=== PATIENT | male | born 1940 | race Caucasian/White ===

== ENCOUNTER 2016-12-02 12:51 | Day surgery (SDC) | payer MEDICARE, BC ==
[~2016-12-02] VITALS: Ht 177.8 cm; Wt 100.0 kg
[~2016-12-02 12:51] MED LIST: AGGR20025 PO; BACI500O2 TOP; CARV3.125 PO; ESCI10TA PO; GABA100C4 PO; IPRASOL NEB; LEVEMIR SQ; LIPI80TA PO; MAXI5O LEFT EYE; MUCI600T PO; NITR0.4S SL; PANT40TA3 PO; PRED10 PO; SPIRCAP INH; THERTAB15 PO
[2016-12-02 13:05] VITALS: BP 149/75; PULSE 92; RESP 20; TEMP 97.7; O2SAT 90
[2016-12-03] MEDS ORDERED: CALC600T13 PO (16:47)
[2016-12-03] MEDS ORDERED: LANTUS2P SQ (16:47)
[2016-12-03] MEDS ORDERED: HUMALOG SQ ×2 (16:47)
[2016-12-03] MEDS ORDERED: VANC250C2 PO (16:47)
== END 2016-12-02 13:40 | disposition home or self-care (01) ==
LOC: HRIP 12:51 → HROP 12:51
PROVIDERS: ATTEND Internal Medicine Nephrology
DX: N18.6 End stage renal disease (principal); Z53.9 Procedure and treatment not carried out, unspecified reason

== ENCOUNTER 2016-12-03 16:04 | Inpatient (IN) | payer MEDICARE, BC ==
[~2016-12-03] VITALS: Ht 177.8 cm; Wt 98.5 kg
[2016-12-03] VITALS (8 sets, daily range): BP systolic 163–179; BP diastolic 70–76; PULSE 84–93; RESP 18–20; TEMP 97.8; O2SAT 81–95
[~2016-12-03 16:04] MED LIST changes: -BACI500O2 TOP; -ESCI10TA PO; -LEVEMIR SQ; -MAXI5O LEFT EYE; -MUCI600T PO; -NITR0.4S SL; -PRED10 PO
--- NOTE | 2016-12-03 16:39 | PD ---
HPI Chief Complaint: Respiratory Symptoms Time Seen by Provider: 16:19 Travel History International Travel<30 days: No Contact w/Intl Traveler<30days: No Traveled to known affect area: No History of Present Illness HPI Patient is a 76-year-old male with hx of DM, HTN, hyperlipidemia, obesity, cataracts, arthritis, peripheral arterial disease, neurogenic bladder, s/p transurethral prostatectomy, COPD, obstructive sleep apnea, and osteoporosis; who presents to emergency room for evaluation of hypoxia. Patient reports that he was discharged on October 28, 2016 after a prolonged admission to the hospital after he was diagnosed on 07/25/16 with sepsis, perforated duodenal ulcer with percutaneous drain, and cellulitis. Patient reports that he return today to the vascular lab to have a follow-up with Dr. Gardner as he had a aortic bifemoral bypass performed by Dr. Gardner at [facility] in July 2015. Patient reports that when his vital signs were taken, he was 81% on room air. Patient reports that he does not wear oxygen at baseline. Patient reports that he does have a history of COPD and sleep apnea, reports that he does wear a CPAP machine at nighttime, he has not used the CPAP and a week and a half as he needed to order a new facemask as the old one was too big for him. Patient reports that for the past 2 days, his had increased shortness of breath. Patient reports that he is increasingly short of breath at nighttime, reports that he brought pulse oximetry at home and has been averaging 73-83% pulse ox on average. Patient with no chest pain at this time, reports shortness of breath at rest as well as on exertion. Patient with no fevers or chills or any other complaints. Patient with no history of PE or DVT in the past. PFSH Past Medical History Arthritis: No Asthma: No Autoimmune Disease: No Anxiety: Yes Depression: Yes Heart Rhythm Problems: No Cancer: No Cardiovascular Problems: No High Cholesterol: No Chemotherapy: No Chest Pain: No Congestive Heart Failure: No COPD: Yes Cerebrovascular Accident: No Diabetes: Yes Patient Takes Glucophage: No Diminished Hearing: No Endocrine: Yes Gastrointestinal Disorders: Yes (duodenal ulcer) GERD: Yes Glaucoma: No Genitourinary: No Hepatitis: No Hiatal Hernia: No Hypertension: Yes Immune Disorder: No Implanted Vascular Access Dvce: Yes Kidney Stones: No Musculoskeletal: No Neurologic: Yes (numbness in fingers) Psychiatric: No Reproductive: No Respiratory: Yes (COPD) Integumentary: No Migraines: No Radiation Therapy: No Renal Failure: Yes Seizures: No Sickle Cell Disease: No Sleep Apnea: Yes Thyroid Disease: No Ulcer: Yes Influenza Vaccination: Yes Past Surgical History Abdominal Surgery: Yes (appendix) AICD: No Appendectomy: Yes Arteriovenous Shunt: No Cardiac Surgery: No Ear Surgery: No Endocrine Surgery: No Eye Surgery: Yes (bilateral cataract, macular pucker) Genitourinary Surgery: No Gynecologic Surgery: No Insulin Pump: No Joint Replacement: No Oral Surgery: No Pacemaker: No Thoracic Surgery: Yes (chest tubes) Other Surgery: Yes (FEMPOP 01, ENDARTERECTOMY BILATERAL FEMORAL ARTERIES) Social History Alcohol Use: No Tobacco Use: No Substance Use: No Allergies-Medications (Allergen,Severity, Reaction): Coded Allergies: Betadine (Verified Allergy, Severe, Rash, 12/03/16) *MDRO Multi-Drug Resistant Organism (Verified Adverse Reaction, Unknown, ) ESBL+K. pneumoniae (urine-08/06/16) Reported Meds & Prescriptions Reported Meds & Active Scripts Active Gabapentin 100 Mg Cap 100 Mg PO BID Coreg (Carvedilol) 3.125 Mg Tab 3.125 Mg PO Q12HR Pantoprazole (Pantoprazole Sodium) 40 Mg Tab 40 Mg PO DAILY 30 Days Lipitor (Atorvastatin Calcium) 80 Mg Tab 80 Mg PO HS Aggrenox (Dipyridamole/Aspirin) 200-25 Mg Cap 1 Cap PO DAILY Thera/Beta-Carotene (Multiple Vitamin) 1 Tab Tab 1 Tab PO DAILY 30 Days Reported Vancomycin (Vancomycin HCl) 250 Mg Cap 500 Mg PO Q6HR Lantus Inj (Insulin Glargine) 100 Unit/Ml Inj 35 Units SQ HS Humalog Inj (Insulin Human Lispro) 1,000 Unit/10 Ml Vial 20 Units SQ DAILY With dinner Humalog Inj (Insulin Human Lispro) 1,000 Unit/10 Ml Vial 8 Units SQ BID With breakfast and lunch Calcium 600 Mg Tab 600 Mg PO DAILY Review of Systems Except as stated in HPI: all other systems reviewed are Neg Respiratory: Positive: Shortness of Breath Physical Exam Narrative GENERAL: hypoxic but conversive SKIN: Warm and dry. HEAD: Atraumatic. Normocephalic. EYES: Pupils equal and round. No scleral icterus. No injection or drainage. ENT: No nasal bleeding or discharge. Mucous membranes pink and moist. NECK: Trachea midline. No JVD. CARDIOVASCULAR: Regular rate and rhythm. No murmur appreciated. RESPIRATORY: No accessory muscle use. Clear to auscultation. Breath sounds equal bilaterally. GASTROINTESTINAL: Abdomen soft, non-tender, nondistended. Hepatic and splenic margins not palpable. MUSCULOSKELETAL: No obvious deformities. No clubbing. No cyanosis. +2 edema to LE b/l NEUROLOGICAL: Awake and alert. No obvious cranial nerve deficits. Motor grossly within normal limits. Normal speech. PSYCHIATRIC: Appropriate mood and affect; insight and judgment normal. Data Data Last Documented VS Vital Signs Date Time Temp Pulse Resp B/P Pulse Ox O2 Delivery O2 Flow Rate FiO2 12/03/16 16:26 95 Nasal Cannula 4 12/03/16 16:23 85 20 12/03/16 16:08 97.8 166/76 Orders Complete Blood Count With Diff (12/03/16 16:28) Comprehensive Metabolic Panel (12/03/16 16:28) B-Type Natriuretic Peptide (12/03/16 16:28) Act Partial Throm Time (Ptt) (12/03/16 16:28) Prothrombin Time / Inr (Pt) (12/03/16 16:28) Magnesium (Mg) (12/03/16 16:28) Ckmb (Isoenzyme) Profile (12/03/16 16:28) Troponin I (12/03/16 16:28) Arterial Blood Gas (Abg) (12/03/16 16:28) Urinalysis - C+S If Indicated (12/03/16 16:28) Iv Access Insert/Monitor (12/03/16 16:28) Electrocardiogram (12/03/16 16:28) Ecg Monitoring (12/03/16 16:28) Oximetry (12/03/16 16:28) Oxygen Administration (12/03/16 16:28) Chest, Single Ap (12/03/16 16:28) Sodium Chloride 0.9% Flush (Ns Flush) (12/03/16 16:30) Us Leg Venous Doppler Bilat (12/03/16 ) Ventilation & Perfusion Scan (12/03/16 ) MDM Medical Decision Making Medical Screen Exam Complete: Yes Emergency Medical Condition: Yes Interpretation(s) Vital Signs Date Time Temp Pulse Resp B/P Pulse Ox O2 Delivery O2 Flow Rate FiO2 12/03/16 16:26 95 Nasal Cannula 4 12/03/16 16:23 85 20 81 12/03/16 16:08 97.8 88 18 166/76 81 Differential Diagnosis PE, DVT, pneumothorax, COPD exacerbation, pneumonia, ACS Narrative Course Patient is a 76-year-old male who presents to emergency room for evaluation of hypoxia. Patient went to Dr. Waldrop's office today for check up as he performed an aortic bifemoral bypass in July 2015. Patient was noted to have a pulse ox of 81% on room air. Patient is complaining of shortness of breath at this time. Patient was placed on a arch support technician, EKG as well as x-ray chest ordered. ABG, labs ordered. Ultrasound of legs as well as VQ scan ordered for evaluation of possible PE/DVT Mary Ellen Black DO Dec 03, 2016 16:39
[2016-12-03] MEDS ORDERED: CALC600T13 PO (16:47)
[2016-12-03] MEDS ORDERED: HUMALOG SQ ×2 (16:47)
[2016-12-03] MEDS ORDERED: VANC250C2 PO (16:47)
[2016-12-03] MEDS ORDERED: LANTUS2P SQ (16:47)
--- NOTE | 2016-12-03 16:58 | RADRPT ---
EXAM DATE/TIME: 12/03/2016 16:53 [facility] COMPARISON: CHEST SINGLE AP, October 11, 2016, 17:05. INDICATIONS : Shortness of breath starting today MEDICAL HISTORY : None. SURGICAL HISTORY : Central line placement ENCOUNTER: Initial ACUITY: 1 day PAIN SCORE: 0/10 LOCATION: Bilateral chest FINDINGS: A single AP erect portable view of the chest was obtained and demonstrates new patchy infiltrate in t he right lung base with mild blunting of the right costophrenic angle. There is stable mild apparent scarring at the left lung base. Atherosclerotic calcifications are present in the aorta. Heart size a t the upper limits of normal. The right-sided double-lumen central venous line remains in place. CONCLUSION: 1. New right lower lobe infiltrate and blunting of the right costophrenic angle consistent with a sma ll effusion. The findings could indicate pneumonia. 2. Mild scarring at the left lung base. Cristian Farnsworth MD on December 03, 2016 at 16:56 Board Certified Radiologist. This report was verified electronically.
--- NOTE | 2016-12-03 17:39 | PD ---
Physical Exam Date Seen by Provider: Dec 03, 2016 Time Seen by Provider: 17:37 Narrative The patient is a 76-year-old male was initially evaluated by the previous physician, Dr. Black. Please refer to the initial history, physical, diagnostic evaluation, and treatment modality plan. The patient was signed out of 5 PM with VQ scan, ABG, and laboratory evaluation pending. The patient was noted to be hypoxic upon arrival with an O2 sat on room air of 81%, is not on home oxygen. Data Data Last Documented VS Vital Signs Date Time Temp Pulse Resp B/P Pulse Ox O2 Delivery O2 Flow Rate FiO2 12/03/16 19:43 84 20 169/74 95 Nasal Cannula 3 12/03/16 16:08 97.8 Orders Complete Blood Count With Diff (12/03/16 16:28) Comprehensive Metabolic Panel (12/03/16 16:28) B-Type Natriuretic Peptide (12/03/16 16:28) Act Partial Throm Time (Ptt) (12/03/16 16:28) Prothrombin Time / Inr (Pt) (12/03/16 16:28) Magnesium (Mg) (12/03/16 16:28) Ckmb (Isoenzyme) Profile (12/03/16 16:28) Troponin I (12/03/16 16:28) Arterial Blood Gas (Abg) (12/03/16 16:28) Urinalysis - C+S If Indicated (12/03/16 16:28) Iv Access Insert/Monitor (12/03/16 16:28) Electrocardiogram (12/03/16 16:28) Ecg Monitoring (12/03/16 16:28) Oximetry (12/03/16 16:28) Oxygen Administration (12/03/16 16:28) Chest, Single Ap (12/03/16 16:28) Sodium Chloride 0.9% Flush (Ns Flush) (12/03/16 16:30) Us Leg Venous Doppler Bilat (12/03/16 ) Ventilation & Perfusion Scan (12/03/16 ) Lactic Acid (12/03/16 17:40) Blood Culture (12/03/16 17:40) Cefepime Inj (Maxipime Inj) (12/03/16 17:45) Azithromycin Inj (Zithromax Inj) (12/03/16 17:45) Enoxaparin Inj (Lovenox Inj) (12/03/16 18:30) Consult Vascular Access Team (12/03/16 ) Vascular Poc Ultrasound (12/03/16 ) Furosemide Inj (Lasix Inj) (12/03/16 22:00) Aspirin Chew (Aspirin Chew) (12/03/16 22:15) Admit Order (Ed Use Only) (12/03/16 22:17) Labs Laboratory Tests Test 12/03/16 20:20 White Blood Count 11.3 TH/MM3 Red Blood Count 3.16 MIL/MM3 Hemoglobin 9.4 GM/DL Hematocrit 29.8 % Mean Corpuscular Volume 94.2 FL Mean Corpuscular Hemoglobin 29.8 PG Mean Corpuscular Hemoglobin 31.7 % Concent Red Cell Distribution Width 19.0 % Platelet Count 378 TH/MM3 Mean Platelet Volume 8.0 FL Neutrophils (%) (Auto) 72.3 % Lymphocytes (%) (Auto) 13.8 % Monocytes (%) (Auto) 11.1 % Eosinophils (%) (Auto) 1.9 % Basophils (%) (Auto) 0.9 % Neutrophils # (Auto) 8.2 TH/MM3 Lymphocytes # (Auto) 1.6 TH/MM3 Monocytes # (Auto) 1.3 TH/MM3 Eosinophils # (Auto) 0.2 TH/MM3 Basophils # (Auto) 0.1 TH/MM3 CBC Comment DIFF FINAL Differential Comment Prothrombin Time 12.1 SEC Prothromb Time International 1.1 RATIO Ratio Activated Partial 32.9 SEC Thromboplast Time Sodium Level 142 MEQ/L Potassium Level 4.5 MEQ/L Chloride Level 107 MEQ/L Carbon Dioxide Level 27.7 MEQ/L Anion Gap 7 MEQ/L Blood Urea Nitrogen 30 MG/DL Creatinine 2.14 MG/DL Estimat Glomerular Filtration 30 ML/MIN Rate Random Glucose 89 MG/DL Lactic Acid Level 1.2 mmol/L Calcium Level 8.8 MG/DL Magnesium Level 1.8 MG/DL Total Bilirubin 0.5 MG/DL Aspartate Amino Transf 19 U/L (AST/SGOT) Alanine Aminotransferase 12 U/L (ALT/SGPT) Alkaline Phosphatase 100 U/L Total Creatine Kinase 71 U/L Troponin I 0.12 NG/ML B-Type Natriuretic Peptide 1354 PG/ML Total Protein 7.5 GM/DL Albumin 2.7 GM/DL [facility] Medical Record Reviewed: Yes Supervised Visit with MILLA: No Interpretation(s) EKG reveals sinus rhythm with a rate 89. Q waves noted in lead V1 and V2. Inverted T waves noted in V3, V4, V5. Laboratory Tests Test 12/03/16 20:20 Prothrombin Time 12.1 SEC Prothromb Time International 1.1 RATIO Ratio Activated Partial 32.9 SEC Thromboplast Time Sodium Level 142 MEQ/L Potassium Level 4.5 MEQ/L Chloride Level 107 MEQ/L Carbon Dioxide Level 27.7 MEQ/L Anion Gap 7 MEQ/L Blood Urea Nitrogen 30 MG/DL Creatinine 2.14 MG/DL Estimat Glomerular Filtration 30 ML/MIN Rate Random Glucose 89 MG/DL Lactic Acid Level 1.2 mmol/L Calcium Level 8.8 MG/DL Magnesium Level 1.8 MG/DL Total Bilirubin 0.5 MG/DL Aspartate Amino Transf 19 U/L (AST/SGOT) Alanine Aminotransferase 12 U/L (ALT/SGPT) Alkaline Phosphatase 100 U/L Total Creatine Kinase 71 U/L Troponin I 0.12 NG/ML B-Type Natriuretic Peptide 1354 PG/ML Total Protein 7.5 GM/DL Albumin 2.7 GM/DL Last Impressions Chest X-Ray 12/03/16 1628 Signed Impressions: Service Date/Time: Saturday, December 03, 2016 16:53 - CONCLUSION: 1. New right lower lobe infiltrate and blunting of the right costophrenic angle consistent with a small effusion. The findings could indicate pneumonia. 2. Mild scarring at the left lung base. Cristian Farnsworth MD Lower Extremity Ultrasound 12/03/16 0000 Signed Impressions: Service Date/Time: Saturday, December 03, 2016 17:01 - CONCLUSION: No evidence of deep venous thrombosis. Cristian Farnsworth MD Differential Diagnosis Differential diagnoses includes pneumonia, pleural effusion, congestive heart failure, pulmonary embolism, sepsis, lactic acidosis, hypoxia. Narrative Course Patient was initially evaluated by the previous physician, Dr. Black. Please refer to the initial history, physical, diagnostic evaluation, treatment modality plan. The patient was signed out at 5 PM with laboratory evaluation, chest x-ray, and VQ scan pending. Chest x-ray indicates a right lower lobe infiltrate and pleural effusion. The patient was recently hospitalized, therefore, was administered cefepime and Zithromax to cover for hospital- acquired pneumonia. Blood cultures and lactic acid were sent to lab prior to cefepime administration. The patient refused his VQ scan, therefore, was covered with Lovenox 100 mg subcutaneously based on weight for acute 24-hour dosing with his creatinine, until further evaluation can be obtained. Ultrasound lower extremities was negative. The patient's creatinine was elevated 2.14, BNP is greater than 1300, troponin was elevated 0.12. Therefore , patient was administered aspirin. However, Lasix was initially held as patient does have a history of previous dialysis with permacath in place. Patient will be admitted as she will need oxygen therapy and consultation with cardiology and possible pulmonology. The patient is advised he may need a workup for possible pulmonary embolism. The patient is agreeable to staying in the hospital overnight. Physician Communication Physician Communication The patient's primary physician is Dr. Cheng, therefore, [facility] were paged for admission. I discussed the patient Dr. Meneses who agrees with admission to Dr. Wyatt. Diagnosis Primary Impression: Congestive heart failure Qualified Code: I50.9 - Congestive heart failure, unspecified congestive heart failure chronicity, unspecified congestive heart failure type Additional Impressions: Dyspnea Qualified Code: R06.00 - Dyspnea, unspecified type Elevated troponin Pneumonia Qualified Code: J18.1 - Pneumonia of right lower lobe due to infectious organism Admitting Information Admitting Physician Requests: Admit Condition: Stable Todd Sampson MD Dec 03, 2016 17:39
[2016-12-03] MEDS ORDERED: AZITHROMYCIN INJ 500 MG in SODIUM CHLOR 0.9% 250 ML INJ 250 ML IV ONE (17:45)
[2016-12-03] MEDS ORDERED: CEFEPIME INJ 2,000 MG in SODIUM CHLORIDE 0.9% INJ 100 ML IV ONE (17:45)
--- NOTE | 2016-12-03 17:49 | RADRPT ---
EXAM DATE/TIME: 12/03/2016 17:01 [facility] COMPARISON: US LEG BILATERAL VENOUS DOPPLER, July 27, 2016, 9:23. INDICATIONS : Bilateral leg swelling. MEDICAL HISTORY : Chronic obstructive pulmonary disease. Gastroesophageal reflux disease. Hypertension. Sleep apnea. Du odenal ulcer. Renal failure. Diabetes. Depression. Anxiety. Measles. Blood transfusion. C.diff. MDRO. SURGICAL HISTORY : Appendectomy. Bilateral femoral endarterectomy. Femoropopliteal bypass. Bilateral cataract removal. M acular surgery. Chest tube placement. ENCOUNTER: Subsequent ACUITY: 4 - 6 months PAIN SCORE: 0/10 LOCATION: Bilateral legs. TECHNIQUE: Venous ultrasound of the left and right leg was performed from the inguinal ligament to the proximal calf. Real-time, color Doppler and spectral tracing, compression and augmentation techniques were us ed. FINDINGS: RIGHT LEG: There is normal compressibility of the deep venous system from the inguinal region to the proximal ca lf. No echogenic clot is seen in the lumen of the common femoral, femoral, popliteal, and posterior tibial veins. There is a normal response of the venous system to proximal and distal augmentation an d respiration. LEFT LEG: There is normal compressibility of the deep venous system from the inguinal region to the proximal ca lf. No echogenic clot is seen in the lumen of the common femoral, femoral, popliteal, and posterior tibial veins. There is a normal response of the venous system to proximal and distal augmentation an d respiration. CONCLUSION: No evidence of deep venous thrombosis. Cristian Farnsworth MD on December 03, 2016 at 17:47 Board Certified Radiologist. This report was verified electronically.
[2016-12-03] MEDS ORDERED: ENOXAPARIN SODIUM 100 MG/ML SYRINGE SQ ONE (18:30)
[2016-12-03 21:13] LABS: AUTOMATED NEUTROPHIL # 8.2 TH/MM3 (1.8-7.7); BASOPHIL # 0.1 TH/MM3 (0-0.2); BASOPHIL % 0.9 % (0.0-2.0); EOSINOPHIL # 0.2 TH/MM3 (0-0.4); EOSINOPHIL % 1.9 % (0.0-4.0); HEMATOCRIT 29.8 % (39.0-51.0); HEMO FLAGS DIFF FINAL; LYMPH % 13.8 % (9.0-44.0); LYMPHOCYTE # 1.6 TH/MM3 (1.0-4.8); MEAN CELL VOLUME 94.2 FL (80.0-100.0); MEAN CORPUSCULAR HEMOGLOBIN 29.8 PG (27.0-34.0); MEAN CORPUSCULAR HGB CONC 31.7 % (32.0-36.0); MONO % 11.1 % (0.0-8.0); NEUT % 72.3 % (16.0-70.0); PLATELET COUNT 378 TH/MM3 (150-450); RED BLOOD COUNT 3.16 MIL/MM3 (4.50-5.90); WHITE BLOOD COUNT 11.3 TH/MM3 (4.0-11.0)
[2016-12-03 21:16] LABS: APTT (PATIENT) 32.9 SEC (24.3-30.1); INTERNATIONAL NORMALIZED RATIO 1.1 RATIO; PROTHROMBIN TIME - PATIENT 12.1 SEC (9.8-11.6)
[2016-12-03 21:20] LABS: ANION GAP 7 MEQ/L (5-15); AST (GOT) 19 U/L (15-37); BICARBONATE 27.7 MEQ/L (21.0-32.0); BLOOD UREA NITROGEN 30 MG/DL (7-18); CHLORIDE 107 MEQ/L (98-107); GLOMERULAR FILTRATION RATE 30 ML/MIN (>89); MAGNESIUM 1.8 MG/DL (1.5-2.5); POTASSIUM 4.5 MEQ/L (3.5-5.1); SODIUM (NA) 142 MEQ/L (136-145)
[2016-12-03 21:25] LABS: ALKALINE PHOSPHATASE 100 U/L (45-117); ALT (GPT) 12 U/L (12-78); TOTAL BILIRUBIN ADULT 0.5 MG/DL (0.2-1.0)
[2016-12-03 21:27] LABS: CREATINE KINASE 71 U/L (39-308)
[2016-12-03] MEDS ORDERED: FUROSEMIDE 40 MG/4 ML VIAL IV PUSH ONE (22:00)
[2016-12-03] MEDS ORDERED: ASPIRIN 81 MG CHEW TAB CHEW ONE (22:15)
[2016-12-03 23:02] LABS: BLOOD, URINE NEG (NEG); COMMENT (UR) CULT NOT INDICATED; CULTURE IF INDICATED CULT NOT INDICATED; GLUCOSE,URINE NEG (NEG); HYALINE CAST, URINE 2 /lpf (RARE); KETONE, URINE NEG (NEG); MUCUS URINE FEW /lpf (OCC); NITRITE,URINE NEG (NEG); SQUAMOUS EPITHELIAL CELL URINE 1 /hpf (0-5); URIC ACID CRYSTALS, URINE RARE /hpf; URINE COLOR YELLOW (YELLW/STRAW)
[2016-12-03] MEDS ORDERED: GLUCAGON 1 MG/ML VIAL OTHER PRN (23:30)
[2016-12-03] MEDS ORDERED: DOXYCYCLINE INJ 100 MG in SODIUM CHLORIDE 0.9% INJ 100 ML IV SCH (23:30)
[2016-12-03] MEDS ORDERED: DEXTROSE 50% IN WATER 50 ML VIAL(D50) IV PUSH PRN (23:30)
[2016-12-04] VITALS (9 sets, daily range): BP systolic 111–151; BP diastolic 54–77; PULSE 74–84; RESP 16–27; TEMP 97.8–98.8; O2SAT 97–100
[2016-12-04] MEDS: PIPERACIL-TAZO 2.25 GM PREMIX 50 ML IV SCH ×3 (02:58→16:40)
[2016-12-04 06:38] LABS: BICARBONATE 22.9 MEQ/L (21.0-32.0)
[2016-12-04] MEDS: INSULIN ASPART SUPPLEMENTAL SCALE SQ SCH ×4 (07:00→21:00)
--- NOTE | 2016-12-04 07:43 | HHI.HP ---
HPI Service [facility] Primary Care Physician Reinier Cheng MD Admission Diagnosis congestive heart failure, hypoxia, dyspnea, elevated troponin Diagnoses: Chief Complaint: Shortness of breath (Stephy Barajas) Travel History International Travel<30 Days: No Contact w/Intl Traveler <30 Da: No Traveled to Known Affected Are: No (Stephy Barajas) History of Present Illness This is a is a 76 year old male, PMH of DM, HTN, hyperlipidemia, obesity, cataracts, arthritis, peripheral arterial disease, neurogenic bladder, s/p transurethral prostatectomy, COPD, obstructive sleep apnea, and osteoporosis. Patient with recent extensive hospitalization on 07/25/16 for management of sepsis, perforated duodenal ulcer with percutaneous drain, and cellulitis. Was diagnosed with an intra-abdominal abscess formation which was drained in radiology. The patient subsequently had a G-tube inserted and a J-tube inserted. He also had a tracheostomy done. He was eventually decannulated and extubated and started eating. Developed ESRD was on hemodialysis. Went to [facility]. Patient readmitted to the hospital on 09/24 from [facility] with clonus, brain MRI showed left-sided 1 cm acute thalamic stroke. Also during this admission, he had upper endoscopy with findings of gastritis and distal esophagus dilatation was performed. He had some hypoxia and required evaluation by pulmonology who recommended to continue oxygen to keep sats greater than 92% and continue CPAP nightly. He went back to [facility] then develop respiratory failure And was transferred back to acute care on 10/10 for acute respiratory failure due to aspiration and mucous plug. He has had G tube and J tube removed. He did return back to [facility] for continue rehabilitation. Patient was discharge from [facility] on 10/28/2016. He is no longer having dialysis, he's not sure when his last treatment was. According to the patient, he was doing fairly well. At this time he is having some difficulty relating information, he is on 100% nonrebreather. Information is obtained from the emergency room record. Patient had been in to see Dr. Waldrop for a vascular follow-up appointment. Patient had history of aortic bifemoral bypass performed at [facility] July 2015. Patient was noted with sats of 81% on room air. Patient was not wearing any oxygen at home. He uses CPAP at night, however he had not used it for almost a week as the face mask did not fit him very well and he had order a new one. Patient endorses that he's noted increased shortness of breath for the last 2 days, denies any cough, no sputum. No fever no chills. He reported to emergency room physician that pulse ox at home have been averaging 73-83%. In the emergency room, patient was evaluated and was noted with sats of 81%. Chest x-ray was completed showing new right lower lobe infiltrate and blunting of the right costophrenic angle consistent with small effusion, findings could indicate pneumonia. Also mild scarring at the left lung base. Lower extremity ultrasound was negative for DVT. Because of concern with possible PE he was given Lovenox 100 mg subcutaneous. Empiric antibiotics were given and cultures were obtained. Troponin was elevated, 0.12. Creatinine was 2.14. Lasix 40 mg IV 1 was given. Patient was fluid in the observation unit while waiting for eye inpatient bed. I was called to the bedside by the nurse caring for the patient. ABGs were completed and patient was noted with respiratory acidosis. PH 7.19, PCO2 67.6, PO2 42.1, bicarbonate 25.1. Respiratory therapist has been call in a BiPAP is being set up in the ICU. I have called the nursing hotel or motel cleaning supervisor stat and requested that the patient be moved immediately to an ICU bed. Patient is admitted for further evaluation and treatment. (Stephy Barajas) Review of Systems ROS Limitations: Clinical Condition Respiratory: COMPLAINS OF: Shortness of breath (Stephy Barajas) Past Family Social History Past Medical History Recent protracted admission for perforated peptic ulcer Recent septic shock Recent abdominal abscess status post catheter drainage Diabetes Cataract COPD Sleep apnea Renal failure recently stopped having dialysis Anxiety Depression Past Surgical History Tracheostomy, later closed Catheter drainage of abdominal abscess, catheter removed Gastrostomy Jejunostomy Cataract surgery Appendectomy Circumcision TURP Reported Medications Reported Meds & Active Scripts Active Gabapentin 100 Mg Cap 100 Mg PO BID Coreg (Carvedilol) 3.125 Mg Tab 3.125 Mg PO Q12HR Pantoprazole (Pantoprazole Sodium) 40 Mg Tab 40 Mg PO DAILY 30 Days Lipitor (Atorvastatin Calcium) 80 Mg Tab 80 Mg PO HS Aggrenox (Dipyridamole/Aspirin) 200-25 Mg Cap 1 Cap PO DAILY Thera/Beta-Carotene (Multiple Vitamin) 1 Tab Tab 1 Tab PO DAILY 30 Days Reported Vancomycin (Vancomycin HCl) 250 Mg Cap 500 Mg PO Q6HR Lantus Inj (Insulin Glargine) 100 Unit/Ml Inj 35 Units SQ HS Humalog Inj (Insulin Human Lispro) 1,000 Unit/10 Ml Vial 20 Units SQ DAILY With dinner Humalog Inj (Insulin Human Lispro) 1,000 Unit/10 Ml Vial 8 Units SQ BID With breakfast and lunch Calcium 600 Mg Tab 600 Mg PO DAILY (Stephy Barajas) Allergies: Coded Allergies: Betadine (Verified Allergy, Severe, Rash, 12/03/16) *MDRO Multi-Drug Resistant Organism (Verified Adverse Reaction, Unknown, ) ESBL+K. pneumoniae (urine-08/06/16) Active Ordered Medications Inpatient Medications Aspirin (Aspirin Chew) 162 mg ONCE ONCE CHEW Last administered on 12/03/16 22 :45; Start 12/03/16 at 22:15; Stop 12/03/16 at 22:16; Status DC Atorvastatin Calcium (Lipitor) 80 mg HS PO ; Start 12/04/16 at 21:00 Azithromycin/ Sodium Chloride (Zithromax Inj/ NS 250 ml Inj) 250 ml @ 250 mls/ hr ONCE ONCE IV Last administered on 12/03/16 21:03; Start 12/03/16 at 17:45 ; Stop 12/03/16 at 18:44; Status DC Carvedilol (Coreg) 3.125 mg Q12HR PO ; Start 12/04/16 at 09:00 Cefepime HCl 2000 mg/Sodium Chloride 100 ml @ 200 mls/hr ONCE ONCE IV Last administered on 12/03/16 22:12; Start 12/03/16 at 17:45; Stop 12/03/16 at 18:14 ; Status DC Dextrose (D50w (Vial) Inj) 25 ml UNSCH PRN IV PUSH HYPOGLYCEMIA-SEE COMMENTS; Start 12/03/16 at 23:30 Dipyridamole/ Aspirin (Aggrenox 200-25 Mg) 1 cap DAILY PO ; Start 12/04/16 at 09 :00 Doxycycline Hyclate/Sodium Chloride (Vibramycin Inj/ NS Inj) 100 ml @ 100 mls/ hr Q12H IV Last administered on 12/04/16 01:56; Start 12/03/16 at 23:30 Enoxaparin Sodium (Lovenox Inj) 100 mg ONCE ONCE SQ Last administered on 21:02; Start 12/03/16 at 18:30; Stop 12/03/16 at 18:31; Status DC Furosemide (Lasix Inj) 40 mg ONCE ONCE IV PUSH Last administered on 12/03/16 22:45; Start 12/03/16 at 22:00; Stop 12/03/16 at 22:01; Status DC Furosemide 40 mg 40 mg BID@09,18 IV PUSH ; Start 12/04/16 at 09:00 Gabapentin (Neurontin) 100 mg BID PO ; Start 12/04/16 at 09:00 Glucagon (Glucagon Inj) 1 mg UNSCH PRN OTHER HYPOGLYCEMIA-SEE COMMENTS; Start 12/03/16 at 23:30 Insulin Aspart (NovoLOG SUPPLEMENTAL SCALE) 1 ACHS SLIDING SCALE SQ ; Start at 07:00 Insulin Detemir (Levemir Inj) 35 units HS SQ ; Start 12/04/16 at 21:00 IV Flush 2 ml 2 ml UNSCH PRN IVF FLUSH AFTER USING IV ACCESS; Start 12/03/16 at 16:30 Pantoprazole Sodium (Protonix) 40 mg DAILY PO ; Start 12/04/16 at 09:00 Piperacillin Sod/ Tazobactam Sod 50 ml @ 100 mls/hr Q8H IV Last administered on 12/04/16 02:58; Start 12/04/16 at 01:00 Family History Reviewed noncontributory Social History Patient is , lives at home with . (Stephy Barajas) Physical Exam Vital Signs Vital Signs Date Time Temp Pulse Resp B/P Pulse Ox O2 Delivery O2 Flow Rate FiO2 12/04/16 05:17 98.0 78 18 151/77 98 12/03/16 22:22 93 20 163/70 94 Nasal Cannula 3 12/03/16 21:15 92 20 168/73 92 Nasal Cannula 3 12/03/16 20:30 92 20 179/73 91 Nasal Cannula 3 12/03/16 19:43 84 20 169/74 95 Nasal Cannula 3 12/03/16 18:43 87 20 164/75 90 Nasal Cannula 3 12/03/16 18:43 90 Nasal Cannula 3 12/03/16 16:26 95 Nasal Cannula 4 12/03/16 16:23 85 20 81 12/03/16 16:08 97.8 88 18 166/76 81 Physical Exam GENERAL: This is a well-nourished, well-developed patient, tachypneic, on 100% nonrebreather sitting upright. SKIN: No rashes, ecchymoses or lesions. Cool and dry. HEAD: Atraumatic. Normocephalic. No temporal or scalp tenderness. EYES: Pupils equal round and reactive. Extraocular motions intact. No scleral icterus. No injection or drainage. ENT: Nose without bleeding, purulent drainage or septal hematoma. Throat without erythema, tonsillar hypertrophy or exudate. Uvula midline. Airway patent. NECK: Trachea midline. No JVD or lymphadenopathy. Supple, nontender, no meningeal signs. CARDIOVASCULAR: S1-S2, unable to detect any murmurs rubs or gallops. Right chest wall is noted with permacath. RESPIRATORY: Diminished, bibasilar Rales GASTROINTESTINAL: Abdomen soft, non-tender, nondistended. No hepato-splenomegaly , or palpable masses. No guarding. MUSCULOSKELETAL: Extremities without clubbing, cyanosis. No joint tenderness, effusion, or edema noted. No calf tenderness. Negative Homans sign bilaterally. Bilateral lower extremities noted with +1 edema, pedal pulses 1+ bilaterally. Patient is noted with a right heel ulcerated area that is dry, no exudate, appears to be healing well. There is a small scabbed area to the right lateral aspect of the right foot. NEUROLOGICAL: Awake, alert oriented 3. No focal deficits. Following simple commands Laboratory Laboratory Tests Test 12/03/16 12/03/16 12/04/16 20:20 22:00 05:27 White Blood Count 11.3 Red Blood Count 3.16 Hemoglobin 9.4 Hematocrit 29.8 Mean Corpuscular Volume 94.2 Mean Corpuscular Hemoglobin 29.8 Mean Corpuscular Hemoglobin 31.7 Concent Red Cell Distribution Width 19.0 Platelet Count 378 Mean Platelet Volume 8.0 Neutrophils (%) (Auto) 72.3 Lymphocytes (%) (Auto) 13.8 Monocytes (%) (Auto) 11.1 Eosinophils (%) (Auto) 1.9 Basophils (%) (Auto) 0.9 Neutrophils # (Auto) 8.2 Lymphocytes # (Auto) 1.6 Monocytes # (Auto) 1.3 Eosinophils # (Auto) 0.2 Basophils # (Auto) 0.1 CBC Comment DIFF FINAL Differential Comment Prothrombin Time 12.1 Prothromb Time International 1.1 Ratio Activated Partial 32.9 Thromboplast Time Sodium Level 142 140 Potassium Level 4.5 6.0 Chloride Level 107 107 Carbon Dioxide Level 27.7 22.9 Anion Gap 7 10 Blood Urea Nitrogen 30 35 Creatinine 2.14 2.15 Estimat Glomerular Filtration 30 30 Rate Random Glucose 89 90 Lactic Acid Level 1.2 Calcium Level 8.8 8.4 Magnesium Level 1.8 Total Bilirubin 0.5 Aspartate Amino Transf 19 (AST/SGOT) Alanine Aminotransferase 12 (ALT/SGPT) Alkaline Phosphatase 100 Total Creatine Kinase 71 Troponin I 0.12 B-Type Natriuretic Peptide 1354 Total Protein 7.5 Albumin 2.7 Urine Color YELLOW Urine Turbidity HAZY Urine pH 5.0 Urine Specific [place] 1.019 Urine Protein 30 Urine Glucose (UA) NEG Urine Ketones NEG Urine Occult Blood NEG Urine Nitrite NEG Urine Bilirubin NEG Urine Urobilinogen LESS THAN 2.0 Urine Leukocyte Esterase TRACE Urine RBC 2 Urine WBC 2 Urine Squamous Epithelial 1 Cells Urine Uric Acid Crystals RARE Urine Hyaline Casts 2 Urine Mucus FEW Microscopic Urinalysis Comment CULT NOT INDICATED Date/Time Procedure Status Source Growth 12/03/16 20:25 Aerobic Blood Culture Received Blood Peripheral Pending 12/03/16 20:25 Anaerobic Blood Culture Received Blood Peripheral Pending (Stephy Barajas) Result Diagram: 12/03/16201912/04/16 0527 Imaging Last Impressions Chest X-Ray 12/03/16 1628 Signed Impressions: Service Date/Time: Saturday, December 03, 2016 16:53 - CONCLUSION: 1. New right lower lobe infiltrate and blunting of the right costophrenic angle consistent with a small effusion. The findings could indicate pneumonia. 2. Mild scarring at the left lung base. Cristian Farnsworth MD Lower Extremity Ultrasound 12/03/16 0000 Signed Impressions: Service Date/Time: Saturday, December 03, 2016 17:01 - CONCLUSION: No evidence of deep venous thrombosis. Cristian Farnsworth MD (Stephy Barajas) Assessment and Plan Problem List: (1) Respiratory failure (2) Congestive heart failure (3) Pneumonia (4) Chronic kidney disease (CKD) (5) Hypertension (6) Elevated troponin (7) COPD (chronic obstructive pulmonary disease) (8) History of CVA (cerebrovascular accident) (9) PVD (peripheral vascular disease) (10) Hyperlipidemia (11) Hyperkalemia (12) Diabetes 1.5, managed as type 2 Assessment and Plan Admit to Dr. Wyatt 76-year-old female with recent extensive hospitalizations for perforated duodenal ulcer, sepsis, respiratory failure with tracheostomy, CVA, acute renal injury that led to CK D requiring hemodialysis. Patient presented to the emergency room with hypoxia and shortness of breath, chest x-ray completed with findings of possible congestive heart failure and pneumonia. Acute respiratory failure -Patient to be placed on BiPAP Consult pulmonology for evaluation We will give Solu-Medrol 1251 now, continue with 40 mg IV every 8 -Continue with DuoNeb's -If patient does not improve, he may require intubation Pneumonia, right lower lobe infiltrate Continue with empiric antibiotics Follow cultures Chronic kidney disease, was on hemodialysis until approximately 2 weeks ago. Still has permacath in place. Patient now and renal recovery, making urine. Renal function has markedly improved. Noted with hyperkalemia Monitor urine output strictly, we will have nursing insert Abdalla catheter Consult nephrology for evaluation -Repeat BMP, we will treat hyperkalemia Acute CHF Continue Lasix 40 mg IV twice a day Monitor intake and output -Abdalla catheter to be inserted -Patient had a recent echocardiogram in September, EF 55-60%.. Repeat 2-D echo Elevated troponin, likely secondary to CHF, chronic kidney disease -Continue to monitor Repeat troponin -Continue with statins, Coreg Diabetes type 2 Accu-Cheks before meals and at bedtime with insulin therapy as needed History of recent CVA Continue with Aggrenox PVD Continue home medications Hypertension Continue home medications Hyperlipidemia Continue with statins Home medications reviewed, initiated as indicated Heparin 5000 units subcutaneous twice a day for DVT prophylaxis Plan of care has been discussed with the patient, attending and registered nurse. Further management of the patient will be dependent on the hospital course Patient's condition is guarded. This patient was seen by myself and Dr. Wyatt, this H&P is written on his behalf (Stephy Barajas) Assessment and Plan Pt aeen and examined in detail as above chart was reviewed dw pt's at bedside richard rn richard beal about plan of care (Julius Wyatt MD) Physician Certification 2 Midnight Certification Type: Admission for Inpatient Services Order for Inpatient Services The services are ordered in accordance with Medicare regulations or non- Medicare payer requirements, as applicable. In the case of services not specified as inpatient-only, they are appropriately provided as inpatient services in accordance with the 2-midnight benchmark. Estimated LOS (days): 2 2 days is the estimated time the patient will need to remain in the hospital, assuming treatment plan goals are met and no additional complications. Post-Hospital Plan: Not yet determined (Stephy Barajas) Problem Qualifiers (1) Respiratory failure: Qualified Code: J96.22 - Acute on chronic respiratory failure with hypercapnia (2) Congestive heart failure: Qualified Code: I50.9 - Congestive heart failure, unspecified congestive heart failure chronicity, unspecified congestive heart failure type (3) Pneumonia: Qualified Code: J18.1 - Pneumonia of right lower lobe due to infectious organism (4) Chronic kidney disease (CKD): Qualified Code: N18.3 - Chronic kidney disease (CKD), stage 3 (moderate) (5) Hypertension: Qualified Code: I10 - Essential hypertension (6) COPD (chronic obstructive pulmonary disease): Qualified Code: J44.9 - Chronic obstructive pulmonary disease, unspecified COPD type (7) Hyperlipidemia: Qualified Code: E78.5 - Hyperlipidemia, unspecified hyperlipidemia type Stephy Barajas Dec 04, 2016 07:43 Julius Wyatt MD Dec 04, 2016 21:40
[2016-12-04] MEDS ORDERED: methylPREDNISolone SOD SUCC 125 MG/2 ML VIAL IV PUSH ONE (07:45)
[2016-12-04] MEDS: RESP: ALBUTEROL 2.5 MG/IPRATROPIUM 0.5 MG NEB (SCH) NEB ×4 (08:00→20:39)
[2016-12-04] MEDS: DIPYRIDAMOLE/ASPIRIN 200 MG/25 MG CAP PO SCH (09:00)
[2016-12-04] MEDS ORDERED: FUROSEMIDE 40 MG/4 ML VIAL IV PUSH SCH (09:00)
[2016-12-04] MEDS: CARVEDILOL 3.125 MG TAB PO SCH ×2 (09:26→23:06)
[2016-12-04] MEDS: PANTOPRAZOLE SOD 40 MG DELAYED RELEASE TAB PO SCH (09:27)
[2016-12-04] MEDS: GABAPENTIN 100 MG CAP PO SCH ×2 (09:27→21:00)
[2016-12-04] MEDS: RESP: ALBUTEROL 2.5 MG/IPRATROPIUM 0.5 MG NEB (PRN) NEB (10:34)
[2016-12-04] MEDS ORDERED: SODIUM POLYSTYRENE SULFONATE SUSP 15 GM/60 ML CUP PO ONE (11:45)
[2016-12-04] MEDS ORDERED: SODIUM BICARBONATE 8.4% INJ 50 MEQ/50 ML SYR IV ONE (11:45)
[2016-12-04] MEDS ORDERED: CALCIUM GLUCONATE INJ 1 GM in SODIUM CHLORIDE 0.9% INJ 100 ML IV ONE (12:00)
[2016-12-04 12:19] LABS: BLOOD GAS HCO3 25 mmol/L (22-26); BLOOD GAS METHEMOGLOBIN 1.9 % (0-2); BLOOD GAS O2 HGB SATURATION 65 % (90-100); BLOOD GAS PCO2 68 mmHg (38-42); BLOOD GAS PO2 42 mmHG (61-120); BLOOD GAS TOTAL HGB 9.9 G/DL (12.0-16.0); TEMP CORR TO 98.6
[2016-12-04 12:20] LABS: CRITICAL VALUE YES
[2016-12-04 12:21] LABS: DRAW SITE RT RADIAL; FIO2 21 %; NUMBER OF ARTERIAL PUNCTURES 1; STAT NO; ULNAR PULSE PRESENT
[2016-12-04 13:13] LABS: BICARBONATE 26.6 MEQ/L (21.0-32.0); POTASSIUM 5.5 MEQ/L (3.5-5.1)
--- NOTE | 2016-12-04 13:21 | PD.CONS ---
HPI Service Nephrology Consult Requested By Dr. Wyatt Reason for Consult Chronic kidney disease Primary Care Physician Reinier Cheng MD History of Present Illness Patient is a 76-year-old male with history of hypertension, diabetes, chronic kidney disease, acute renal failure he recovered his kidney functions and was off dialysis for the past 10 days, he developed C. difficile colitis was placed on vancomycin and now he is admitted to the with increasing shortness of breath COPD Hx of preservation he is passing urine his creatinine has been stable with potassium went up to 6 this was treated medically received Kayexalate and sodium bicarbonate, I been consulted to assist in his renal function, Dr. Antoine saw him recently and he was supposed to get his PermCath taken out on Tuesday. Review of Systems Constitutional: COMPLAINS OF: Fatigue Respiratory: COMPLAINS OF: Shortness of breath Gastrointestinal: COMPLAINS OF: Diarrhea Psychiatric: COMPLAINS OF: Anxiety Past Family Social History Allergies: Coded Allergies: Betadine (Verified Allergy, Severe, Rash, 12/03/16) *MDRO Multi-Drug Resistant Organism (Verified Adverse Reaction, Unknown, ) ESBL+K. pneumoniae (urine-08/06/16) Past Medical History Diabetes Hypertension Chronic kidney disease C. difficile colitis Anemia History of recurrent hemodialysis PermCath insertion GI bleed Peptic ulcer disease Peripheral vascular Past Surgical History Bilateral vascular bypass Appendectomy Reported Medications Reported Meds & Active Scripts Active Gabapentin 100 Mg Cap 100 Mg PO BID Coreg (Carvedilol) 3.125 Mg Tab 3.125 Mg PO Q12HR Pantoprazole (Pantoprazole Sodium) 40 Mg Tab 40 Mg PO DAILY 30 Days Lipitor (Atorvastatin Calcium) 80 Mg Tab 80 Mg PO HS Aggrenox (Dipyridamole/Aspirin) 200-25 Mg Cap 1 Cap PO DAILY Thera/Beta-Carotene (Multiple Vitamin) 1 Tab Tab 1 Tab PO DAILY 30 Days Reported Vancomycin (Vancomycin HCl) 250 Mg Cap 500 Mg PO Q6HR Lantus Inj (Insulin Glargine) 100 Unit/Ml Inj 35 Units SQ HS Humalog Inj (Insulin Human Lispro) 1,000 Unit/10 Ml Vial 20 Units SQ DAILY With dinner Humalog Inj (Insulin Human Lispro) 1,000 Unit/10 Ml Vial 8 Units SQ BID With breakfast and lunch Calcium 600 Mg Tab 600 Mg PO DAILY Active Ordered Medications Current Medications Medications (Trade) Dose Ordered Sig/Hilaria Route Start Time Stop Time Status Last Admin (NS Flush) 2 ml UNSCH PRN IVF 12/03/16 16:30 (Lipitor) 80 mg HS PO 12/04/16 21:00 (Coreg) 3.125 mg Q12HR PO 12/04/16 09:00 12/04/16 09:26 (Aggrenox 200-25 Mg) 1 cap DAILY PO 12/04/16 09:00 (Neurontin) 100 mg BID PO 12/04/16 09:00 12/04/16 09:27 (Levemir Inj) 35 units HS SQ 12/04/16 21:00 (Protonix) 40 mg DAILY PO 12/04/16 09:00 12/04/16 09:27 (D50w (Vial) Inj) 25 ml UNSCH PRN IV PUSH 12/03/16 23:30 (Glucagon Inj) 1 mg UNSCH PRN OTHER 12/03/16 23:30 Furosemide 40 mg 40 mg BID@09,18 IV PUSH 12/04/16 09:00 12/04/16 09:26 (Zosyn 2.25 Gm Premix) 50 ml @ 100 mls/hr Q8H IV 12/04/16 01:00 12/04/16 09:26 Heparin Sodium (Porcine) 5000 units 5,000 units Q12HR SQ 12/04/16 21:00 (Vibramycin Inj/ NS Inj) 100 ml @ 100 mls/hr Q12H IV 12/04/16 14:00 Family History Noncontributory Social History He used to smoke in the past denies alcohol Physical Exam Vital Signs Vital Signs Date Time Temp Pulse Resp B/P Pulse Ox O2 Delivery O2 Flow Rate FiO2 12/04/16 12:00 98.6 78 16 136/62 97 12/04/16 11:32 98 40 12/04/16 08:25 100 BiPAP 50 12/04/16 08:25 100 50 12/04/16 08:15 98.8 84 27 150/70 100 12/04/16 05:17 98.0 78 18 151/77 98 12/03/16 22:22 93 20 163/70 94 Nasal Cannula 3 12/03/16 21:15 92 20 168/73 92 Nasal Cannula 3 12/03/16 20:30 92 20 179/73 91 Nasal Cannula 3 12/03/16 19:43 84 20 169/74 95 Nasal Cannula 3 12/03/16 18:43 87 20 164/75 90 Nasal Cannula 3 12/03/16 18:43 90 Nasal Cannula 3 12/03/16 16:26 95 Nasal Cannula 4 12/03/16 16:23 85 20 81 12/03/16 16:08 97.8 88 18 166/76 81 Physical Exam GENERAL: Well-nourished, well-developed patient. SKIN: Warm and dry. HEAD: Normocephalic. EYES: No scleral icterus. No injection or drainage. NECK: Supple, trachea midline. No JVD or lymphadenopathy. CARDIOVASCULAR: S1 and S2 irregularly irregular RESPIRATORY: Breath sounds diminished at bases GASTROINTESTINAL: Abdomen soft, non-tender, nondistended. EXTREMITIES: No cyanosis, or edema. NEUROLOGICAL: Awake, alert, and oriented x 3. Non-focal. Laboratory Laboratory Tests Test 12/03/16 12/03/16 12/04/16 12/04/16 20:20 22:00 05:27 06:45 White Blood Count 11.3 Red Blood Count 3.16 Hemoglobin 9.4 Hematocrit 29.8 Mean Corpuscular Volume 94.2 Mean Corpuscular Hemoglobin 29.8 Mean Corpuscular Hemoglobin 31.7 Concent Red Cell Distribution Width 19.0 Platelet Count 378 Mean Platelet Volume 8.0 Neutrophils (%) (Auto) 72.3 Lymphocytes (%) (Auto) 13.8 Monocytes (%) (Auto) 11.1 Eosinophils (%) (Auto) 1.9 Basophils (%) (Auto) 0.9 Neutrophils # (Auto) 8.2 Lymphocytes # (Auto) 1.6 Monocytes # (Auto) 1.3 Eosinophils # (Auto) 0.2 Basophils # (Auto) 0.1 CBC Comment DIFF FINAL Differential Comment Prothrombin Time 12.1 Prothromb Time International 1.1 Ratio Activated Partial 32.9 Thromboplast Time Sodium Level 142 140 Potassium Level 4.5 6.0 Chloride Level 107 107 Carbon Dioxide Level 27.7 22.9 Anion Gap 7 10 Blood Urea Nitrogen 30 35 Creatinine 2.14 2.15 Estimat Glomerular Filtration 30 30 Rate Random Glucose 89 90 Lactic Acid Level 1.2 Calcium Level 8.8 8.4 Magnesium Level 1.8 Total Bilirubin 0.5 Aspartate Amino Transf 19 (AST/SGOT) Alanine Aminotransferase 12 (ALT/SGPT) Alkaline Phosphatase 100 Total Creatine Kinase 71 Troponin I 0.12 B-Type Natriuretic Peptide 1354 Total Protein 7.5 Albumin 2.7 Urine Color YELLOW Urine Turbidity HAZY Urine pH 5.0 Urine Specific [place] 1.019 Urine Protein 30 Urine Glucose (UA) NEG Urine Ketones NEG Urine Occult Blood NEG Urine Nitrite NEG Urine Bilirubin NEG Urine Urobilinogen LESS THAN 2.0 Urine Leukocyte Esterase TRACE Urine RBC 2 Urine WBC 2 Urine Squamous Epithelial 1 Cells Urine Uric Acid Crystals RARE Urine Hyaline Casts 2 Urine Mucus FEW Microscopic Urinalysis Comment CULT NOT INDICATED Blood Gas Puncture Site RT RADIAL Blood Gas Patient Temperature 98.6 Blood Gas HCO3 25 Blood Gas Base Excess -2.0 Blood Gas Oxygen Saturation 65 Arterial Blood pH 7.20 Arterial Blood Partial 68 Pressure CO2 Arterial Blood Partial 42 Pressure O2 Arterial Blood Oxygen Content 9.0 Arterial Blood 3.0 Carboxyhemoglobin Arterial Blood Methemoglobin 1.9 Blood Gas Hemoglobin 9.9 Blood Gas Inspired Oxygen 21 Date/Time Procedure Status Source Growth 12/03/16 20:25 Aerobic Blood Culture - Preliminary Resulted Blood Peripheral NO GROWTH IN 1 DAY 12/03/16 20:25 Anaerobic Blood Culture - Preliminary Resulted Blood Peripheral NO GROWTH IN 1 DAY Result Diagram: 12/03/16201912/04/16 0527 Imaging Last Impressions Chest X-Ray 12/03/16 1628 Signed Impressions: Service Date/Time: Saturday, December 03, 2016 16:53 - CONCLUSION: 1. New right lower lobe infiltrate and blunting of the right costophrenic angle consistent with a small effusion. The findings could indicate pneumonia. 2. Mild scarring at the left lung base. Cristian Farnsworth MD Lower Extremity Ultrasound 12/03/16 0000 Signed Impressions: Service Date/Time: Saturday, December 03, 2016 17:01 - CONCLUSION: No evidence of deep venous thrombosis. Cristian Farnsworth MD Assessment and Plan Problem List: (1) Chronic kidney disease (CKD) Plan: Patient GFR is at 30, his potassium was high and this was treated, I will continue with Lasix 40 mg IV twice a day Monitor BMP (2) Congestive heart failure Plan: Continue with diuretics (3) Pneumonia Plan: Plan on antibiotics he has recent history of C. difficile continue with vancomycin orally (4) COPD (chronic obstructive pulmonary disease) Plan: Continue to monitor (5) Metabolic encephalopathy Plan: Monitor Problem Qualifiers (1) Chronic kidney disease (CKD): Qualified Code: N18.3 - Chronic kidney disease (CKD), stage 3 (moderate) (2) Congestive heart failure: Qualified Code: I50.9 - Congestive heart failure, unspecified congestive heart failure chronicity, unspecified congestive heart failure type (3) Pneumonia: Qualified Code: J18.1 - Pneumonia of right lower lobe due to infectious organism Jax Mcginnis MD Dec 04, 2016 13:21
[2016-12-04] MEDS: DOXYCYCLINE INJ 100 MG in SODIUM CHLORIDE 0.9% INJ 100 ML IV SCH (13:37)
--- NOTE | 2016-12-04 13:57 | MB ---
cc: SALVADOR FRANCO M.D. DATE OF CONSULTATION: 12/04/2016. REASON FOR CONSULTATION: Respiratory failure, pneumonia. HISTORY OF PRESENT ILLNESS: Mr. Payan is a 76-year-old male who is known to me in the past. He has a history of COPD as well as obstructive sleep apnea. He uses BiPAP therapy while sleeping. He has not been able to use it for a few weeks because of lack of supplies. The patient is admitted with increasing shortness of breath. No cough. No expectoration. No hemoptysis. He has no previous history of TB or industrial exposure. The patient is now on BiPAP therapy to maintain oxygen saturation over 90%. PAST MEDICAL HISTORY: His past medical history is that of: 1. Diabetes mellitus. 2. Hypertension. 3. Hyperlipidemia. 4. Degenerative disc disease. 5. Peripheral vascular disease. 6. Degenerative joint disease. 7. Had a TURP in the past. 8. Aortic bifemoral bypass surgery in the past. MEDICATIONS: His medications at home include: 1. Gabapentin. 2. Coreg. 3. Pantoprazole. 4. Lipitor. 5. Aggrenox. 6. Vitamin tablet. 7. Insulin. ALLERGIES: 1. BETADINE. FAMILY HISTORY: Noncontributory. SOCIAL HISTORY: Remote smoking history, does not smoke at present. Does not drink any alcohol. No history of drug use. REVIEW OF SYSTEMS: A twelve-point review of systems is as per the history of present illness and past history, otherwise negative. PHYSICAL EXAMINATION: VITAL SIGNS: On exam, temperature 98.6, pulse 80, respirations 18, blood pressure 130/60, oxygen saturation 97% on BiPAP therapy. HEAD, EYES, EARS, NOSE, THROAT: Unremarkable. Eyes without icterus. NECK: Without adenopathy, thyroid enlargement. CHEST: A few scattered rhonchi at bases. CARDIAC: PMI distant. S1 and S2 audible. 1/6 systolic ejection murmur at the left sternal border. ABDOMEN: Lax. Bowel sounds audible. EXTREMITIES: No cyanosis, clubbing or edema. LABORATORY STUDIES: White count 11,000, hemoglobin 9, hematocrit 29, platelets 378,00. Sodium 140, potassium is 6.0, BUN 35, creatinine 2.1. Arterial blood gas upon presentation: pH 7.20, pCO2 68, pO2 42. White count 11,000, hemoglobin 9.4, hematocrit 29. IMAGING STUDIES: Chest x-ray with a right lower lung infiltrate and small effusion. Ultrasound of the lower extremities shows no DVT. IMPRESSION: 1. Acute hypoxic and hypercarbic respiratory failure. 2. Right lower lobe pneumonia. 3. COPD. 4. Congestive heart failure. 5. Peripheral vascular disease. 6. Diabetes mellitus. PLAN: 1. The patient will require BiPAP therapy at present to maintain his oxygenation and improve his ventilation. 2. Antibiotic therapy for underlying pneumonia would be appropriate as well, which has been initiated. 3. He has been admitted to the intensive care unit and close observation will be undertaken. 4. Intubation and mechanical ventilation will be given if needed. 5. Bronchodilator therapy for underlying COPD will be given as well. I do thank you for asking me to partake in Mr. Payan' care. Salvador Franco MD [facility] /1:08 PM /1:36 PM
[2016-12-04] MEDS: ALPRAZolam 0.25 MG TAB PO PRN (14:28)
--- NOTE | 2016-12-04 16:23 | EKG ---
Date Performed: 12/03/2016 Time Performed: 18:36:24 PTAGE: 76 years EKG: Sinus rhythm POSSIBLE LEFT ATRIAL ENLARGEMENT POSSIBLE ANTEROSEPTAL MYOCARDIAL INFARCTION, AGE UNDETERMINED NONSP ECIFIC ST-T CHANGE Compared to PREVIOUS TRACING , the ST-T changes anteriorly are new ABNORMAL ECG INTERPRETATION BASED ON A DEFAULT AGE OF 40 YEARS PREVIOUS TRACIN09/30/2016 13.19 DOCTOR: Dominick Wilson Interpretating Date/Time 12/04/2016 16:21:48
[2016-12-04] MEDS: FUROSEMIDE 40 MG/4 ML VIAL IV PUSH SCH (18:22)
[2016-12-04] MEDS: VANCOMYCIN 500 MG VIAL (FOR ORAL USE ONLY) PO SCH ×2 (18:22→23:07)
[2016-12-04] MEDS: ATORVASTATIN 80 MG TAB PO SCH (23:06)
[2016-12-04] MEDS: HEPARIN SODIUM - SQ 10,000 UNITS/ML VIAL SQ SCH (23:07)
[2016-12-04] MEDS: INSULIN DETEMIR 100 UNITS/ML VIAL SQ SCH (23:08)
[2016-12-04] MEDS: methylPREDNISolone SOD SUCC 40 MG/1 ML VIAL IV PUSH SCH (23:08)
[2016-12-05] VITALS (12 sets, daily range): BP systolic 114–160; BP diastolic 59–75; PULSE 81–97; RESP 18–32; TEMP 97.4–98.3; O2SAT 91–98
[2016-12-05] MEDS: PIPERACIL-TAZO 2.25 GM PREMIX 50 ML IV SCH ×3 (02:42→18:34)
[2016-12-05] MEDS: DOXYCYCLINE INJ 100 MG in SODIUM CHLORIDE 0.9% INJ 100 ML IV SCH ×2 (02:43→15:56)
[2016-12-05 05:32] LABS: BICARBONATE 25.2 MEQ/L (21.0-32.0)
[2016-12-05 05:33] LABS: POTASSIUM 5.8 MEQ/L (3.5-5.1)
[2016-12-05] MEDS: methylPREDNISolone SOD SUCC 40 MG/1 ML VIAL IV PUSH SCH ×3 (05:49→22:23)
[2016-12-05] MEDS: INSULIN ASPART SUPPLEMENTAL SCALE SQ SCH ×4 (05:50→22:01)
[2016-12-05] MEDS: RESP: ALBUTEROL 2.5 MG/IPRATROPIUM 0.5 MG NEB (SCH) NEB ×4 (08:47→19:27)
[2016-12-05] MEDS: CARVEDILOL 3.125 MG TAB PO SCH ×2 (08:55→20:23)
[2016-12-05] MEDS: DIPYRIDAMOLE/ASPIRIN 200 MG/25 MG CAP PO SCH (08:55)
[2016-12-05] MEDS: PANTOPRAZOLE SOD 40 MG DELAYED RELEASE TAB PO SCH (08:55)
[2016-12-05] MEDS: HEPARIN SODIUM - SQ 10,000 UNITS/ML VIAL SQ SCH ×2 (08:55→20:23)
[2016-12-05] MEDS: GABAPENTIN 100 MG CAP PO SCH ×2 (08:55→20:23)
[2016-12-05] MEDS: VANCOMYCIN 500 MG VIAL (FOR ORAL USE ONLY) PO SCH ×4 (08:55→20:23)
[2016-12-05] MEDS: FUROSEMIDE 40 MG/4 ML VIAL IV PUSH SCH ×2 (08:56→18:35)
--- NOTE | 2016-12-05 12:57 | HHI.PR ---
Subjective Remarks Alert, talkative No shortness of breath at rest Cough occasional No chest pain Appetite good (Vanessa Donato) Objective Objective Results - Vital Signs Date Time Temp Pulse Resp B/P Pulse Ox O2 Delivery O2 Flow Rate FiO2 12/05/16 08:47 97 Nasal Cannula 2.00 12/05/16 08:00 97.6 96 28 151/71 91 12/05/16 07:00 Nasal Cannula 4.00 12/05/16 04:00 97.4 83 20 133/63 97 12/05/16 00:15 95 12/05/16 00:15 95 Nasal Cannula 3.00 12/05/16 00:00 97.6 81 32 114/59 98 12/04/16 20:39 100 40 12/04/16 20:00 97.8 82 18 131/60 99 12/04/16 19:00 95 Bi-Pap 50 12/04/16 16:00 98.4 74 21 111/54 98 12/04/16 15:57 99 40 I/O 12/04/16 12/04/16 12/04/16 12/05/16 12/05/16 12/05/16 07:00 15:00 23:00 07:00 15:00 23:00 Intake Total 327 ml 440 ml 430 ml Output Total 350 ml 352 ml 352 ml Balance -23 ml 88 ml 78 ml Intake Oral 120 ml 240 ml 240 ml IV Total 207 ml 200 ml 190 ml Output Urine Total 350 ml 350 ml 350 ml Stool Total 2 ml 2 ml # Bowel Movements 1 (Vanessa Donato) Result Diagram: 12/03/16201912/05/16 0410 Other Results Last Impressions Chest X-Ray 12/03/16 1628 Signed Impressions: Service Date/Time: Saturday, December 03, 2016 16:53 - CONCLUSION: 1. New right lower lobe infiltrate and blunting of the right costophrenic angle consistent with a small effusion. The findings could indicate pneumonia. 2. Mild scarring at the left lung base. Cristian Farnsworth MD Lower Extremity Ultrasound 12/03/16 0000 Signed Impressions: Service Date/Time: Saturday, December 03, 2016 17:01 - CONCLUSION: No evidence of deep venous thrombosis. Cristian Farnsworth MD Medications and IVs Active Medications Alprazolam (Xanax) 0.25 mg Q6H PRN PO Last administered on 12/04/16 14:28; Admin Dose 0.25 MG; Start 12/04/16 at 14:30 Atorvastatin Calcium (Lipitor) 80 mg HS PO Last administered on 12/04/16 23:06 ; Admin Dose 80 MG; Start 12/04/16 at 21:00 Doxycycline Hyclate/Sodium Chloride (Vibramycin Inj/ NS Inj) 100 ml @ 100 mls/ hr Q12H IV Last administered on 12/05/16 02:43; Admin Dose 100 MLS/HR; Start at 14:00 Furosemide (Lasix Inj) 40 mg BID@09,18 IV PUSH Last administered on 12/05/16 08 :56; Admin Dose 40 MG; Start 12/04/16 at 18:00 Heparin Sodium (Porcine) 5000 units 5,000 units Q12HR SQ Last administered on 08:55; Admin Dose 5,000 UNITS; Start 12/04/16 at 21:00 Insulin Detemir (Levemir Inj) 35 units HS SQ Last administered on 12/04/16 23: 08; Admin Dose 35 UNITS; Start 12/04/16 at 21:00 Methylprednisolone Sodium Succinate (SoluMEDROL INJ) 40 mg Q8HR IV PUSH Last administered on 12/05/16 05:49; Admin Dose 40 MG; Start 12/04/16 at 22:00 Vancomycin HCl (VANCOMYCIN for oral use only) 125 mg QID PO Last administered on 12/05/16 12:23; Admin Dose 125 MG; Start 12/04/16 at 18:00 (Vanessa Donato) Physical Exam Physical Exam PHYSICAL EXAMINATION GENERAL: This is a obese ,well-developed, well-nourished male who appears to be in no acute distress. He is alert and awake, responds to verbal stimuli. HEAD: Normocephalic without any lesion or mass noted. Facial features appear symmetric. OROPHARYNGEAL: Oropharynx without erythema or edema. NECK: Supple. No nuchal rigidity or lymphadenopathy. Trachea midline without deviation. CARDIAC: Regular rhythm, regular rate, S1 and S2 are heard. Sounds distant Murmur none ; no gallops or rubs. LUNGS: Positive for rhonchi anteriorly. Decreased breath sounds bilateral, more increased on the right lower lobe. Low volumes ABDOMEN: Soft, round, nontender, no organomegaly or masses. Bowel sounds are heard in all four quadrants. EXTREMITIES: Bilateral pedal edema. Right ankle 1+, left ankle trace Pulses intact and 1+4+ no cyanosis. NEUROLOGICAL: Patient mood and affect appropriate. No focal deficit SKIN:Warm and moist, dry Objective Remarks I feel like him breathing better today (Vanessa Donato) A/P Assessment and Plan (1) Respiratory failure (2) Congestive heart failure (3) Pneumonia (4) Chronic kidney disease (CKD) (5) Hypertension (6) Elevated troponin (7) COPD (chronic obstructive pulmonary disease) (8) History of CVA (cerebrovascular accident) (9) PVD (peripheral vascular disease) (10) Hyperlipidemia (11) Hyperkalemia (12) Diabetes 1.5, managed as type 2 Assessment and Plan Admit to Dr. Wyatt 76-year-old female with recent extensive hospitalizations for perforated duodenal ulcer, sepsis, respiratory failure with tracheostomy, CVA, acute renal injury that led to CK D requiring hemodialysis. Patient presented to the emergency room with hypoxia and shortness of breath, chest x-ray completed with findings of possible congestive heart failure and pneumonia. Acute respiratory failure, resolving, patient is now on O2 at 2 L. No dyspnea at rest. Alert, conversational No BiPAP for now Consult pulmonology for evaluation. Appreciate following IV steroids -Continue with DuoNeb's PFTs to be checked Pneumonia, right lower lobe infiltrate Continue with empiric antibiotics, vancomycin, Doxycycline Blood cultures negative so far Chronic kidney disease, was on hemodialysis until approximately 2 weeks ago. Still has permacath in place. Patient now and renal recovery, making urine. Renal function is trending back up again with increased B UN and creatinine. Monitor urine output strictly, we will have nursing insert Abdalla catheter nephrology following trends, in case patient needs dialysis again monitor labs in the a.m. Acute CHF Continue Lasix 40 mg IV twice a day Monitor intake and output -Abdalla catheter to be inserted -Patient had a recent echocardiogram in September, EF 55-60%.. Repeat 2-D echo today, pulse pending Elevated troponin 0.08, likely secondary to CHF, chronic kidney disease, 3 -Continue to monitor, Continue with statins, Coreg Diabetes type 2 Accu-Cheks before meals and at bedtime with insulin therapy as needed History of recent CVA Continue with Aggrenox PVD Continue home medications Hypertension Continue home medications Hyperlipidemia Continue with statins Discharge Planning Initiated, hopefully home with when patient is stable Discussed With: Nurse, Family (patient and his at length and answered questions concerning congestive heart failure, renal failure, medical management ), Other (Dr. Wyatt, a shunt seen on his behalf) (Vanessa Donato) Assessment and Plan Patient seen and examined as above [id number] time spent with patient and at bedside Labs reviewed Appreciate consultants help Medications reviewed Plan of care discussed with [facility] Labs for tomorrow (Julius Wyatt MD) Vanessa Donato Dec 05, 2016 12:57 Julius Wyatt MD Dec 05, 2016 15:50
--- NOTE | 2016-12-05 12:59 | HHI.PR ---
Subjective Remarks Alert no sob at rest O2 SAT 95% ON O2 VIA NC Objective Vital Signs Date Time Temp Pulse Resp B/P Pulse Ox O2 Delivery O2 Flow Rate FiO2 12/05/16 08:47 97 Nasal Cannula 2.00 12/05/16 08:00 97.6 96 28 151/71 91 12/05/16 07:00 Nasal Cannula 4.00 12/05/16 04:00 97.4 83 20 133/63 97 12/05/16 00:15 95 12/05/16 00:15 95 Nasal Cannula 3.00 12/05/16 00:00 97.6 81 32 114/59 98 12/04/16 20:39 100 40 12/04/16 20:00 97.8 82 18 131/60 99 12/04/16 19:00 95 Bi-Pap 50 12/04/16 16:00 98.4 74 21 111/54 98 12/04/16 15:57 99 40 I/O 12/04/16 12/04/16 12/04/16 12/05/16 12/05/16 12/05/16 07:00 15:00 23:00 07:00 15:00 23:00 Intake Total 327 ml 440 ml 430 ml Output Total 350 ml 352 ml 352 ml Balance -23 ml 88 ml 78 ml Intake Oral 120 ml 240 ml 240 ml IV Total 207 ml 200 ml 190 ml Output Urine Total 350 ml 350 ml 350 ml Stool Total 2 ml 2 ml # Bowel Movements 1 Result Diagram: 12/03/16201912/05/16 0410 Objective Remarks GENERAL: SKIN: Warm and dry. HEAD: Atraumatic. Normocephalic. EYES: Pupils equal and round. No scleral icterus. No injection or drainage. ENT: No nasal bleeding or discharge. Mucous membranes pink and moist. NECK: Trachea midline. No JVD. CARDIOVASCULAR: Regular rate and rhythm. RESPIRATORY: No accessory muscle use. Clear to auscultation. Breath sounds equal bilaterally. GASTROINTESTINAL: Abdomen soft, non-tender, nondistended. Hepatic and splenic margins not palpable. MUSCULOSKELETAL: Extremities without clubbing, cyanosis, or edema. No obvious deformities. NEUROLOGICAL: Awake and alert. No obvious cranial nerve deficits. Motor grossly within normal limits. Five out of 5 muscle strength in the arms and legs. Normal speech. PSYCHIATRIC: Appropriate mood and affect; insight and judgment normal. Assessment and Plan Assessment and Plan Respiratory failure , improved chronic renal failure chf copd PNA PLAN O2 Antibiotics BIPAP as needed bronchodilator therapy check PFT , ABG Salvador Franco MD Dec 05, 2016 12:59
--- NOTE | 2016-12-05 13:04 | EC ---
Study Study Date:12/05/2016 STUDY CONCLUSIONS SUMMARY - Left ventricle: The cavity size was normal. Wall thickness was normal. Systolic function was moderately reduced. The estimated ejection fraction was in the range of 35% to 40%. Wall motion was normal; there were no regional wall motion abnormalities. The study is not technically sufficient to allow evaluation of LV diastolic function. - Aortic valve: Trace regurgitation. Valve area: 1.62cm^2(VTI). Valve area: 1.64cm^2 (Vmax). - Mitral valve: Mild to moderate regurgitation. Valve area by continuity equation (using LVOT flow): 1.75cm^2. If LV function is below 40, please consider prescribing an ACEI or ARB or document rationale for non-use. PROCEDURE DATA STUDY STATUS: Elective. Procedure: Transthoracic echocardiography. Image quality was good. Scanning was performed from the parasternal, apical, and subcostal acoustic windows. Study completion: The patient tolerated the procedure well. Transthoracic echocardiography. M-mode, complete 2D, complete spectral Doppler, and color Doppler. Patient status: Inpatient. CARDIAC ANATOMY LEFT VENTRICLE: The cavity size was normal. Wall thickness was normal. Systolic function was moderately reduced. The estimated ejection fraction was in the range of 35% to 40%. Wall motion was normal; there were no regional wall motion abnormalities. The study is not technically sufficient to allow evaluation of LV diastolic function. AORTIC VALVE: Trileaflet; moderately thickened, moderately calcified leaflets. Doppler: Transvalvular velocity was minimally increased. There was no stenosis. Trace regurgitation. Valve area: 1.62cm^2(VTI). Valve area: 1.64cm^2 (Vmax). Mean gradient: 7mm Hg (S). Peak gradient: 14mm Hg (S). AORTA: Aortic root: The aortic root was normal in size. MITRAL VALVE: Structurally normal valve. Doppler: Transvalvular velocity was within the normal range. There was no evidence for stenosis. Mild to moderate regurgitation. Valve area by continuity equation (using LVOT flow): 1.75cm^2. Mean gradient: 4mm Hg (D). Peak gradient: 9mm Hg (D). LEFT ATRIUM: The atrium was at the upper limits of normal in size. RIGHT VENTRICLE: The cavity size was normal. Wall thickness was normal. PULMONIC VALVE: Doppler: Transvalvular velocity was within the normal range. There was no evidence for stenosis. No regurgitation. TRICUSPID VALVE: Structurally normal valve. Doppler: Transvalvular velocity was within the normal range. Trace to mild regurgitation. PULMONARY ARTERY: The main pulmonary artery was normal-sized. Systolic pressure was within the normal range. RIGHT ATRIUM: The atrium was normal in size. PERICARDIUM: There was no pericardial effusion. SYSTEMIC VEINS: Inferior vena cava: The vessel was normal in size. BASIC MEASUREMENTS ADULT Normal Left ventricle LV internal dimension, ED, chordal level, 49 mm 43-52 PLAX LV internal dimension, ES, chordal level, *40 mm 23-38 PLAX Fractional shortening, chordal level, PLAX *18 % >29 LV posterior wall thickness, ED 7.34 mm IVS/LVPW ratio, ED *1.57 <1.3 Ventricular septum Septal thickness, ED 11.5 mm Left atrium Anterior-posterior dimension 41 mm Right ventricle RV internal dimension, ED, PLAX 24.1 mm 19-38 DOPPLER MEASUREMENTS ADULT Normal Aortic valve Peak velocity, S 190 cm/s Mean velocity, S 118 cm/s VTI, S 38.7 cm Mean gradient, S 7 mm Hg Peak gradient, S 14 mm Hg Valve area, VTI 1.62 cm^2 Valve area, Vmax 1.64 cm^2 Mitral valve Peak E-wave velocity 147 cm/s Peak A-wave velocity 74.7 cm/s Mean velocity, D 91.1 cm/s Mean gradient, D 4 mm Hg Peak gradient, D 9 mm Hg Peak E/A ratio 2 Valve area, LVOT continuity 1.75 cm^2 Maximal regurgitant velocity 506 cm/s Tricuspid valve Regurgitant peak velocity 253 cm/s Peak RV-RA gradient, S 26 mm Hg Maximal regurgitant velocity 253 cm/s LEGEND: Mean values are shown as u=mean value. Asterisk (*) spann values outside specified normal range. Prepared and signed by Alfredito Calderón [id number]
--- NOTE | 2016-12-05 15:23 | HHI.NPPN ---
Subjective History of Present Illness 76 year old with CHF/COPD EF 35% Review of Systems General Constitutional: Fatigue Objective Data Data 12/04/16 12/05/16 19:00 07:00 Intake Total 327 ml 870 ml Output Total 350 ml 704 ml Balance -23 ml 166 ml Intake Oral 120 ml 480 ml IV Total 207 ml 390 ml Output Urine Total 350 ml 700 ml Stool Total 4 ml # Bowel Movements 1 Vital Signs Date Time Temp Pulse Resp B/P Pulse Ox O2 Delivery O2 Flow Rate FiO2 12/05/16 08:47 97 Nasal Cannula 2.00 12/05/16 08:00 97.6 96 28 151/71 91 12/05/16 07:00 Nasal Cannula 4.00 12/05/16 04:00 97.4 83 20 133/63 97 12/05/16 00:15 95 12/05/16 00:15 95 Nasal Cannula 3.00 12/05/16 00:00 97.6 81 32 114/59 98 12/04/16 20:39 100 40 12/04/16 20:00 97.8 82 18 131/60 99 12/04/16 19:00 95 Bi-Pap 50 12/04/16 16:00 98.4 74 21 111/54 98 12/04/16 15:57 99 40 -: 12/03/16 2020 12/05/16 0410 Physical Exam General Appearance: Well Developed Neck Neck Exam: Neck Supple Pulmonary Resp Exam: Decreased Bases Cardiology CV Exam: Regular Gastrointestinal/Abdomen GI Exam: Soft, Non-Tender, Bowel Sounds Present Extremeties Extremities Exam: Trace Edema Assessment/Plan Problem List: (1) Chronic kidney disease (CKD) Plan: Patient GFR is at 26, his potassium was high and will treat again with Kayexalate , I will continue with Lasix 40 mg IV twice a day Monitor LAINA Antoine to follow (2) Congestive heart failure Plan: Continue with diuretics (3) Pneumonia Plan: Plan on antibiotics he has recent history of C. difficile continue with vancomycin orally (4) COPD (chronic obstructive pulmonary disease) Plan: Continue to monitor (5) Metabolic encephalopathy Plan: Monitor Problem Qualifiers (1) Chronic kidney disease (CKD): Qualified Code: N18.3 - Chronic kidney disease (CKD), stage 3 (moderate) (2) Congestive heart failure: Qualified Code: I50.9 - Congestive heart failure, unspecified congestive heart failure chronicity, unspecified congestive heart failure type (3) Pneumonia: Qualified Code: J18.1 - Pneumonia of right lower lobe due to infectious organism (4) COPD (chronic obstructive pulmonary disease): Qualified Code: J44.9 - Chronic obstructive pulmonary disease, unspecified COPD type Jax Mcginnis MD Dec 05, 2016 15:22
[2016-12-05 15:47] LABS: BLOOD GAS BASE EXCESS -1.8 mmol/L (-2-2); BLOOD GAS CARBOXYHEMOGLOBIN 1.6 % (0-4); BLOOD GAS HCO3 24 mmol/L (22-26); BLOOD GAS METHEMOGLOBIN 0.9 % (0-2); BLOOD GAS O2 HGB SATURATION 90 % (90-100); BLOOD GAS OXYGEN CONTENT 10.8 Vol % (12.0-20.0); BLOOD GAS PCO2 54 mmHg (38-42); BLOOD GAS PO2 73 mmHg (61-120); BLOOD GAS TOTAL HGB 8.5 G/DL (12.0-16.0); TEMP CORR TO 98.6
[2016-12-05 15:48] LABS: CRITICAL VALUE YES; DRAW SITE RT BRACHIAL; LITER FLOW 2 L/M; NUMBER OF ARTERIAL PUNCTURES 1; OXYGEN DEVICE NASAL CANNULA; STAT NO
[2016-12-05] MEDS ORDERED: SODIUM POLYSTYRENE SULFONATE SUSP 15 GM/60 ML CUP PO ONE (16:00)
[2016-12-05] MEDS: ATORVASTATIN 80 MG TAB PO SCH (20:23)
[2016-12-05] MEDS: INSULIN DETEMIR 100 UNITS/ML VIAL SQ SCH (20:24)
[2016-12-06] VITALS (9 sets, daily range): BP systolic 135–166; BP diastolic 60–73; PULSE 82–97; RESP 18–20; TEMP 95.4–97.3; O2SAT 94–98
[2016-12-06] MEDS: PIPERACIL-TAZO 2.25 GM PREMIX 50 ML IV SCH ×3 (01:07→18:06)
[2016-12-06] MEDS ORDERED: INSULIN HUMAN REGULAR 1,000 UNITS/10 ML VIAL SQ SCH (01:15)
[2016-12-06] MEDS: DOXYCYCLINE INJ 100 MG in SODIUM CHLORIDE 0.9% INJ 100 ML IV SCH ×2 (01:34→12:44)
[2016-12-06] MEDS: methylPREDNISolone SOD SUCC 40 MG/1 ML VIAL IV PUSH SCH ×3 (05:47→20:28)
[2016-12-06] MEDS: INSULIN ASPART SUPPLEMENTAL SCALE SQ SCH ×4 (06:00→20:29)
[2016-12-06] MEDS: RESP: ALBUTEROL 2.5 MG/IPRATROPIUM 0.5 MG NEB (SCH) NEB ×4 (08:00→20:48)
[2016-12-06] MEDS: DIPYRIDAMOLE/ASPIRIN 200 MG/25 MG CAP PO SCH (09:47)
[2016-12-06] MEDS: GABAPENTIN 100 MG CAP PO SCH ×2 (09:47→20:28)
[2016-12-06] MEDS: FUROSEMIDE 40 MG/4 ML VIAL IV PUSH SCH ×2 (09:47→18:06)
[2016-12-06] MEDS: VANCOMYCIN 500 MG VIAL (FOR ORAL USE ONLY) PO SCH ×4 (09:47→20:29)
[2016-12-06] MEDS: CARVEDILOL 3.125 MG TAB PO SCH ×2 (09:48→20:28)
[2016-12-06] MEDS: HEPARIN SODIUM - SQ 10,000 UNITS/ML VIAL SQ SCH ×2 (09:48→20:27)
[2016-12-06] MEDS: PANTOPRAZOLE SOD 40 MG DELAYED RELEASE TAB PO SCH (09:48)
[2016-12-06 11:20] LABS: HEMATOCRIT 27.1 % (39.0-51.0); MEAN CELL VOLUME 94.4 FL (80.0-100.0); MEAN CORPUSCULAR HEMOGLOBIN 30.9 PG (27.0-34.0); MEAN CORPUSCULAR HGB CONC 32.8 % (32.0-36.0); PLATELET COUNT 339 TH/MM3 (150-450); RED BLOOD COUNT 2.87 MIL/MM3 (4.50-5.90); RED CELL DISTRIBUTION WIDTH 18.9 % (11.6-17.2); REVIEW FLAG FINAL; WHITE BLOOD COUNT 10.8 TH/MM3 (4.0-11.0)
[2016-12-06 11:52] LABS: BICARBONATE 27.3 MEQ/L (21.0-32.0); POTASSIUM 4.4 MEQ/L (3.5-5.1)
--- NOTE | 2016-12-06 12:06 | HHI.PR ---
Subjective Remarks Alert, talkative No shortness of breath at rest Cough occasional No chest pain Appetite good Up in chair present (Vanessa Donato) Objective Objective Results - Vital Signs Date Time Temp Pulse Resp B/P Pulse Ox O2 Delivery O2 Flow Rate FiO2 12/06/16 08:40 94 Nasal Cannula 12/06/16 08:00 97.2 97 20 148/65 96 12/06/16 04:00 97.2 95 20 166/73 97 12/05/16 23:01 93 12/05/16 22:50 97.4 97 18 160/75 93 12/05/16 20:00 97.7 93 21 143/65 93 12/05/16 19:29 97 Nasal Cannula 2.00 12/05/16 19:00 92 Nasal Cannula 4.00 12/05/16 16:00 98.0 88 25 136/63 95 12/05/16 15:57 98 Nasal Cannula 3.00 12/05/16 12:00 98.3 88 30 141/64 96 I/O 12/05/16 12/05/16 12/05/16 12/06/16 12/06/16 12/06/16 07:00 15:00 23:00 07:00 15:00 23:00 Intake Total 559 ml 760 ml 680 ml 216 ml Output Total 352 ml 252 ml 201 ml 275 ml Balance 207 ml 508 ml 479 ml -59 ml Intake Oral 240 ml 650 ml 480 ml 120 ml IV Total 319 ml 110 ml 200 ml 96 ml Output Urine Total 350 ml 250 ml 200 ml 275 ml Stool Total 2 ml 2 ml 1 ml # Voids 1 # Bowel Movements 0 1 (Vanessa Donato) Result Diagram: 12/06/16 1105 12/06/16 1105 ROS General: Fatigue, Weakness (generalized), Other (10 point ROS done. Carlton's include generalized weakness, cough,) Pulmonary: Cough GI: BM (large formed today) /CIRCUS PERFORMER: Other (Abdalla catheter, to be DC'd today) (Vanessa Donato) Physical Exam Physical Exam PHYSICAL EXAMINATION GENERAL: This is an obese well-developed, well-nourished male who appears to be in no acute distress up in chair. Tires easily He is alert and awake, responds to verbal stimuli HEAD: Normocephalic without any lesion or mass noted. Facial features appear symmetric. OROPHARYNGEAL: Oropharynx without erythema or edema. NECK: Supple. No nuchal rigidity or lymphadenopathy. Trachea midline without deviation. CARDIAC: Regular rhythm, regular rate, S1 and S2 are heard. Murmur []; no gallops or rubs. LUNGS: Decreased breath sounds with low air volumes. Both bases are decreased but improved from yesterday. Mild expiratory wheeze, no rhonchi or rale. ABDOMEN: Soft, obese ,nontender, no organomegaly or masses. Bowel sounds are heard in all four quadrants. No rebound. No guarding. EXTREMITIES: 2+ pitting edema lower extremities Pulses equal bilateral. no cyanosis. NEUROLOGICAL: Patient mood and affect appropriate. No focal deficit SKIN:Warm and moist Objective Remarks I'm doing okay I guess. Shortness of breath is a little better. (Vanessa Donato) A/P Assessment and Plan (1) Respiratory failure (2) Congestive heart failure (3) Pneumonia (4) Chronic kidney disease (CKD) (5) Hypertension (6) Elevated troponin (7) COPD (chronic obstructive pulmonary disease) (8) History of CVA (cerebrovascular accident) (9) PVD (peripheral vascular disease) (10) Hyperlipidemia (11) Hyperkalemia (12) Diabetes 1.5, managed as type 2 Assessment and Plan Admit to Dr. Wyatt 76-year-old female with recent extensive hospitalizations for perforated duodenal ulcer, sepsis, respiratory failure with tracheostomy, CVA, acute renal injury that led to CK D requiring hemodialysis. Patient presented to the emergency room with hypoxia and shortness of breath, chest x-ray completed with findings of possible congestive heart failure and pneumonia. Acute respiratory failure, resolving, patient is now on O2 at 2 L. No dyspnea at rest, the tires easily Alert, conversational No BiPAP for now Consult pulmonology for evaluation. Appreciate following IV steroids -Continue with DuoNeb's PFTs to be checked Monitor vital signs, currently afebrile. BP staying within fairly normal trends. Monitor labs, nutrition, Pneumonia, right lower lobe infiltrate Continue with empiric antibiotics, vancomycin, Doxycycline Blood cultures negative so far Chronic kidney disease, was on hemodialysis until approximately 2 weeks ago. Still has permacath in place. Due to be changed as OP tomorrow. Will consult invasive radiology to remove in ma. Patient now making urine. Renal function is trending being monitored per nephrology. Trends up today. Monitor urine I/O. Abdalla d/cd today. nephrology following trends Acute CHF Continue Lasix 40 mg IV twice a day Monitor intake and output -Patient had a recent echocardiogram in September, EF 55-60%.. Repeat 2-D echo today, pulse pending Elevated troponin 0.08, likely secondary to CHF, chronic kidney disease, 3 -Continue to monitor, Continue with statins, Coreg Diabetes type 2 Accu-Cheks before meals and at bedtime with insulin therapy as needed History of recent CVA Continue with Aggrenox PVD Continue home medications Hypertension Continue home medications Hyperlipidemia Continue with statins Discharge Planning Initiated, hopefully home with when patient is stable Discussed With: Nurse, Family (patient and his at length and answered questions concerning congestive heart failure, renal failure, medical management ), Other (Dr. Wyatt, seen on his behalf) (Vanessa Donato) Assessment and Plan Patient seen and examined as above with at bedside Labs reviewed Plan of care discussed with OUTSIDE SALESMAN Discussed with patient and at bedside Discussed with RN Medications reviewed (Julius Wyatt MD) Vanessa Donato Dec 06, 2016 12:06 Julius Wyatt MD Dec 06, 2016 15:38
[2016-12-06 12:17] LABS: CALCIUM-PROTEIN CORRECTED 7.4 MG/DL (8.5-10.1)
--- NOTE | 2016-12-06 17:25 | HHI.PR ---
Subjective Remarks Alert no sob at rest O2 SAT 95% ON O2 VIA NC Objective Vital Signs Date Time Temp Pulse Resp B/P Pulse Ox O2 Delivery O2 Flow Rate FiO2 12/06/16 15:55 96.0 89 20 139/60 95 12/06/16 12:00 95.4 91 20 135/62 94 12/06/16 08:40 94 Nasal Cannula 12/06/16 08:00 97.2 97 20 148/65 96 12/06/16 04:00 97.2 95 20 166/73 97 12/05/16 23:01 93 12/05/16 22:50 97.4 97 18 160/75 93 12/05/16 20:00 97.7 93 21 143/65 93 12/05/16 19:29 97 Nasal Cannula 2.00 12/05/16 19:00 92 Nasal Cannula 4.00 I/O 12/05/16 12/05/16 12/05/16 12/06/16 12/06/16 12/06/16 06:59 14:59 22:59 06:59 14:59 22:59 Intake Total 559 ml 760 ml 680 ml 216 ml 480 ml Output Total 352 ml 252 ml 201 ml 275 ml 200 ml Balance 207 ml 508 ml 479 ml -59 ml 280 ml Intake Oral 240 ml 650 ml 480 ml 120 ml 480 ml IV Total 319 ml 110 ml 200 ml 96 ml Output Urine Total 350 ml 250 ml 200 ml 275 ml 200 ml Stool Total 2 ml 2 ml 1 ml # Voids 1 # Bowel Movements 0 1 Result Diagram: 12/06/16 1105 12/06/16 1105 Objective Remarks GENERAL: SKIN: Warm and dry. HEAD: Atraumatic. Normocephalic. EYES: Pupils equal and round. No scleral icterus. No injection or drainage. ENT: No nasal bleeding or discharge. Mucous membranes pink and moist. NECK: Trachea midline. No JVD. CARDIOVASCULAR: Regular rate and rhythm. RESPIRATORY: No accessory muscle use. Clear to auscultation. Breath sounds equal bilaterally. GASTROINTESTINAL: Abdomen soft, non-tender, nondistended. Hepatic and splenic margins not palpable. MUSCULOSKELETAL: Extremities without clubbing, cyanosis, or edema. No obvious deformities. NEUROLOGICAL: Awake and alert. No obvious cranial nerve deficits. Motor grossly within normal limits. Five out of 5 muscle strength in the arms and legs. Normal speech. PSYCHIATRIC: Appropriate mood and affect; insight and judgment normal. Assessment and Plan Assessment and Plan Respiratory failure , improved chronic renal failure chf copd PNA PLAN O2 Antibiotics BIPAP as needed bronchodilator therapy check PFT , ABG Salvador Franco MD Dec 06, 2016 17:25
--- NOTE | 2016-12-06 19:11 | HHI.NPPN ---
Subjective History of Present Illness 76-year-old male with history of hypertension, diabetes, chronic kidney disease , acute renal failure he recovered his kidney functions and was off dialysis for the past 10 days, he developed C. difficile colitis was placed on vancomycin and now he is admitted to the with increasing shortness of breath COPD Hx of preservation he is passing urine his creatinine has been stable with potassium went up to 6 this was treated medically received Kayexalate and sodium bicarbonate, I been consulted to assist in his renal function and chronic kidney disease. Additional Remarks Patient is alert, sitting on chair, not in distress, with nasal cannula. Review of Systems General Constitutional: Fatigue Objective Data Data 12/05/16 12/06/16 19:00 07:00 Intake Total 760 ml 896 ml Output Total 252 ml 476 ml Balance 508 ml 420 ml Intake Oral 650 ml 600 ml IV Total 110 ml 296 ml Output Urine Total 250 ml 475 ml Stool Total 2 ml 1 ml # Bowel Movements 0 Vital Signs Date Time Temp Pulse Resp B/P Pulse Ox O2 Delivery O2 Flow Rate FiO2 12/06/16 15:55 96.0 89 20 139/60 95 12/06/16 12:00 95.4 91 20 135/62 94 12/06/16 08:40 94 Nasal Cannula 12/06/16 08:00 97.2 97 20 148/65 96 12/06/16 04:00 97.2 95 20 166/73 97 12/05/16 23:01 93 12/05/16 22:50 97.4 97 18 160/75 93 12/05/16 20:00 97.7 93 21 143/65 93 12/05/16 19:29 97 Nasal Cannula 2.00 -: 12/06/16 1105 12/06/16 1105 Physical Exam General Appearance: No Acute Distress, Comfortable, Anxious Neck Neck Exam: Neck Supple Pulmonary Resp Exam: Breath Sounds Equal, No Distress, Rhonchi, Decreased Bases, Diminished Breath Sounds Cardiology CV Exam: Regular, Normal Sinus Rhythm Gastrointestinal/Abdomen GI Exam: Soft, Non-Tender, Bowel Sounds Present Extremeties Extremities Exam: Moderate Edema, Pitting Edema, Dependent Edema Neurologic Neuro Exam: Alert, Awake, Oriented Psychiatric Psych Exam: Appropriate Responses Assessment/Plan Problem List: (1) Chronic kidney disease (CKD) Plan: Patient GFR was 26, his potassium is now better. Creatinine increased slightly. Continue Lasix and follow urine out put and BMP. (2) Congestive heart failure Plan: Continue with diuretics (3) Pneumonia Plan: Plan on antibiotics he has recent history of C. difficile continue with vancomycin orally (4) COPD (chronic obstructive pulmonary disease) Plan: Continue to monitor (5) Metabolic encephalopathy Plan: Monitor Problem Qualifiers (1) Chronic kidney disease (CKD): Qualified Code: N18.3 - Chronic kidney disease (CKD), stage 3 (moderate) (2) Congestive heart failure: Qualified Code: I50.9 - Congestive heart failure, unspecified congestive heart failure chronicity, unspecified congestive heart failure type (3) Pneumonia: Qualified Code: J18.1 - Pneumonia of right lower lobe due to infectious organism (4) COPD (chronic obstructive pulmonary disease): Qualified Code: J44.9 - Chronic obstructive pulmonary disease, unspecified COPD type Willi Antoine MD Dec 06, 2016 19:11
[2016-12-06] MEDS: INSULIN DETEMIR 100 UNITS/ML VIAL SQ SCH (20:28)
[2016-12-06] MEDS: ATORVASTATIN 80 MG TAB PO SCH (20:28)
[2016-12-07] VITALS (10 sets, daily range): BP systolic 140–152; BP diastolic 63–72; PULSE 79–84; RESP 16–20; TEMP 97.2–97.5; O2SAT 91–97
[2016-12-07] MEDS: PIPERACIL-TAZO 2.25 GM PREMIX 50 ML IV SCH ×3 (02:13→16:42)
[2016-12-07] MEDS: DOXYCYCLINE INJ 100 MG in SODIUM CHLORIDE 0.9% INJ 100 ML IV SCH ×2 (04:19→15:16)
[2016-12-07] MEDS: methylPREDNISolone SOD SUCC 40 MG/1 ML VIAL IV PUSH SCH ×2 (05:42→16:42)
[2016-12-07] MEDS: INSULIN ASPART SUPPLEMENTAL SCALE SQ SCH ×4 (05:43→20:28)
[2016-12-07] MEDS: RESP: ALBUTEROL 2.5 MG/IPRATROPIUM 0.5 MG NEB (SCH) NEB ×4 (08:30→19:57)
[2016-12-07] MEDS: SODIUM CHLORIDE 0.9% FLUSH 5 ML FLUSH IVF PRN (08:56)
[2016-12-07] MEDS: VANCOMYCIN 500 MG VIAL (FOR ORAL USE ONLY) PO SCH ×4 (08:56→20:29)
[2016-12-07] MEDS: GABAPENTIN 100 MG CAP PO SCH ×2 (08:57→20:29)
[2016-12-07] MEDS: FUROSEMIDE 40 MG/4 ML VIAL IV PUSH SCH ×2 (08:57→16:42)
[2016-12-07] MEDS: CARVEDILOL 3.125 MG TAB PO SCH ×2 (08:57→20:29)
[2016-12-07] MEDS: PANTOPRAZOLE SOD 40 MG DELAYED RELEASE TAB PO SCH (08:57)
--- NOTE | 2016-12-07 09:50 | HHI.NPPN ---
Subjective History of Present Illness 76-year-old male with history of hypertension, diabetes, chronic kidney disease , acute renal failure he recovered his kidney functions and was off dialysis for the past 10 days, he developed C. difficile colitis was placed on vancomycin and now he is admitted to the with increasing shortness of breath COPD Hx of preservation he is passing urine his creatinine has been stable with potassium went up to 6 this was treated medically received Kayexalate and sodium bicarbonate, I been consulted to assist in his renal function and chronic kidney disease. Additional Remarks Patient is alert, clinically same, not in distress. Review of Systems General Constitutional: Fatigue Objective Data Data 12/06/16 12/07/16 19:00 07:00 Intake Total 480 ml 1180 ml Output Total 200 ml 725 ml Balance 280 ml 455 ml Intake Oral 480 ml 1180 ml Output Urine Total 200 ml 725 ml # Voids 1 # Bowel Movements 1 1 Vital Signs Date Time Temp Pulse Resp B/P Pulse Ox O2 Delivery O2 Flow Rate FiO2 12/07/16 08:32 92 Nasal Cannula 3.00 12/07/16 04:00 97.2 84 18 152/72 92 12/07/16 00:00 Nasal Cannula 3.00 Humidified 12/07/16 00:00 97.4 81 18 140/63 91 12/06/16 20:49 97 Nasal Cannula 4.00 12/06/16 20:39 82 12/06/16 20:27 Nasal Cannula 4.00 Humidified 12/06/16 20:00 97.3 88 18 140/65 98 12/06/16 15:55 96.0 89 20 139/60 95 12/06/16 12:00 95.4 91 20 135/62 94 12/06/16 10:15 Nasal Cannula 4.00 -: 12/06/16 1105 12/06/16 1105 Physical Exam General Appearance: No Acute Distress, Comfortable, Anxious Neck Neck Exam: Neck Supple Pulmonary Resp Exam: Breath Sounds Equal, No Distress, Rhonchi, Decreased Bases, Diminished Breath Sounds Cardiology CV Exam: Regular, Normal Sinus Rhythm Gastrointestinal/Abdomen GI Exam: Soft, Non-Tender, Bowel Sounds Present Extremeties Extremities Exam: Moderate Edema, Pitting Edema, Dependent Edema Neurologic Neuro Exam: Alert, Awake, Oriented Psychiatric Psych Exam: Appropriate Responses Assessment/Plan Problem List: (1) Chronic kidney disease (CKD) Plan: BUN and Creatinine continue to increase. Non oliguric. Continue Lasix for now. Hold removal of PermaCath for now. If Creatinine continue to increase will decrease Lasix. (2) Congestive heart failure Plan: Continue with diuretics (3) Pneumonia Plan: Plan on antibiotics he has recent history of C. difficile continue with vancomycin orally (4) COPD (chronic obstructive pulmonary disease) Plan: Continue to monitor (5) Metabolic encephalopathy Plan: Better. Problem Qualifiers (1) Chronic kidney disease (CKD): Qualified Code: N18.3 - Chronic kidney disease (CKD), stage 3 (moderate) (2) Congestive heart failure: Qualified Code: I50.9 - Congestive heart failure, unspecified congestive heart failure chronicity, unspecified congestive heart failure type (3) Pneumonia: Qualified Code: J18.1 - Pneumonia of right lower lobe due to infectious organism (4) COPD (chronic obstructive pulmonary disease): Qualified Code: J44.9 - Chronic obstructive pulmonary disease, unspecified COPD type Willi Antoine MD Dec 07, 2016 09:50
--- NOTE | 2016-12-07 11:01 | HHI.PR ---
Subjective Interval History awake alert and oriented sitting in chair breathing improved on 2 L NC at bed side no fever concerned patient not making enough urine no fever Vitals/Results Intake & Output 12/06/16 12/06/16 12/07/16 14:59 22:59 06:59 Intake Total 1420 ml 240 ml Output Total 400 ml 525 ml Balance 1020 ml -285 ml Intake Oral 1420 ml 240 ml Output Urine Total 400 ml 525 ml # Voids 1 # Bowel Movements 1 1 0 Vital Signs Vital Signs Date Time Temp Pulse Resp B/P Pulse Ox O2 Delivery O2 Flow Rate FiO2 12/07/16 08:32 92 Nasal Cannula 3.00 12/07/16 08:00 97.2 84 16 141/65 97 12/07/16 04:00 97.2 84 18 152/72 92 12/07/16 00:00 Nasal Cannula 3.00 Humidified 12/07/16 00:00 97.4 81 18 140/63 91 12/06/16 20:49 97 Nasal Cannula 4.00 12/06/16 20:39 82 12/06/16 20:27 Nasal Cannula 4.00 Humidified 12/06/16 20:00 97.3 88 18 140/65 98 12/06/16 15:55 96.0 89 20 139/60 95 12/06/16 12:00 95.4 91 20 135/62 94 CBC/BMP: 12/06/16 1105 12/06/16 1105 Lab Results Laboratory Tests Test 12/06/16 11:05 White Blood Count 10.8 TH/MM3 Red Blood Count 2.87 MIL/MM3 Hemoglobin 8.9 GM/DL Hematocrit 27.1 % Mean Corpuscular Volume 94.4 FL Mean Corpuscular Hemoglobin 30.9 PG Mean Corpuscular Hemoglobin 32.8 % Concent Red Cell Distribution Width 18.9 % Platelet Count 339 TH/MM3 Mean Platelet Volume 7.9 FL Sodium Level 141 MEQ/L Potassium Level 4.4 MEQ/L Chloride Level 103 MEQ/L Carbon Dioxide Level 27.3 MEQ/L Anion Gap 11 MEQ/L Blood Urea Nitrogen 80 MG/DL Creatinine 3.35 MG/DL Estimat Glomerular Filtration 18 ML/MIN Rate Random Glucose 307 MG/DL Calcium Level 7.3 MG/DL Protein Corrected Calcium 7.4 MG/DL Total Protein 7.0 GM/DL Physical Exam General General Appearance: No Acute Distress, Comfortable Neck Neck Exam: Neck Supple Pulmonary Resp Exam: Breath Sounds Equal, No Distress, Decreased Bases, Diminished Breath Sounds Cardiology CV Exam: Regular, Normal Sinus Rhythm Gastrointestinal/Abdomen GI Exam: Soft, Non-Tender, Bowel Sounds Present Extremeties Extremities Exam: Moderate Edema, Pitting Edema, Dependent Edema Neurologic Neuro Exam: Alert, Awake, Oriented Psychiatric Psych Exam: Appropriate Responses Assessment/Plan Assessment/Plan Plan A/P Assessment and Plan (1) Respiratory failure (2) Congestive heart failure (3) Pneumonia (4) Chronic kidney disease (CKD) (5) Hypertension (6) Elevated troponin (7) COPD (chronic obstructive pulmonary disease) (8) History of CVA (cerebrovascular accident) (9) PVD (peripheral vascular disease) (10) Hyperlipidemia (11) Hyperkalemia (12) Diabetes 1.5, managed as type 2 Assessment and Plan 76-year-old female with recent extensive hospitalizations for perforated duodenal ulcer, sepsis, respiratory failure with tracheostomy, CVA, acute renal injury that led to CK D requiring hemodialysis. Patient presented to the emergency room with hypoxia and shortness of breath, chest x-ray completed with findings of possible congestive heart failure and pneumonia. Acute respiratory failure, resolving, patient is now on O2 at 2 L. No dyspnea at rest, the tires easily Alert, conversational No BiPAP for now pulm following IV steroids, wean methylprednisolone to q12h -Continue with Joshua's PFTs to be checked Pneumonia, right lower lobe infiltrate Continue with empiric antibiotics,Zosyn, Doxycycline Blood cultures negative so far on [facility] for recent C diff Chronic kidney disease, was on hemodialysis until approximately 2 weeks ago. Still has permacath in place. will leave it in for now. Monitor urine output and renal function. Appreciate DR Antoine's input nephrology following trends Acute CHF Continue Lasix 40 mg IV twice a day Monitor intake and output - 2-D echo with EF 35-40% Elevated troponin 0.08, likely secondary to CHF, chronic kidney disease, 3 -Continue to monitor, Continue with statins, Coreg Diabetes type 2 Accu-Cheks before meals and at bedtime with insulin therapy as needed Blood glucose elevated, hopefully will improve with steroid weaning History of recent CVA Continue with Aggrenox PVD Continue home medications Hypertension Continue home medications Hyperlipidemia Continue with statins PT eval and treat. Discharge Planning Initiated, hopefully home with when patient is stable Terri Rebolledo MD Dec 07, 2016 11:01
--- NOTE | 2016-12-07 16:05 | HHI.PR ---
Subjective Remarks Alert no sob at rest O2 SAT 95% ON O2 VIA NC Objective Vital Signs Date Time Temp Pulse Resp B/P Pulse Ox O2 Delivery O2 Flow Rate FiO2 12/07/16 12:00 97.3 80 16 146/66 95 12/07/16 08:50 Nasal Cannula 3.00 Humidified 12/07/16 08:32 92 Nasal Cannula 3.00 12/07/16 08:00 97.2 84 16 141/65 97 12/07/16 04:00 97.2 84 18 152/72 92 12/07/16 00:00 Nasal Cannula 3.00 Humidified 12/07/16 00:00 97.4 81 18 140/63 91 12/06/16 20:49 97 Nasal Cannula 4.00 12/06/16 20:39 82 12/06/16 20:27 Nasal Cannula 4.00 Humidified 12/06/16 20:00 97.3 88 18 140/65 98 I/O 12/06/16 12/06/16 12/06/16 12/07/16 12/07/16 12/07/16 07:00 15:00 23:00 07:00 15:00 23:00 Intake Total 216 ml 1420 ml 240 ml 102 ml Output Total 275 ml 400 ml 525 ml Balance -59 ml 1020 ml -285 ml 102 ml Intake Oral 120 ml 1420 ml 240 ml IV Total 96 ml 102 ml Output Urine Total 275 ml 400 ml 525 ml # Voids 1 # Bowel Movements 0 1 1 0 Result Diagram: 12/06/16 1105 12/06/16 1105 Objective Remarks GENERAL: SKIN: Warm and dry. HEAD: Atraumatic. Normocephalic. EYES: Pupils equal and round. No scleral icterus. No injection or drainage. ENT: No nasal bleeding or discharge. Mucous membranes pink and moist. NECK: Trachea midline. No JVD. CARDIOVASCULAR: Regular rate and rhythm. RESPIRATORY: No accessory muscle use. Clear to auscultation. Breath sounds equal bilaterally. GASTROINTESTINAL: Abdomen soft, non-tender, nondistended. Hepatic and splenic margins not palpable. MUSCULOSKELETAL: Extremities without clubbing, cyanosis, or edema. No obvious deformities. NEUROLOGICAL: Awake and alert. No obvious cranial nerve deficits. Motor grossly within normal limits. Five out of 5 muscle strength in the arms and legs. Normal speech. PSYCHIATRIC: Appropriate mood and affect; insight and judgment normal. Assessment and Plan Assessment and Plan Respiratory failure , improved chronic renal failure chf copd PNA PLAN O2 Antibiotics BIPAP as needed bronchodilator therapy check PFT , ABG Salvador Franco MD Dec 07, 2016 16:05
[2016-12-07] MEDS: INSULIN DETEMIR 100 UNITS/ML VIAL SQ SCH (20:28)
[2016-12-07] MEDS: ATORVASTATIN 80 MG TAB PO SCH (20:29)
[2016-12-08] VITALS (9 sets, daily range): BP systolic 139–162; BP diastolic 58–84; PULSE 81–87; RESP 18–22; TEMP 97.1–98; O2SAT 92–96
[2016-12-08] MEDS: PIPERACIL-TAZO 2.25 GM PREMIX 50 ML IV SCH ×3 (01:29→17:21)
[2016-12-08] MEDS: DOXYCYCLINE INJ 100 MG in SODIUM CHLORIDE 0.9% INJ 100 ML IV SCH ×2 (01:55→13:10)
[2016-12-08] MEDS: methylPREDNISolone SOD SUCC 40 MG/1 ML VIAL IV PUSH SCH (05:47)
[2016-12-08] MEDS: INSULIN ASPART SUPPLEMENTAL SCALE SQ SCH ×4 (06:09→21:34)
[2016-12-08] MEDS: SODIUM CHLORIDE 0.9% FLUSH 5 ML FLUSH IVF PRN ×3 (07:48→21:37)
[2016-12-08] MEDS: PANTOPRAZOLE SOD 40 MG DELAYED RELEASE TAB PO SCH (07:49)
[2016-12-08] MEDS: VANCOMYCIN 500 MG VIAL (FOR ORAL USE ONLY) PO SCH ×4 (07:49→21:35)
[2016-12-08] MEDS: FUROSEMIDE 40 MG/4 ML VIAL IV PUSH SCH ×2 (07:49→17:20)
[2016-12-08] MEDS: CARVEDILOL 3.125 MG TAB PO SCH ×2 (07:49→21:33)
[2016-12-08] MEDS: GABAPENTIN 100 MG CAP PO SCH ×2 (07:49→21:33)
[2016-12-08] MEDS: RESP: ALBUTEROL 2.5 MG/IPRATROPIUM 0.5 MG NEB (SCH) NEB (07:56)
[2016-12-08 08:10] LABS: AUTOMATED NEUTROPHIL # 9.8 TH/MM3 (1.8-7.7); BASOPHIL % 0.2 % (0.0-2.0); EOSINOPHIL % 0.2 % (0.0-4.0); HEMATOCRIT 27.5 % (39.0-51.0); LYMPH % 3.4 % (9.0-44.0); LYMPHOCYTE # 0.4 TH/MM3 (1.0-4.8); MEAN CELL VOLUME 94.4 FL (80.0-100.0); MEAN CORPUSCULAR HGB CONC 32.9 % (32.0-36.0); MONO % 4.6 % (0.0-8.0); NEUT % 91.6 % (16.0-70.0); PLATELET COUNT 308 TH/MM3 (150-450); RED BLOOD COUNT 2.91 MIL/MM3 (4.50-5.90); RED CELL DISTRIBUTION WIDTH 18.7 % (11.6-17.2); WHITE BLOOD COUNT 10.7 TH/MM3 (4.0-11.0)
[2016-12-08 08:13] LABS: HEMO FLAGS AUTO DIFF
[2016-12-08 08:51] LABS: BICARBONATE 25.1 MEQ/L (21.0-32.0); POTASSIUM 4.6 MEQ/L (3.5-5.1)
[2016-12-08 09:12] LABS: METAMYELOCYTES 1 % (0-1); MYELOCYTES 1 % (0-0); NEUTROPHIL # MANUAL DIFF 9.6 TH/MM3 (1.8-7.7); POLYS (SEG NEUTROPHILS) 88 % (16-70); WBC DIFF SAMPLE 100
[2016-12-08 09:13] LABS: PLATELET ESTIMATE SMEAR NORMAL (NORMAL); PLATELET MORPHOLOGY NORMAL (NORMAL); TOXIC VACUOLATION PRESENT (NONE SEEN)
[2016-12-08 09:15] LABS: SCAN/DIFF FINAL DIFF MANUAL
[2016-12-08 09:50] LABS: CALCIUM-PROTEIN CORRECTED 7.1 MG/DL (8.5-10.1)
--- NOTE | 2016-12-08 09:58 | HHI.PR ---
Subjective Remarks tired today has been walking in room voiding okay no cp no sob stools more formed eating okay no fever at bsd doesn't want SNF, prefers home with HHC/PT Objective Objective Results - Vital Signs Date Time Temp Pulse Resp B/P Pulse Ox O2 Delivery O2 Flow Rate FiO2 12/08/16 08:00 Nasal Cannula 3.00 Humidified 12/08/16 08:00 97.2 87 20 154/68 96 12/08/16 07:58 95 Nasal Cannula 3.00 12/08/16 04:00 97.3 86 20 139/65 93 12/08/16 00:22 97.1 84 20 140/58 96 12/07/16 20:00 Nasal Cannula 3.00 Humidified 12/07/16 20:00 82 12/07/16 19:58 96 Nasal Cannula 3.00 12/07/16 19:48 97.3 80 20 148/64 95 12/07/16 16:20 97.5 79 17 140/65 92 12/07/16 12:00 97.3 80 16 146/66 95 I/O 12/07/16 12/07/16 12/07/16 12/08/16 12/08/16 12/08/16 07:00 15:00 23:00 07:00 15:00 23:00 Intake Total 240 ml 102 ml 360 ml 360 ml Output Total 525 ml 200 ml Balance -285 ml 102 ml 360 ml 160 ml Intake Oral 240 ml 360 ml 360 ml IV Total 102 ml Output Urine Total 525 ml 200 ml # Voids 2 1 # Bowel Movements 0 1 1 Result Diagram: 12/08/16 0730 12/08/16 0730 Imaging Last Impressions Chest X-Ray 12/03/16 1628 Signed Impressions: Service Date/Time: Saturday, December 03, 2016 16:53 - CONCLUSION: 1. New right lower lobe infiltrate and blunting of the right costophrenic angle consistent with a small effusion. The findings could indicate pneumonia. 2. Mild scarring at the left lung base. Cristian Farnsworth MD Lower Extremity Ultrasound 12/03/16 0000 Signed Impressions: Service Date/Time: Saturday, December 03, 2016 17:01 - CONCLUSION: No evidence of deep venous thrombosis. Cristian Farnsworth MD Other Results Laboratory Tests Test 12/07/16 12/08/16 20:48 07:30 Random Glucose 406 298 White Blood Count 10.7 Red Blood Count 2.91 Hemoglobin 9.0 Hematocrit 27.5 Mean Corpuscular Volume 94.4 Mean Corpuscular Hemoglobin 31.0 Mean Corpuscular Hemoglobin 32.9 Concent Red Cell Distribution Width 18.7 Platelet Count 308 Mean Platelet Volume 7.9 Neutrophils (%) (Auto) 91.6 Lymphocytes (%) (Auto) 3.4 Monocytes (%) (Auto) 4.6 Eosinophils (%) (Auto) 0.2 Basophils (%) (Auto) 0.2 Neutrophils # (Auto) 9.8 Lymphocytes # (Auto) 0.4 Monocytes # (Auto) 0.5 Eosinophils # (Auto) 0.0 Basophils # (Auto) 0.0 CBC Comment AUTO DIFF Differential Total Cells 100 Counted Neutrophils % (Manual) 88 Lymphocytes % 6 Monocytes % 4 Neutrophils # (Manual) 9.6 Metamyelocytes 1 Myelocytes 1 Differential Comment FINAL DIFF MANUAL Toxic Vacuolation PRESENT Platelet Estimate NORMAL Platelet Morphology Comment NORMAL Red Cell Morphology Comment NORMAL Sodium Level 137 Potassium Level 4.6 Chloride Level 101 Carbon Dioxide Level 25.1 Anion Gap 11 Blood Urea Nitrogen 106 Creatinine 4.22 Estimat Glomerular Filtration 14 Rate Calcium Level 7.0 Protein Corrected Calcium 7.1 Total Protein 7.0 Date/Time Procedure Status Source Growth 12/03/16 20:25 Aerobic Blood Culture - Preliminary Resulted Blood Peripheral NO GROWTH IN 4 DAYS 12/03/16 20:25 Anaerobic Blood Culture - Preliminary Resulted Blood Peripheral NO GROWTH IN 4 DAYS ROS General: Other (POOR HISTORIAN, FATIGUE) GI: Diarrhea Physical Exam Physical Exam PHYSICAL EXAMINATION GENERAL: This is a well-developed, well-nourished male who appears to be in no acute distress. He is alert and awake, []. HEAD: Normocephalic without any lesion or mass noted. Facial features appear symmetric. EYES: Perrla, Normal eye movement, [] Icterus. [] Conj congestion. OROPHARYNGEAL: Oropharynx without erythema or edema. MOUTH/THROAT: Tongue midline []. Buccal mucosa is moist []. NECK: Supple. No nuchal rigidity or lymphadenopathy. Trachea midline without deviation. Thyroid not palpable, no bruits appreciated. CARDIAC: Regular rhythm, regular rate, S1 and S2 are heard. Murmur []; no gallops or rubs. LUNGS: Clear to auscultation bilaterally. [] wheeze, [] rhonchi or [] rale. No use of accessory muscles on inspiration or expiration. ABDOMEN: Soft, nontender, no organomegaly or masses. Bowel sounds are heard in all four quadrants. No rebound. No guarding. EXTREMITIES: [] edema. Pulses equal bilateral. [] cyanosis. NEUROLOGICAL: Patient mood and affect appropriate. Cranial nerves II through XII grossly intact. Muscle strength 5/5 in the upper and lower extremities bilaterally. Deep tendon reflexes are 2+ in the upper and lower extremities bilaterally. SKIN:Warm and moist PSYCH: Mood and affect appropriate Urinary Catheter: No Vascular Central Line Catheter: No A/P Diagnosis: (1) Respiratory failure (2) Congestive heart failure (3) Pneumonia (4) Chronic kidney disease (CKD) (5) Hypertension (6) Elevated troponin (7) COPD (chronic obstructive pulmonary disease) (8) History of CVA (cerebrovascular accident) (9) PVD (peripheral vascular disease) (10) Hyperlipidemia (11) Hyperkalemia (12) Diabetes 1.5, managed as type 2 Assessment and Plan 76-year-old female with recent extensive hospitalizations for perforated duodenal ulcer, sepsis, respiratory failure with tracheostomy, CVA, acute renal injury that led to CK D requiring hemodialysis. Patient presented to the emergency room with hypoxia and shortness of breath, chest x-ray completed with findings of possible congestive heart failure and pneumonia. Acute respiratory failure, resolving, patient is now on O2 at 2 L. Improved -No BiPAP for now -pulm following -DC IV steroids -DuoNeb's -PFTs to be checked Pneumonia, right lower lobe infiltrate Continue with empiric antibiotics,Zosyn, Doxycycline -Blood cultures negative so far -on [place] for recent C diff, diarrhea improving Chronic kidney disease, was on hemodialysis until approximately 2 weeks ago. Still has permacath in place, will leave it in for now. Monitor urine output and renal function. -Appreciate DR Antoine's input -Creat elevated, continues to make urine. Hypocalcemia -resume Calcium PO -Calcium gluconate IV 1 GM today Acute CHF-resolving Continue Lasix 40 mg IV twice a day Monitor intake and output - 2-D echo with EF 35-40% Elevated troponin 0.08, likely secondary to CHF, chronic kidney disease, 3 -Continue to monitor, -Continue with statins, Coreg Diabetes type 2 Accu-Cheks before meals and at bedtime with insulin therapy as needed -Blood glucose elevated, hopefully will improve with steroid weaning History of recent CVA Continue with Aggrenox PVD Continue home medications Hypertension Continue home medications Hyperlipidemia Continue with statins PT eval and treat. CM for dc planning, HHC, PT Discharge planning 2 - 3 days, depending on renal function Labs in am D/W RN D/W pt, D/W Dr. Rebolledo This patient was seen by myself and Dr. Rebolledo, this note is written on his behalf Discussed With: Nurse, Family (patient and his at length and answered questions concerning congestive heart failure, renal failure, medical management ), Other (Dr. Wyatt, seen on his behalf) Problem Qualifiers (1) Respiratory failure: Qualified Code: J96.22 - Acute on chronic respiratory failure with hypercapnia (2) Congestive heart failure: Qualified Code: I50.9 - Congestive heart failure, unspecified congestive heart failure chronicity, unspecified congestive heart failure type (3) Pneumonia: Qualified Code: J18.1 - Pneumonia of right lower lobe due to infectious organism (4) Chronic kidney disease (CKD): Qualified Code: N18.3 - Chronic kidney disease (CKD), stage 3 (moderate) (5) Hypertension: Qualified Code: I10 - Essential hypertension (6) COPD (chronic obstructive pulmonary disease): Qualified Code: J44.9 - Chronic obstructive pulmonary disease, unspecified COPD type (7) Hyperlipidemia: Qualified Code: E78.5 - Hyperlipidemia, unspecified hyperlipidemia type Stephy Barajas Dec 08, 2016 09:58
--- NOTE | 2016-12-08 11:06 | HHI.FF ---
Face to Face Verification Diagnosis: (1) Chronic kidney disease (CKD) (2) Respiratory failure Physical Therapy Order: Evaluate and Treat Home Health Nursing Order: Medical education Signs/symptoms of disease process Oxygen administration education Nursing assessment with vital signs Bioinformatics Computer Scientist Order: To Evaluate: Support services Order: To Provide: Community services I have seen patient Radhames Glass on 12/08/16. My clinical findings support the need for the requested home health care services because: Patient has SOB Deconditioned w/ increased weakness I certify that my clinical findings support that this patient is homebound because: Impaired cognitive ability/safety Hx COPD- exertion dyspnea/weakness Unsteady gait/balance Unsafe to leave home unassisted Need for psychosocial assistance Stephy Barajas Dec 08, 2016 11:06
[2016-12-08] MEDS ORDERED: CALCIUM GLUCONATE INJ 1 GM in SODIUM CHLORIDE 0.9% INJ 100 ML IV ONE (11:15)
[2016-12-08] MEDS ORDERED: CALCIUM CARBONATE 1.25 GM (CA 500 MG) TAB PO SCH (11:15)
[2016-12-08] MEDS: HEPARIN SODIUM - SQ 10,000 UNITS/ML VIAL SQ SCH ×2 (11:51→21:36)
[2016-12-08] MEDS: DIPYRIDAMOLE/ASPIRIN 200 MG/25 MG CAP PO SCH (11:51)
--- NOTE | 2016-12-08 16:46 | HHI.PR ---
Subjective Remarks Alert no sob at rest O2 SAT 95% ON O2 VIA NC Objective Vital Signs Date Time Temp Pulse Resp B/P Pulse Ox O2 Delivery O2 Flow Rate FiO2 12/08/16 16:10 97.5 81 20 151/66 94 12/08/16 12:00 98.0 85 22 162/73 95 12/08/16 08:00 Nasal Cannula 3.00 Humidified 12/08/16 08:00 82 12/08/16 08:00 97.2 87 20 154/68 96 12/08/16 07:58 95 Nasal Cannula 3.00 12/08/16 04:00 97.3 86 20 139/65 93 12/08/16 00:22 97.1 84 20 140/58 96 12/07/16 20:00 Nasal Cannula 3.00 Humidified 12/07/16 20:00 82 12/07/16 19:58 96 Nasal Cannula 3.00 12/07/16 19:48 97.3 80 20 148/64 95 I/O 12/07/16 12/07/16 12/07/16 12/08/16 12/08/16 12/08/16 07:00 15:00 23:00 07:00 15:00 23:00 Intake Total 240 ml 102 ml 360 ml 360 ml 152 ml Output Total 525 ml 200 ml Balance -285 ml 102 ml 360 ml 160 ml 152 ml Intake Oral 240 ml 360 ml 360 ml IV Total 102 ml 152 ml Output Urine Total 525 ml 200 ml # Voids 2 1 # Bowel Movements 0 1 1 Result Diagram: 12/08/1630 12/08/1630 Objective Remarks GENERAL: SKIN: Warm and dry. HEAD: Atraumatic. Normocephalic. EYES: Pupils equal and round. No scleral icterus. No injection or drainage. ENT: No nasal bleeding or discharge. Mucous membranes pink and moist. NECK: Trachea midline. No JVD. CARDIOVASCULAR: Regular rate and rhythm. RESPIRATORY: No accessory muscle use. Clear to auscultation. Breath sounds equal bilaterally. GASTROINTESTINAL: Abdomen soft, non-tender, nondistended. Hepatic and splenic margins not palpable. MUSCULOSKELETAL: Extremities without clubbing, cyanosis, or edema. No obvious deformities. NEUROLOGICAL: Awake and alert. No obvious cranial nerve deficits. Motor grossly within normal limits. Five out of 5 muscle strength in the arms and legs. Normal speech. PSYCHIATRIC: Appropriate mood and affect; insight and judgment normal. Assessment and Plan Assessment and Plan Respiratory failure , improved chronic renal failure chf copd PNA PLAN O2 Antibiotics BIPAP as needed bronchodilator therapy Salvador Franco MD Dec 08, 2016 16:46
--- NOTE | 2016-12-08 18:31 | HHI.NPPN ---
Subjective History of Present Illness 76-year-old male with history of hypertension, diabetes, chronic kidney disease , acute renal failure he recovered his kidney functions and was off dialysis for the past 10 days, he developed C. difficile colitis was placed on vancomycin and now he is admitted to the with increasing shortness of breath COPD Hx of preservation he is passing urine his creatinine has been stable with potassium went up to 6 this was treated medically received Kayexalate and sodium bicarbonate, I been consulted to assist in his renal function and chronic kidney disease. Additional Remarks Patient is alert, sitting on chair, not in distress, eating better, with nasal cannula. Review of Systems General Constitutional: Fatigue Objective Data Data 12/07/16 12/08/16 19:00 07:00 Intake Total 102 ml 720 ml Output Total 200 ml Balance 102 ml 520 ml Intake Oral 720 ml IV Total 102 ml Output Urine Total 200 ml # Voids 3 # Bowel Movements 2 Vital Signs Date Time Temp Pulse Resp B/P Pulse Ox O2 Delivery O2 Flow Rate FiO2 12/08/16 16:10 97.5 81 20 151/66 94 12/08/16 16:00 97.4 81 18 140/84 93 12/08/16 12:00 98.0 85 22 162/73 95 12/08/16 08:00 Nasal Cannula 3.00 Humidified 12/08/16 08:00 82 12/08/16 08:00 97.2 87 20 154/68 96 12/08/16 07:58 95 Nasal Cannula 3.00 12/08/16 04:00 97.3 86 20 139/65 93 12/08/16 00:22 97.1 84 20 140/58 96 12/07/16 20:00 Nasal Cannula 3.00 Humidified 12/07/16 20:00 82 12/07/16 19:58 96 Nasal Cannula 3.00 12/07/16 19:48 97.3 80 20 148/64 95 -: 12/08/16 0730 12/08/16 0730 Physical Exam General Appearance: No Acute Distress, Comfortable Neck Neck Exam: Neck Supple Pulmonary Resp Exam: Breath Sounds Equal, No Distress, Decreased Bases, Diminished Breath Sounds Cardiology CV Exam: Regular, Normal Sinus Rhythm Gastrointestinal/Abdomen GI Exam: Soft, Non-Tender, Bowel Sounds Present Extremeties Extremities Exam: Moderate Edema, Pitting Edema, Dependent Edema Neurologic Neuro Exam: Alert, Awake, Oriented Psychiatric Psych Exam: Appropriate Responses Assessment/Plan Problem List: (1) Chronic kidney disease (CKD) Plan: BUN and Creatinine continue to increase. Non oliguric. Continue Lasix for now. Calcium is low, received IV. Increase oral calcium. Decrease Lasix and follow urine out put and BMP. (2) Congestive heart failure Plan: Continue with diuretics (3) Pneumonia Plan: Plan on antibiotics he has recent history of C. difficile continue with vancomycin orally (4) COPD (chronic obstructive pulmonary disease) Plan: Continue to monitor (5) Metabolic encephalopathy Plan: Better. Problem Qualifiers (1) Chronic kidney disease (CKD): Qualified Code: N18.3 - Chronic kidney disease (CKD), stage 3 (moderate) (2) Congestive heart failure: Qualified Code: I50.9 - Congestive heart failure, unspecified congestive heart failure chronicity, unspecified congestive heart failure type (3) Pneumonia: Qualified Code: J18.1 - Pneumonia of right lower lobe due to infectious organism (4) COPD (chronic obstructive pulmonary disease): Qualified Code: J44.9 - Chronic obstructive pulmonary disease, unspecified COPD type Willi Antoine MD Dec 08, 2016 18:31
[2016-12-08] MEDS: ATORVASTATIN 80 MG TAB PO SCH (21:33)
[2016-12-08] MEDS: ALPRAZolam 0.25 MG TAB PO PRN (21:33)
[2016-12-08] MEDS: INSULIN DETEMIR 100 UNITS/ML VIAL SQ SCH (21:36)
[2016-12-09] VITALS (15 sets, daily range): BP systolic 93–145; BP diastolic 53–65; PULSE 69–78; RESP 16–22; TEMP 93.7–99.4; O2SAT 92–100
[2016-12-09] MEDS: SODIUM CHLORIDE 0.9% FLUSH 5 ML FLUSH IVF PRN (01:21)
[2016-12-09] MEDS: PIPERACIL-TAZO 2.25 GM PREMIX 50 ML IV SCH ×3 (01:21→17:36)
[2016-12-09] MEDS: DOXYCYCLINE INJ 100 MG in SODIUM CHLORIDE 0.9% INJ 100 ML IV SCH ×2 (01:21→14:00)
[2016-12-09] MEDS: INSULIN ASPART SUPPLEMENTAL SCALE SQ SCH (05:37)
--- NOTE | 2016-12-09 06:54 | HHI.PR ---
Subjective Remarks Alert no sob at rest O2 SAT 95% ON O2 VIA NC Objective Vital Signs Date Time Temp Pulse Resp B/P Pulse Ox O2 Delivery O2 Flow Rate FiO2 12/09/16 00:00 78 20 132/63 93 12/09/16 00:00 Nasal Cannula 3.00 Humidified 12/08/16 20:27 84 18 145/63 92 12/08/16 20:00 Nasal Cannula 3.00 Humidified 12/08/16 20:00 83 12/08/16 20:00 97.5 84 18 145/63 92 12/08/16 16:10 97.5 81 20 151/66 94 12/08/16 16:00 97.4 81 18 140/84 93 12/08/16 12:00 98.0 85 22 162/73 95 12/08/16 08:00 Nasal Cannula 3.00 Humidified 12/08/16 08:00 82 12/08/16 08:00 97.2 87 20 154/68 96 12/08/16 07:58 95 Nasal Cannula 3.00 I/O 12/08/16 12/08/16 12/08/16 12/09/16 12/09/16 12/09/16 07:00 15:00 23:00 07:00 15:00 23:00 Intake Total 360 ml 872 ml Output Total 200 ml Balance 160 ml 872 ml Intake Oral 360 ml 720 ml IV Total 152 ml Output Urine Total 200 ml # Voids 1 3 1 # Bowel Movements 1 1 0 Result Diagram: 12/08/1630 12/08/16 0730 Objective Remarks GENERAL: SKIN: Warm and dry. HEAD: Atraumatic. Normocephalic. EYES: Pupils equal and round. No scleral icterus. No injection or drainage. ENT: No nasal bleeding or discharge. Mucous membranes pink and moist. NECK: Trachea midline. No JVD. CARDIOVASCULAR: Regular rate and rhythm. RESPIRATORY: No accessory muscle use. Clear to auscultation. Breath sounds equal bilaterally. GASTROINTESTINAL: Abdomen soft, non-tender, nondistended. Hepatic and splenic margins not palpable. MUSCULOSKELETAL: Extremities without clubbing, cyanosis, or edema. No obvious deformities. NEUROLOGICAL: Awake and alert. No obvious cranial nerve deficits. Motor grossly within normal limits. Five out of 5 muscle strength in the arms and legs. Normal speech. PSYCHIATRIC: Appropriate mood and affect; insight and judgment normal. Assessment and Plan Assessment and Plan Respiratory failure , improved chronic renal failure chf copd PNA PLAN O2 Antibiotics BIPAP as needed bronchodilator therapy F/U CXRAY Discharge Planning GENERAL: SKIN: Warm and dry. HEAD: Atraumatic. Normocephalic. EYES: Pupils equal and round. No scleral icterus. No injection or drainage. ENT: No nasal bleeding or discharge. Mucous membranes pink and moist. NECK: Trachea midline. No JVD. CARDIOVASCULAR: Regular rate and rhythm. RESPIRATORY: No accessory muscle use. Clear to auscultation. Breath sounds equal bilaterally. GASTROINTESTINAL: Abdomen soft, non-tender, nondistended. Hepatic and splenic margins not palpable. MUSCULOSKELETAL: Extremities without clubbing, cyanosis, or edema. No obvious deformities. NEUROLOGICAL: Awake and alert. No obvious cranial nerve deficits. Motor grossly within normal limits. Five out of 5 muscle strength in the arms and legs. Normal speech. PSYCHIATRIC: Appropriate mood and affect; insight and judgment normal. Salvador Franco MD Dec 09, 2016 06:54
[2016-12-09 07:41] LABS: BLOOD GAS CARBOXYHEMOGLOBIN 1.3 % (0-4); BLOOD GAS HCO3 25 mmol/L (22-26); BLOOD GAS METHEMOGLOBIN 0.8 % (0-2); BLOOD GAS O2 HGB SATURATION 92 % (90-100); BLOOD GAS OXYGEN CONTENT 12.5 Vol % (12.0-20.0); BLOOD GAS PCO2 108 mmHg (38-42); BLOOD GAS PO2 102 mmHg (61-120); BLOOD GAS TOTAL HGB 9.5 G/DL (12.0-16.0); TEMP CORR TO 98.6
[2016-12-09 07:42] LABS: CRITICAL VALUE YES; FIO2 28 %; LITER FLOW 2 L/M; OXYGEN DEVICE NASAL CANNULA
[2016-12-09 07:43] LABS: DRAW SITE LT RADIAL; NUMBER OF ARTERIAL PUNCTURES 1; STAT YES; ULNAR PULSE PRESENT
[2016-12-09] MEDS: INSULIN NovoLIN REGULAR SUPPLEMENTAL SCALE SQ SCH ×4 (08:00→20:00)
[2016-12-09] MEDS ORDERED: BUMETANIDE INJ 1 MG/4 ML VIAL IV PUSH ONE (08:00)
[2016-12-09 08:08] LABS: HEMATOCRIT 30.7 % (39.0-51.0); MEAN CELL VOLUME 95.3 FL (80.0-100.0); MEAN CORPUSCULAR HEMOGLOBIN 29.6 PG (27.0-34.0); PLATELET COUNT 388 TH/MM3 (150-450); RED BLOOD COUNT 3.22 MIL/MM3 (4.50-5.90); RED CELL DISTRIBUTION WIDTH 18.7 % (11.6-17.2); REVIEW FLAG FINAL; WHITE BLOOD COUNT 18.9 TH/MM3 (4.0-11.0)
--- NOTE | 2016-12-09 08:10 | RADRPT ---
EXAM DATE/TIME: 12/09/2016 07:48 [facility] COMPARISON: CHEST SINGLE AP, December 03, 2016, 16:53. INDICATIONS : Short of breath. MEDICAL HISTORY : Dyspnea SURGICAL HISTORY : None. ENCOUNTER: Initial ACUITY: 1 day PAIN SCORE: Non-responsive. LOCATION: Bilateral chest FINDINGS: 2 portable frontal views of the chest show a large left and moderate right pleural effusion with biba silar intra-alveolar opacities. This is new from the prior study. Heart is mildly enlarged. Pulmonary vessels are engorged. Dialysis catheter overlies the right chest. CONCLUSION: Radiographic appearance consistent with fluid overload as detailed above. Carlos Marmolejo Jr., MD on December 09, 2016 at 8:07 Board Certified Radiologist. This report was verified electronically.
[2016-12-09] MEDS: HEPARIN SODIUM - SQ 10,000 UNITS/ML VIAL SQ SCH ×2 (08:29→20:41)
[2016-12-09 08:45] LABS: CALCIUM-PROTEIN CORRECTED 7.2 MG/DL (8.5-10.1)
[2016-12-09] MEDS: PANTOPRAZOLE SOD 40 MG DELAYED RELEASE TAB PO SCH (09:00)
[2016-12-09] MEDS ORDERED: FUROSEMIDE 40 MG/4 ML VIAL IV PUSH SCH (09:00)
[2016-12-09] MEDS: DIPYRIDAMOLE/ASPIRIN 200 MG/25 MG CAP PO SCH (09:00)
[2016-12-09] MEDS: VANCOMYCIN 500 MG VIAL (FOR ORAL USE ONLY) PO SCH ×4 (09:00→20:42)
[2016-12-09] MEDS: CARVEDILOL 3.125 MG TAB PO SCH ×2 (09:00→20:42)
[2016-12-09] MEDS: CALCIUM CARBONATE 1.25 GM (CA 500 MG) TAB PO SCH ×3 (09:00→17:37)
[2016-12-09 09:09] LABS: BLOOD GAS BASE EXCESS -5.5 mmol/L (-2-2); BLOOD GAS CARBOXYHEMOGLOBIN 1.4 % (0-4); BLOOD GAS HCO3 24 mmol/L (22-26); BLOOD GAS METHEMOGLOBIN 1.1 % (0-2); BLOOD GAS O2 HGB SATURATION 91 % (90-100); BLOOD GAS OXYGEN CONTENT 11.6 Vol % (12.0-20.0); BLOOD GAS PCO2 90 mmHg (38-42); BLOOD GAS PO2 90 mmHg (61-120); CRITICAL VALUE YES; DRAW SITE LT RADIAL; FIO2 40 %; NUMBER OF ARTERIAL PUNCTURES 1; OXYGEN DEVICE BiPAP; STAT NO; TEMP CORR TO 98.6; ULNAR PULSE PRESENT; VENT SETTINGS IPAP 18 EPAP 5 PS13
[2016-12-09 09:17] LABS: MAGNESIUM 2.1 MG/DL (1.5-2.5); POTASSIUM 4.5 MEQ/L (3.5-5.1)
[2016-12-09 09:39] LABS: CALCIUM-PROTEIN CORRECTED 7.2 MG/DL (8.5-10.1)
[2016-12-09] MEDS ORDERED: SODIUM CHLOR 0.9% 1000 ML INJ 1,000 ML IV PRN ×2 (09:44)
[2016-12-09] MEDS ORDERED: diphenhydrAMINE HCL 25 MG CAP PO PRN (09:45)
[2016-12-09] MEDS ORDERED: ACETAMINOPHEN 325 MG TAB PO PRN (09:45)
[2016-12-09] MEDS ORDERED: SODIUM CHLORIDE 0.9% FLUSH 5 ML FLUSH IVF PRN (09:45)
[2016-12-09] MEDS ORDERED: ONDANSETRON HCL 4 MG/2 ML VIAL IV PRN (09:45)
[2016-12-09] MEDS ORDERED: HEPARIN SODIUM - IV 10,000 UNITS/10 ML VIAL IVF PRN (09:45)
[2016-12-09] MEDS ORDERED: MANNITOL 12.5 GM/50 ML VIAL IV PRN (09:45)
[2016-12-09] MEDS ORDERED: cloNIDine HCL 0.1 MG TAB PO PRN (09:45)
[2016-12-09] MEDS ORDERED: GELATIN 12 MM/7 MM FOAM TOP PRN (09:45)
[2016-12-09] MEDS ORDERED: NITROGLYCERIN 0.4 MG SL 25 TABS/BTL SL PRN (09:45)
--- NOTE | 2016-12-09 10:51 | HHI.PR ---
Subjective Remarks Denvert called, patient went into respiratory distress Patient now on BiPAP Patient evaluated in ISC Difficult to arouse Unable to obtain ROS Patient will be receiving hemodialysis at bedside Objective Objective Results - Vital Signs Date Time Temp Pulse Resp B/P Pulse Ox O2 Delivery O2 Flow Rate FiO2 12/09/16 08:06 97 50 12/09/16 07:30 69 22 145/65 92 12/09/16 07:30 Nasal Cannula 4.00 Humidified 12/09/16 07:15 70 12/09/16 00:00 78 20 132/63 93 12/09/16 00:00 Nasal Cannula 3.00 Humidified 12/08/16 20:27 84 18 145/63 92 12/08/16 20:00 Nasal Cannula 3.00 Humidified 12/08/16 20:00 83 12/08/16 20:00 97.5 84 18 145/63 92 12/08/16 16:10 97.5 81 20 151/66 94 12/08/16 16:00 97.4 81 18 140/84 93 12/08/16 12:00 98.0 85 22 162/73 95 I/O 12/08/16 12/08/16 12/08/16 12/09/16 12/09/16 12/09/16 07:00 15:00 23:00 07:00 15:00 23:00 Intake Total 360 ml 872 ml Output Total 200 ml Balance 160 ml 872 ml Intake Oral 360 ml 720 ml IV Total 152 ml Output Urine Total 200 ml # Voids 1 3 1 # Bowel Movements 1 1 0 Result Diagram: 12/09/16 0715 12/09/16 0715 Imaging Last Impressions Chest X-Ray 12/03/16 1628 Signed Impressions: Service Date/Time: Saturday, December 03, 2016 16:53 - CONCLUSION: 1. New right lower lobe infiltrate and blunting of the right costophrenic angle consistent with a small effusion. The findings could indicate pneumonia. 2. Mild scarring at the left lung base. Cristian Farnsworth MD Lower Extremity Ultrasound 12/03/16 0000 Signed Impressions: Service Date/Time: Saturday, December 03, 2016 17:01 - CONCLUSION: No evidence of deep venous thrombosis. Cristian Farnsworth MD Other Results Laboratory Tests Test 12/09/16 12/09/16 12/09/16 12/09/16 07:15 07:30 08:16 09:05 White Blood Count 18.9 Red Blood Count 3.22 Hemoglobin 9.5 Hematocrit 30.7 Mean Corpuscular Volume 95.3 Mean Corpuscular Hemoglobin 29.6 Mean Corpuscular Hemoglobin 31.0 Concent Red Cell Distribution Width 18.7 Platelet Count 388 Mean Platelet Volume 8.0 Sodium Level 139 Potassium Level 4.5 Chloride Level 102 Carbon Dioxide Level 26.0 Anion Gap 11 Blood Urea Nitrogen 123 Creatinine 5.15 Estimat Glomerular Filtration 11 Rate Random Glucose 156 Calcium Level 7.3 Protein Corrected Calcium 7.2 Phosphorus Level 8.7 Magnesium Level 2.1 Troponin I 0.21 Total Protein 7.4 Blood Gas Puncture Site LT RADIAL LT RADIAL Blood Gas Patient Temperature 98.6 98.6 Blood Gas HCO3 25 24 Blood Gas Base Excess -6.0 -5.5 Blood Gas Oxygen Saturation 92 91 Arterial Blood pH 6.99 7.05 Arterial Blood Partial 108 90 Pressure CO2 Arterial Blood Partial 102 90 Pressure O2 Arterial Blood Oxygen Content 12.5 11.6 Arterial Blood 1.3 1.4 Carboxyhemoglobin Arterial Blood Methemoglobin 0.8 1.1 Blood Gas Hemoglobin 9.5 9.0 Oxygen Delivery Device NASAL CANNULA BiPAP Blood Gas Liter Flow 2 Blood Gas Inspired Oxygen 28 40 Lactic Acid Level 1.0 B-Type Natriuretic Peptide 1823 Blood Gas Ventilator Setting IPAP 18 EPAP 5 PS13 ROS General: Other (12 point ROS unable to obtain) Physical Exam Physical Exam GENERAL: This is a well-nourished, elderly male, on BIPAP SKIN: No rashes, ecchymoses or lesions. Cool and dry. HEAD: Atraumatic. Normocephalic. No temporal or scalp tenderness. EYES: Pupils equal round and reactive. Extraocular motions intact. No scleral icterus. No injection or drainage. ENT: Nose without bleeding, purulent drainage or septal hematoma. Throat without erythema, tonsillar hypertrophy or exudate. Uvula midline. Airway patent. NECK: Trachea midline. No JVD or lymphadenopathy. Supple, nontender, no meningeal signs. CARDIOVASCULAR: S1-S2, unable to detect any murmurs rubs or gallops. Right chest wall is noted with permacath. RESPIRATORY: Bibasilar rales. On BIPAP GASTROINTESTINAL: Abdomen soft, non-tender, nondistended. No hepato-splenomegaly , or palpable masses. No guarding. MUSCULOSKELETAL: Extremities without clubbing, cyanosis. No joint tenderness, effusion, or edema noted. No calf tenderness. Negative Homans sign bilaterally. Bilateral lower extremities noted with +1 edema, pedal pulses 1+ bilaterally. Patient is noted with a right heel ulcerated area that is dry, no exudate, appears to be healing well. There is a small scabbed area to the right lateral aspect of the right foot. NEUROLOGICAL: Lethargic, attempts to open eyes. Unable to assess Urinary Catheter: No Vascular Central Line Catheter: No A/P Diagnosis: (1) Respiratory failure (2) Congestive heart failure (3) Pneumonia (4) Chronic kidney disease (CKD) (5) Hypertension (6) Elevated troponin (7) COPD (chronic obstructive pulmonary disease) (8) History of CVA (cerebrovascular accident) (9) PVD (peripheral vascular disease) (10) Hyperlipidemia (11) Hyperkalemia (12) Diabetes 1.5, managed as type 2 Assessment and Plan 76-year-old female with recent extensive hospitalizations for perforated duodenal ulcer, sepsis, respiratory failure with tracheostomy, CVA, acute renal injury that led to CK D requiring hemodialysis. Patient presented to the emergency room with hypoxia and shortness of breath, chest x-ray completed with findings of possible congestive heart failure and pneumonia. Acute respiratory failure, resolving, patient is now on O2 at 2 L. 12/08 went into resp. distress, hypercarbia, hypoxia. Put on BIPAP, tx to ICU, [facility] called -Cardiology Technologist now following -CXR reviewed, pulm edema. -pulm following -DuoNeb's -continue with supportive care, may need intubation Pneumonia, right lower lobe infiltrate Continue with empiric antibiotics,Zosyn, Doxycycline -Blood cultures negative so far -on Po Vanco for recent C diff, diarrhea improving Chronic kidney disease, was on hemodialysis until approximately 2 weeks ago. Still has permacath in place, will leave it in for now. Monitor urine output and renal function. -Appreciate DR Antoine's input -Creat elevated,making urine. -Pulm edema today, needs emergent HD. Hypocalcemia -continue Calcium replacement Acute CHF-worsening, needs HD off diuretics now, for HD today - 2-D echo with EF 35-40% Elevated troponin 0.08, likely secondary to CHF, chronic kidney disease, 3 -Continue to monitor, -Continue with statins, Coreg Diabetes type 2 Accu-Cheks before meals and at bedtime with insulin therapy as needed -Blood glucose elevated, hopefully will improve with steroid weaning History of recent CVA Continue with Aggrenox PVD Continue home medications Hypertension Continue home medications Hyperlipidemia Continue with statins Labs in am appreciate CCM input for HD today condition guarded monitor closely D/W RN D/W pt's at length, updated. Questions answered in detail D/W Dr. Rebolledo This patient was seen by myself and Dr. Rebolledo, this note is written on his behalf Discussed With: Nurse, Family (patient and his at length and answered questions concerning congestive heart failure, renal failure, medical management ), Other (Dr. Wyatt, seen on his behalf) Problem Qualifiers (1) Respiratory failure: Qualified Code: J96.22 - Acute on chronic respiratory failure with hypercapnia (2) Congestive heart failure: Qualified Code: I50.9 - Congestive heart failure, unspecified congestive heart failure chronicity, unspecified congestive heart failure type (3) Pneumonia: Qualified Code: J18.1 - Pneumonia of right lower lobe due to infectious organism (4) Chronic kidney disease (CKD): Qualified Code: N18.3 - Chronic kidney disease (CKD), stage 3 (moderate) (5) Hypertension: Qualified Code: I10 - Essential hypertension (6) COPD (chronic obstructive pulmonary disease): Qualified Code: J44.9 - Chronic obstructive pulmonary disease, unspecified COPD type (7) Hyperlipidemia: Qualified Code: E78.5 - Hyperlipidemia, unspecified hyperlipidemia type Stephy Barajas Dec 09, 2016 10:51
[2016-12-09] MEDS: ALBUMIN HUMAN 25% 25 GM/100 ML BAGP IV PRN ×2 (11:22→13:01)
[2016-12-09] MEDS: SODIUM CHLOR 0.9% 1000 ML INJ 1,000 ML IV PRN (11:23)
[2016-12-09] MEDS: EPOETIN ALFA 10,000 UNITS/ML VIAL IV PRN (11:23)
[2016-12-09] MEDS: GENTAMICIN SULFATE (DIALYSIS USE ONLY) 20 MG/2 ML VIAL IV PRN (11:23)
[2016-12-09] MEDS ORDERED: MIDAZOLAM HCL 5 MG/ML VIAL (1 ML) ONE (11:52)
--- NOTE | 2016-12-09 11:52 | HHI.NPPN ---
Subjective History of Present Illness 76-year-old male with history of hypertension, diabetes, chronic kidney disease , acute renal failure he recovered his kidney functions and was off dialysis for the past 10 days, he developed C. difficile colitis was placed on vancomycin and now he is admitted to the with increasing shortness of breath COPD Hx of preservation he is passing urine his creatinine has been stable with potassium went up to 6 this was treated medically received Kayexalate and sodium bicarbonate, I been consulted to assist in his renal function and chronic kidney disease. Additional Remarks Patient is on BIPAP and lethargic, now started on HD. Review of Systems General Constitutional: Fatigue Objective Data Data 12/08/16 12/09/16 19:00 07:00 Intake Total 872 ml Balance 872 ml Intake Oral 720 ml IV Total 152 ml # Voids 3 1 # Bowel Movements 1 0 Vital Signs Date Time Temp Pulse Resp B/P Pulse Ox O2 Delivery O2 Flow Rate FiO2 12/09/16 11:42 94 50 12/09/16 08:06 97 50 12/09/16 07:30 69 22 145/65 92 12/09/16 07:30 Nasal Cannula 4.00 Humidified 12/09/16 07:15 70 12/09/16 00:00 78 20 132/63 93 12/09/16 00:00 Nasal Cannula 3.00 Humidified 12/08/16 20:27 84 18 145/63 92 12/08/16 20:00 Nasal Cannula 3.00 Humidified 12/08/16 20:00 83 12/08/16 20:00 97.5 84 18 145/63 92 12/08/16 16:10 97.5 81 20 151/66 94 12/08/16 16:00 97.4 81 18 140/84 93 12/08/16 12:00 98.0 85 22 162/73 95 -: 12/09/16 0715 12/09/16 0715 Physical Exam General Appearance: Obese Appearance Remarks On BIPAP and in moderate resp. distress. Neck Neck Exam: Neck Supple Pulmonary Resp Exam: Breath Sounds Equal, No Distress, Decreased Bases, Diminished Breath Sounds Cardiology CV Exam: Regular, Normal Sinus Rhythm Gastrointestinal/Abdomen GI Exam: Soft, Non-Tender, Bowel Sounds Present Extremeties Extremities Exam: Moderate Edema, Pitting Edema, Dependent Edema Neurologic Neuro Exam: Obtunded Assessment/Plan Problem List: (1) Chronic kidney disease (CKD) Plan: Patient develop Resp. failure. PCO2 is very high and low PH. Creatinine also continue to increase. Started on HD, and now removing 4 liters. 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 Calcium was low,and also now Po4 high, will give Fosrenol. HD possibly again tomorrow. Seen by CCM, for possible intubation. (2) Congestive heart failure Plan: Continue with diuretics (3) Pneumonia Plan: Plan on antibiotics he has recent history of C. difficile continue with vancomycin orally (4) COPD (chronic obstructive pulmonary disease) Plan: Continue to monitor (5) Metabolic encephalopathy Plan: Better. Problem Qualifiers (1) Chronic kidney disease (CKD): Qualified Code: N18.3 - Chronic kidney disease (CKD), stage 3 (moderate) (2) Congestive heart failure: Qualified Code: I50.9 - Congestive heart failure, unspecified congestive heart failure chronicity, unspecified congestive heart failure type (3) Pneumonia: Qualified Code: J18.1 - Pneumonia of right lower lobe due to infectious organism (4) COPD (chronic obstructive pulmonary disease): Qualified Code: J44.9 - Chronic obstructive pulmonary disease, unspecified COPD type Willi Antoine MD Dec 09, 2016 11:52
[2016-12-09] MEDS ORDERED: CISATRACURIUM BESYLATE 20 MG/10 ML VIAL IV ONE (12:00)
--- NOTE | 2016-12-09 12:39 | PD.PROCEDR ---
Procedure Note Procedure DX: Hypercapneic Respiratory Failure J96.02) OP: Orotracheal Intubation (19463) Procedure: Bag mask ventilation. Versed 5 mg and cis-atricurium 20 mg iv. Intubated orally with 8.5 tube. Position confirmed with CO2 detection, breath sounds, sats 100%. CXR ordered, will review. Gage Dumont MD Dec 09, 2016 12:39
[2016-12-09] MEDS: LANTHANUM CARBONATE 500 MG CHEWABLE TABLET CHEW SCH ×2 (13:00→17:36)
--- NOTE | 2016-12-09 13:43 | RADRPT ---
EXAM DATE/TIME: 12/09/2016 12:51 [facility] COMPARISON: CHEST SINGLE AP, December 09, 2016, 7:48. INDICATIONS : Evaluate orotracheal tube position. MEDICAL HISTORY : Dyspnea. SURGICAL HISTORY : None. ENCOUNTER: Initial ACUITY: 1 day PAIN SCORE: Non-responsive. LOCATION: Bilateral chest FINDINGS: Interval placement of endotracheal tube with tip 2 cm above the geraldo. Interval placement of gastri c tube which traverses the [id number]. Dialysis catheter tip projects in the right atrium, unchan ged. There has been a decrease in the amount of hazy opacity diffuse about the right chest and lower left chest with residual meniscal interface in the lower left chest characteristic of decreasing siz e bilateral pleural effusions. Ill-defined area of consolidation in the medial lower lungs is simila r to prior examination. CONCLUSION: ET tube in good position. NG tube traverses the [id number]. Persistent bilateral pleural effusio ns and lower lung consolidative infiltrates. Carlos Hooks MD on December 09, 2016 at 13:40 Board Certified Radiologist. This report was verified electronically.
[2016-12-09] MEDS ORDERED: fentaNYL 2,500 MCG/NS 250 ML IV SCH (14:15)
[2016-12-09 15:43] LABS: BLOOD GAS BASE EXCESS 2.3 mmol/L (-2-2); BLOOD GAS CARBOXYHEMOGLOBIN 1.9 % (0-4); BLOOD GAS HCO3 27 mmol/L (22-26); BLOOD GAS METHEMOGLOBIN 0.9 % (0-2); BLOOD GAS O2 HGB SATURATION 96 % (90-100); BLOOD GAS OXYGEN CONTENT 10.1 Vol % (12.0-20.0); BLOOD GAS PCO2 51 mmHg (38-42); BLOOD GAS PO2 110 mmHg (61-120); BLOOD GAS TOTAL HGB 7.4 G/DL (12.0-16.0); CRITICAL VALUE YES; DRAW SITE LT RADIAL; FIO2 40 %; NUMBER OF ARTERIAL PUNCTURES 1; OXYGEN DEVICE VENTILATOR; STAT NO; TEMP CORR TO 98.6; ULNAR PULSE PRESENT; VENT SETTINGS PRVC/AC
--- NOTE | 2016-12-09 20:10 | PD.CONS ---
[facility] Service Critical Care Medicine Consult Requested By rapid response team Reason for Consult altered mental status and hypoxia Primary Care Physician Reinier Cheng MD History of Present Illness This is a 76-year-old male with a long acute and chronic past medical history and long recent hospitalization, including chronic respiratory failure requiring tracheostomy in the decannulation, acute on chronic renal failure requiring IHD, who most recently was on the floor. He had trouble sleeping last night and was apparently given 1 mg of Xanax, reported to me by his bedside nurse, after which he became somnolent and then unarousable this morning. A rapid response was called. ABG at that time demonstrated a pH 6.8, PCO2 of 109. The patient had agonal respirations and was being bag valve mask assisted ventilation when I arrived to evaluate the patient. The patient was minimally responsive, but protecting his airway. I initially placed the patient on BiPAP while I obtain more information. The patient has had minimal urine output over the last few days with a rising creatinine. His chest x-ray to mistreats bilateral infiltrates and a bat wing hilar distribution suggestive of severe pulmonary edema. His BNP has elevated up to 1800 at this point. It appears reviewing the data, that the patient is in florid acute volume overload and congestive heart failure secondary to acute on chronic renal failure. At this point, the patient remained somnolent, his blood gas improved to pH of 7.0 and a PCO2 of 90. Despite this, the patient did not wake up and alert to inappropriate point. At this point we proceeded with urgent intubation for his persistent type II respiratory failure, please see separate procedure note for details. 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 Patient artery has edema dialysis catheter in place. Patient was transferred to the surgical ICU and emergent dialysis was proceeded with 3 L taken off. Critical care medicine is consulted to evaluate and manage his acute hypoxic hypercarbic respiratory failure, his acute intravascular volume overload, congestive heart failure, acute on chronic renal failure. Due to the emergent nature of the situation, and the patient altered mental status, additional information was unavailable to me at the time of my consultation. Review of Systems ROS Limitations: Clinical Condition, Altered Mental Status, Unresponsive Past Family Social History Allergies: Coded Allergies: Betadine (Verified Allergy, Severe, Rash, 12/03/16) *MDRO Multi-Drug Resistant Organism (Verified Adverse Reaction, Unknown, ) Carlson resistant K. pneumoniae (urine-08/06/16) Past Medical History At the time my evaluation, a complete past medical history was unobtainable to me. Per nursing report, he did have a history of acute on chronic renal failure , congestive heart failure, COPD, and anxiety for which he takes Xanax. Past Surgical History Unknown to me at the time of my evaluation Reported Medications Unknown to me at the time my evaluation. Patient did apparently takes Xanax at home. Active Ordered Medications See MAR Family History Unknown to me the time my evaluation due to the patient's clinical condition. Unlikely to be contributory to his acute illness Social History Unknown to me at the time of my evaluation of this critically ill patient. Physical Exam Vital Signs Vital Signs Date Time Temp Pulse Resp B/P Pulse Ox O2 Delivery O2 Flow Rate FiO2 12/09/16 18:00 74 12/09/16 16:59 100 40 12/09/16 16:00 100 Mechanical Ventilator 40 12/09/16 16:00 77 12/09/16 16:00 98.8 77 16 121/58 100 12/09/16 12:21 97 40 12/09/16 12:00 76 16 93/53 99 12/09/16 11:42 94 50 12/09/16 08:06 97 50 12/09/16 08:00 74 22 121/59 96 12/09/16 07:30 69 22 145/65 92 12/09/16 07:30 Nasal Cannula 4.00 Humidified 12/09/16 07:15 70 12/09/16 00:00 78 20 132/63 93 12/09/16 00:00 Nasal Cannula 3.00 Humidified 12/08/16 20:27 84 18 145/63 92 12/08/16 20:00 Nasal Cannula 3.00 Humidified 12/08/16 20:00 83 12/08/16 20:00 97.5 84 18 145/63 92 Physical Exam On exam, this is a elderly male, in obvious severe respiratory distress, being assisted in his ventilation with a [id number] by nursing and respiratory therapy. He is SPO2 was 95%. His blood pressure was in the 140 systolic. His heart rate was in the 80s. His lungs are very coarse bilaterally. Very poor air entry. He had visible 2+ peripheral edema. Laboratory Laboratory Tests Test 2/23/17 2/23/17 2/23/17 2/23/17 07:15 07:30 08:16 08:30 White Blood Count 18.9 Red Blood Count 3.22 Hemoglobin 9.5 Hematocrit 30.7 Mean Corpuscular Volume 95.3 Mean Corpuscular Hemoglobin 29.6 Mean Corpuscular Hemoglobin 31.0 Concent Red Cell Distribution Width 18.7 Platelet Count 388 Mean Platelet Volume 8.0 Sodium Level 139 Potassium Level 4.5 Chloride Level 102 Carbon Dioxide Level 26.0 Anion Gap 11 Blood Urea Nitrogen 123 Creatinine 5.15 Estimat Glomerular Filtration 11 Rate Random Glucose 156 Calcium Level 7.3 Protein Corrected Calcium 7.2 Phosphorus Level 8.7 Magnesium Level 2.1 Troponin I 0.21 Total Protein 7.4 Blood Gas Puncture Site LT RADIAL Blood Gas Patient Temperature 98.6 Blood Gas HCO3 25 Blood Gas Base Excess -6.0 Blood Gas Oxygen Saturation 92 Arterial Blood pH 6.99 Arterial Blood Partial 108 Pressure CO2 Arterial Blood Partial 102 Pressure O2 Arterial Blood Oxygen Content 12.5 Arterial Blood 1.3 Carboxyhemoglobin Arterial Blood Methemoglobin 0.8 Blood Gas Hemoglobin 9.5 Oxygen Delivery Device NASAL CANNULA Blood Gas Liter Flow 2 Blood Gas Inspired Oxygen 28 Lactic Acid Level 1.0 B-Type Natriuretic Peptide 1823 Nasal Screen MRSA (PCR) NEGATIVE Test 12/09/16 12/09/16 09:05 15:33 Blood Gas Puncture Site LT RADIAL LT RADIAL Blood Gas Patient Temperature 98.6 98.6 Blood Gas HCO3 24 27 Blood Gas Base Excess -5.5 2.3 Blood Gas Oxygen Saturation 91 96 Arterial Blood pH 7.05 7.35 Arterial Blood Partial 90 51 Pressure CO2 Arterial Blood Partial 90 110 Pressure O2 Arterial Blood Oxygen Content 11.6 10.1 Arterial Blood 1.4 1.9 Carboxyhemoglobin Arterial Blood Methemoglobin 1.1 0.9 Blood Gas Hemoglobin 9.0 7.4 Oxygen Delivery Device BiPAP VENTILATOR Blood Gas Ventilator Setting IPAP 18 EPAP 5 PRVC/AC PS13 Blood Gas Inspired Oxygen 40 40 Result Diagram: 12/09/16 0715 12/09/16 0715 Imaging Last 24 hours Impressions Chest X-Ray 12/09/16 0000 Signed Impressions: Service Date/Time: November 12:51 - CONCLUSION: ET tube in good position. NG tube traverses the [id number]. Persistent bilateral pleural effusions and lower lung consolidative infiltrates. Carlos Hooks MD Chest X-Ray 12/09/16 0000 Signed Impressions: Service Date/Time: November 07:48 - CONCLUSION: Radiographic appearance consistent with fluid overload as detailed above. Carlos Marmolejo Jr., MD Assessment and Plan Assessment and Plan Assessment: This is a 76-year-old male with history of congestive heart failure , COPD, acute on chronic kidney injury who presents with severe acute type II respiratory failure with altered mental status requiring urgent intubation, mechanical ventilation, urgent hemodialysis. Patient remains critically ill this time with multiorgan system failure. Active problems: Metabolic encephalopathy CO2 narcosis Acute hypercarbic and hypoxic respiratory failure Acute intravascular volume overloaded Acute severe congestive heart failure exacerbation, unknown type Acute on chronic renal failure requiring renal replacement therapy Plan: Proceed with intubation, see procedure note for supper details. Fentanyl as needed for sedation Goal RASS -2 Vent bundle, nebs Wean FiO2 for goal as future greater than 90% Hold long-acting sedating meds Discuss with nephrology, plan for urgent dialysis We'll likely need a few days of daily IHD Every hour neuro checks Stat CBC, BMP, magnesium, phosphorus, lactate, BNP, troponin Daily CBC, daily BMP Admit to the ICU This patient remains critically ill with one or more organ systems which are or may become a threat to life. I have spent in excess of 63 minutes discontinuously in the care and management of this patient. This time is exclusive of procedures, and includes, but is not limited to, evaluation of the patient, review of the medical record, discussions with family, consultants, nursing staff, or respiratory therapy, and documentation in the medical record. Code Status Full code Discussed Condition With Nephrology, bedside floor RN, bedside VP ORGANIZATIONAL DEVELOPMENT, . Juancarlos Driscoll MD Dec 09, 2016 20:10
[2016-12-09] MEDS: CHLORHEXIDINE 0.12% (ORAL KIT) 15 ML CUP MT SCH (20:22)
[2016-12-09] MEDS: DEXTROSE 50% IN WATER 50 ML VIAL(D50) IV PUSH PRN ×2 (20:33→20:45)
[2016-12-09] MEDS: ATORVASTATIN 80 MG TAB PO SCH (20:41)
[2016-12-09] MEDS: INSULIN DETEMIR 100 UNITS/ML VIAL SQ SCH (20:42)
--- NOTE | 2016-12-09 22:22 | RADRPT ---
EXAM DATE/TIME: 12/09/2016 22:04 [facility] COMPARISON: CHEST SINGLE AP, December 09, 2016, 12:51. INDICATIONS : ET tube placement. MEDICAL HISTORY : None. SURGICAL HISTORY : None. ENCOUNTER: Subsequent ACUITY: 1 week PAIN SCORE: Non-responsive. LOCATION: chest FINDINGS: ET tube remains in place terminating just above the geraldo with nasogastric tube through the midline into the stomach multilevel and right venous catheter in place with stable pulmonary findings bilater al effusions and lower lobe infiltrates. CONCLUSION: Stable chest. ET tube terminates just above the geraldo. Mathieu Dawn MD on December 09, 2016 at 22:19 Board Certified Radiologist. This report was verified electronically.
[2016-12-10] VITALS (18 sets, daily range): BP systolic 98–149; BP diastolic 52–66; PULSE 68–89; RESP 10–16; TEMP 98–99.3; O2SAT 94–100
[2016-12-10] MEDS: DEXTROSE 50% IN WATER 50 ML VIAL(D50) IV PUSH PRN ×4 (00:17→05:45)
[2016-12-10] MEDS: PIPERACIL-TAZO 2.25 GM PREMIX 50 ML IV SCH ×3 (00:17→17:00)
[2016-12-10] MEDS: DOXYCYCLINE INJ 100 MG in SODIUM CHLORIDE 0.9% INJ 100 ML IV SCH ×2 (00:37→14:00)
[2016-12-10] MEDS: INSULIN NovoLIN REGULAR SUPPLEMENTAL SCALE SQ SCH ×4 (04:00→20:00)
[2016-12-10 04:29] LABS: HEMATOCRIT 22.8 % (39.0-51.0); MEAN CELL VOLUME 92.9 FL (80.0-100.0); MEAN CORPUSCULAR HEMOGLOBIN 30.6 PG (27.0-34.0); PLATELET COUNT 182 TH/MM3 (150-450); RED BLOOD COUNT 2.45 MIL/MM3 (4.50-5.90); RED CELL DISTRIBUTION WIDTH 18.8 % (11.6-17.2); REVIEW FLAG FINAL; WHITE BLOOD COUNT 9.3 TH/MM3 (4.0-11.0)
[2016-12-10 04:58] LABS: BICARBONATE 28.3 MEQ/L (21.0-32.0); POTASSIUM 3.7 MEQ/L (3.5-5.1)
[2016-12-10 05:45] LABS: CALCIUM-PROTEIN CORRECTED 7.8 MG/DL (8.5-10.1)
[2016-12-10] MEDS: CHLORHEXIDINE 0.12% (ORAL KIT) 15 ML CUP MT SCH ×2 (08:00→20:00)
[2016-12-10] MEDS: CARVEDILOL 3.125 MG TAB PO SCH ×2 (08:07→20:47)
[2016-12-10] MEDS: DIPYRIDAMOLE/ASPIRIN 200 MG/25 MG CAP PO SCH (08:07)
[2016-12-10] MEDS: PANTOPRAZOLE SOD 40 MG DELAYED RELEASE TAB PO SCH (08:08)
[2016-12-10] MEDS: HEPARIN SODIUM - SQ 10,000 UNITS/ML VIAL SQ SCH ×2 (08:13→20:46)
[2016-12-10] MEDS: VANCOMYCIN 500 MG VIAL (FOR ORAL USE ONLY) PO SCH ×4 (08:14→20:47)
[2016-12-10] MEDS: LANTHANUM CARBONATE 500 MG CHEWABLE TABLET CHEW SCH ×3 (08:14→18:00)
[2016-12-10] MEDS: CALCIUM CARBONATE 1.25 GM (CA 500 MG) TAB PO SCH ×3 (08:14→18:00)
[2016-12-10 09:07] LABS: C. DIFF EPI 027 PRESUMPTIVE POSITIVE (NEGATIVE); C. DIFF TOXIN PCR POSITIVE (NEGATIVE)
[2016-12-10] MEDS: GENTAMICIN SULFATE (DIALYSIS USE ONLY) 20 MG/2 ML VIAL IV PRN (09:44)
[2016-12-10] MEDS: SODIUM CHLOR 0.9% 1000 ML INJ 1,000 ML IV PRN (09:44)
[2016-12-10] MEDS: HEPARIN SODIUM - IV 10,000 UNITS/10 ML VIAL PRN (09:44)
[2016-12-10] MEDS: ALBUMIN HUMAN 25% 25 GM/100 ML BAGP IV PRN (09:45)
--- NOTE | 2016-12-10 10:09 | HHI.PR ---
Subjective Remarks Hallnavit called 12/09, patient went into respiratory distress Initially put on BiPAP then intubated currently receiving second HD tx tolerating well hemodynamically stable on Fentanyl eyes open, following simple commands on CPAP no fever unable to do ROS at bsd Objective Objective Results - Vital Signs Date Time Temp Pulse Resp B/P Pulse Ox O2 Delivery O2 Flow Rate FiO2 12/10/16 09:19 97 40 12/10/16 06:00 70 12/10/16 04:19 97 40 12/10/16 04:00 78 12/10/16 04:00 99.3 78 16 104/55 96 12/10/16 04:00 40 12/10/16 02:00 68 12/10/16 00:10 94 40 12/10/16 00:00 40 12/10/16 00:00 98.3 70 16 100/52 96 12/10/16 00:00 70 12/09/16 22:00 71 12/09/16 21:08 97 40 12/09/16 20:00 71 12/09/16 20:00 99.4 71 16 107/54 96 12/09/16 20:00 40 12/09/16 18:00 74 12/09/16 16:59 100 40 12/09/16 16:00 100 Mechanical Ventilator 40 12/09/16 16:00 77 12/09/16 16:00 98.8 77 16 121/58 100 12/09/16 12:21 97 40 12/09/16 12:00 76 16 93/53 99 12/09/16 11:42 94 50 I/O 12/09/16 12/09/16 12/09/16 12/10/16 12/10/16 12/10/16 07:00 15:00 23:00 07:00 15:00 23:00 Intake Total 50 ml 745 ml 511 ml Output Total 3000 ml 95 ml 30 ml 3000 ml Balance -2950 ml 650 ml 481 ml -3000 ml IV Total 535 ml 511 ml Tube Irrigant 90 ml Other 50 ml 120 ml Output Urine Total 95 ml 30 ml Hemodialysis 3000 ml 3000 ml # Bowel Movements 0 2 Result Diagram: 12/10/16 0355 12/10/16 0355 Imaging Last Impressions Chest X-Ray 12/03/16 1628 Signed Impressions: Service Date/Time: Saturday, December 03, 2016 16:53 - CONCLUSION: 1. New right lower lobe infiltrate and blunting of the right costophrenic angle consistent with a small effusion. The findings could indicate pneumonia. 2. Mild scarring at the left lung base. Cristian Farnsworth MD Lower Extremity Ultrasound 12/03/16 0000 Signed Impressions: Service Date/Time: Saturday, December 03, 2016 17:01 - CONCLUSION: No evidence of deep venous thrombosis. Cristian Farnsworth MD Other Results Laboratory Tests Test 12/09/16 12/10/16 12/10/16 15:33 03:55 06:00 Blood Gas Puncture Site LT RADIAL Blood Gas Patient Temperature 98.6 Blood Gas HCO3 27 Blood Gas Base Excess 2.3 Blood Gas Oxygen Saturation 96 Arterial Blood pH 7.35 Arterial Blood Partial 51 Pressure CO2 Arterial Blood Partial 110 Pressure O2 Arterial Blood Oxygen Content 10.1 Arterial Blood 1.9 Carboxyhemoglobin Arterial Blood Methemoglobin 0.9 Blood Gas Hemoglobin 7.4 Oxygen Delivery Device VENTILATOR Blood Gas Ventilator Setting PRVC/AC Blood Gas Inspired Oxygen 40 White Blood Count 9.3 Red Blood Count 2.45 Hemoglobin 7.5 Hematocrit 22.8 Mean Corpuscular Volume 92.9 Mean Corpuscular Hemoglobin 30.6 Mean Corpuscular Hemoglobin 33.0 Concent Red Cell Distribution Width 18.8 Platelet Count 182 Mean Platelet Volume 8.1 Sodium Level 143 Potassium Level 3.7 Chloride Level 103 Carbon Dioxide Level 28.3 Anion Gap 12 Blood Urea Nitrogen 85 Creatinine 4.09 Estimat Glomerular Filtration 14 Rate Random Glucose 65 Calcium Level 7.3 Protein Corrected Calcium 7.8 Total Protein 6.2 Stool C. difficile Toxin (PCR) POSITIVE Stl C. difficile Toxin PRESUMPTIVE Epiderm 027 POSITIVE ROS General: Other (unable to do ROS) Physical Exam Physical Exam GENERAL: This is a well-nourished, elderly male, on mechanical ventilation SKIN: No rashes, ecchymoses or lesions. Cool and dry. HEAD: Atraumatic. Normocephalic. No temporal or scalp tenderness. EYES: Pupils equal round and reactive. No scleral icterus. No injection or drainage. ENT: Nose without bleeding, purulent drainage or septal hematoma. Throat without erythema, tonsillar hypertrophy or exudate. Uvula midline. Airway patent. NECK: Trachea midline. No JVD or lymphadenopathy. Supple, nontender, no meningeal signs. CARDIOVASCULAR: S1-S2, unable to detect any murmurs rubs or gallops. Right chest wall is noted with permacath. RESPIRATORY: Faint Bibasilar rales. On ventilator, CPAP GASTROINTESTINAL: Abdomen soft, non-tender, nondistended. No hepato-splenomegaly , or palpable masses. No guarding. MUSCULOSKELETAL: Extremities without clubbing, cyanosis. No joint tenderness, effusion, or edema noted. No calf tenderness. Negative Homans sign bilaterally. Bilateral lower extremities noted with +1 edema, pedal pulses 1+ bilaterally. Patient is noted with a right heel ulcerated area that is dry, no exudate, appears to be healing well. There is a small scabbed area to the right lateral aspect of the right foot. NEUROLOGICAL: Eyes open, following simple commands, difficult to assess A/P Diagnosis: (1) Respiratory failure (2) Congestive heart failure (3) Pneumonia (4) Chronic kidney disease (CKD) (5) Hypertension (6) Elevated troponin (7) COPD (chronic obstructive pulmonary disease) (8) History of CVA (cerebrovascular accident) (9) PVD (peripheral vascular disease) (10) Hyperlipidemia (11) Hyperkalemia (12) Diabetes 1.5, managed as type 2 (13) C. difficile diarrhea Assessment and Plan 76-year-old female with recent extensive hospitalizations for perforated duodenal ulcer, sepsis, respiratory failure with tracheostomy, CVA, acute renal injury that led to CK D requiring hemodialysis. Patient presented to the emergency room with hypoxia and shortness of breath, chest x-ray completed with findings of possible congestive heart failure and pneumonia. Acute respiratory failure, resolving, patient is now on O2 at 2 L. 12/08 went into resp. distress, hypercarbia, hypoxia. Put on BIPAP, tx to ICU, Madiha called pt. intubated, CPAP trial today -Stave Log Ripsaw Operator now following, input appreciated -pulm following -DuoNeb's Pneumonia, right lower lobe infiltrate Continue with empiric antibiotics,Zosyn, Doxycycline -Blood cultures negative so far Chronic kidney disease, was on hemodialysis until approximately 2 weeks ago. Still has permacath in place, will leave it in for now. Now acute on CKD with pulm edema -appreciate renal input -pt. back on HD, second tx today, tolerating well -monitor renal function, creat with slight improvement -monitor urine output -making urine -per nephrology, will need continued HD as OP. Hypocalcemia -continue Calcium replacement Acute CHF-worsening, needs HD off diuretics now, on HD - 2-D echo with EF 35-40% Elevated troponin 0.08, likely secondary to CHF, chronic kidney disease, 3 -Continue to monitor, -Continue with statins, Coreg Diarrhea, + cdiff Epid 027 -continue Vanco PO Diabetes type 2 Accu-Cheks before meals and at bedtime with insulin therapy as needed -Blood glucose elevated, hopefully will improve with steroid weaning History of recent CVA Continue with Aggrenox PVD Continue home medications Hypertension Continue home medications Hyperlipidemia Continue with statins Condition guarded, although improved from yesterday continue with supportive care Labs reviewed, slight improvement in renal function D/W RN D/W pt's at length, updated. Questions answered in detail D/W Dr. Rebolledo This patient was seen by myself and Dr. Rebolledo, this note is written on his behalf Discussed With: Nurse, Family (patient and his at length and answered questions concerning congestive heart failure, renal failure, medical management ), Other (Dr. Wyatt, seen on his behalf) Problem Qualifiers (1) Respiratory failure: Qualified Code: J96.22 - Acute on chronic respiratory failure with hypercapnia (2) Congestive heart failure: Qualified Code: I50.9 - Congestive heart failure, unspecified congestive heart failure chronicity, unspecified congestive heart failure type (3) Pneumonia: Qualified Code: J18.1 - Pneumonia of right lower lobe due to infectious organism (4) Chronic kidney disease (CKD): Qualified Code: N18.3 - Chronic kidney disease (CKD), stage 3 (moderate) (5) Hypertension: Qualified Code: I10 - Essential hypertension (6) COPD (chronic obstructive pulmonary disease): Qualified Code: J44.9 - Chronic obstructive pulmonary disease, unspecified COPD type (7) Hyperlipidemia: Qualified Code: E78.5 - Hyperlipidemia, unspecified hyperlipidemia type Stephy Barajas Dec 10, 2016 10:09
--- NOTE | 2016-12-10 11:12 | HHI.CCPN ---
Subjective Remarks/Hospital Course Hospital Course: This is a 76-year-old male with a long acute and chronic past medical history and long recent hospitalization, including chronic respiratory failure requiring tracheostomy in the decannulation, acute on chronic renal failure requiring IHD, who most recently was on the floor. He had trouble sleeping last night and was apparently given 1 mg of Xanax, reported to me by his bedside nurse, after which he became somnolent and then unarousable this morning. A rapid response was called. ABG at that time demonstrated a pH 6.8, PCO2 of 109. The patient had agonal respirations and was being bag valve mask assisted ventilation when I arrived to evaluate the patient. The patient was minimally responsive, but protecting his airway. I initially placed the patient on BiPAP while I obtain more information. The patient has had minimal urine output over the last few days with a rising creatinine. His chest x-ray to mistreats bilateral infiltrates and a bat wing hilar distribution suggestive of severe pulmonary edema. His BNP has elevated up to 1800 at this point. It appears reviewing the data, that the patient is in florid acute volume overload and congestive heart failure secondary to acute on chronic renal failure. At this point, the patient remained somnolent, his blood gas improved to pH of 7.0 and a PCO2 of 90. Despite this, the patient did not wake up and alert to inappropriate point. At this point we proceeded with urgent intubation for his persistent type II respiratory failure, please see separate procedure note for details. I had a discussion at this point with his sales engagement manager, and the decision was made to pursue urgent dialysis. Patient artery has edema dialysis catheter in place. Patient was transferred to the surgical ICU and emergent dialysis was proceeded with 3 L taken off. Critical care medicine is consulted to evaluate and manage his acute hypoxic hypercarbic respiratory failure, his acute intravascular volume overload, congestive heart failure, acute on chronic renal failure. Due to the emergent nature of the situation, and the patient altered mental status, additional information was unavailable to me at the time of my consultation. Subjective: 12/10: doing much better this morning. getting second round of IHD. awake, alert. no complaints. Objective Vital Signs Date Time Temp Pulse Resp B/P Pulse Ox O2 Delivery O2 Flow Rate FiO2 12/10/16 09:19 97 40 12/10/16 06:00 70 12/10/16 04:00 99.3 16 104/55 12/09/16 16:00 Mechanical Ventilator 12/09/16 07:30 4.00 Intake and Output 12/09/16 12/09/16 12/10/16 08:00 16:00 00:00 Intake Total 282 ml 513 ml Output Total 3050 ml 45 ml Balance -2768 ml 468 ml Result Diagram: 12/10/16 0355 12/10/16 0355 Other Results Laboratory Tests Test 12/09/16 15:33 Blood Gas Puncture Site LT RADIAL Blood Gas Patient Temperature 98.6 Blood Gas HCO3 27 mmol/L (22-26) Blood Gas Base Excess 2.3 mmol/L (-2-2) Blood Gas Oxygen Saturation 96 % (90-100) Arterial Blood pH 7.35 (7.380-7.420) Arterial Blood Partial 51 mmHg (38-42) Pressure CO2 Arterial Blood Partial 110 mmHg Pressure O2 (61-120) Arterial Blood Oxygen Content 10.1 Vol % (12.0-20.0) Arterial Blood 1.9 % (0-4) Carboxyhemoglobin Arterial Blood Methemoglobin 0.9 % (0-2) Blood Gas Hemoglobin 7.4 G/DL (12.0-16.0) Oxygen Delivery Device VENTILATOR Blood Gas Ventilator Setting PRVC/AC Blood Gas Inspired Oxygen 40 % Imaging Last 24 hours Impressions Chest X-Ray 12/09/16 0000 Signed Impressions: Service Date/Time: November 12:51 - CONCLUSION: ET tube in good position. NG tube traverses the [id number]. Persistent bilateral pleural effusions and lower lung consolidative infiltrates. Carlos Hooks MD Chest X-Ray 12/09/16 0000 Signed Impressions: Service Date/Time: November 07:48 - CONCLUSION: Radiographic appearance consistent with fluid overload as detailed above. Carlos Marmolejo Jr., MD Objective Remarks gen: elderly male, lying in bed, intubated, sedated on fentanyl heent: pupils equal, round, reactive. mucous membranes moist neck: obese, difficult to assess jvd. trachea midline. orotracheally intubated chest: equal chest rise. bilateral coarse rales persist, but improved from yesterday. cv: normal rate, regular rhythm, sinus by tele. abd: obese, soft, nontender, nondistended. no guarding. extr: 2+ pitting edema. warm extremities. good distal perfusion neuro: RASS -1. follows commands. A/P Assessment and Plan Assessment: This is a 76-year-old male with history of congestive heart failure , COPD, acute on chronic kidney injury who presents with severe acute type II respiratory failure with altered mental status requiring urgent intubation, mechanical ventilation, urgent hemodialysis. He is clinically improving. will attempt SBT and may trial separation from mechanical ventilation today. will need ongoing renal replacement therapy. Active problems: Metabolic encephalopathy CO2 narcosis Acute hypercarbic and hypoxic respiratory failure Acute intravascular volume overloaded Acute severe congestive heart failure exacerbation, unknown type Acute on chronic renal failure requiring renal replacement therapy Healthcare associated pneumonia recent history of C.Diff colitis Plan: SBT today --goal RASS 0. --will proceed with extubation if passes SBT -- if he extubates, we will attempt to advance his diet, if he does not wean to extubate today, will place gastric access and start tube feeds. --continue renal replacement therapy. --continue antibiotics for pneumonia --continue PO vanc for c.diff. Juancarlos Driscoll MD Dec 10, 2016 11:12
[2016-12-10 13:38] LABS: BLOOD GAS BASE EXCESS 1.7 mmol/L (-2-2); BLOOD GAS CARBOXYHEMOGLOBIN 1.5 % (0-4); BLOOD GAS HCO3 28 mmol/L (22-26); BLOOD GAS METHEMOGLOBIN 0.9 % (0-2); BLOOD GAS O2 HGB SATURATION 94 % (90-100); BLOOD GAS OXYGEN CONTENT 11.1 Vol % (12.0-20.0); BLOOD GAS PCO2 68 mmHg (38-42); BLOOD GAS PO2 95 mmHg (61-120); BLOOD GAS TOTAL HGB 8.3 G/DL (12.0-16.0); TEMP CORR TO 98.6
[2016-12-10 13:39] LABS: CRITICAL VALUE YES; DRAW SITE RT RADIAL; FIO2 40 %; NUMBER OF ARTERIAL PUNCTURES 1; OXYGEN DEVICE VENTILATOR; STAT NO; ULNAR PULSE PRESENT; VENT SETTINGS CPAP 5/5
[2016-12-10 16:55] LABS: BLOOD GAS BASE EXCESS 1.8 mmol/L (-2-2); BLOOD GAS CARBOXYHEMOGLOBIN 1.6 % (0-4); BLOOD GAS HCO3 28 mmol/L (22-26); BLOOD GAS METHEMOGLOBIN 0.8 % (0-2); BLOOD GAS O2 HGB SATURATION 95 % (90-100); BLOOD GAS OXYGEN CONTENT 11.4 Vol % (12.0-20.0); BLOOD GAS PCO2 64 mmHg (38-42); BLOOD GAS PO2 106 mmHg (61-120); BLOOD GAS TOTAL HGB 8.4 G/DL (12.0-16.0); TEMP CORR TO 98.6
[2016-12-10 16:56] LABS: CRITICAL VALUE YES; DRAW SITE RT RADIAL; FIO2 40 %; NUMBER OF ARTERIAL PUNCTURES 2; OXYGEN DEVICE VENTILATOR; STAT NO; ULNAR PULSE PRESENT; VENT SETTINGS CPAP5/PS 5
--- NOTE | 2016-12-10 17:19 | HHI.NPPN ---
Subjective History of Present Illness 76-year-old male with history of hypertension, diabetes, chronic kidney disease , acute renal failure he recovered his kidney functions and was off dialysis for the past 10 days, he developed C. difficile colitis was placed on vancomycin and now he is admitted to the with increasing shortness of breath COPD Hx of preservation he is passing urine his creatinine has been stable with potassium went up to 6 this was treated medically received Kayexalate and sodium bicarbonate, I been consulted to assist in his renal function and chronic kidney disease. Additional Remarks Patient remain intubated and awake. Review of Systems General Constitutional: Fatigue Objective Data Data 12/09/16 12/10/16 19:00 07:00 Intake Total 282 ml 1024 ml Output Total 3050 ml 75 ml Balance -2768 ml 949 ml IV Total 112 ml 934 ml Tube Irrigant 90 ml Other 170 ml Output Urine Total 50 ml 75 ml Hemodialysis 3000 ml # Bowel Movements 0 2 Vital Signs Date Time Temp Pulse Resp B/P Pulse Ox O2 Delivery O2 Flow Rate FiO2 12/10/16 16:07 100 40 12/10/16 14:32 40 12/10/16 14:13 99 40 12/10/16 14:00 80 12/10/16 12:00 98.0 83 10 124/58 99 12/10/16 12:00 40 12/10/16 12:00 82 12/10/16 11:35 40 12/10/16 10:00 71 12/10/16 09:46 40 12/10/16 09:19 97 40 12/10/16 08:00 99.3 78 16 98/53 96 12/10/16 08:00 40 12/10/16 08:00 78 12/10/16 06:00 70 12/10/16 04:19 97 40 12/10/16 04:00 78 12/10/16 04:00 99.3 78 16 104/55 96 12/10/16 04:00 40 12/10/16 02:00 68 12/10/16 00:10 94 40 12/10/16 00:00 40 12/10/16 00:00 98.3 70 16 100/52 96 12/10/16 00:00 70 12/09/16 22:00 71 12/09/16 21:08 97 40 12/09/16 20:00 71 12/09/16 20:00 99.4 71 16 107/54 96 12/09/16 20:00 40 12/09/16 18:00 74 -: 12/10/16 0355 12/10/16 0355 Physical Exam General Appearance: Obese Appearance Remarks On BIPAP and in moderate resp. distress. Neck Neck Exam: Neck Supple Pulmonary Resp Exam: Breath Sounds Equal, No Distress, Decreased Bases, Diminished Breath Sounds Cardiology CV Exam: Regular, Normal Sinus Rhythm Gastrointestinal/Abdomen GI Exam: Soft, Non-Tender, Bowel Sounds Present Extremeties Extremities Exam: Moderate Edema, Pitting Edema, Dependent Edema Neurologic Neuro Exam: Obtunded Assessment/Plan Problem List: (1) Chronic kidney disease (CKD) Plan: Patient develop Resp. failure. PCO2 is very high and low PH. Creatinine also continue to increase.. Given his COPD, and CHF, possibly will need to continue [facility] HD. Calcium was low,and also now Po4 high, started on Fosrenol. HD again today, mainly for fluid removal. Intubated and weaning as per CCM. Possible HD again in AM. (2) Congestive heart failure Plan: Continue with diuretics (3) Pneumonia Plan: Plan on antibiotics he has recent history of C. difficile continue with vancomycin orally (4) COPD (chronic obstructive pulmonary disease) Plan: Continue to monitor (5) Metabolic encephalopathy Plan: Better. Problem Qualifiers (1) Chronic kidney disease (CKD): Qualified Code: N18.3 - Chronic kidney disease (CKD), stage 3 (moderate) (2) Congestive heart failure: Qualified Code: I50.9 - Congestive heart failure, unspecified congestive heart failure chronicity, unspecified congestive heart failure type (3) Pneumonia: Qualified Code: J18.1 - Pneumonia of right lower lobe due to infectious organism (4) COPD (chronic obstructive pulmonary disease): Qualified Code: J44.9 - Chronic obstructive pulmonary disease, unspecified COPD type Willi Antoine MD Dec 10, 2016 17:19
[2016-12-10] MEDS: ATORVASTATIN 80 MG TAB PO SCH (20:47)
[2016-12-10] MEDS: INSULIN DETEMIR 100 UNITS/ML VIAL SQ SCH (21:00)
[2016-12-11] VITALS (19 sets, daily range): BP systolic 125–157; BP diastolic 58–68; PULSE 71–82; RESP 15–26; TEMP 97.9–99; O2SAT 96–100
[2016-12-11] MEDS: DOXYCYCLINE INJ 100 MG in SODIUM CHLORIDE 0.9% INJ 100 ML IV SCH ×2 (01:02→14:00)
[2016-12-11] MEDS: PIPERACIL-TAZO 2.25 GM PREMIX 50 ML IV SCH ×3 (01:02→16:51)
[2016-12-11] MEDS: INSULIN NovoLIN REGULAR SUPPLEMENTAL SCALE SQ SCH ×4 (04:00→20:00)
[2016-12-11] MEDS: CALCIUM CARBONATE 1.25 GM (CA 500 MG) TAB PO SCH ×3 (08:06→16:51)
[2016-12-11] MEDS: CARVEDILOL 3.125 MG TAB PO SCH ×2 (08:06→20:24)
[2016-12-11] MEDS: LANTHANUM CARBONATE 500 MG CHEWABLE TABLET CHEW SCH ×3 (08:06→16:51)
[2016-12-11] MEDS: CHLORHEXIDINE 0.12% (ORAL KIT) 15 ML CUP MT SCH ×2 (08:06→20:00)
[2016-12-11] MEDS: VANCOMYCIN 500 MG VIAL (FOR ORAL USE ONLY) PO SCH ×5 (08:07→20:24)
[2016-12-11] MEDS: HEPARIN SODIUM - SQ 10,000 UNITS/ML VIAL SQ SCH ×2 (08:07→20:24)
[2016-12-11] MEDS: DIPYRIDAMOLE/ASPIRIN 200 MG/25 MG CAP PO SCH (08:41)
[2016-12-11] MEDS: PANTOPRAZOLE SOD 40 MG DELAYED RELEASE TAB PO SCH (08:41)
[2016-12-11 09:28] LABS: BLOOD GAS BASE EXCESS 1.1 mmol/L (-2-2); BLOOD GAS CARBOXYHEMOGLOBIN 1.5 % (0-4); BLOOD GAS HCO3 27 mmol/L (22-26); BLOOD GAS METHEMOGLOBIN 0.8 % (0-2); BLOOD GAS O2 HGB SATURATION 96 % (90-100); BLOOD GAS PCO2 60 mmHg (38-42); BLOOD GAS PO2 113 mmHg (61-120); BLOOD GAS TOTAL HGB 9.6 G/DL (12.0-16.0); CRITICAL VALUE YES; TEMP CORR TO 98.6
[2016-12-11 09:29] LABS: DRAW SITE LT RADIAL; FIO2 35 %; NUMBER OF ARTERIAL PUNCTURES 1; OXYGEN DEVICE VENTILATOR; STAT NO; VENT SETTINGS CPAPPEEP5/PS10
--- NOTE | 2016-12-11 09:49 | HHI.PR ---
Subjective Remarks Alert, Ventilator support Responds to verbal stimuli present Resting in bed no acute complaints (Vanessa Donato) Objective Objective Results - Vital Signs Date Time Temp Pulse Resp B/P Pulse Ox O2 Delivery O2 Flow Rate FiO2 12/11/16 08:45 100 35 12/11/16 06:00 80 12/11/16 04:00 78 15 125/58 100 12/11/16 04:00 78 12/11/16 04:00 40 12/11/16 03:29 100 40 12/11/16 02:00 79 12/11/16 00:05 97 40 12/11/16 00:00 40 12/11/16 00:00 79 12/11/16 00:00 99.0 79 17 149/66 100 12/10/16 22:00 72 12/10/16 20:37 100 40 12/10/16 20:00 98.1 85 16 126/60 100 12/10/16 20:00 40 12/10/16 20:00 80 12/10/16 18:00 88 12/10/16 16:07 100 40 12/10/16 16:00 98.0 89 15 149/66 96 12/10/16 16:00 89 12/10/16 16:00 40 12/10/16 14:32 40 12/10/16 14:13 99 40 12/10/16 14:00 80 12/10/16 12:00 98.0 83 10 124/58 99 12/10/16 12:00 40 12/10/16 12:00 82 12/10/16 11:35 40 12/10/16 10:00 71 12/10/16 09:46 40 I/O 12/10/16 12/10/16 12/10/16 12/11/16 12/11/16 12/11/16 07:00 15:00 23:00 07:00 15:00 23:00 Intake Total 511 ml 480 ml 479 ml 528 ml Output Total 30 ml 3050 ml 80 ml 150 ml Balance 481 ml -2570 ml 399 ml 378 ml IV Total 511 ml 480 ml 479 ml 196 ml Tube Feeding 302 ml Tube Irrigant 30 ml Output Urine Total 30 ml 50 ml 80 ml 150 ml Hemodialysis 3000 ml # Bowel Movements 2 2 1 2 (Vanessa Donato) Result Diagram: 12/10/1635412/10/16 0355 ROS General: Weakness (generalized), Other (10 point ROS done. Mild anxiety over current condition, occasional cough, ventilator management and weaning in process. Currently patient on CPAP. Continuing to evaluate renal status as well as pulmonary status other systems negative) Pulmonary: Cough, Other (ventilator support) GI: Other (abdomen round active bowel sounds) /CHANGE OF ADDRESS CLERK: Other (dialysis) Neuro/MS: Other (anxiety mild) (Vanessa Donato) Physical Exam Physical Exam PHYSICAL EXAMINATION GENERAL: This is a well-developed, well-nourished male who appears to be in no acute distress. He is alert and awake, intubated. HEAD: Normocephalic without any lesion or mass noted. Facial features appear symmetric. OROPHARYNGEAL: Oropharynx without erythema or edema., [place] moist NECK: Supple. No nuchal rigidity or lymphadenopathy. Trachea midline without deviation. CARDIAC: Regular rhythm, regular rate, S1 and S2 distant Murmur possible; possible soft gallop LUNGS: Decreased in bases to auscultation bilaterally. No wheeze, mild upper davis rhonchi, mild rale. No use of accessory muscles on inspiration or expiration. Ventilator management, CPAP ABDOMEN: Soft, nontender, no organomegaly or masses. Bowel sounds are heard in all four quadrants. No rebound. No guarding. EXTREMITIES: Trace generalized edema upper and lower extremities. Pulses equal bilateral. No cyanosis. NEUROLOGICAL: Patient mood and affect appropriate. No focal deficit SKIN:Warm and moist (Vanessa Donato) A/P Assessment and Plan (1) Respiratory failure (2) Congestive heart failure (3) Pneumonia (4) Chronic kidney disease (CKD) (5) Hypertension (6) Elevated troponin (7) COPD (chronic obstructive pulmonary disease) (8) History of CVA (cerebrovascular accident) (9) PVD (peripheral vascular disease) (10) Hyperlipidemia (11) Hyperkalemia (12) Diabetes 1.5, managed as type 2 Assessment and Plan Admit to Dr. Wyatt 76-year-old female with recent extensive hospitalizations for perforated duodenal ulcer, sepsis, respiratory failure with tracheostomy, CVA, acute renal injury that led to CK D requiring hemodialysis. Patient presented to the emergency room with hypoxia and shortness of breath, chest x-ray completed with findings of possible congestive heart failure and pneumonia. Acute respiratory failure, 12/08 went into resp. distress, hypercarbia, hypoxia. Put on BIPAP, tx to ICU, Denvert called pt. intubated, CPAP trials, weaning in process -Communication Consultant now following, input appreciated -pulm following -DuoNeb's Pneumonia, right lower lobe infiltrate Continue with empiric antibiotics,Zosyn, Doxycycline -Blood cultures negative so far Chronic kidney disease, was on hemodialysis until approximately 2 weeks ago. Still has permacath in place, will leave it in for now. Now acute on CKD with pulm edema -appreciate renal input -pt. back on HD, treatment scheduled for today -monitor renal function, creat with slight improvement -monitor urine output -making urine -per nephrology, will need continued HD as OP. Continues with generalized edema in his extremities Hypocalcemia -continue Calcium replacement Acute CHF-worsening, receiving HD now off diuretics now, on HD - 2-D echo with EF 35-40% Elevated troponin 0.08, likely secondary to CHF, chronic kidney disease, 3 -Continue to monitor, -Continue with statins, Coreg Diarrhea, + cdiff Epid 027 -continue Vanco PO Diabetes type 2 Accu-Cheks before meals and at bedtime with insulin therapy as needed -Blood glucose elevated, hopefully will improve with steroid weaning History of recent CVA Continue with Aggrenox PVD Continue home medications Hypertension Continue home medications Hyperlipidemia Continue with statins Condition guarded, although improved from yesterday continue with supportive care Labs reviewed, slight improvement in renal function Monitor vital signs labs Abdalla catheter for I&O Hopeful ventilator weaning today if stable, probably after dialysis. Discharge Planning Initiated, hopefully home with when patient is stable Discussed With: Nurse, Family (patient and ), Other (Dr. Rebolledo, seen on her behalf) (Vanessa Donato) Assessment and Plan Patient seen and examined off sedation on vent HD in progress, plan to remove 3L today hopefully extubate soon continue current care repeat C diff + PO VAnco increased discussed with patient and wif eat bed side discussed with nursing staff discussed with Vanessa CHENEY (Terri Rebolledo MD) Vanessa Donato Dec 11, 2016 09:49 Terri Rebolledo MD Dec 11, 2016 14:21
[2016-12-11] MEDS: HEPARIN SODIUM - IV 10,000 UNITS/10 ML VIAL PRN (12:08)
[2016-12-11] MEDS: EPOETIN ALFA 10,000 UNITS/ML VIAL IV PRN (12:08)
[2016-12-11] MEDS: SODIUM CHLOR 0.9% 1000 ML INJ 1,000 ML IV PRN (12:09)
[2016-12-11] MEDS: GENTAMICIN SULFATE (DIALYSIS USE ONLY) 20 MG/2 ML VIAL IV PRN (12:09)
--- NOTE | 2016-12-11 12:53 | HHI.NPPN ---
Subjective History of Present Illness 76-year-old male with history of hypertension, diabetes, chronic kidney disease , acute renal failure he recovered his kidney functions and was off dialysis for the past 10 days, he developed C. difficile colitis was placed on vancomycin and now he is admitted to the with increasing shortness of breath COPD Hx of preservation he is passing urine his creatinine has been stable with potassium went up to 6 this was treated medically received Kayexalate and sodium bicarbonate, I been consulted to assist in his renal function and chronic kidney disease. Additional Remarks Patient remain intubated and awake, now on HD. Review of Systems General Constitutional: Fatigue Objective Data Data 12/10/16 12/11/16 19:00 07:00 Intake Total 480 ml 1007 ml Output Total 3050 ml 230 ml Balance -2570 ml 777 ml IV Total 480 ml 675 ml Tube Feeding 302 ml Tube Irrigant 30 ml Output Urine Total 50 ml 230 ml Hemodialysis 3000 ml # Bowel Movements 2 3 Vital Signs Date Time Temp Pulse Resp B/P Pulse Ox O2 Delivery O2 Flow Rate FiO2 12/11/16 12:00 99.0 72 22 145/68 100 12/11/16 12:00 35 12/11/16 12:00 71 12/11/16 11:47 100 35 12/11/16 10:00 71 12/11/16 08:45 100 35 12/11/16 08:00 40 12/11/16 08:00 98.8 78 22 142/64 100 12/11/16 08:00 78 12/11/16 06:00 80 12/11/16 04:00 78 15 125/58 100 12/11/16 04:00 78 12/11/16 04:00 40 12/11/16 03:29 100 40 12/11/16 02:00 79 12/11/16 00:05 97 40 12/11/16 00:00 40 12/11/16 00:00 79 12/11/16 00:00 99.0 79 17 149/66 100 12/10/16 22:00 72 12/10/16 20:37 100 40 12/10/16 20:00 98.1 85 16 126/60 100 12/10/16 20:00 40 12/10/16 20:00 80 12/10/16 18:00 88 12/10/16 16:07 100 40 12/10/16 16:00 98.0 89 15 149/66 96 12/10/16 16:00 89 12/10/16 16:00 40 12/10/16 14:32 40 12/10/16 14:13 99 40 12/10/16 14:00 80 -: 12/10/16 0355 12/10/16 0355 Physical Exam General Appearance: Obese Appearance Remarks On BIPAP and in moderate resp. distress. Neck Neck Exam: Neck Supple Pulmonary Resp Exam: Breath Sounds Equal, No Distress, Decreased Bases, Diminished Breath Sounds Cardiology CV Exam: Regular, Normal Sinus Rhythm Gastrointestinal/Abdomen GI Exam: Soft, Non-Tender, Bowel Sounds Present Extremeties Extremities Exam: Moderate Edema, Pitting Edema, Dependent Edema Neurologic Neuro Exam: Obtunded Assessment/Plan Problem List: (1) Chronic kidney disease (CKD) Plan: Patient develop Resp. failure. Creatinine also continue to increase.. Given his COPD, and CHF, possibly will need to continue senior living HD. Calcium was low,and also now Po4 high, started on Fosrenol. HD again today, mainly for fluid removal. Removing 3 liters. D/W the , HD as needed. Still PCO2 is elevated, has an element of COPD. (2) Congestive heart failure Plan: Continue with diuretics (3) Pneumonia Plan: Plan on antibiotics he has recent history of C. difficile continue with vancomycin orally (4) COPD (chronic obstructive pulmonary disease) Plan: Continue to monitor (5) Metabolic encephalopathy Plan: Better. Problem Qualifiers (1) Chronic kidney disease (CKD): Qualified Code: N18.3 - Chronic kidney disease (CKD), stage 3 (moderate) (2) Congestive heart failure: Qualified Code: I50.9 - Congestive heart failure, unspecified congestive heart failure chronicity, unspecified congestive heart failure type (3) Pneumonia: Qualified Code: J18.1 - Pneumonia of right lower lobe due to infectious organism (4) COPD (chronic obstructive pulmonary disease): Qualified Code: J44.9 - Chronic obstructive pulmonary disease, unspecified COPD type Willi Antoine MD Dec 11, 2016 12:53
--- NOTE | 2016-12-11 15:41 | HHI.CCPN ---
Subjective Remarks/Hospital Course Hospital Course: This is a 76-year-old male with a long acute and chronic past medical history and long recent hospitalization, including chronic respiratory failure requiring tracheostomy in the decannulation, acute on chronic renal failure requiring IHD, who most recently was on the floor. He had trouble sleeping last night and was apparently given 1 mg of Xanax, reported to me by his bedside nurse, after which he became somnolent and then unarousable this morning. A rapid response was called. ABG at that time demonstrated a pH 6.8, PCO2 of 109. The patient had agonal respirations and was being bag valve mask assisted ventilation when I arrived to evaluate the patient. The patient was minimally responsive, but protecting his airway. I initially placed the patient on BiPAP while I obtain more information. The patient has had minimal urine output over the last few days with a rising creatinine. His chest x-ray to mistreats bilateral infiltrates and a bat wing hilar distribution suggestive of severe pulmonary edema. His BNP has elevated up to 1800 at this point. It appears reviewing the data, that the patient is in florid acute volume overload and congestive heart failure secondary to acute on chronic renal failure. At this point, the patient remained somnolent, his blood gas improved to pH of 7.0 and a PCO2 of 90. Despite this, the patient did not wake up and alert to inappropriate point. At this point we proceeded with urgent intubation for his persistent type II respiratory failure, please see separate procedure note for details. I had a discussion at this point with his manager order, and the decision was made to pursue urgent dialysis. Patient artery has edema dialysis catheter in place. Patient was transferred to the surgical ICU and emergent dialysis was proceeded with 3 L taken off. Critical care medicine is consulted to evaluate and manage his acute hypoxic hypercarbic respiratory failure, his acute intravascular volume overload, congestive heart failure, acute on chronic renal failure. Due to the emergent nature of the situation, and the patient altered mental status, additional information was unavailable to me at the time of my consultation. Subjective: 12/10: doing much better this morning. getting second round of IHD. awake, alert. no complaints. 12/11: awake, alert. no complaints. asked for breathing tube to be removed. getting IHD again today. blood gas with persistent respiratory acidosis. Objective Vital Signs Date Time Temp Pulse Resp B/P Pulse Ox O2 Delivery O2 Flow Rate FiO2 2/25/17 14:00 72 12/11/16 13:57 100 40 12/11/16 12:00 99.0 22 145/68 12/09/16 16:00 Mechanical Ventilator 12/09/16 07:30 4.00 Intake and Output 12/10/16 12/10/16 12/11/16 08:00 16:00 00:00 Intake Total 511 ml 480 ml 479 ml Output Total 30 ml 3050 ml 80 ml Balance 481 ml -2570 ml 399 ml Result Diagram: 12/10/16 0355 12/10/16 0355 Other Results Laboratory Tests Test 12/10/16 12/11/16 16:40 09:18 Blood Gas Puncture Site RT RADIAL LT RADIAL Blood Gas Patient Temperature 98.6 98.6 Blood Gas HCO3 28 mmol/L 27 mmol/L (22-26) (22-26) Blood Gas Base Excess 1.8 mmol/L 1.1 mmol/L (-2-2) (-2-2) Blood Gas Oxygen Saturation 95 % (90-100) 96 % (90-100) Arterial Blood pH 7.27 7.28 (7.380-7.420) (7.380-7.420) Arterial Blood Partial 64 mmHg (38-42) 60 mmHg (38-42) Pressure CO2 Arterial Blood Partial 106 mmHg 113 mmHg Pressure O2 (61-120) (61-120) Arterial Blood Oxygen Content 11.4 Vol % 13.0 Vol % (12.0-20.0) (12.0-20.0) Arterial Blood 1.6 % (0-4) 1.5 % (0-4) Carboxyhemoglobin Arterial Blood Methemoglobin 0.8 % (0-2) 0.8 % (0-2) Blood Gas Hemoglobin 8.4 G/DL 9.6 G/DL (12.0-16.0) (12.0-16.0) Oxygen Delivery Device VENTILATOR VENTILATOR Blood Gas Ventilator Setting CPAP5/PS 5 CPAPPEEP5/PS10 Blood Gas Inspired Oxygen 40 % 35 % Imaging Last 24 hours Impressions Chest X-Ray 12/09/16 0000 Signed Impressions: Service Date/Time: November 12:51 - CONCLUSION: ET tube in good position. NG tube traverses the [id number]. Persistent bilateral pleural effusions and lower lung consolidative infiltrates. Carlos Hooks MD Chest X-Ray 12/09/16 0000 Signed Impressions: Service Date/Time: November 07:48 - CONCLUSION: Radiographic appearance consistent with fluid overload as detailed above. Carlos Marmolejo Jr., MD Objective Remarks gen: elderly male, lying in bed, intubated heent: pupils equal, round, reactive. mucous membranes moist neck: obese, difficult to assess jvd. trachea midline. orotracheally intubated chest: equal chest rise. clear to auscultation today. cv: normal rate, regular rhythm, sinus by tele. abd: obese, soft, nontender, nondistended. no guarding. extr: 1+ pitting edema. warm extremities. good distal perfusion neuro: RASS 0. follows commands. A/P Assessment and Plan Assessment: This is a 76-year-old male with history of congestive heart failure , COPD, acute on chronic kidney injury who presents with severe acute type II respiratory failure with altered mental status requiring urgent intubation, mechanical ventilation, urgent hemodialysis. He is clinically improving. He has passed his SBT. I think his respiratory acidosis is likely due to the fact that he has underlying chronic lung disease and is a chronic co2 retainer. Likely was previously metabolically compensated, but with acute hemodialysis, his bicarb is acutely reset to normal, resulting in iatrogenic acute respiratory acidosis. given that he is awake and alert, we will pursue trial of extubation. if he fails, will require re-intubation and will discuss with nephrology about possibly assisting in compensating. will need ongoing renal replacement therapy. Active problems: Metabolic encephalopathy- improving. CO2 narcosis- improving. Acute hypercarbic and hypoxic respiratory failure- improving. Acute intravascular volume overloaded- improving. Acute severe congestive heart failure exacerbation, unknown type- improving. Acute on chronic renal failure requiring renal replacement therapy Healthcare associated pneumonia recent history of C.Diff colitis Plan: proceed with extubation -- I.S. to bedside with aggressive pulm toilet. -- avoid long-acting sedating meds -- wean o2 by NC for goal spo2 > 90% -- BiPAP at night (patient wears home CPAP) --nursing bedside swallow evaluation, if he passes, will advance to clear liquid diet. if he fails, will make npo and order formal swallow eval. -- IHD today per nephrology. --continue antibiotics for pneumonia --continue PO vanc for c.diff. Remain in the ICU, as he is still requiring high level of nursing care. Juancarlos Driscoll MD Dec 11, 2016 15:40
[2016-12-11] MEDS: RESP: ALBUTEROL 2.5 MG/IPRATROPIUM 0.5 MG NEB (PRN) NEB (18:45)
--- NOTE | 2016-12-11 19:21 | HHI.PR ---
Subjective Remarks Alert no sob at rest O2 SAT 95% ON O2 VIA NC Objective Vital Signs Date Time Temp Pulse Resp B/P Pulse Ox O2 Delivery O2 Flow Rate FiO2 12/11/16 16:00 98.0 73 21 146/67 100 12/11/16 16:00 75 12/11/16 14:43 96 Nasal Cannula 4 12/11/16 14:00 72 12/11/16 13:57 100 40 12/11/16 12:00 99.0 72 22 145/68 100 12/11/16 12:00 35 12/11/16 12:00 71 12/11/16 11:47 100 35 12/11/16 10:00 71 12/11/16 08:45 100 35 12/11/16 08:00 40 12/11/16 08:00 98.8 78 22 142/64 100 12/11/16 08:00 78 12/11/16 06:00 80 12/11/16 04:00 78 15 125/58 100 12/11/16 04:00 78 12/11/16 04:00 40 12/11/16 03:29 100 40 12/11/16 02:00 79 12/11/16 00:05 97 40 12/11/16 00:00 40 12/11/16 00:00 79 12/11/16 00:00 99.0 79 17 149/66 100 12/10/16 22:00 72 12/10/16 20:37 100 40 12/10/16 20:00 98.1 85 16 126/60 100 12/10/16 20:00 40 12/10/16 20:00 80 I/O 12/10/16 12/10/16 12/10/16 12/11/16 12/11/16 12/11/16 07:00 15:00 23:00 07:00 15:00 23:00 Intake Total 511 ml 480 ml 479 ml 528 ml Output Total 30 ml 3050 ml 80 ml 150 ml 3000 ml Balance 481 ml -2570 ml 399 ml 378 ml -3000 ml IV Total 511 ml 480 ml 479 ml 196 ml Tube Feeding 302 ml Tube Irrigant 30 ml Output Urine Total 30 ml 50 ml 80 ml 150 ml Hemodialysis 3000 ml 3000 ml # Bowel Movements 2 2 1 2 Result Diagram: 12/10/16 0355 12/10/16 0355 Objective Remarks GENERAL: SKIN: Warm and dry. HEAD: Atraumatic. Normocephalic. EYES: Pupils equal and round. No scleral icterus. No injection or drainage. ENT: No nasal bleeding or discharge. Mucous membranes pink and moist. NECK: Trachea midline. No JVD. CARDIOVASCULAR: Regular rate and rhythm. RESPIRATORY: No accessory muscle use. Clear to auscultation. Breath sounds equal bilaterally. GASTROINTESTINAL: Abdomen soft, non-tender, nondistended. Hepatic and splenic margins not palpable. MUSCULOSKELETAL: Extremities without clubbing, cyanosis, or edema. No obvious deformities. NEUROLOGICAL: Awake and alert. No obvious cranial nerve deficits. Motor grossly within normal limits. Five out of 5 muscle strength in the arms and legs. Normal speech. PSYCHIATRIC: Appropriate mood and affect; insight and judgment normal. Assessment and Plan Assessment and Plan Respiratory failure , improved chronic renal failure chf copd PNA PLAN O2 Antibiotics BIPAP as needed bronchodilator therapy F/U CXRAY Salvador Franco MD Dec 11, 2016 19:20
[2016-12-11] MEDS: ATORVASTATIN 80 MG TAB PO SCH (20:24)
[2016-12-11] MEDS: INSULIN DETEMIR 100 UNITS/ML VIAL SQ SCH (20:24)
[2016-12-12] VITALS (14 sets, daily range): BP systolic 149–186; BP diastolic 66–81; PULSE 70–92; RESP 19–26; TEMP 88.1–98.8; O2SAT 94–99
[2016-12-12] MEDS: PIPERACIL-TAZO 2.25 GM PREMIX 50 ML IV SCH (00:27)
[2016-12-12] MEDS: DOXYCYCLINE INJ 100 MG in SODIUM CHLORIDE 0.9% INJ 100 ML IV SCH (02:55)
[2016-12-12] MEDS: INSULIN NovoLIN REGULAR SUPPLEMENTAL SCALE SQ SCH ×6 (04:00→21:50)
[2016-12-12] MEDS: CHLORHEXIDINE 0.12% (ORAL KIT) 15 ML CUP MT SCH ×2 (08:00→20:00)
--- NOTE | 2016-12-12 08:40 | HHI.CCPN ---
Subjective Remarks/Hospital Course Hospital Course: This is a 76-year-old male with a long acute and chronic past medical history and long recent hospitalization, including chronic respiratory failure requiring tracheostomy in the decannulation, acute on chronic renal failure requiring IHD, who most recently was on the floor. He had trouble sleeping last night and was apparently given 1 mg of Xanax, reported to me by his bedside nurse, after which he became somnolent and then unarousable this morning. A rapid response was called. ABG at that time demonstrated a pH 6.8, PCO2 of 109. The patient had agonal respirations and was being bag valve mask assisted ventilation when I arrived to evaluate the patient. The patient was minimally responsive, but protecting his airway. I initially placed the patient on BiPAP while I obtain more information. The patient has had minimal urine output over the last few days with a rising creatinine. His chest x-ray to mistreats bilateral infiltrates and a bat wing hilar distribution suggestive of severe pulmonary edema. His BNP has elevated up to 1800 at this point. It appears reviewing the data, that the patient is in florid acute volume overload and congestive heart failure secondary to acute on chronic renal failure. At this point, the patient remained somnolent, his blood gas improved to pH of 7.0 and a PCO2 of 90. Despite this, the patient did not wake up and alert to inappropriate point. At this point we proceeded with urgent intubation for his persistent type II respiratory failure, please see separate procedure note for details. 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 Patient artery has edema dialysis catheter in place. Patient was transferred to the surgical ICU and emergent dialysis was proceeded with 3 L taken off. Critical care medicine is consulted to evaluate and manage his acute hypoxic hypercarbic respiratory failure, his acute intravascular volume overload, congestive heart failure, acute on chronic renal failure. Due to the emergent nature of the situation, and the patient altered mental status, additional information was unavailable to me at the time of my consultation. Subjective: 12/10: doing much better this morning. getting second round of IHD. awake, alert. no complaints. 12/11: awake, alert. no complaints. asked for breathing tube to be removed. getting IHD again today. blood gas with persistent respiratory acidosis. 12/12: extubated yesterday. doing well. no acute events overnight. asking for breakfast. Objective Vital Signs Date Time Temp Pulse Resp B/P Pulse Ox O2 Delivery O2 Flow Rate FiO2 12/12/16 06:00 74 12/12/16 04:00 97.9 24 149/66 96 12/11/16 20:15 Nasal Cannula 2.00 12/11/16 13:57 40 Intake and Output 12/11/16 12/11/16 12/12/16 08:00 16:00 00:00 Intake Total 528 ml 331 ml Output Total 150 ml 3000 ml 450 ml Balance 378 ml -3000 ml -119 ml Result Diagram: 12/10/16 0355 12/10/16 0355 Other Results Laboratory Tests Test 12/11/16 09:18 Blood Gas Puncture Site LT RADIAL Blood Gas Patient Temperature 98.6 Blood Gas HCO3 27 mmol/L (22-26) Blood Gas Base Excess 1.1 mmol/L (-2-2) Blood Gas Oxygen Saturation 96 % (90-100) Arterial Blood pH 7.28 (7.380-7.420) Arterial Blood Partial 60 mmHg (38-42) Pressure CO2 Arterial Blood Partial 113 mmHg Pressure O2 (61-120) Arterial Blood Oxygen Content 13.0 Vol % (12.0-20.0) Arterial Blood 1.5 % (0-4) Carboxyhemoglobin Arterial Blood Methemoglobin 0.8 % (0-2) Blood Gas Hemoglobin 9.6 G/DL (12.0-16.0) Oxygen Delivery Device VENTILATOR Blood Gas Ventilator Setting CPAPPEEP5/PS10 Blood Gas Inspired Oxygen 35 % Imaging Last 24 hours Impressions Chest X-Ray 12/09/16 0000 Signed Impressions: Service Date/Time: November 12:51 - CONCLUSION: ET tube in good position. NG tube traverses the [id number]. Persistent bilateral pleural effusions and lower lung consolidative infiltrates. Carlos Hooks MD Chest X-Ray 12/09/16 0000 Signed Impressions: Service Date/Time: November 07:48 - CONCLUSION: Radiographic appearance consistent with fluid overload as detailed above. Carlos Marmolejo Jr., MD Objective Remarks gen: elderly male, sitting in bed. heent: pupils equal, round, reactive. mucous membranes moist neck: obese, difficult to assess jvd. trachea midline. chest: equal chest rise. clear to auscultation today. using I.S. during my exam. cv: normal rate, regular rhythm, sinus by tele. abd: obese, soft, nontender, nondistended. no guarding. extr: 1+ pitting edema. warm extremities. good distal perfusion neuro: RASS 0. follows commands. A/P Assessment and Plan Assessment: This is a 76-year-old male with history of congestive heart failure , COPD, acute on chronic kidney injury who presents with severe acute type II respiratory failure with altered mental status requiring urgent intubation, mechanical ventilation, urgent hemodialysis. Now extubated and clinically improving. Active problems: Metabolic encephalopathy- improving. CO2 narcosis- improving. Acute hypercarbic and hypoxic respiratory failure- improving. Acute intravascular volume overloaded- improving. Acute severe congestive heart failure exacerbation, unknown type- improving. Acute on chronic renal failure requiring renal replacement therapy Healthcare associated pneumonia recent history of C.Diff colitis Delirium Plan: -- I.S. to bedside with aggressive pulm toilet. -- avoid long-acting sedating meds -- wean o2 by NC for goal spo2 > 90% -- BiPAP at night (patient wears home CPAP) --advance diet to heart healthy with nutrition shakes -- mild delirium: will start zyprexa 2.5mg po q8h. would avoid benzodiazepines as he has not done well with these in the past. -- IHD per nephrology. --has had > 7 day course of abx. afebrile with normal wbc. will d/c antibiotics as he has had a full course for pneumonia --continue PO vanc for c.diff., likely for 2 weeks post last dose of abx. -- OOB to chair with PT daily. stable for transfer to floor with hospitalist following. Juancarlos Driscoll MD Dec 12, 2016 08:40
[2016-12-12] MEDS: CARVEDILOL 3.125 MG TAB PO SCH ×2 (09:49→21:52)
[2016-12-12] MEDS: CALCIUM CARBONATE 1.25 GM (CA 500 MG) TAB PO SCH ×3 (09:49→17:43)
[2016-12-12] MEDS: PANTOPRAZOLE SOD 40 MG DELAYED RELEASE TAB PO SCH (09:49)
[2016-12-12] MEDS: DIPYRIDAMOLE/ASPIRIN 200 MG/25 MG CAP PO SCH (09:49)
[2016-12-12] MEDS: VANCOMYCIN 500 MG VIAL (FOR ORAL USE ONLY) PO SCH ×4 (09:50→22:00)
[2016-12-12] MEDS: HEPARIN SODIUM - SQ 10,000 UNITS/ML VIAL SQ SCH ×2 (09:50→22:06)
[2016-12-12] MEDS: LANTHANUM CARBONATE 500 MG CHEWABLE TABLET CHEW SCH ×3 (10:53→17:43)
[2016-12-12] MEDS: OLANZapine ODT 5 MG TAB PO SCH ×2 (10:53→17:43)
[2016-12-12] MEDS: PILL SPLITTER OTHER PRN ×2 (10:54→17:43)
--- NOTE | 2016-12-12 12:13 | HHI.NPPN ---
Subjective History of Present Illness 76-year-old male with history of hypertension, diabetes, chronic kidney disease , acute renal failure he recovered his kidney functions and was off dialysis for the past 10 days, he developed C. difficile colitis was placed on vancomycin and now he is admitted to the with increasing shortness of breath COPD Hx of preservation he is passing urine his creatinine has been stable with potassium went up to 6 this was treated medically received Kayexalate and sodium bicarbonate, I been consulted to assist in his renal function and chronic kidney disease. Additional Remarks Patient is alert, sitting on chair, with nasal cannula. Review of Systems General Constitutional: Fatigue Objective Data Data 12/11/16 12/12/16 19:00 07:00 Intake Total 681 ml Output Total 3000 ml 900 ml Balance -3000 ml -219 ml Intake Oral 400 ml IV Total 281 ml Output Urine Total 900 ml Hemodialysis 3000 ml # Bowel Movements 4 Vital Signs Date Time Temp Pulse Resp B/P Pulse Ox O2 Delivery O2 Flow Rate FiO2 12/12/16 08:22 95 Nasal Cannula 2.00 12/12/16 06:00 74 12/12/16 04:00 97.9 70 24 149/66 96 12/12/16 04:00 72 12/12/16 02:00 70 12/12/16 00:00 88.1 72 22 153/67 99 12/12/16 00:00 73 12/11/16 22:00 72 12/11/16 20:15 97 Nasal Cannula 2.00 12/11/16 20:00 97.9 82 26 157/68 99 12/11/16 20:00 74 12/11/16 18:00 81 12/11/16 16:00 98.0 73 21 146/67 100 12/11/16 16:00 75 12/11/16 14:43 96 Nasal Cannula 4 12/11/16 14:00 72 12/11/16 13:57 100 40 -: 12/10/16 0355 12/10/16 0355 Physical Exam General Appearance: No Acute Distress, Comfortable, Anxious, Obese Neck Neck Exam: Neck Supple Pulmonary Resp Exam: Breath Sounds Equal, No Distress, Decreased Bases, Diminished Breath Sounds Cardiology CV Exam: Regular, Normal Sinus Rhythm Gastrointestinal/Abdomen GI Exam: Soft, Non-Tender, Bowel Sounds Present Extremeties Extremities Exam: Moderate Edema, Pitting Edema, Dependent Edema Neurologic Neuro Exam: Alert, Awake, Oriented Psychiatric Psych Exam: Appropriate Responses Assessment/Plan Problem List: (1) Chronic kidney disease (CKD) Plan: Patient develop Resp. failure. Creatinine also continue to increase.. 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 Calcium was low,and also now Po4 high, started on Fosrenol. HD done 3 days continues and almost 8 liters removed. Possibly will need prison HD. Follow BMP in AM. (2) Congestive heart failure Plan: Continue with diuretics (3) Pneumonia Plan: Plan on antibiotics he has recent history of C. difficile continue with vancomycin orally (4) COPD (chronic obstructive pulmonary disease) Plan: Continue to monitor (5) Metabolic encephalopathy Plan: Better. Problem Qualifiers (1) Chronic kidney disease (CKD): Qualified Code: N18.3 - Chronic kidney disease (CKD), stage 3 (moderate) (2) Congestive heart failure: Qualified Code: I50.9 - Congestive heart failure, unspecified congestive heart failure chronicity, unspecified congestive heart failure type (3) Pneumonia: Qualified Code: J18.1 - Pneumonia of right lower lobe due to infectious organism (4) COPD (chronic obstructive pulmonary disease): Qualified Code: J44.9 - Chronic obstructive pulmonary disease, unspecified COPD type Willi Antoine MD Dec 12, 2016 12:13
--- NOTE | 2016-12-12 12:34 | HHI.PR ---
Subjective Remarks [facility] called 12/09, patient went into respiratory distress Initially put on BiPAP then intubated extubated currently receiving second HD tx/ tolerating well doing well on NC sitting up, smiling, awake, oriented x 3 starting to eat better making urine no cp no sob no fever family at bsd Objective Objective Results - Vital Signs Date Time Temp Pulse Resp B/P Pulse Ox O2 Delivery O2 Flow Rate FiO2 12/12/16 08:22 95 Nasal Cannula 2.00 12/12/16 06:00 74 12/12/16 04:00 97.9 70 24 149/66 96 12/12/16 04:00 72 12/12/16 02:00 70 12/12/16 00:00 88.1 72 22 153/67 99 12/12/16 00:00 73 12/11/16 22:00 72 12/11/16 20:15 97 Nasal Cannula 2.00 12/11/16 20:00 97.9 82 26 157/68 99 12/11/16 20:00 74 12/11/16 18:00 81 12/11/16 16:00 98.0 73 21 146/67 100 12/11/16 16:00 75 12/11/16 14:43 96 Nasal Cannula 4 12/11/16 14:00 72 12/11/16 13:57 100 40 I/O 12/11/16 12/11/16 12/11/16 12/12/16 12/12/16 12/12/16 07:00 15:00 23:00 07:00 15:00 23:00 Intake Total 528 ml 331 ml 350 ml Output Total 150 ml 3000 ml 450 ml 450 ml Balance 378 ml -3000 ml -119 ml -100 ml Intake Oral 200 ml 200 ml IV Total 196 ml 131 ml 150 ml Tube Feeding 302 ml Tube Irrigant 30 ml Output Urine Total 150 ml 450 ml 450 ml Hemodialysis 3000 ml # Bowel Movements 2 2 2 Result Diagram: 12/10/16 0355 12/10/16 0355 Imaging Last Impressions Chest X-Ray 12/03/16 1628 Signed Impressions: Service Date/Time: Saturday, December 03, 2016 16:53 - CONCLUSION: 1. New right lower lobe infiltrate and blunting of the right costophrenic angle consistent with a small effusion. The findings could indicate pneumonia. 2. Mild scarring at the left lung base. Cristian Farnsworth MD Lower Extremity Ultrasound 12/03/16 0000 Signed Impressions: Service Date/Time: Saturday, December 03, 2016 17:01 - CONCLUSION: No evidence of deep venous thrombosis. Cristian Farnsworth MD ROS General: Other (12 point ROS completed, negative except as note above ) Physical Exam Physical Exam GENERAL: This is a well-nourished, elderly male, no distress noted. SKIN: No rashes, ecchymoses or lesions. Cool and dry. HEAD: Atraumatic. Normocephalic. No temporal or scalp tenderness. EYES: Pupils equal round and reactive. No scleral icterus. No injection or drainage. ENT: Nose without bleeding, purulent drainage or septal hematoma. Throat without erythema, tonsillar hypertrophy or exudate. Uvula midline. Airway patent. NECK: Trachea midline. No JVD or lymphadenopathy. Supple, nontender, no meningeal signs. CARDIOVASCULAR: S1-S2, unable to detect any murmurs rubs or gallops. Right chest wall is noted with permacath. RESPIRATORY: Faint Bibasilar rales. GASTROINTESTINAL: Abdomen soft, non-tender, nondistended. No hepato-splenomegaly , or palpable masses. No guarding. MUSCULOSKELETAL: Extremities without clubbing, cyanosis. No joint tenderness, effusion, or edema noted. No calf tenderness. Negative Homans sign bilaterally. Bilateral lower extremities noted with +1 edema, pedal pulses 1+ bilaterally. Patient is noted with a right heel ulcerated area that is dry, no exudate, appears to be healing well. There is a small scabbed area to the right lateral aspect of the right foot. NEUROLOGICAL: awake, oriented x 3. No focal deficits, speech clear. Urinary Catheter: Yes Assessment to: Continue Abdalla insert reason: ICU Pt Getting Diuretics Vascular Central Line Catheter: No A/P Diagnosis: (1) Respiratory failure (2) Congestive heart failure (3) Pneumonia (4) Chronic kidney disease (CKD) (5) Hypertension (6) Elevated troponin (7) COPD (chronic obstructive pulmonary disease) (8) History of CVA (cerebrovascular accident) (9) PVD (peripheral vascular disease) (10) Hyperlipidemia (11) Hyperkalemia (12) Diabetes 1.5, managed as type 2 (13) C. difficile diarrhea Assessment and Plan 76-year-old female with recent extensive hospitalizations for perforated duodenal ulcer, sepsis, respiratory failure with tracheostomy, CVA, acute renal injury that led to CK D requiring hemodialysis. Patient presented to the emergency room with hypoxia and shortness of breath, chest x-ray completed with findings of possible congestive heart failure and pneumonia. Acute respiratory failure, resolving, patient is now on O2 at 2 L. 12/08 went into resp. distress, hypercarbia, hypoxia. Put on BIPAP, tx to ICU, Hallicat called extubated -Sports Umpire signed off -pulm following -DuoNeb's -monitor CO2 improving Pneumonia, right lower lobe infiltrate completed abx, monitor. -Blood cultures negative so far Chronic kidney disease, was on hemodialysis until approximately 2 weeks ago. Still has permacath in place, will leave it in for now. Now acute on CKD with pulm edema -appreciate renal input -pt. back on HD, had 3 treatments. Will likely need nursing home per renal. -monitor urine output, making urine Hypocalcemia -continue Calcium replacement Acute CHF-worsening, needs HD off diuretics now, on HD - 2-D echo with EF 35-40% -improving Elevated troponin 0.08, likely secondary to CHF, chronic kidney disease, 3 -Continue to monitor, -Continue with statins, Coreg Diarrhea, + cdiff Epid 027 -continue Vanco PO, x 14 days Diabetes type 2 Accu-Cheks before meals and at bedtime with insulin therapy as needed -Blood glucose elevated, hopefully will improve with steroid weaning History of recent CVA Continue with Aggrenox PVD Continue home medications Hypertension Continue home medications Hyperlipidemia Continue with statins will check labs in am Heparin for DVT prophylaxis continue with PT overall improving hopefully home in 2-3 days D/W RN D/W pt's/ D/W Dr. Rebolledo This patient was seen by myself and Dr. Rebolledo, this note is written on his behalf Discussed With: Nurse, Family (patient and ), Other (Dr. Rebolledo, seen on her behalf) Problem Qualifiers (1) Respiratory failure: Qualified Code: J96.22 - Acute on chronic respiratory failure with hypercapnia (2) Congestive heart failure: Qualified Code: I50.9 - Congestive heart failure, unspecified congestive heart failure chronicity, unspecified congestive heart failure type (3) Pneumonia: Qualified Code: J18.1 - Pneumonia of right lower lobe due to infectious organism (4) Chronic kidney disease (CKD): Qualified Code: N18.3 - Chronic kidney disease (CKD), stage 3 (moderate) (5) Hypertension: Qualified Code: I10 - Essential hypertension (6) COPD (chronic obstructive pulmonary disease): Qualified Code: J44.9 - Chronic obstructive pulmonary disease, unspecified COPD type (7) Hyperlipidemia: Qualified Code: E78.5 - Hyperlipidemia, unspecified hyperlipidemia type Stephy Barajas Dec 12, 2016 12:34
--- NOTE | 2016-12-12 17:39 | HHI.PR ---
Subjective Remarks Alert , extubated on O2 NC no sob at rest O2 SAT 95% ON O2 VIA NC Objective Vital Signs Date Time Temp Pulse Resp B/P Pulse Ox O2 Delivery O2 Flow Rate FiO2 12/12/16 16:00 98.8 78 24 162/71 98 12/12/16 16:00 78 12/12/16 14:00 80 12/12/16 12:00 78 12/12/16 12:00 97.6 78 24 171/73 94 12/12/16 10:00 80 12/12/16 08:22 95 Nasal Cannula 2.00 12/12/16 08:00 72 12/12/16 08:00 98.5 72 25 150/67 96 12/12/16 06:00 74 12/12/16 04:00 97.9 70 24 149/66 96 12/12/16 04:00 72 12/12/16 02:00 70 12/12/16 00:00 88.1 72 22 153/67 99 12/12/16 00:00 73 12/11/16 22:00 72 12/11/16 20:15 97 Nasal Cannula 2.00 12/11/16 20:00 97.9 82 26 157/68 99 12/11/16 20:00 74 12/11/16 18:00 81 I/O 12/11/16 12/11/16 12/11/16 12/12/16 12/12/16 12/12/16 07:00 15:00 23:00 07:00 15:00 23:00 Intake Total 528 ml 331 ml 350 ml 815 ml Output Total 150 ml 3000 ml 450 ml 450 ml 375 ml Balance 378 ml -3000 ml -119 ml -100 ml 440 ml Intake Oral 200 ml 200 ml 815 ml IV Total 196 ml 131 ml 150 ml Tube Feeding 302 ml Tube Irrigant 30 ml Output Urine Total 150 ml 450 ml 450 ml 375 ml Hemodialysis 3000 ml # Bowel Movements 2 2 2 Result Diagram: 12/10/16 0355 12/10/16 0355 Objective Remarks GENERAL: SKIN: Warm and dry. HEAD: Atraumatic. Normocephalic. EYES: Pupils equal and round. No scleral icterus. No injection or drainage. ENT: No nasal bleeding or discharge. Mucous membranes pink and moist. NECK: Trachea midline. No JVD. CARDIOVASCULAR: Regular rate and rhythm. RESPIRATORY: No accessory muscle use. Clear to auscultation. Breath sounds equal bilaterally. GASTROINTESTINAL: Abdomen soft, non-tender, nondistended. Hepatic and splenic margins not palpable. MUSCULOSKELETAL: Extremities without clubbing, cyanosis, or edema. No obvious deformities. NEUROLOGICAL: Awake and alert. No obvious cranial nerve deficits. Motor grossly within normal limits. Five out of 5 muscle strength in the arms and legs. Normal speech. PSYCHIATRIC: Appropriate mood and affect; insight and judgment normal. Assessment and Plan Assessment and Plan Respiratory failure , improved chronic renal failure chf copd PNA PLAN O2 Antibiotics BIPAP as needed bronchodilator therapy F/U CXRAY Salvador Franco MD Dec 12, 2016 17:39
[2016-12-12] MEDS: RESP: ALBUTEROL 2.5 MG/IPRATROPIUM 0.5 MG NEB (PRN) NEB (19:23)
[2016-12-12] MEDS: INSULIN DETEMIR 100 UNITS/ML VIAL SQ SCH (21:00)
[2016-12-12] MEDS: ATORVASTATIN 80 MG TAB PO SCH (21:52)
[2016-12-13] VITALS (9 sets, daily range): BP systolic 154–172; BP diastolic 67–74; PULSE 70–79; RESP 18–20; TEMP 97.4–98.8; O2SAT 92–99
[2016-12-13] MEDS: OLANZapine ODT 5 MG TAB PO SCH ×2 (00:29→09:30)
[2016-12-13] MEDS: INSULIN NovoLIN REGULAR SUPPLEMENTAL SCALE SQ SCH ×3 (06:00→18:49)
[2016-12-13] MEDS: CHLORHEXIDINE 0.12% (ORAL KIT) 15 ML CUP MT SCH ×2 (08:00→20:00)
[2016-12-13 09:04] LABS: HEMATOCRIT 27.9 % (39.0-51.0); MEAN CORPUSCULAR HEMOGLOBIN 30.1 PG (27.0-34.0); MEAN CORPUSCULAR HGB CONC 32.8 % (32.0-36.0); PLATELET COUNT 251 TH/MM3 (150-450); RED BLOOD COUNT 3.03 MIL/MM3 (4.50-5.90); RED CELL DISTRIBUTION WIDTH 18.9 % (11.6-17.2); REVIEW FLAG FINAL
[2016-12-13] MEDS: DIPYRIDAMOLE/ASPIRIN 200 MG/25 MG CAP PO SCH (09:29)
[2016-12-13] MEDS: LANTHANUM CARBONATE 500 MG CHEWABLE TABLET CHEW SCH ×3 (09:30→17:33)
[2016-12-13] MEDS: PANTOPRAZOLE SOD 40 MG DELAYED RELEASE TAB PO SCH (09:30)
[2016-12-13] MEDS: CARVEDILOL 3.125 MG TAB PO SCH ×2 (09:30→21:51)
[2016-12-13] MEDS: CALCIUM CARBONATE 1.25 GM (CA 500 MG) TAB PO SCH ×3 (09:30→17:33)
[2016-12-13 09:31] LABS: BICARBONATE 29.4 MEQ/L (21.0-32.0); POTASSIUM 3.4 MEQ/L (3.5-5.1)
[2016-12-13] MEDS: VANCOMYCIN 500 MG VIAL (FOR ORAL USE ONLY) PO SCH ×4 (09:31→21:51)
[2016-12-13] MEDS: HEPARIN SODIUM - SQ 10,000 UNITS/ML VIAL SQ SCH ×2 (09:31→21:52)
--- NOTE | 2016-12-13 10:09 | HHI.PR ---
Subjective Remarks Madiha called 12/09, patient went into respiratory distress Initially put on BiPAP then intubated confused overnight seeing flashing lights, ambulance reorients, knows he's in hospital, recognizes ambulated to bathroom, did well no cp no sob only used BIPAP 4 hours slept okay eating very good diuresing okay at bsd stools more formed Objective Objective Results - Vital Signs Date Time Temp Pulse Resp B/P Pulse Ox O2 Delivery O2 Flow Rate FiO2 12/13/16 08:15 95 Nasal Cannula 2.00 12/13/16 08:00 97.4 75 20 169/74 92 12/13/16 04:00 98.3 77 19 172/74 94 12/13/16 00:00 98.8 73 19 168/67 99 12/12/16 22:30 99 50 12/12/16 20:00 92 12/12/16 20:00 97.2 81 19 181/78 95 12/12/16 19:28 96 Nasal Cannula 2.00 12/12/16 17:00 97.9 84 26 186/81 96 12/12/16 16:00 98.8 78 24 162/71 98 12/12/16 16:00 78 12/12/16 14:00 80 12/12/16 12:00 78 12/12/16 12:00 97.6 78 24 171/73 94 I/O 12/12/16 12/12/16 12/12/16 12/13/16 12/13/16 12/13/16 07:00 15:00 23:00 07:00 15:00 23:00 Intake Total 350 ml 815 ml 320 ml 180 ml Output Total 450 ml 375 ml 200 ml 350 ml Balance -100 ml 440 ml 120 ml -170 ml Intake Oral 200 ml 815 ml 320 ml 180 ml IV Total 150 ml Output Urine Total 450 ml 375 ml 200 ml 350 ml # Bowel Movements 2 1 2 Result Diagram: 12/13/1671912/13/16719 Imaging Last Impressions Chest X-Ray 12/03/161627 Signed Impressions: Service Date/Time: Saturday, December 03, 2016 16:53 - CONCLUSION: 1. New right lower lobe infiltrate and blunting of the right costophrenic angle consistent with a small effusion. The findings could indicate pneumonia. 2. Mild scarring at the left lung base. Cristian Farnsworth MD Lower Extremity Ultrasound 12/03/16 0000 Signed Impressions: Service Date/Time: Saturday, December 03, 2016 17:01 - CONCLUSION: No evidence of deep venous thrombosis. Cristian Farnsworth MD Other Results Laboratory Tests Test 12/13/16 07:20 White Blood Count 12.0 Red Blood Count 3.03 Hemoglobin 9.1 Hematocrit 27.9 Mean Corpuscular Volume 92.0 Mean Corpuscular Hemoglobin 30.1 Mean Corpuscular Hemoglobin 32.8 Concent Red Cell Distribution Width 18.9 Platelet Count 251 Mean Platelet Volume 8.8 Sodium Level 141 Potassium Level 3.4 Chloride Level 101 Carbon Dioxide Level 29.4 Anion Gap 11 Blood Urea Nitrogen 60 Creatinine 4.34 Estimat Glomerular Filtration 13 Rate Random Glucose 80 Calcium Level 8.7 ROS General: Other (12 point ROS unreliable ) Physical Exam Physical Exam GENERAL: This is a well-nourished, elderly male, no distress noted. SKIN: No rashes, ecchymoses or lesions. Cool and dry. HEAD: Atraumatic. Normocephalic. No temporal or scalp tenderness. EYES: Pupils equal round and reactive. No scleral icterus. No injection or drainage. ENT: Nose without bleeding, purulent drainage or septal hematoma. Throat without erythema, tonsillar hypertrophy or exudate. Uvula midline. Airway patent. NECK: Trachea midline. No JVD or lymphadenopathy. Supple, nontender, no meningeal signs. CARDIOVASCULAR: S1-S2, unable to detect any murmurs rubs or gallops. Right chest wall is noted with permacath. RESPIRATORY: Faint Bibasilar rales. GASTROINTESTINAL: Abdomen soft, non-tender, nondistended. No hepato-splenomegaly , or palpable masses. No guarding. MUSCULOSKELETAL: Extremities without clubbing, cyanosis. No joint tenderness, effusion, or edema noted. No calf tenderness. Negative Homans sign bilaterally. Bilateral lower extremities noted with +1 edema, pedal pulses 1+ bilaterally. Patient is noted with a right heel ulcerated area that is dry, no exudate, appears to be healing well. There is a small scabbed area to the right lateral aspect of the right foot. NEUROLOGICAL: awake, oriented x 3. No focal deficits, speech clear. Urinary Catheter: Yes Assessment to: Continue Abdalla insert reason: Measure Accurate Output Vascular Central Line Catheter: No A/P Diagnosis: (1) Respiratory failure (2) Congestive heart failure (3) Pneumonia (4) Chronic kidney disease (CKD) (5) Hypertension (6) Elevated troponin (7) COPD (chronic obstructive pulmonary disease) (8) History of CVA (cerebrovascular accident) (9) PVD (peripheral vascular disease) (10) Hyperlipidemia (11) Hyperkalemia (12) Diabetes 1.5, managed as type 2 (13) C. difficile diarrhea Assessment and Plan 76-year-old female with recent extensive hospitalizations for perforated duodenal ulcer, sepsis, respiratory failure with tracheostomy, CVA, acute renal injury that led to CK D requiring hemodialysis. Patient presented to the emergency room with hypoxia and shortness of breath, chest x-ray completed with findings of possible congestive heart failure and pneumonia. Acute respiratory failure, resolving, patient is now on O2 at 2 L. 12/08 went into resp. distress, hypercarbia, hypoxia. Put on BIPAP, tx to ICU, Hallicat called extubated -Kiln Charger signed off -pulm following -DuoNeb's -confused today, will check ABGs, stat CXR. Only used BIPAP x 4 hours. - to bring CPAP from home -will f/u ABG results Pneumonia, right lower lobe infiltrate completed abx, monitor. -Blood cultures negative so far Chronic kidney disease, was on hemodialysis until approximately 2 weeks ago. Still has permacath in place, will leave it in for now. Now acute on CKD with pulm edema -appreciate renal input -pt. back on HD, had 3 treatments. Will likely need senior care per renal. -monitor urine output, making urine -will need AVF, defer to nephro -for HD tomorrow Hypocalcemia -continue Calcium replacement Acute CHF-worsening, needs HD off diuretics now, on HD - 2-D echo with EF 35-40% -improving Elevated troponin 0.08, likely secondary to CHF, chronic kidney disease, 3 -Continue to monitor, -Continue with statins, Coreg Diarrhea, + cdiff Epid 027 -continue Vanco PO, x 14 days Diabetes type 2 Accu-Cheks before meals and at bedtime with insulin therapy as needed -Blood glucose elevated, hopefully will improve with steroid weaning History of recent CVA Continue with Aggrenox PVD Continue home medications Hypertension Continue home medications Hyperlipidemia Continue with statins Delirium, confusion -started on Zyprexa -check ABGs -reorient -avoid benzo, narc -monitor CO2 Heparin for DVT prophylaxis continue with PT overall improving wants home with C, no rehab. Hopefully dc 2-3 days when ok per nephrology and pulm D/W RN D/W pt's/ D/W Dr. Rebolledo This patient was seen by myself and Dr. Rebolledo, this note is written on his behalf Discussed With: Nurse, Family (patient and ), Other (Dr. Rebolledo, seen on her behalf) Problem Qualifiers (1) Respiratory failure: Qualified Code: J96.22 - Acute on chronic respiratory failure with hypercapnia (2) Congestive heart failure: Qualified Code: I50.9 - Congestive heart failure, unspecified congestive heart failure chronicity, unspecified congestive heart failure type (3) Pneumonia: Qualified Code: J18.1 - Pneumonia of right lower lobe due to infectious organism (4) Chronic kidney disease (CKD): Qualified Code: N18.3 - Chronic kidney disease (CKD), stage 3 (moderate) (5) Hypertension: Qualified Code: I10 - Essential hypertension (6) COPD (chronic obstructive pulmonary disease): Qualified Code: J44.9 - Chronic obstructive pulmonary disease, unspecified COPD type (7) Hyperlipidemia: Qualified Code: E78.5 - Hyperlipidemia, unspecified hyperlipidemia type Stephy Barajas Dec 13, 2016 10:09
[2016-12-13] MEDS ORDERED: POTASSIUM CL 40 MEQ/30 ML LIQ UDC PO ONE (10:15)
--- NOTE | 2016-12-13 10:44 | HHI.NPPN ---
Subjective History of Present Illness 76-year-old male with history of hypertension, diabetes, chronic kidney disease , acute renal failure he recovered his kidney functions and was off dialysis for the past 10 days, he developed C. difficile colitis was placed on vancomycin and now he is admitted to the with increasing shortness of breath COPD Hx of preservation he is passing urine his creatinine has been stable with potassium went up to 6 this was treated medically received Kayexalate and sodium bicarbonate, I been consulted to assist in his renal function and chronic kidney disease. Additional Remarks Patient is alert, sitting on chair, occ. has hallucinations as per , alert and oriented now. Review of Systems General Constitutional: Fatigue Objective Data Data 12/12/16 12/13/16 19:00 07:00 Intake Total 815 ml 500 ml Output Total 375 ml 550 ml Balance 440 ml -50 ml Intake Oral 815 ml 500 ml Output Urine Total 375 ml 550 ml # Bowel Movements 3 Vital Signs Date Time Temp Pulse Resp B/P Pulse Ox O2 Delivery O2 Flow Rate FiO2 12/13/16 08:15 95 Nasal Cannula 2.00 12/13/16 08:00 97.4 75 20 169/74 92 12/13/16 04:00 98.3 77 19 172/74 94 12/13/16 00:00 98.8 73 19 168/67 99 12/12/16 22:30 99 50 12/12/16 20:00 92 12/12/16 20:00 97.2 81 19 181/78 95 12/12/16 19:28 96 Nasal Cannula 2.00 12/12/16 17:00 97.9 84 26 186/81 96 12/12/16 16:00 98.8 78 24 162/71 98 12/12/16 16:00 78 12/12/16 14:00 80 12/12/16 12:00 78 12/12/16 12:00 97.6 78 24 171/73 94 -: 12/13/16 0720 12/13/16 0720 Physical Exam General Appearance: No Acute Distress, Comfortable, Anxious, Obese Neck Neck Exam: Neck Supple Pulmonary Resp Exam: Breath Sounds Equal, No Distress, Decreased Bases, Diminished Breath Sounds Cardiology CV Exam: Regular, Normal Sinus Rhythm Gastrointestinal/Abdomen GI Exam: Soft, Non-Tender, Bowel Sounds Present Extremeties Extremities Exam: Moderate Edema, Pitting Edema, Dependent Edema Neurologic Neuro Exam: Alert, Awake, Oriented Psychiatric Psych Exam: Appropriate Responses Assessment/Plan Problem List: (1) Chronic kidney disease (CKD) Plan: Patient develop Resp. failure. Creatinine also continue to increase.. 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 Calcium was low,and also now Po4 high, started on Fosrenol. HD done 3 days continues and almost 8 liters removed. Possibly will need fdc HD. HD again in AM. Getting ABG. Hgb. is better after transfusion, on Epogen. (2) Congestive heart failure Plan: Continue with diuretics (3) Pneumonia Plan: Plan on antibiotics he has recent history of C. difficile continue with vancomycin orally (4) COPD (chronic obstructive pulmonary disease) Plan: Continue to monitor (5) Metabolic encephalopathy Plan: Better. Problem Qualifiers (1) Chronic kidney disease (CKD): Qualified Code: N18.3 - Chronic kidney disease (CKD), stage 3 (moderate) (2) Congestive heart failure: Qualified Code: I50.9 - Congestive heart failure, unspecified congestive heart failure chronicity, unspecified congestive heart failure type (3) Pneumonia: Qualified Code: J18.1 - Pneumonia of right lower lobe due to infectious organism (4) COPD (chronic obstructive pulmonary disease): Qualified Code: J44.9 - Chronic obstructive pulmonary disease, unspecified COPD type Willi Antoine MD Dec 13, 2016 10:44
[2016-12-13 10:55] LABS: BLOOD GAS BASE EXCESS 3.6 mmol/L (-2-2); BLOOD GAS CARBOXYHEMOGLOBIN 1.9 % (0-4); BLOOD GAS HCO3 29 mmol/L (22-26); BLOOD GAS METHEMOGLOBIN 0.9 % (0-2); BLOOD GAS O2 HGB SATURATION 91 % (90-100); BLOOD GAS OXYGEN CONTENT 11.4 Vol % (12.0-20.0); BLOOD GAS PCO2 61 mmHg (38-42); BLOOD GAS PO2 74 mmHg (61-120); BLOOD GAS TOTAL HGB 8.9 G/DL (12.0-16.0); CRITICAL VALUE YES; LITER FLOW 2 L/M; OXYGEN DEVICE NASAL CANNULA; TEMP CORR TO 98.6
[2016-12-13 10:56] LABS: DRAW SITE RT RADIAL; NUMBER OF ARTERIAL PUNCTURES 1; STAT NO
--- NOTE | 2016-12-13 10:58 | RADRPT ---
EXAM DATE/TIME: 12/13/2016 10:33 [facility] COMPARISON: CHEST SINGLE AP, December 09, 2016, 22:04. INDICATIONS : Short of breath, evaluate congestive heart failure, no chest pain MEDICAL HISTORY : Congestive heart failure. SURGICAL HISTORY : Vas-cath, feeding tube ENCOUNTER: Subsequent ACUITY: 1 week PAIN SCORE: 0/10 LOCATION: Bilateral chest FINDINGS: A single view of the chest demonstrates cardiomegaly with small bilateral pleural effusions, greater on the left. Right-sided vascular catheter unchanged. Endotracheal tube and nasogastric tube removed. The cardiomediastinal contours are unremarkable. Osseous structures are intact. CONCLUSION: Cardiomegaly with small bilateral pleural effusions and bibasilar densities. Richie Ackerman MD on December 13, 2016 at 10:56 Board Certified Radiologist. This report was verified electronically.
--- NOTE | 2016-12-13 13:05 | HHI.FF ---
Face to Face Verification Diagnosis: (1) COPD (chronic obstructive pulmonary disease) (2) Congestive heart failure (3) Pneumonia (4) Metabolic encephalopathy (5) Chronic kidney disease (CKD) Physical Therapy Order: Evaluate and Treat Home Health Nursing Order: Medical education Signs/symptoms of disease process Nursing assessment with vital signs Meter Technician Order: To Evaluate: Support services Order: To Provide: Community services I have seen patient Radhames Glass on 12/13/16. My clinical findings support the need for the requested home health care services because: Deconditioned w/ increased weakness Impaired cognition/judgement I certify that my clinical findings support that this patient is homebound because: Hx COPD- exertion dyspnea/weakness Unsafe to leave home unassisted Poor cardiac reserve Stephy Barajas Dec 13, 2016 13:05
--- NOTE | 2016-12-13 15:13 | HHI.PR ---
Subjective Remarks Alert , on O2 NC no sob at rest O2 SAT 96% ON O2 VIA NC Objective Last 48 hours Impressions Chest X-Ray 12/13/16 0000 Signed Impressions: Service Date/Time: Tuesday, December 13, 2016 10:33 - CONCLUSION: Cardiomegaly with small bilateral pleural effusions and bibasilar densities. Richie Ackerman MD Vital Signs Date Time Temp Pulse Resp B/P Pulse Ox O2 Delivery O2 Flow Rate FiO2 12/13/16 12:00 97.5 75 18 157/70 97 12/13/16 08:15 95 Nasal Cannula 2.00 12/13/16 08:00 97.4 75 20 169/74 92 12/13/16 04:00 98.3 77 19 172/74 94 12/13/16 00:00 98.8 73 19 168/67 99 12/12/16 22:30 99 50 12/12/16 20:00 92 12/12/16 20:00 97.2 81 19 181/78 95 12/12/16 19:28 96 Nasal Cannula 2.00 12/12/16 17:00 97.9 84 26 186/81 96 12/12/16 16:00 98.8 78 24 162/71 98 12/12/16 16:00 78 I/O 12/12/16 12/12/16 12/12/16 12/13/16 12/13/16 12/13/16 07:00 15:00 23:00 07:00 15:00 23:00 Intake Total 350 ml 815 ml 320 ml 180 ml Output Total 450 ml 375 ml 200 ml 350 ml Balance -100 ml 440 ml 120 ml -170 ml Intake Oral 200 ml 815 ml 320 ml 180 ml IV Total 150 ml Output Urine Total 450 ml 375 ml 200 ml 350 ml # Bowel Movements 2 1 2 Result Diagram: 12/13/16 0720 12/13/16 0720 Other Results GENERAL: SKIN: Warm and dry. HEAD: Atraumatic. Normocephalic. EYES: Pupils equal and round. No scleral icterus. No injection or drainage. ENT: No nasal bleeding or discharge. Mucous membranes pink and moist. NECK: Trachea midline. No JVD. CARDIOVASCULAR: Regular rate and rhythm. RESPIRATORY: No accessory muscle use. Clear to auscultation. Breath sounds equal bilaterally. GASTROINTESTINAL: Abdomen soft, non-tender, nondistended. Hepatic and splenic margins not palpable. MUSCULOSKELETAL: Extremities without clubbing, cyanosis, or edema. No obvious deformities. NEUROLOGICAL: Awake and alert. No obvious cranial nerve deficits. Motor grossly within normal limits. Five out of 5 muscle strength in the arms and legs. Normal speech. PSYCHIATRIC: Appropriate mood and affect; insight and judgment normal. Objective Remarks GENERAL: SKIN: Warm and dry. HEAD: Atraumatic. Normocephalic. EYES: Pupils equal and round. No scleral icterus. No injection or drainage. ENT: No nasal bleeding or discharge. Mucous membranes pink and moist. NECK: Trachea midline. No JVD. CARDIOVASCULAR: Regular rate and rhythm. RESPIRATORY: No accessory muscle use. Clear to auscultation. Breath sounds equal bilaterally. GASTROINTESTINAL: Abdomen soft, non-tender, nondistended. Hepatic and splenic margins not palpable. MUSCULOSKELETAL: Extremities without clubbing, cyanosis, or edema. No obvious deformities. NEUROLOGICAL: Awake and alert. No obvious cranial nerve deficits. Motor grossly within normal limits. Five out of 5 muscle strength in the arms and legs. Normal speech. PSYCHIATRIC: Appropriate mood and affect; insight and judgment normal. Assessment and Plan Assessment and Plan Respiratory failure , improved chronic renal failure chf copd PNA PLAN O2 Antibiotics BIPAP as needed bronchodilator therapy F/U CXRAY Salvador Franco MD Dec 13, 2016 15:13
[2016-12-13] MEDS: RESP: ALBUTEROL 2.5 MG/IPRATROPIUM 0.5 MG NEB (PRN) NEB (18:28)
[2016-12-13] MEDS: SODIUM CHLORIDE 0.9% FLUSH 5 ML FLUSH IVF PRN (21:50)
[2016-12-13] MEDS: INSULIN DETEMIR 100 UNITS/ML VIAL SQ SCH (21:51)
[2016-12-13] MEDS: ATORVASTATIN 80 MG TAB PO SCH (21:52)
[2016-12-14] VITALS (18 sets, daily range): BP systolic 74–157; BP diastolic 41–73; PULSE 56–69; RESP 20–22; TEMP 97.6–98.9; O2SAT 94–100
[2016-12-14] MEDS: INSULIN NovoLIN REGULAR SUPPLEMENTAL SCALE SQ SCH ×5 (00:42→23:13)
--- NOTE | 2016-12-14 03:38 | HHI.FPPN ---
Addendum to progress note ADDENDUM Reason for addendum: Additonal documentation Additional information Hilario Note Subjective: Hilario called at 3am and team notified via call center. When team of Dr. Dueñas and Dr Colby reported to bedside, floor nurse and Edwint nurse working to stabilize pt. 76-year-old male with acute on chronic CKD, on dialysis, CHF, COPD, DM, and C. difficile colitis presenting with O2 desaturation of 64% on routine vital check. Unsure how long patient was hypoxic, as last O2 saturation 94% at midnight, three hours prior. O2 has responded appropriately to interventions, with increase from 64% to 97% after removal of dentures obstructing airway, repositioning, and transfer of pt from CPAP to BIPAP. Also presenting with lethargy/decreased alertness. Baseline mental status confused, but alert and responds to questions. At present, minimally withdraw to sternal rub and supraorbital pressure, no response to verbal stimuli or nailbed pressure. Objective: VITALS: Pulse 120. Pulse Ox 97% on BIPAP. B/P 110/70. GEN: Obese male on BIPAP. HEENT: No spontaneous eye opening. Pt grimaced to attempts at eye opening. Pupils equal, round, 1-2mm- do not track. NECK: No LAD CV: Regular rate. No murmurs. Radial pulse present bilaterally but faint. RESP: On BIPAP. Lung sounds equal bilaterally. No wheezing. No rales appreciated. Not good air movement. GI: Soft, mildly distended. No masses : Abdalla in place, draining clear yellow urine. MSK: Peripheral edema 1+ in bilateral extremities. SCDs in place. NEURO: Grimaces to sternal rub and supraorbital pressure. No response to verbal stimuli or nailbed pressure. Line: PIV in R upper extremity. Assessment 76y male, full code, with acute on chronic CKD, on dialysis, CHF, COPD, DM, and C. difficile colitis presenting with hypoxia and altered mental status. Reassuring that saturation improved from 64 -> 97% after interventions. However , requiring increased O2 support from 2L NC earlier today. Of note, recently intubated 12/09/16 for CO2 narcosis with pH of 6.9. Also appears lethargic compared to baseline. Differential: Hypoxia, secondary to obstruction by dentures vs non-compliance with CPAP vs fluid overload/worsening CHF vs pneumonia vs sepsis. Suspect AMS secondary to hypoxia vs ACS vs uremia vs polypharmacy. Plan -Stat CXR -Stat ABG -Contact primary team Addendum -Stat CXR report pending. By my interpretation, comparable to previous CXR 12/13- bibasilar fluffy infiltrates suggestive of decompensated CHF and fluid overload. -Stat ABG with severe hypercarbia- pH 7.0, pCO2 108, pO2 122. -CO2 narcosis likely the reason for his altered mental status and decreased alertness. -Critical care urgently consulted- Dr. Morton responded to bedside for emergency intubation. -Transfer to [facility] -Primary care team and critical care will follow up outstanding labs and assume patient care at this time SDW: Dr. Colby, Narcisa Powers MD R1 Dec 14, 2016 03:38 Narcisa Dueñas MD R1 Dec 14, 2016 03:38 Narcisa Dueñas MD R1 Dec 14, 2016 03:38
[2016-12-14] MEDS ORDERED: MIDAZOLAM HCL 5 MG/ML VIAL (1 ML) ONE (03:48)
--- NOTE | 2016-12-14 04:06 | PD.PROCEDR ---
Procedure Note Procedure Date: 12/14/16 Time: 399 Indication: Respiratory Distress Resident: Maryann Colby Attending: Dr. Morton (Critical Care) The patient was placed in a flat position. No sedation was required. The patient was easily ventilated using an glidescope which was inserted into the oropharynx at which time there was a Grade 1 view of the vocal cords. A 7.5- stateless endotracheal tube was inserted and visualized going through the vocal cords. The stylette was removed. Breath sounds were heard in both lung davis equally. The endotracheal tube was placed at around 22 cm, measured at the teeth. Dr. Morton was present for the entire procedure. A chest x-ray was ordered to assess for pneumothorax and verify endotrachealtube placement. Estimated Blood Loss: 0 The patient tolerated the procedure well and there were no complications. Maryann Colby MD R2 Dec 14, 2016 04:06 Maryann Colby MD R2 Dec 14, 2016 04:06
--- NOTE | 2016-12-14 04:11 | RADRPT ---
EXAM DATE/TIME: 12/14/2016 03:29 [facility] COMPARISON: CHEST SINGLE AP, December 13, 2016, 10:33. INDICATIONS : Shortness of breath, Halicat. MEDICAL HISTORY : Hypertension. Chronic obstructive pulmonary disease. SURGICAL HISTORY : None. ENCOUNTER: Subsequent ACUITY: 1 week PAIN SCORE: Non-responsive. LOCATION: Bilateral chest FINDINGS: Dual-lumen right central line in superior vena cava. There is basilar airspace disease and moderate b ilateral pleural effusions. No pneumothorax. Findings similar to December 13. CONCLUSION: 1. Small to moderate pleural effusions with basilar airspace disease. Dual-lumen right central line i n superior vena cava. No pneumothorax. Alfredo Worrell MD on December 14, 2016 at 4:07 Board Certified Radiologist. This report was verified electronically.
[2016-12-14 04:19] LABS: BLOOD GAS BASE EXCESS -0.4 mmol/L (-2-2); BLOOD GAS CARBOXYHEMOGLOBIN 1.8 % (0-4); BLOOD GAS HCO3 29 mmol/L (22-26); BLOOD GAS METHEMOGLOBIN 0.7 % (0-2); BLOOD GAS O2 HGB SATURATION 95 % (90-100); BLOOD GAS PCO2 108 mmHg (38-42); BLOOD GAS PO2 122 mmHg (61-120); BLOOD GAS TOTAL HGB 8.8 G/DL (12.0-16.0); CRITICAL VALUE YES; TEMP CORR TO 98.6
[2016-12-14 04:20] LABS: DRAW SITE RT BRACHIAL; FIO2 50 %; NUMBER OF ARTERIAL PUNCTURES 1; OXYGEN DEVICE BIPAP; STAT YES; ULNAR PULSE PRESENT; VENT SETTINGS IPAP18/EPAP5
[2016-12-14] MEDS ORDERED: PROPOFOL 1000 MG/100 ML INJ 100 ML IV SCH (04:30)
--- NOTE | 2016-12-14 05:07 | RADRPT ---
EXAM DATE/TIME: 12/14/2016 04:22 [facility] COMPARISON: CHEST SINGLE AP, December 14, 2016, 3:29. INDICATIONS : Post intubation. MEDICAL HISTORY : Hypertension. Chronic obstructive pulmonary disease. SURGICAL HISTORY : None. ENCOUNTER: Subsequent ACUITY: 1 week PAIN SCORE: Non-responsive. LOCATION: Bilateral chest FINDINGS: A single view of the chest demonstrates endotracheal tube in satisfactory position. Dual-lumen right central line in right atrium. Basilar airspace disease and effusions similar to earlier exam. CONCLUSION: 1. Placement of endotracheal tube in satisfactory position. Stable basilar airspace disease and pleur al effusions. Alfredo Worrell MD on December 14, 2016 at 5:04 Board Certified Radiologist. This report was verified electronically.
--- NOTE | 2016-12-14 05:30 | HHI.CCPN ---
Subjective Remarks/Hospital Course Hospital Course: This is a 76-year-old male with a long acute and chronic past medical history and long recent hospitalization, including chronic respiratory failure requiring tracheostomy in the decannulation, acute on chronic renal failure requiring IHD, who most recently was on the floor. He had trouble sleeping last night and was apparently given 1 mg of Xanax, reported to me by his bedside nurse, after which he became somnolent and then unarousable this morning. A rapid response was called. ABG at that time demonstrated a pH 6.8, PCO2 of 109. The patient had agonal respirations and was being bag valve mask assisted ventilation when I arrived to evaluate the patient. The patient was minimally responsive, but protecting his airway. I initially placed the patient on BiPAP while I obtain more information. The patient has had minimal urine output over the last few days with a rising creatinine. His chest x-ray to mistreats bilateral infiltrates and a bat wing hilar distribution suggestive of severe pulmonary edema. His BNP has elevated up to 1800 at this point. It appears reviewing the data, that the patient is in florid acute volume overload and congestive heart failure secondary to acute on chronic renal failure. At this point, the patient remained somnolent, his blood gas improved to pH of 7.0 and a PCO2 of 90. Despite this, the patient did not wake up and alert to inappropriate point. At this point we proceeded with urgent intubation for his persistent type II respiratory failure, please see separate procedure note for details. I had a discussion at this point with his acquisition analyst, and the decision was made to pursue urgent dialysis. Patient artery has edema dialysis catheter in place. Patient was transferred to the surgical ICU and emergent dialysis was proceeded with 3 L taken off. Critical care medicine is consulted to evaluate and manage his acute hypoxic hypercarbic respiratory failure, his acute intravascular volume overload, congestive heart failure, acute on chronic renal failure. Due to the emergent nature of the situation, and the patient altered mental status, additional information was unavailable to me at the time of my consultation. Subjective: 12/10: doing much better this morning. getting second round of IHD. awake, alert. no complaints. 12/11: awake, alert. no complaints. asked for breathing tube to be removed. getting IHD again today. blood gas with persistent respiratory acidosis. 12/12: extubated yesterday. doing well. no acute events overnight. asking for breakfast. 12/14 early in the morning patient removed accidentally BiPAP mask and probably aspirated on his dentures, Guillermo hypercarbic respiratory failure with pH of 7.0 CO2 at 109, patient was emergently intubated and transferred to ICU Objective Vital Signs Date Time Temp Pulse Resp B/P Pulse Ox O2 Delivery O2 Flow Rate FiO2 12/14/16 04:20 100 60 12/14/16 03:50 Oxyhood 12/14/16 00:00 97.9 65 22 138/56 12/13/16 21:15 2.00 Intake and Output 12/13/16 12/13/16 12/14/16 08:00 16:00 00:00 Intake Total 180 ml 480 ml 240 ml Output Total 350 ml 480 ml 150 ml Balance -170 ml 0 ml 90 ml Result Diagram: 12/13/16 0720 12/13/16 1807 Other Results Laboratory Tests Test 12/13/16 12/14/16 10:42 03:15 Blood Gas Puncture Site RT RADIAL RT BRACHIAL Blood Gas Patient Temperature 98.6 98.6 Blood Gas HCO3 29 mmol/L 29 mmol/L (22-26) (22-26) Blood Gas Base Excess 3.6 mmol/L -0.4 mmol/L (-2-2) (-2-2) Blood Gas Oxygen Saturation 91 % (90-100) 95 % (90-100) Arterial Blood pH 7.31 7.06 (7.380-7.420) (7.380-7.420) Arterial Blood Partial 61 mmHg (38-42) 108 mmHg Pressure CO2 (38-42) Arterial Blood Partial 74 mmHg 122 mmHg Pressure O2 (61-120) (61-120) Arterial Blood Oxygen Content 11.4 Vol % 12.0 Vol % (12.0-20.0) (12.0-20.0) Arterial Blood 1.9 % (0-4) 1.8 % (0-4) Carboxyhemoglobin Arterial Blood Methemoglobin 0.9 % (0-2) 0.7 % (0-2) Blood Gas Hemoglobin 8.9 G/DL 8.8 G/DL (12.0-16.0) (12.0-16.0) Oxygen Delivery Device NASAL CANNULA BIPAP Blood Gas Liter Flow 2 L/M Blood Gas Ventilator Setting [id number] Blood Gas Inspired Oxygen 50 % Imaging Last 24 hours Impressions Chest X-Ray 12/09/16 0000 Signed Impressions: Service Date/Time: November 12:51 - CONCLUSION: ET tube in good position. NG tube traverses the [id number]. Persistent bilateral pleural effusions and lower lung consolidative infiltrates. Carlos Hooks MD Chest X-Ray 12/09/16 0000 Signed Impressions: Service Date/Time: November 07:48 - CONCLUSION: Radiographic appearance consistent with fluid overload as detailed above. Carlos Marmolejo Jr., MD Objective Remarks gen: elderly male, sitting in bed. heent: pupils equal, round, reactive. mucous membranes moist neck: obese, difficult to assess jvd. trachea midline. chest: equal chest rise. clear to auscultation today. using I.S. during my exam. cv: normal rate, regular rhythm, sinus by tele. abd: obese, soft, nontender, nondistended. no guarding. extr: 1+ pitting edema. warm extremities. good distal perfusion neuro: RASS 0. follows commands. A/P Assessment and Plan Assessment: This is a 76-year-old male with history of congestive heart failure , COPD, acute on chronic kidney injury who presents with severe acute type II respiratory failure with altered mental status requiring urgent intubation, mechanical ventilation, urgent hemodialysis. Now reintubated due to hypercarbic respiratory failure. Active problems: Metabolic encephalopathy-hypercarbia CO2 narcosis Acute hypercarbic and hypoxic respiratory failure Respiratory acidosis Acute intravascular volume overloaded- improving. Acute severe congestive heart failure exacerbation, unknown type- improving. Acute on chronic renal failure requiring renal replacement therapy Healthcare associated pneumonia Recent history of C.Diff colitis Delirium Plan: --Mechanical ventilation - Start weaning when acidosis and hypercarbia improves -- avoid long-acting sedating meds -- mild delirium: Continue zyprexa 2.5mg po q8h. when extubated - would avoid benzodiazepines as he has not done well with these in the past. -- IHD per nephrology. --has had > 7 day course of abx. afebrile with normal wbc. will d/c antibiotics as he has had a full course for pneumonia - Antibiotic management per infectious disease --continue PO vanc for c.diff., likely for 2 weeks post last dose of abx. Critical Care: The total critical care time was 35 minutes. Time to perform other separately billable procedures was not included in the critical care time. Satish Morton MD Dec 14, 2016 05:30
[2016-12-14 05:40] LABS: BLOOD GAS BASE EXCESS 1.6 mmol/L (-2-2); BLOOD GAS HCO3 27 mmol/L (22-26); BLOOD GAS METHEMOGLOBIN 0.8 % (0-2); BLOOD GAS O2 HGB SATURATION 96 % (90-100); BLOOD GAS OXYGEN CONTENT 10.7 Vol % (12.0-20.0); BLOOD GAS PCO2 48 mmHg (38-42); BLOOD GAS PO2 129 mmHg (61-120); BLOOD GAS TOTAL HGB 7.7 G/DL (12.0-16.0); CRITICAL VALUE NO; OXYGEN DEVICE VENTILATOR; TEMP CORR TO 98.6; VENT SETTINGS PRVC/AC
[2016-12-14 05:41] LABS: DRAW SITE RT BRACHIAL; FIO2 60 %; NUMBER OF ARTERIAL PUNCTURES 1; STAT NO; ULNAR PULSE PRESENT
[2016-12-14] MEDS ORDERED: HYDROmorphone HCL PF 1 MG/ML VIAL IV PRN (05:45)
[2016-12-14 07:10] LABS: POTASSIUM 4.9 MEQ/L (3.5-5.1)
[2016-12-14] MEDS: CHLORHEXIDINE 0.12% (ORAL KIT) 15 ML CUP MT SCH ×2 (08:00→20:00)
[2016-12-14] MEDS: DIPYRIDAMOLE/ASPIRIN 200 MG/25 MG CAP PO SCH (08:38)
[2016-12-14] MEDS: PANTOPRAZOLE SOD 40 MG DELAYED RELEASE TAB PO SCH (08:38)
[2016-12-14] MEDS: CARVEDILOL 3.125 MG TAB PO SCH ×2 (08:38→20:45)
[2016-12-14] MEDS: LANTHANUM CARBONATE 500 MG CHEWABLE TABLET CHEW SCH ×3 (08:42→18:00)
[2016-12-14] MEDS: CALCIUM CARBONATE 1.25 GM (CA 500 MG) TAB PO SCH ×3 (08:42→18:49)
[2016-12-14] MEDS: VANCOMYCIN 500 MG VIAL (FOR ORAL USE ONLY) PO SCH ×4 (08:42→20:45)
[2016-12-14] MEDS: HEPARIN SODIUM - SQ 10,000 UNITS/ML VIAL SQ SCH ×2 (08:42→20:45)
--- NOTE | 2016-12-14 09:03 | HHI.PR ---
Subjective Remarks hypercarbia , obtundation early AM now on vent support Objective Vital Signs Date Time Temp Pulse Resp B/P Pulse Ox O2 Delivery O2 Flow Rate FiO2 12/14/16 08:19 40 12/14/16 08:08 100 Ventilator 40 12/14/16 08:08 100 40 12/14/16 08:00 60 12/14/16 08:00 98.4 60 20 119/54 100 12/14/16 06:00 58 12/14/16 04:20 100 60 12/14/16 04:00 97.6 62 20 74/41 100 12/14/16 04:00 62 12/14/16 03:50 Oxyhood 12/14/16 03:15 97 50 12/14/16 03:10 95 100 12/14/16 00:00 97.9 65 22 138/56 94 12/13/16 21:15 92 2.00 12/13/16 20:33 70 12/13/16 20:00 97.5 79 20 154/70 92 12/13/16 16:00 97.6 75 20 159/71 93 12/13/16 12:00 97.5 75 18 157/70 97 I/O 12/13/16 12/13/16 12/13/16 12/14/16 12/14/16 12/14/16 07:00 15:00 23:00 07:00 15:00 23:00 Intake Total 180 ml 480 ml 240 ml 1100 ml Output Total 350 ml 480 ml 150 ml 275 ml Balance -170 ml 0 ml 90 ml 825 ml Intake Oral 180 ml 480 ml 240 ml IV Total 1100 ml Output Urine Total 350 ml 480 ml 150 ml 275 ml # Bowel Movements 2 3 0 1 Result Diagram: 12/13/16 0720 12/14/16 0555 Objective Remarks GENERAL: SKIN: Warm and dry. HEAD: Atraumatic. Normocephalic. EYES: Pupils equal and round. No scleral icterus. No injection or drainage. ENT: No nasal bleeding or discharge. Mucous membranes pink and moist. NECK: Trachea midline. No JVD. CARDIOVASCULAR: Regular rate and rhythm. RESPIRATORY: No accessory muscle use. Clear to auscultation. Breath sounds equal bilaterally. GASTROINTESTINAL: Abdomen soft, non-tender, nondistended. Hepatic and splenic margins not palpable. MUSCULOSKELETAL: Extremities without clubbing, cyanosis, or edema. No obvious deformities. NEUROLOGICAL: Awake and alert. No obvious cranial nerve deficits. Motor grossly within normal limits. Five out of 5 muscle strength in the arms and legs. Normal speech. PSYCHIATRIC: Appropriate mood and affect; insight and judgment normal. Medications and IVs Last Impressions Chest X-Ray 12/14/16 0000 Signed Impressions: Service Date/Time: Wednesday, December 14, 2016 04:22 - CONCLUSION: 1. Placement of endotracheal tube in satisfactory position. Stable basilar airspace disease and pleural effusions. Alfredo Worrell MD Lower Extremity Ultrasound 12/03/16 0000 Signed Impressions: Service Date/Time: Saturday, December 03, 2016 17:01 - CONCLUSION: No evidence of deep venous thrombosis. Cristian Farnsworth MD Assessment and Plan Assessment and Plan Respiratory failure ,on the vent chronic renal failure chf copd PNA PLAN wean as tolerated Antibiotics BIPAP as needed bronchodilator therapy F/U CXRAY Salvador Franco MD Dec 14, 2016 09:02
--- NOTE | 2016-12-14 10:58 | HHI.NPPN ---
Subjective History of Present Illness 76-year-old male with history of hypertension, diabetes, chronic kidney disease , acute renal failure he recovered his kidney functions and was off dialysis for the past 10 days, he developed C. difficile colitis was placed on vancomycin and now he is admitted to the with increasing shortness of breath COPD Hx of preservation he is passing urine his creatinine has been stable with potassium went up to 6 this was treated medically received Kayexalate and sodium bicarbonate, I been consulted to assist in his renal function and chronic kidney disease. Additional Remarks Patient is alert, clinically same , not in distress. Review of Systems General Constitutional: Fatigue Objective Data Data 12/13/16 12/14/16 19:00 07:00 Intake Total 480 ml 1340 ml Output Total 480 ml 425 ml Balance 0 ml 915 ml Intake Oral 480 ml 240 ml IV Total 1100 ml Output Urine Total 480 ml 425 ml # Bowel Movements 3 1 Vital Signs Date Time Temp Pulse Resp B/P Pulse Ox O2 Delivery O2 Flow Rate FiO2 12/14/16 10:00 63 12/14/16 08:19 40 12/14/16 08:08 100 Ventilator 40 12/14/16 08:08 100 40 12/14/16 08:00 60 12/14/16 08:00 98.4 60 20 119/54 100 12/14/16 06:00 58 12/14/16 04:20 100 60 12/14/16 04:00 97.6 62 20 74/41 100 12/14/16 04:00 62 12/14/16 03:50 Oxyhood 12/14/16 03:15 97 50 12/14/16 03:10 95 100 12/14/16 00:00 97.9 65 22 138/56 94 12/13/16 21:15 92 2.00 12/13/16 20:33 70 12/13/16 20:00 97.5 79 20 154/70 92 12/13/16 16:00 97.6 75 20 159/71 93 12/13/16 12:00 97.5 75 18 157/70 97 -: 12/13/16 0720 12/14/16 0555 Physical Exam General Appearance: No Acute Distress, Comfortable, Anxious, Obese Neck Neck Exam: Neck Supple Pulmonary Resp Exam: Breath Sounds Equal, No Distress, Decreased Bases, Diminished Breath Sounds Cardiology CV Exam: Regular, Normal Sinus Rhythm Gastrointestinal/Abdomen GI Exam: Soft, Non-Tender, Bowel Sounds Present Extremeties Extremities Exam: Moderate Edema, Pitting Edema, Dependent Edema Neurologic Neuro Exam: Alert, Awake, Oriented Psychiatric Psych Exam: Appropriate Responses Assessment/Plan Problem List: (1) Chronic kidney disease (CKD) Plan: Patient develop Resp. failure. Creatinine also continue to increase.. Given his COPD, and CHF, possibly will need to continue detention HD. Calcium was low,and also now Po4 high, started on Fosrenol. HD done 3 days continues and almost 8 liters removed. Possibly will need detention HD. Hgb. is better after transfusion, on Epogen. Follow Hgb. and continue HD. (2) Congestive heart failure Plan: Continue with diuretics (3) Pneumonia Plan: Plan on antibiotics he has recent history of C. difficile continue with vancomycin orally (4) COPD (chronic obstructive pulmonary disease) Plan: Continue to monitor (5) Metabolic encephalopathy Plan: Better. Problem Qualifiers (1) Chronic kidney disease (CKD): Qualified Code: N18.3 - Chronic kidney disease (CKD), stage 3 (moderate) (2) Congestive heart failure: Qualified Code: I50.9 - Congestive heart failure, unspecified congestive heart failure chronicity, unspecified congestive heart failure type (3) Pneumonia: Qualified Code: J18.1 - Pneumonia of right lower lobe due to infectious organism (4) COPD (chronic obstructive pulmonary disease): Qualified Code: J44.9 - Chronic obstructive pulmonary disease, unspecified COPD type Willi Antoine MD Dec 14, 2016 10:58 Willi Antoine MD Dec 14, 2016 10:58
[2016-12-14] MEDS ORDERED: DEXTROSE 50% IN WATER 50 ML SYRINGE ONE (11:59)
[2016-12-14 12:04] LABS: AUTOMATED NEUTROPHIL # 6.5 TH/MM3 (1.8-7.7); BASOPHIL # 0.1 TH/MM3 (0-0.2); BASOPHIL % 0.7 % (0.0-2.0); EOSINOPHIL # 0.5 TH/MM3 (0-0.4); EOSINOPHIL % 4.3 % (0.0-4.0); HEMATOCRIT 21.7 % (39.0-51.0); HEMO FLAGS DIFF FINAL; LYMPH % 14.6 % (9.0-44.0); LYMPHOCYTE # 1.5 TH/MM3 (1.0-4.8); MEAN CELL VOLUME 91.7 FL (80.0-100.0); MEAN CORPUSCULAR HEMOGLOBIN 31.1 PG (27.0-34.0); MONO % 17.7 % (0.0-8.0); NEUT % 62.7 % (16.0-70.0); PLATELET COUNT 208 TH/MM3 (150-450); RED BLOOD COUNT 2.36 MIL/MM3 (4.50-5.90); RED CELL DISTRIBUTION WIDTH 18.6 % (11.6-17.2); WHITE BLOOD COUNT 10.4 TH/MM3 (4.0-11.0)
[2016-12-14] MEDS: DEXTROSE 50% IN WATER 50 ML VIAL(D50) IV PUSH PRN ×2 (13:04→13:30)
--- NOTE | 2016-12-14 14:42 | HHI.PR ---
Subjective Remarks drowsy, responds to verbal stimuli. Ventilator support continues, color pale visiting now. Resting in bed no acute complaints dialysis current (Vanessa Donato) Objective Objective Results - Vital Signs Date Time Temp Pulse Resp B/P Pulse Ox O2 Delivery O2 Flow Rate FiO2 12/14/16 14:00 56 12/14/16 13:01 100 40 12/14/16 12:50 40 12/14/16 12:00 98.6 61 20 157/69 100 12/14/16 12:00 61 12/14/16 12:00 40 12/14/16 10:00 63 12/14/16 08:19 40 12/14/16 08:08 100 Ventilator 40 12/14/16 08:08 100 40 12/14/16 08:00 60 12/14/16 08:00 98.4 60 20 119/54 100 12/14/16 06:00 58 12/14/16 04:20 100 60 12/14/16 04:00 97.6 62 20 74/41 100 12/14/16 04:00 62 12/14/16 03:50 Oxyhood 12/14/16 03:15 97 50 12/14/16 03:10 95 100 12/14/16 00:00 97.9 65 22 138/56 94 12/13/16 21:15 92 2.00 12/13/16 20:33 70 12/13/16 20:00 97.5 79 20 154/70 92 12/13/16 16:00 97.6 75 20 159/71 93 I/O 12/13/16 12/13/16 12/13/16 12/14/16 12/14/16 12/14/16 07:00 15:00 23:00 07:00 15:00 23:00 Intake Total 180 ml 480 ml 240 ml 1100 ml 441 ml Output Total 350 ml 480 ml 150 ml 275 ml 125 ml Balance -170 ml 0 ml 90 ml 825 ml 316 ml Intake Oral 180 ml 480 ml 240 ml IV Total 1100 ml 341 ml Tube Irrigant 100 ml Output Urine Total 350 ml 480 ml 150 ml 275 ml 125 ml # Bowel Movements 2 3 0 1 0 (Vanessa Donato) Result Diagram: 12/14/16 1115 12/14/16 0555 ROS General: Fatigue, Weakness, Other (10 point ROS done. Currently on dialysis 3 + times a week. Generalized weakness and fatigue, positive C. difficile, diarrhea otherwise systems are negative) Pulmonary: Cough (occasional), SOB (none at rest), Other (ventilator management ) GI: Diarrhea (Vanessa Donato) Physical Exam Physical Exam PHYSICAL EXAMINATION GENERAL: This is a well-developed,obese male who appears to be in no acute distress at rest. He is drowsy but will respond to verbal stimuli HEAD: Normocephalic without any lesion or mass noted. Facial features appear symmetric. OROPHARYNGEAL: Oropharynx without erythema or edema. ET tube in NECK: Supple. No nuchal rigidity or lymphadenopathy. Trachea midline without deviation. CARDIAC: Regular rhythm, regular rate, S1 and S2 distant Murmur LUNGS: Decreased breath sounds to auscultation bilaterally. No wheeze, positive for rhonchi No use of accessory muscles on inspiration or expiration with CPAP/ventilator support ABDOMEN: Soft, obese, round, taut, nontender,Bowel sounds hypoactive No rebound. EXTREMITIES: Improving ,Trace edema lower extremities. Pulses equal bilateral. No cyanosis. NEUROLOGICAL: Patient mood and affect restful for now. No focal deficit SKIN:Warm and moist, pale margaret turgor Objective Remarks non verbal, (Vanessa Donato) A/P Assessment and Plan (1) Respiratory failure (2) Congestive heart failure (3) Pneumonia (4) Chronic kidney disease (CKD) (5) Hypertension (6) Elevated troponin (7) COPD (chronic obstructive pulmonary disease) (8) History of CVA (cerebrovascular accident) (9) PVD (peripheral vascular disease) (10) Hyperlipidemia (11) Hyperkalemia (12) Diabetes 1.5, managed as type 2 (13) C. difficile diarrhea Assessment and Plan 76-year-old female with recent extensive hospitalizations for perforated duodenal ulcer, sepsis, respiratory failure with tracheostomy, CVA, acute renal injury that led to CK D requiring hemodialysis. Patient presented to the emergency room with hypoxia and shortness of breath, chest x-ray completed with findings of possible congestive heart failure and pneumonia. Acute respiratory failure, resolving, patient is now on O2 at 2 L. 12/08 went into resp. distress, hypercarbia, hypoxia. Put on BIPAP, tx to ICU, Madiha called extubated -Carcass Trimmer signed off -pulm following -DuoNeb's -no acute confusion today, drowsy, - to bring CPAP from home -will f/u ABG results Pneumonia, right lower lobe infiltrate completed abx, monitor. -Blood cultures negative so far Eupneic respirations Chronic kidney disease, was on hemodialysis until approximately 2 weeks ago. Still has permacath in place, Now acute on CKD with pulm edema Extra dialysis treatment today. Plan per dialysis nurse is to pull off approximately 3 L. Still scheduled for regular dialysis treatment tomorrow. -appreciate renal input Will likely need care home per renal. -monitor urine output, making urine -will need AVF, defer to nephro Hypocalcemia -continue Calcium replacement Acute CHF-worsening, needs HD off diuretics now, on HD - 2-D echo with EF 35-40% -improving Elevated troponin 0.08, likely secondary to CHF, chronic kidney disease, 3 -Continue to monitor, -Continue with statins, Coreg Diarrhea, + cdiff Epid 027 -continue Vanco PO, x 14 days Still positive for C. difficile on 224. Diarrhea stools 2 today. Monitor Diabetes type 2 Accu-Cheks before meals and at bedtime with insulin therapy as needed -Blood glucose elevated, hopefully will improve with steroid weaning History of recent CVA Continue with Aggrenox PVD Continue home medications Hypertension Continue home medications Hyperlipidemia Continue with statins Delirium, confusion -started on Zyprexa -check ABGs -reorient -avoid benzo, narc -monitor CO2 Heparin for DVT prophylaxis continue with PT overall improving, slow wants home with [facility], no rehab. Will work with case management on discharge planning. Currently not ready for discharge D/W RN, dialysis D/W pt's/ D/W Dr. Rebolledo This patient was seen by myself and Dr. Rebolledo, this note is written on his behalf Discharge Planning Initiated, hopefully home with when patient is stable Discussed With: Nurse, Family (patient and ), Other (Dr. Rebolledo, seen on her behalf) (Vanessa Donato) Assessment and Plan patient seen and examined cannot get MRI done sec to no i/v access , after multiple attempts d/w DR Kidd MRI can be done outpatient, if ok with neurology will d/w Xu Moreno possible discharge soon, pending neuro clearance Please disregard above comments, entered in ERROR overnight events noted patient in ICU, intubated Carcass Trimmer following continue current care discussed with Vanessa CHENEY (Terri Rebolledo MD) Vanessa Donato Dec 14, 2016 14:42 Terri Rebolledo MD Dec 14, 2016 15:52
[2016-12-14] MEDS: INSULIN DETEMIR 100 UNITS/ML VIAL SQ SCH (20:12)
[2016-12-14] MEDS: ATORVASTATIN 80 MG TAB PO SCH (20:45)
[2016-12-15] VITALS (14 sets, daily range): BP systolic 108–176; BP diastolic 53–79; PULSE 51–81; RESP 20–22; TEMP 98.3–99.2; O2SAT 94–100
[2016-12-15] MEDS: PROPOFOL 1000 MG/100 ML IV SCH ×2 (01:00→08:02)
[2016-12-15] MEDS: INSULIN NovoLIN REGULAR SUPPLEMENTAL SCALE SQ SCH ×2 (05:08→12:00)
[2016-12-15] MEDS: HEPARIN SODIUM - SQ 10,000 UNITS/ML VIAL SQ SCH (08:02)
[2016-12-15] MEDS: DIPYRIDAMOLE/ASPIRIN 200 MG/25 MG CAP PO SCH (08:03)
[2016-12-15] MEDS: PANTOPRAZOLE SOD 40 MG DELAYED RELEASE TAB PO SCH (08:03)
[2016-12-15] MEDS: VANCOMYCIN 500 MG VIAL (FOR ORAL USE ONLY) PO SCH ×2 (08:03→13:05)
[2016-12-15] MEDS: CARVEDILOL 3.125 MG TAB PO SCH (08:03)
[2016-12-15] MEDS: LANTHANUM CARBONATE 500 MG CHEWABLE TABLET CHEW SCH ×2 (08:03→13:05)
[2016-12-15] MEDS: CALCIUM CARBONATE 1.25 GM (CA 500 MG) TAB PO SCH ×2 (08:03→13:05)
[2016-12-15] MEDS: CHLORHEXIDINE 0.12% (ORAL KIT) 15 ML CUP MT SCH (08:20)
[2016-12-15 08:43] LABS: HEMATOCRIT 21.1 % (39.0-51.0); MEAN CELL VOLUME 92.4 FL (80.0-100.0); MEAN CORPUSCULAR HEMOGLOBIN 31.4 PG (27.0-34.0); PLATELET COUNT 166 TH/MM3 (150-450); RED BLOOD COUNT 2.29 MIL/MM3 (4.50-5.90); RED CELL DISTRIBUTION WIDTH 19.3 % (11.6-17.2); REVIEW FLAG FINAL; WHITE BLOOD COUNT 7.6 TH/MM3 (4.0-11.0)
[2016-12-15 09:09] LABS: BICARBONATE 26.4 MEQ/L (21.0-32.0); POTASSIUM 3.2 MEQ/L (3.5-5.1)
--- NOTE | 2016-12-15 09:44 | RSPPFT ---
DATE OF PROCEDURE: 12/07/16 COMMENTS: Spirometry with FVC of 0.7, FEV1 of 0.5, FEV1/FVC ratio 65%. A positive and significant response to acutely inhaled bronchodilator. IMPRESSION: 1. Very severe airways obstruction. 2. Positive and significant response to acutely inhaled bronchodilator.
--- NOTE | 2016-12-15 10:31 | HHI.PR ---
Subjective Remarks eyes closed responds to verbal stimuli and squeezes hand. Ventilator support continues, dialysis today. color pale visiting now. Resting in bed no acute complaints (Vanessa Donato) Objective Objective Results - Vital Signs Date Time Temp Pulse Resp B/P Pulse Ox O2 Delivery O2 Flow Rate FiO2 12/15/16 07:51 100 40 12/15/16 06:00 51 12/15/16 04:02 98 40 12/15/16 04:00 98.4 57 20 108/53 97 12/15/16 04:00 57 12/15/16 04:00 40 12/15/16 02:00 53 12/15/16 01:02 99 40 12/15/16 00:00 99.2 64 20 115/54 98 12/15/16 00:00 64 12/15/16 00:00 40 12/14/16 22:00 59 12/14/16 21:05 98 40 12/14/16 20:00 40 12/14/16 20:00 63 12/14/16 20:00 98.9 57 20 138/63 100 12/14/16 18:00 63 12/14/16 16:42 98 40 12/14/16 16:42 40 12/14/16 16:00 98.7 69 20 140/73 100 12/14/16 16:00 40 12/14/16 16:00 69 12/14/16 14:00 56 12/14/16 13:01 100 40 12/14/16 12:50 40 12/14/16 12:00 98.6 61 20 157/69 100 12/14/16 12:00 61 12/14/16 12:00 40 I/O 12/14/16 12/14/16 12/14/16 12/15/16 12/15/16 12/15/16 07:00 15:00 23:00 07:00 15:00 23:00 Intake Total 1100 ml 441 ml 513 ml 560 ml Output Total 275 ml 125 ml 3125 ml 200 ml Balance 825 ml 316 ml -2612 ml 360 ml IV Total 1100 ml 341 ml 113 ml 180 ml Tube Feeding 280 ml 380 ml Tube Irrigant 100 ml 120 ml 0 ml Output Urine Total 275 ml 125 ml 125 ml 200 ml Hemodialysis 3000 ml # Bowel Movements 1 0 0 1 (Vanessa Donato) Result Diagram: 12/15/16 0820 12/15/16 0820 ROS General: Fatigue, Weakness, Other (10 point ROS done. No few wheezes and ventilator management generalized fatigue, other systems unremarkable or negative) Pulmonary: Wheezing (few), Other (ventilator management) (Vanessa Donato ) Physical Exam Physical Exam PHYSICAL EXAMINATION GENERAL: This is a well-developed, well-nourished male ventilator management He is awake, eyes closed, responding to verbal stimuli HEAD: Normocephalic without any lesion or mass noted. Facial features appear symmetric. OROPHARYNGEAL: Oropharynx without erythema or edema. ET tube in, oral NECK: Supple. No nuchal rigidity or lymphadenopathy. Trachea midline without deviation. CARDIAC: Regular rhythm, regular rate, S1 and S2 are heard. distant hs LUNGS: Few expiratory wheeze left base, mild and anterior feels , few rhonchi No use of accessory muscles on inspiration or expiration while on rest mode of vent. ABDOMEN: Soft, nontender, no organomegaly or masses. Bowel sounds are heard in all four quadrants. No rebound. No guarding. Oral NG tube, feedings EXTREMITIES: No edema. Pulses equal bilateral. cyanosis. dry skin, feet NEUROLOGICAL: Patient mood and affect appropriate. No focal deficit SKIN:Warm and moist, dry Objective Remarks ETT, (Vanessa Donato) A/P Assessment and Plan (1) Respiratory failure (2) Congestive heart failure (3) Pneumonia (4) Chronic kidney disease (CKD) (5) Hypertension (6) Elevated troponin (7) COPD (chronic obstructive pulmonary disease) (8) History of CVA (cerebrovascular accident) (9) PVD (peripheral vascular disease) (10) Hyperlipidemia (11) Hyperkalemia (12) Diabetes 1.5, managed as type 2 (13) C. difficile diarrhea 14. Anemia, severe Acute respiratory failure, resolving, patient is now on O2 at 2 L, initially, but 12/08 went into resp. distress, hypercarbia, hypoxia. Put on BIPAP, tx to ICU, Hallicat called extubated -Needle Loom Setter signed off -pulm following -DuJeffersonb's -confused today, will check ABGs, stat CXR. Only used BIPAP x 4 hours. - to bring CPAP from home -will f/u ABG results Patient became fluid overloaded, now back on ventilator management. Currently receiving dialysis, diuresing Some expiratory wheezes noted patient needs DuoNeb treatments today. Discussed with nurse Pneumonia, right lower lobe infiltrate completed abx, monitor. -Blood cultures negative so far Chronic kidney disease, was on hemodialysis until approximately 2 weeks ago. Still has permacath in place, will leave it in for now. Now acute on CKD with pulm edema -appreciate renal input -pt. back on HD, had 3 treatments. Will likely need terminal computer operator per renal. -monitor urine output, making urine -will need AVF, defer to nephro -for HD today. And to get back on a Tuesday schedule Hypocalcemia -continue Calcium replacement Acute CHF-worsening, off diuretics now, on HD - 2-D echo with EF 35-40% -improving Elevated troponin 0.08, likely secondary to CHF, chronic kidney disease, 3 -Continue to monitor, -Continue with statins, Coreg Diarrhea, + cdiff Epid 027 Hypokalemia potassium 3.2 today, to be adjusted per nephro during dialysis Anemia probable secondary to chronic disease but patient does look pale. Early on ventilator management. 7.2. Ordered 1 unit PRBC with dialysis. If not dialysis today, will still infuse. Vital signs stable. Patient has no acute extremity or cor edema noted. Has been weaning ventilator during the daytime, rest at night. Working towards extubation very soon. Discussed plan and options with and patient. He keeps his eyes closed that he does understand and squeeze his hand for communication. Case discussed with Dr. rebolledo, care depends on hospital course, Labs reviewed, patient seen on her behalf Discharge Planning Initiated, hopefully home with when patient is stable Discussed With: Nurse, Family (patient and ), Other (Dr. Rebolledo, seen on her behalf) (Vanessa Donato) Assessment and Plan Patient seen and examined remains intubated at bedside patient fragile, agree with transfer to [facility] discussed with patient's in detail discussed with Vanessa CHENEY discussed with Dr Driscoll (Terri Rebolledo MD) Vanessa Donato Dec 15, 2016 10:31 Terri Rebolledo MD Dec 15, 2016 14:41
[2016-12-15] MEDS ORDERED: SODIUM CHLOR 0.9% 250 ML INJ 250 ML IV ONE (11:00)
[2016-12-15] MEDS: RESP: ALBUTEROL 2.5 MG/IPRATROPIUM 0.5 MG NEB (PRN) NEB (11:03)
--- NOTE | 2016-12-15 11:07 | HHI.CCPN ---
Subjective Remarks/Hospital Course Hospital Course: This is a 76-year-old male with a long acute and chronic past medical history and long recent hospitalization, including chronic respiratory failure requiring tracheostomy in the decannulation, acute on chronic renal failure requiring IHD, who most recently was on the floor. He had trouble sleeping last night and was apparently given 1 mg of Xanax, reported to me by his bedside nurse, after which he became somnolent and then unarousable this morning. A rapid response was called. ABG at that time demonstrated a pH 6.8, PCO2 of 109. The patient had agonal respirations and was being bag valve mask assisted ventilation when I arrived to evaluate the patient. The patient was minimally responsive, but protecting his airway. I initially placed the patient on BiPAP while I obtain more information. The patient has had minimal urine output over the last few days with a rising creatinine. His chest x-ray to mistreats bilateral infiltrates and a bat wing hilar distribution suggestive of severe pulmonary edema. His BNP has elevated up to 1800 at this point. It appears reviewing the data, that the patient is in florid acute volume overload and congestive heart failure secondary to acute on chronic renal failure. At this point, the patient remained somnolent, his blood gas improved to pH of 7.0 and a PCO2 of 90. Despite this, the patient did not wake up and alert to inappropriate point. At this point we proceeded with urgent intubation for his persistent type II respiratory failure, please see separate procedure note for details. I had a discussion at this point with his power generation engineer, and the decision was made to pursue urgent dialysis. Patient artery has edema dialysis catheter in place. Patient was transferred to the surgical ICU and emergent dialysis was proceeded with 3 L taken off. Critical care medicine is consulted to evaluate and manage his acute hypoxic hypercarbic respiratory failure, his acute intravascular volume overload, congestive heart failure, acute on chronic renal failure. Due to the emergent nature of the situation, and the patient altered mental status, additional information was unavailable to me at the time of my consultation. Subjective: 12/10: doing much better this morning. getting second round of IHD. awake, alert. no complaints. 12/11: awake, alert. no complaints. asked for breathing tube to be removed. getting IHD again today. blood gas with persistent respiratory acidosis. 12/12: extubated yesterday. doing well. no acute events overnight. asking for breakfast. 12/14 early in the morning patient removed accidentally BiPAP mask and probably aspirated on his dentures, Guillermo hypercarbic respiratory failure with pH of 7.0 CO2 at 109, patient was emergently intubated and transferred to ICU 12/15: failed SBT after 1 hour yesterday for somnolence and tachypnea. IHD yesterday. more awake today. also talked to [facility] yesterday: if we are unable to wean him today, his only active medical problem is his hypoxic respiratory failure, and they would be an excellent avenue for pulmonary rehab and a bridge to improve respiratory function. Objective Vital Signs Date Time Temp Pulse Resp B/P Pulse Ox O2 Delivery O2 Flow Rate FiO2 12/15/16 07:51 100 40 12/15/16 06:00 51 12/15/16 04:00 98.4 20 108/53 12/14/16 08:08 Ventilator 12/13/16 21:15 2.00 Intake and Output 12/14/16 12/14/16 12/15/16 08:00 16:00 00:00 Intake Total 1100 ml 441 ml 513 ml Output Total 275 ml 125 ml 3125 ml Balance 825 ml 316 ml -2612 ml Result Diagram: 12/15/16 0820 12/15/16 0820 Imaging Last 24 hours Impressions Chest X-Ray 12/09/16 0000 Signed Impressions: Service Date/Time: November 12:51 - CONCLUSION: ET tube in good position. NG tube traverses the [id number]. Persistent bilateral pleural effusions and lower lung consolidative infiltrates. Carlos Hooks MD Chest X-Ray 12/09/16 0000 Signed Impressions: Service Date/Time: November 07:48 - CONCLUSION: Radiographic appearance consistent with fluid overload as detailed above. Carlos Marmolejo Jr., MD Objective Remarks gen: elderly male, lying in bed. heent: pupils equal, round, reactive. mucous membranes moist neck: obese, difficult to assess jvd. trachea midline. orotracheally intubated chest: equal chest rise. clear to auscultation today. intubated. on PSV 40%/5/15 cv: normal rate, regular rhythm, sinus by tele. abd: obese, soft, nontender, nondistended. no guarding. extr: 1+ pitting edema. warm extremities. good distal perfusion neuro: RASS -1. follows commands. A/P Assessment and Plan Assessment: This is a 76-year-old male with history of congestive heart failure , COPD, acute on chronic kidney injury who presents with recurrent severe acute type II respiratory failure with altered mental status requiring urgent intubation, mechanical ventilation. This may be an ongoing chronic problem now that he is deconditioned, on top of his chronic COPD and chronic lung disease. We will work towards separation from mechanical ventilation, but I do think that if we are unable, he would be most appropriate for an LTAC where they could work on pulmonary rehab and getting and keeping him off of mechanical ventilation. He remains critically ill at this time, with ongoing and recurrent type II resp failure, and if we discontinue mechanical ventilation at this point, he would . Active problems: Metabolic encephalopathy-hypercarbia, resolving. CO2 narcosis- resolving. Acute hypercarbic and hypoxic respiratory failure Respiratory acidosis Acute intravascular volume overloaded- improving. Acute severe congestive heart failure exacerbation, unknown type- improving. Acute on chronic renal failure requiring renal replacement therapy Healthcare associated pneumonia Recent history of C.Diff colitis Delirium Plan: --Mechanical ventilation- will perform SBT today. -- avoid long-acting sedating meds -- would avoid benzodiazepines as he has not done well with these in the past. -- IHD per nephrology. --has had > 7 day course of abx. afebrile with normal wbc. re-culture for fever. --continue PO vanc for c.diff., likely for 2 weeks post last dose of abx. Critical Care: The total critical care time was 31 minutes. Time to perform other separately billable procedures was not included in the critical care time. Juancarlos Driscoll MD Dec 15, 2016 11:07
[2016-12-15] MEDS ORDERED: HYDROmorphone HCL PF 1 MG/ML VIAL IV PRN (12:00)
--- NOTE | 2016-12-15 17:30 | HHI.DS ---
Discharge Summary Admission Date Dec 03, 2016 at 22:17 Admitting Diagnosis congestive heart failure, hypoxia, dyspnea, elevated troponin (1) Respiratory failure Diagnosis: Principal (2) Congestive heart failure Diagnosis: Principal (3) Pneumonia Diagnosis: Principal (4) Chronic kidney disease (CKD) Diagnosis: Secondary (5) Hypertension Diagnosis: Secondary (6) Elevated troponin Diagnosis: Principal (7) COPD (chronic obstructive pulmonary disease) Diagnosis: Principal (8) History of CVA (cerebrovascular accident) Diagnosis: Secondary (9) PVD (peripheral vascular disease) Diagnosis: Secondary (10) Hyperlipidemia Diagnosis: Secondary (11) Hyperkalemia Diagnosis: Secondary (12) Diabetes 1.5, managed as type 2 Diagnosis: Secondary (13) C. difficile diarrhea Diagnosis: Principal Brief History This was a is a 76 year old male, PMH of DM, HTN, hyperlipidemia, obesity, cataracts, arthritis, peripheral arterial disease, neurogenic bladder, s/p transurethral prostatectomy, COPD, obstructive sleep apnea, and osteoporosis. Patient with recent extensive hospitalization on 07/25/16 for management of sepsis, perforated duodenal ulcer with percutaneous drain, and cellulitis. Was diagnosed with an intra-abdominal abscess formation which was drained in radiology. The patient subsequently had a G-tube inserted and a J-tube inserted. He also had a tracheostomy done. He was eventually decannulated and extubated and started eating. Developed ESRD was on hemodialysis. Went to [facility]. Patient readmitted to the hospital on 09/24 from [facility] with clonus, brain MRI showed left-sided 1 cm acute thalamic stroke. Also during this admission, he had upper endoscopy with findings of gastritis and distal esophagus dilatation was performed. He had some hypoxia and required evaluation by pulmonology who recommended to continue oxygen to keep sats greater than 92% and continue CPAP nightly. He went back to [facility] then develop respiratory failure And was transferred back to acute care on 10/10 for acute respiratory failure due to aspiration and mucous plug. He had G tube and J tube removed. He did return back to [facility] for continue rehabilitation. Patient was discharge from [facility] on 10/28/2016. He was no longer having dialysis, he's not sure when his last treatment was. According to the patient, he was doing fairly well. At this time he is having some difficulty relating information, he is on 100% nonrebreather. Information is obtained from the emergency room record. Patient had been in to see Dr. Waldrop for a vascular follow-up appointment. Patient had history of aortic bifemoral bypass performed at [facility] July 2015. Patient was noted with sats of 81% on room air. Patient was not wearing any oxygen at home. He used CPAP at night, however he had not used it for almost a week as the face mask did not fit him very well and he had order a new one. Patient endorsed that he's noted increased shortness of breath for the last 2 days before admission , denied any cough, no sputum. No fever no chills. CBC/BMP: 12/15/16 0820 12/15/16 0820 Significant Findings Laboratory Tests Test 12/13/16 12/13/16 12/13/16 12/14/16 07:20 10:42 18:07 03:15 White Blood Count 12.0 TH/MM3 (4.0-11.0) Red Blood Count 3.03 MIL/MM3 (4.50-5.90) Hemoglobin 9.1 GM/DL (13.0-17.0) Hematocrit 27.9 % (39.0-51.0) Red Cell Distribution Width 18.9 % (11.6-17.2) Potassium Level 3.4 MEQ/L (3.5-5.1) Blood Urea Nitrogen 60 MG/DL (7-18) Creatinine 4.34 MG/DL (0.60-1.30) Estimat Glomerular Filtration 13 ML/MIN (>89) Rate Blood Gas HCO3 29 mmol/L 29 mmol/L (22-26) (22-26) Blood Gas Base Excess 3.6 mmol/L (-2-2) Arterial Blood pH 7.31 7.06 (7.380-7.420) (7.380-7.420) Arterial Blood Partial 61 mmHg (38-42) 108 mmHg Pressure CO2 (38-42) Arterial Blood Oxygen Content 11.4 Vol % (12.0-20.0) Blood Gas Hemoglobin 8.9 G/DL 8.8 G/DL (12.0-16.0) (12.0-16.0) Random Glucose 355 MG/DL (74-106) Arterial Blood Partial 122 mmHg Pressure O2 (61-120) Test 12/14/16 12/14/16 12/14/16 12/15/16 05:26 05:55 11:15 08:20 Blood Gas HCO3 27 mmol/L (22-26) Arterial Blood pH 7.36 (7.380-7.420) Arterial Blood Partial 48 mmHg (38-42) Pressure CO2 Arterial Blood Partial 129 mmHg Pressure O2 (61-120) Arterial Blood Oxygen Content 10.7 Vol % (12.0-20.0) Blood Gas Hemoglobin 7.7 G/DL (12.0-16.0) Chloride Level 108 MEQ/L (98-107) Blood Urea Nitrogen 68 MG/DL (7-18) 44 MG/DL (7-18) Creatinine 4.74 MG/DL 3.79 MG/DL (0.60-1.30) (0.60-1.30) Estimat Glomerular Filtration 12 ML/MIN (>89) 16 ML/MIN (>89) Rate Calcium Level 8.4 MG/DL 7.6 MG/DL (8.5-10.1) (8.5-10.1) Red Blood Count 2.36 MIL/MM3 2.29 MIL/MM3 (4.50-5.90) (4.50-5.90) Hemoglobin 7.4 GM/DL 7.2 GM/DL (13.0-17.0) (13.0-17.0) Hematocrit 21.7 % 21.1 % (39.0-51.0) (39.0-51.0) Red Cell Distribution Width 18.6 % 19.3 % (11.6-17.2) (11.6-17.2) Monocytes (%) (Auto) 17.7 % (0.0-8.0) Eosinophils (%) (Auto) 4.3 % (0.0-4.0) Monocytes # (Auto) 1.8 TH/MM3 (0-0.9) Eosinophils # (Auto) 0.5 TH/MM3 (0-0.4) Potassium Level 3.2 MEQ/L (3.5-5.1) Random Glucose 125 MG/DL (74-106) Imaging Last Impressions Chest X-Ray 12/14/16 0000 Signed Impressions: Service Date/Time: Wednesday, December 14, 2016 04:22 - CONCLUSION: 1. Placement of endotracheal tube in satisfactory position. Stable basilar airspace disease and pleural effusions. Alfredo Worrell MD Lower Extremity Ultrasound 12/03/16 0000 Signed Impressions: Service Date/Time: Saturday, December 03, 2016 17:01 - CONCLUSION: No evidence of deep venous thrombosis. Cristian Farnsworth MD PE at Discharge GENERAL: This was a well-developed, well-nourished male ventilator management He was awake, eyes closed, responding to verbal stimuli HEAD: Normocephalic without any lesion or mass noted. Facial features appear symmetric. OROPHARYNGEAL: Oropharynx without erythema or edema. ET tube in, oral NECK: Supple. No nuchal rigidity or lymphadenopathy. Trachea midline without deviation. CARDIAC: Regular rhythm, regular rate, S1 and S2 are heard. distant hs LUNGS: Few expiratory wheeze left base, mild and anterior feels , few rhonchi No use of accessory muscles on inspiration or expiration while on rest mode of vent. ABDOMEN: Soft, nontender, no organomegaly or masses. Bowel sounds awere heard in all four quadrants. No rebound. No guarding. Oral NG tube, feedings EXTREMITIES: No edema. Pulses equal bilateral. cyanosis. dry skin, feet NEUROLOGICAL: Patient mood and affect appropriate. No focal deficit SKIN:Warm and moist, dry Hospital Course He reported to emergency room physician that pulse ox at home have been averaging 73-83%. In the emergency room, patient was evaluated and was noted with sats of 81%. Chest x-ray was completed showing new right lower lobe infiltrate and blunting of the right costophrenic angle consistent with small effusion, findings could indicate pneumonia. Also mild scarring at the left lung base. Lower extremity ultrasound was negative for DVT. Because of concern with possible PE he was given Lovenox 100 mg subcutaneous. Empiric antibiotics were given and cultures were obtained. Troponin was elevated, 0.12. Creatinine was 2.14. Lasix 40 mg IV 1 was given. Patient was fluid in the observation unit while waiting for eye inpatient bed. I was called to the bedside by the nurse caring for the patient. ABGs were completed and patient was noted with respiratory acidosis. PH 7.19, PCO2 67.6, PO2 42.1, bicarbonate 25.1. Respiratory therapist has been call in a BiPAP is being set up in the ICU. I have called the nursing packing room supervisor stat and requested that the patient be moved immediately to an ICU bed. Patient is admitted for further evaluation and treatment. These are the diagnosis used to treat this patient during the hospital stay. (1) Respiratory failure (2) Congestive heart failure (3) Pneumonia (4) Chronic kidney disease (CKD) (5) Hypertension (6) Elevated troponin (7) COPD (chronic obstructive pulmonary disease) (8) History of CVA (cerebrovascular accident) (9) PVD (peripheral vascular disease) (10) Hyperlipidemia (11) Hyperkalemia (12) Diabetes 1.5, managed as type 2 (13) C. difficile diarrhea 14. Anemia, severe Acute respiratory failure, resolving, patient is now on O2 at 2 L, initially, but 12/08 went into resp. distress, hypercarbia, hypoxia. Put on BIPAP, tx to ICU, Hallicat called extubated -Card Sorter signed off -pulm following -DuoNeb's -confused today, will check ABGs, stat CXR. Only used BIPAP x 4 hours. - to bring CPAP from home -will f/u ABG results Patient became fluid overloaded, now back on ventilator management. Currently receiving dialysis, diuresing Some expiratory wheezes noted patient needs DuoNeb treatments today. Discussed with nurse Continues with ventilator management, and is in the weaning process but is not quite ready yet to extubate. Pneumonia, right lower lobe infiltrate completed course of IV abx, monitor monitor WBC count -Blood cultures done , negative so far Chronic kidney disease, was on hemodialysis until approximately 2 weeks ago. Still has permacath in place, will leave it in for now. Now acute on CKD with pulm edema -appreciate renal input -pt. back on HD, had 3 treatments. Will likely need termite control servicer per renal. -monitor urine output, making urine -will need AVF, defer to nephro And to get back on a Tuesday schedule this week. We will maintain dialysis 3 times a week for now managed per nephrology Hypocalcemia, abnormal noted on blood work. Medical management -continue Calcium replacement Acute CHF-worsening, off diuretics now, on HD - 2-D echo with EF 35-40% -improving , hemodialysis is now managing the fluid overload of patient in congestive heart failure. Elevated troponin 0.08, likely secondary to CHF, chronic kidney disease, 3 -Continue to monitor, -Continue with statins, Coreg Diarrhea, + cdiff one of the complications during his hospital course. Currently still being treated and will need at least 14 day course of treatment Hypokalemia potassium 3.2 today, to be adjusted per nephro during dialysis. Spoke to nurse. Anemia probable secondary to chronic disease but patient does look pale. Early on ventilator management. 7.2. Ordered 1 unit PRBC with dialysis. If not dialysis today, will still infuse. Vital signs stable. Patient has no acute extremity or cor edema noted. Has been weaning ventilator during the daytime, rest at night. Working towards extubation very soon. Discussed plan and options with and patient. He keeps his eyes closed that he does understand and squeeze his hand for communication. Case discussed with Dr. agee, patient is going to require an extended period of hospital stay, but is making improvement with his medical management. Taste management involved with discharge planning. Stable to transfer to long-term acute care facility Labs reviewed, Discharge Planning Initiated, hopefully home with when patient is stable Pt Condition on Discharge: Fair Discharge Disposition: Trnsfr to Other Facility Discharge Instructions DIET: Follow Instructions for: On Tube Feeding Activities you can perform: Continue Bedrest Continued Medications: Atorvastatin (Lipitor) 80 Mg Tab 80 MG PO HS hyperlipidemia #30 Ref 1 TAB Calcium (Calcium) 600 Mg Tab 600 MG PO DAILY TAB Carvedilol (Coreg) 3.125 Mg Tab 3.125 MG PO Q12HR htn #60 Ref 1 TAB Dipyridamole-Aspirin (Aggrenox) 200-25 Mg Cap 1 CAP PO DAILY stroke #30 Ref 1 CAP Gabapentin (Gabapentin) 100 Mg Cap 100 MG PO BID #60 Ref 2 CAP Insulin Glargine Inj (Lantus Inj) 100 Unit/Ml Inj 35 UNITS SQ HS Pantoprazole (Pantoprazole) 40 Mg Tab 40 MG PO DAILY Dyspepsia Days 30 Ref 1 TAB Discontinued Medications: Insulin Lispro (Human) Inj (Humalog Inj) 1,000 Unit/10 Ml Vial 8 UNITS SQ BID With breakfast and lunch Blood Sugar Management #1 Ref 0 VIAL Insulin Lispro (Human) Inj (Humalog Inj) 1,000 Unit/10 Ml Vial 20 UNITS SQ DAILY With dinner Blood Sugar Management #1 Ref 0 VIAL Multiple Vitamin (Thera/Beta-Carotene) 1 Tab Tab 1 TAB PO DAILY Days 30 Ref 1 TAB Vancomycin (Vancomycin) 250 Mg Cap 500 MG PO Q6HR Infection #10 Ref 0 CAP Vanessa Donato Dec 15, 2016 17:30
== END 2016-12-15 15:49 | DRG 208 ==
LOC: NEPA 16:04 → INTOOBSV 22:17 → OBSVTOIN 22:17 → NEDA 22:17 → NEPHCDU 12-04 00:48 → N03A 12-04 08:34 → N04B 12-05 22:45 → N03B 12-09 07:54 → N04B 12-12 16:51 → N03A 12-14 04:02
PROVIDERS: ADMIT Specialist; ATTEND Specialist
PROC: 5A1945Z Respiratory Ventilation, 24-96 Consecutive Hours (ICD-10-PCS; principal; 2016-12-09)
PROC: 5A1D60Z (ICD-10-PCS; 2016-12-09)
PROC: 0BH17EZ Insertion of Endotracheal Airway into Trachea, Via Natural or Artificial Opening (ICD-10-PCS; 2016-12-09)
PROC: 5A1945Z Respiratory Ventilation, 24-96 Consecutive Hours (ICD-10-PCS; 2016-12-14)
PROC: 0BH17EZ Insertion of Endotracheal Airway into Trachea, Via Natural or Artificial Opening (ICD-10-PCS; 2016-12-14)
PROC: 30233N1 Transfusion of Nonautologous Red Blood Cells into Peripheral Vein, Percutaneous Approach (ICD-10-PCS; 2016-12-15)
DX: J96.21 Acute and chronic respiratory failure with hypoxia (principal); J18.9 Pneumonia, unspecified organism; N17.9 Acute kidney failure, unspecified; G93.41 Metabolic encephalopathy; I13.0 Hypertensive heart and chronic kidney disease with heart failure and stage 1 through stage 4 chronic kidney disease, or unspecified chronic kidney disease; E87.2 Acidosis; J44.0 Chronic obstructive pulmonary disease with (acute) lower respiratory infection; A04.7 Enterocolitis due to Clostridium difficile; I50.9 Heart failure, unspecified; T17.990A Other foreign object in respiratory tract, part unspecified in causing asphyxiation, initial encounter; J96.22 Acute and chronic respiratory failure with hypercapnia; E11.22 Type 2 diabetes mellitus with diabetic chronic kidney disease; N18.3 Chronic kidney disease, stage 3 (moderate); E87.5 Hyperkalemia; G47.33 Obstructive sleep apnea (adult) (pediatric); E78.5 Hyperlipidemia, unspecified; I73.9 Peripheral vascular disease, unspecified; M19.90 Unspecified osteoarthritis, unspecified site; E11.9 Type 2 diabetes mellitus without complications; K21.9 Gastro-esophageal reflux disease without esophagitis; E83.51 Hypocalcemia; Y95 Nosocomial condition; D63.8 Anemia in other chronic diseases classified elsewhere; E87.6 Hypokalemia; M81.0 Age-related osteoporosis without current pathological fracture; E66.9 Obesity, unspecified; F32.9 Major depressive disorder, single episode, unspecified; F41.9 Anxiety disorder, unspecified; Z68.31 Body mass index [BMI] 31.0-31.9, adult; Z79.4 Long term (current) use of insulin; Z86.73 Personal history of transient ischemic attack (TIA), and cerebral infarction without residual deficits; Z87.11 Personal history of peptic ulcer disease; Z87.891 Personal history of nicotine dependence
CPT/HCPCS: 31500; 36430; 36600; 71010; 76937; 80048; 80053; 81001; 82550; 82805; 82947; 82948; 83605; 83735; 83880; 84100; 84132; 84155; 84484; 85007; 85025; 85027; 85610; 85730; 86850; 86900; 86901; 86920; 87040; 87493; 87641; 90935; 93005; 93306; 93970; 94002; 94003; 94060; 94150; 94640; 94664; 94667; 94668; 96365; 96372; 96374; 96375; G8987-GP; G8988-GP; J0456; J0610; J0692; J1170; J1580; J1644; J1650; J1815; J1940; J2150; J2250; J2543; J2920; J2930; J3010; J7030; J7050; P9016; P9047; Q4081

== ENCOUNTER 2017-01-05 16:33 | Inpatient (IN) | payer MEDICARE, BC ==
[~2017-01-05] VITALS: Ht 177.8 cm; Wt 107.5 kg
[~2017-01-05 16:33] MED LIST changes: +CALC600T13 PO; -IPRASOL NEB; +LANTUS2P SQ; -SPIRCAP INH; -THERTAB15 PO
[2017-01-05 16:35] VITALS: BP 163/72; PULSE 84; RESP 18; TEMP 97.7; O2SAT 96
--- NOTE | 2017-01-05 18:22 | PD ---
HPI Chief Complaint: Abdominal Pain Time Seen by Provider: 18:15 Travel History International Travel<30 days: No Contact w/Intl Traveler<30days: No Traveled to known affect area: No History of Present Illness HPI 76-year-old male with history of end-stage renal disease on hemodialysis Tuesdays, and Saturdays, diabetes, hypertension, CHF, presents with his for evaluation of abdominal pain. Symptoms started this morning. The pain is a crampy pain in the suprapubic/left lower quadrant region which is constant. Denies nausea, vomiting, fevers, chills, testicular or scrotal pain, dysuria. He did have one episode of loose stools this morning. No history of diverticulosis. He did have a perforated duodenal ulcer in July 2016 according to his . No other complaints. PFSH Past Medical History Arthritis: No Asthma: No Autoimmune Disease: No Anxiety: Yes Depression: Yes Heart Rhythm Problems: No Cancer: No Cardiovascular Problems: No High Cholesterol: No Chemotherapy: No Chest Pain: No Congestive Heart Failure: No COPD: Yes Cerebrovascular Accident: Yes Diabetes: Yes Diminished Hearing: No Endocrine: Yes Gastrointestinal Disorders: Yes (duodenal ulcer) GERD: Yes Glaucoma: No Genitourinary: No Hepatitis: No Hiatal Hernia: No Hypertension: Yes Immune Disorder: No Implanted Vascular Access Dvce: Yes Kidney Stones: No Musculoskeletal: No Neurologic: Yes (numbness in fingers) Psychiatric: No Reproductive: No Respiratory: Yes (COPD) Integumentary: No Migraines: No Radiation Therapy: No Renal Failure: Yes Seizures: No Sickle Cell Disease: No Sleep Apnea: Yes Thyroid Disease: No Ulcer: Yes Past Surgical History Abdominal Surgery: Yes (appendix) AICD: No Appendectomy: Yes Arteriovenous Shunt: No Cardiac Surgery: No Ear Surgery: No Endocrine Surgery: No Eye Surgery: Yes (bilateral cataract, macular pucker) Genitourinary Surgery: No Gynecologic Surgery: No Insulin Pump: No Joint Replacement: No Oral Surgery: No Pacemaker: No Thoracic Surgery: Yes (chest tubes) Other Surgery: Yes (FEMPOP 01, ENDARTERECTOMY BILATERAL FEMORAL ARTERIES) Social History Alcohol Use: No Tobacco Use: No Substance Use: No Allergies-Medications (Allergen,Severity, Reaction): Coded Allergies: Betadine (Verified Allergy, Severe, Rash, 01/05/17) *MDRO Multi-Drug Resistant Organism (Verified Adverse Reaction, Unknown, ) Carlson resistant K. pneumoniae (urine-08/06/16) Reported Meds & Prescriptions Reported Meds & Active Scripts Active Gabapentin 100 Mg Cap 100 Mg PO BID Pantoprazole (Pantoprazole Sodium) 40 Mg Tab 40 Mg PO DAILY 30 Days Lipitor (Atorvastatin Calcium) 80 Mg Tab 80 Mg PO HS Aggrenox (Dipyridamole/Aspirin) 200-25 Mg Cap 1 Cap PO DAILY Reported Multi Vitamin (Multiple Vitamin) 1 Tab Tab 1 Tab PO DAILY Humalog Inj (Insulin Human Lispro) 1,000 Unit/10 Ml Vial 15 Units SQ AC DINNER Max dose at bedtime:( )units; sugars< 70,(0)units; sugars 150-199,(1)unit; sugars 200-249,(3)units; sugars 250-299,(5)units; sugars 300-349,(7)units; sugars more than 349,(9)units. Humalog Inj (Insulin Human Lispro) 1,000 Unit/10 Ml Vial 8 Units SQ AC LUNCH Max dose at bedtime:( )units; sugars< 70,(0)units; sugars 150-199,(1)unit; sugars 200-249,(3)units; sugars 250-299,(5)units; sugars 300-349,(7)units; sugars more than 349,(9)units. Humalog Inj (Insulin Human Lispro) 1,000 Unit/10 Ml Vial 8 Units SQ AC BREAKFAST Max dose at bedtime:( )units; sugars< 70,(0)units; sugars 150-199,(1)unit; sugars 200-249,(3)units; sugars 250-299,(5)units; sugars 300-349,(7)units; sugars more than 349,(9)units. Fosrenol (Lanthanum Carbonate) 1,000 Mg Tab 1,000 Mg CHEW TIDPC Carvedilol 6.25 Mg Tab 6.25 Mg PO BID Lantus Inj (Insulin Glargine) 100 Unit/Ml Inj 25 Units SQ HS Calcium 600 Mg Tab 600 Mg PO DAILY Review of Systems Except as stated in HPI: all other systems reviewed are Neg Physical Exam Narrative GENERAL: Well-developed well-nourished male in no acute distress SKIN: Warm and dry. HEAD: Atraumatic. Normocephalic. EYES: Pupils equal and round. No scleral icterus. No injection or drainage. ENT: No nasal bleeding or discharge. Mucous membranes pink and moist. NECK: Trachea midline. No JVD. CARDIOVASCULAR: Regular rate and rhythm. No murmur appreciated. RESPIRATORY: No accessory muscle use. Clear to auscultation. Breath sounds equal bilaterally. GASTROINTESTINAL: Abdomen soft, suprapubic/left lower quadrant tenderness without guarding. MUSCULOSKELETAL: No obvious deformities. 2+ lower extremity edema bilaterally NEUROLOGICAL: Awake and alert. No obvious cranial nerve deficits. Motor grossly within normal limits. Normal speech. PSYCHIATRIC: Appropriate mood and affect; insight and judgment normal. Data Data Last Documented VS Vital Signs Date Time Temp Pulse Resp B/P Pulse Ox O2 Delivery O2 Flow Rate FiO2 01/05/17 20:30 81 21 150/65 93 Room Air 01/05/17 16:35 97.7 Orders Complete Blood Count With Diff (01/05/17 18:20) Comprehensive Metabolic Panel (01/05/17 18:20) Lipase (01/05/17 18:20) Prothrombin Time / Inr (Pt) (01/05/17 18:20) Act Partial Throm Time (Ptt) (01/05/17 18:20) Urinalysis - C+S If Indicated (01/05/17 18:20) Ct Abd/Pel W/O Iv Contrast (01/05/17 18:22) Ciprofloxacin 400 Mg Premix (Cipro 400 M (01/05/17 20:45) Metronidazole (Flagyl) (01/05/17 20:45) C Diff Toxin Pcr (01/05/17 20:32) Labs Laboratory Tests Test 01/05/17 17:33 White Blood Count 17.5 TH/MM3 Red Blood Count 3.38 MIL/MM3 Hemoglobin 9.8 GM/DL Hematocrit 31.6 % Mean Corpuscular Volume 93.5 FL Mean Corpuscular Hemoglobin 29.0 PG Mean Corpuscular Hemoglobin 31.1 % Concent Red Cell Distribution Width 18.5 % Platelet Count 169 TH/MM3 Mean Platelet Volume 8.2 FL Neutrophils (%) (Auto) 87.2 % Lymphocytes (%) (Auto) 4.6 % Monocytes (%) (Auto) 7.1 % Eosinophils (%) (Auto) 0.7 % Basophils (%) (Auto) 0.4 % Neutrophils # (Auto) 15.3 TH/MM3 Lymphocytes # (Auto) 0.8 TH/MM3 Monocytes # (Auto) 1.2 TH/MM3 Eosinophils # (Auto) 0.1 TH/MM3 Basophils # (Auto) 0.1 TH/MM3 CBC Comment DIFF FINAL Differential Comment Prothrombin Time 10.8 SEC Prothromb Time International 1.0 RATIO Ratio Activated Partial 33.4 SEC Thromboplast Time Sodium Level 139 MEQ/L Potassium Level 3.9 MEQ/L Chloride Level 103 MEQ/L Carbon Dioxide Level 26.5 MEQ/L Anion Gap 10 MEQ/L Blood Urea Nitrogen 63 MG/DL Creatinine 3.34 MG/DL Estimat Glomerular Filtration 18 ML/MIN Rate Random Glucose 73 MG/DL Calcium Level 7.5 MG/DL Total Bilirubin 0.7 MG/DL Aspartate Amino Transf 19 U/L (AST/SGOT) Alanine Aminotransferase 17 U/L (ALT/SGPT) Alkaline Phosphatase 124 U/L Total Protein 6.6 GM/DL Albumin 2.6 GM/DL Lipase 164 U/L MDM Medical Decision Making Medical Screen Exam Complete: Yes Emergency Medical Condition: Yes Medical Record Reviewed: Yes Differential Diagnosis Diverticulitis, colitis, UTI, obstruction Narrative Course 76-year-old male with lower abdominal pain for one day. He was initially seen in triage. The patient will be moved to medical bed when one becomes available. Dickson Johnson Jan 05, 2017 18:21
[2017-01-05 18:42] LABS: AUTOMATED NEUTROPHIL # 15.3 TH/MM3 (1.8-7.7); BASOPHIL # 0.1 TH/MM3 (0-0.2); BASOPHIL % 0.4 % (0.0-2.0); EOSINOPHIL # 0.1 TH/MM3 (0-0.4); EOSINOPHIL % 0.7 % (0.0-4.0); HEMATOCRIT 31.6 % (39.0-51.0); HEMO FLAGS DIFF FINAL; LYMPH % 4.6 % (9.0-44.0); LYMPHOCYTE # 0.8 TH/MM3 (1.0-4.8); MEAN CELL VOLUME 93.5 FL (80.0-100.0); MEAN CORPUSCULAR HGB CONC 31.1 % (32.0-36.0); MONO % 7.1 % (0.0-8.0); NEUT % 87.2 % (16.0-70.0); PLATELET COUNT 169 TH/MM3 (150-450); RED BLOOD COUNT 3.38 MIL/MM3 (4.50-5.90); RED CELL DISTRIBUTION WIDTH 18.5 % (11.6-17.2); WHITE BLOOD COUNT 17.5 TH/MM3 (4.0-11.0)
[2017-01-05 19:20] LABS: ANION GAP 10 MEQ/L (5-15); AST (GOT) 19 U/L (15-37); BICARBONATE 26.5 MEQ/L (21.0-32.0); BLOOD UREA NITROGEN 63 MG/DL (7-18); CHLORIDE 103 MEQ/L (98-107); GLOMERULAR FILTRATION RATE 18 ML/MIN (>89); POTASSIUM 3.9 MEQ/L (3.5-5.1); SODIUM (NA) 139 MEQ/L (136-145)
[2017-01-05 19:23] LABS: ALKALINE PHOSPHATASE 124 U/L (45-117); ALT (GPT) 17 U/L (12-78); APTT (PATIENT) 33.4 SEC (24.3-30.1); PROTHROMBIN TIME - PATIENT 10.8 SEC (9.8-11.6); TOTAL BILIRUBIN ADULT 0.7 MG/DL (0.2-1.0)
--- NOTE | 2017-01-05 19:27 | RADRPT ---
EXAM DATE/TIME: 01/05/2017 18:54 [facility] COMPARISON: CT ABDOMEN & PELVIS W/O CONTRAST, August 27, 2016, 19:11. CT ABDOMEN W/O CONTRAST, September 10 16, 15:11. INDICATIONS : Lower abdominal pain for one day. ORAL CONTRAST: No oral contrast ingested. RADIATION DOSE: 18.15 CTDIvol (mGy) MEDICAL HISTORY : Hypertension. Cerebrovascular disease. Renal failure, chronic. SURGICAL HISTORY : Appendectomy. ENCOUNTER: Initial ACUITY: 1 day PAIN SCALE: 7/10 LOCATION: Bilateral lower quadrant TECHNIQUE: Volumetric scanning of the abdomen and pelvis was performed. Using automated exposure control and ad justment of the mA and/or kV according to patient size, radiation dose was kept as low as reasonably achievable to obtain optimal diagnostic quality images. FINDINGS: CT Abdomen: The liver, spleen, pancreas, kidneys, adrenals are unremarkable. There is no evidence for any appreciable pathological adenopathy, free fluid, or bowel obstruction. Chronic vascular calcifi cations are present involving the aorta, iliac arteries without any significant stenosis or aneurysma l dilatations for technique. Small bilateral pleural effusions are present with nodular infiltrate in the right middle lobe. CT pelvis: There is no evidence for mass, abscess formation, or any significant adenopathy within the pelvis. The prostate gland is inhomogeneous and measures 3.0 x 5.2 cm in AP and transverse diameters and nonspecific. There is moderate amount of stool throughout the colon. There are numerous divertic nanci mainly in the sigmoid colon and there appears to be bowel wall thickening of the sigmoid colon an d proximal to it there is extensive stool and this could be due to spasm, however underlying mass is difficult to exclude. Alternatively findings could represent diverticulitis. CONCLUSION: 1. Small bilateral pleural effusions and nodular infiltrates in right middle lobe most likely inflamm atory and pneumonia not present previously. 2. Diverticuli throughout the colon with the area of bowel wall thickening and narrowing of sigmoid c olon may be due to spasm, diverticulitis or underlying mass. Bentley Glass MD on January 05, 2017 at 19:19 Board Certified Radiologist. This report was verified electronically.
[2017-01-05 20:30] VITALS: BP 150/65; PULSE 81; RESP 21; O2SAT 93
[2017-01-05] MEDS ORDERED: HUMALOG SQ ×3 (20:32)
[2017-01-05] MEDS ORDERED: CARV6.252 PO (20:32)
[2017-01-05] MEDS ORDERED: FOSR1000 CHEW (20:32)
[2017-01-05] MEDS ORDERED: MULT-135 PO (20:32)
[2017-01-05] MEDS ORDERED: metroNIDAZOLE 500 MG TAB PO ONE (20:45)
[2017-01-05] MEDS ORDERED: PIPERACIL-TAZO 2.25 GM PREMIX 50 ML IV ONE (20:45)
[2017-01-05] MEDS ORDERED: CIPROFLOXACIN 400 MG PREMIX 200 ML IV ONE (20:45)
--- NOTE | 2017-01-05 20:48 | PD ---
Data Data Last Documented VS Vital Signs Date Time Temp Pulse Resp B/P Pulse Ox O2 Delivery O2 Flow Rate FiO2 01/05/17 20:30 81 21 150/65 93 Room Air 01/05/17 16:35 97.7 Orders Complete Blood Count With Diff (01/05/17 18:20) Comprehensive Metabolic Panel (01/05/17 18:20) Lipase (01/05/17 18:20) Prothrombin Time / Inr (Pt) (01/05/17 18:20) Act Partial Throm Time (Ptt) (01/05/17 18:20) Urinalysis - C+S If Indicated (01/05/17 18:20) Ct Abd/Pel W/O Iv Contrast (01/05/17 18:22) Ciprofloxacin 400 Mg Premix (Cipro 400 M (01/05/17 20:45) Metronidazole (Flagyl) (01/05/17 20:45) C Diff Toxin Pcr (01/05/17 20:32) Piperacil-Tazo 2.25 Gm Premix (Zosyn 2.2 (01/05/17 20:45) Blood Culture (01/05/17 20:40) Vancomycin Inj (Vancomycin Inj) (01/05/17 21:15) Admit Order (Ed Use Only) (01/05/17 21:09) Consult Nephrology (01/05/17 ) Labs Laboratory Tests Test 01/05/17 17:33 White Blood Count 17.5 TH/MM3 Red Blood Count 3.38 MIL/MM3 Hemoglobin 9.8 GM/DL Hematocrit 31.6 % Mean Corpuscular Volume 93.5 FL Mean Corpuscular Hemoglobin 29.0 PG Mean Corpuscular Hemoglobin 31.1 % Concent Red Cell Distribution Width 18.5 % Platelet Count 169 TH/MM3 Mean Platelet Volume 8.2 FL Neutrophils (%) (Auto) 87.2 % Lymphocytes (%) (Auto) 4.6 % Monocytes (%) (Auto) 7.1 % Eosinophils (%) (Auto) 0.7 % Basophils (%) (Auto) 0.4 % Neutrophils # (Auto) 15.3 TH/MM3 Lymphocytes # (Auto) 0.8 TH/MM3 Monocytes # (Auto) 1.2 TH/MM3 Eosinophils # (Auto) 0.1 TH/MM3 Basophils # (Auto) 0.1 TH/MM3 CBC Comment DIFF FINAL Differential Comment Prothrombin Time 10.8 SEC Prothromb Time International 1.0 RATIO Ratio Activated Partial 33.4 SEC Thromboplast Time Sodium Level 139 MEQ/L Potassium Level 3.9 MEQ/L Chloride Level 103 MEQ/L Carbon Dioxide Level 26.5 MEQ/L Anion Gap 10 MEQ/L Blood Urea Nitrogen 63 MG/DL Creatinine 3.34 MG/DL Estimat Glomerular Filtration 18 ML/MIN Rate Random Glucose 73 MG/DL Calcium Level 7.5 MG/DL Total Bilirubin 0.7 MG/DL Aspartate Amino Transf 19 U/L (AST/SGOT) Alanine Aminotransferase 17 U/L (ALT/SGPT) Alkaline Phosphatase 124 U/L Total Protein 6.6 GM/DL Albumin 2.6 GM/DL Lipase 164 U/L MDM Medical Record Reviewed: Yes Supervised Visit with MILLA: Yes Narrative Course I, Dr. Barbosa, have reviewed the advance practice practitioner's documentation and am in agreement, met with the patient face to face, made the diagnosis, and the medical decision making was done by me. *My assessment and Findings: 76 yo M arrives with abdominal pain and loose stool. Results reveal the patient has R lung pneumonia on the CT abdomen and pelvis views of the lung. The CT also reveals infectious or possibly neoplastic process in the sigmoid colon. His reports he has been diagnosed with C. difficile colitis in the last month following an outpatient ICU admission at [facility]. He was at [facility] 2/2 inability to extubate following an admission here for respiratory failure. The patient had a left upper extremity fistula for hemodialysis placed by Dr. Luna in [facility] just 2 weeks prior. He follows with Dr Antoine of nephrology and undergoes dialysis Tuesday and has been compliant with dialysis as scheduled. He also notes loose stool today. He has a history of C. difficile colitis associated the most recent hospital stay. CBC & BMP Diagram 01/05/17 17:33 Albumin 2.6 LFTs otherwise normal Lipase 164 Last 24 hours Impressions Abdomen/Pelvis CT 01/05/171821 Signed Impressions: Service Date/Time: Thursday, January 05, 2017 18:54 - CONCLUSION: 1. Small bilateral pleural effusions and nodular infiltrates in right middle lobe most likely inflammatory and pneumonia not present previously. 2. Diverticuli throughout the colon with the area of bowel wall thickening and narrowing of sigmoid colon may be due to spasm, diverticulitis or underlying mass. MD Kwesi Avelar Vanco and Flagyl started. Nephrology consult placed. Pt refused pain meds at time of initial interview by undersigned. We'll admit for IV abx for poss HCAP and diverticulitis v sigmoid mass. D/w Jer Kerr. Sepsis Criteria SIRS Criteria (2 or more): RR > 20 or PaCO2 < 32, WBC > 54994, < 4000 or > 10 % bands Sepsis Criteria (SIRS+source): Infect source susp/known Diagnosis Primary Impression: Pneumonia Qualified Code: J18.1 - Pneumonia of right middle lobe due to infectious organism Additional Impressions: Diverticulitis Qualified Code: K57.32 - Diverticulitis of large intestine without perforation or abscess without bleeding Sigmoid thickening Diarrhea Qualified Code: R19.7 - Diarrhea, unspecified type Admitting Information Admitting Physician Requests: Admit Al Barbosa MD Jan 05, 2017 20:48
[2017-01-05 21:00] VITALS: BP 154/67; PULSE 82; RESP 20; O2SAT 93
[2017-01-05] MEDS ORDERED: VANCOMYCIN INJ 1,500 MG in SODIUM CHLORID 0.9% 500 ML INJ 500 ML IV ONE (21:15)
[2017-01-05 23:00] VITALS: BP 157/70; PULSE 80; RESP 22; O2SAT 93
[2017-01-05] MEDS ORDERED: Custom Consult Pharmacy 1 EA OTHER SCH (23:00)
[2017-01-05] MEDS ORDERED: ONDANSETRON HCL 4 MG/2 ML VIAL IVP PRN (23:00)
[2017-01-05] MEDS ORDERED: ACETAMINOPHEN 325 MG TAB PO PRN (23:00)
[2017-01-05] MEDS ORDERED: NALOXONE HCL 0.4 MG/ML AMP IV PRN (23:00)
[2017-01-05] MEDS ORDERED: Vancomycin Consult Pharmacy 1 EA OTHER SCH (23:00)
[2017-01-05] MEDS ORDERED: SODIUM CHLORIDE 0.9% FLUSH 10 ML FLUSH IV FLUSH PRN (23:00)
[2017-01-06] VITALS (11 sets, daily range): BP systolic 69–144; BP diastolic 36–66; PULSE 75–90; RESP 20–24; TEMP 98.3–99.5; O2SAT 92–96
[2017-01-06] MEDS ORDERED: VANCOMYCIN 1,000 MG/NS 250 ML IV ONE ×2
[2017-01-06] MEDS: HEPARIN SODIUM - SQ 10,000 UNITS/ML VIAL SQ SCH ×3 (00:43→22:04)
[2017-01-06] MEDS: PIPERACIL-TAZO 2.25 GM PREMIX 50 ML IV SCH ×3 (02:54→21:12)
[2017-01-06] MEDS: metroNIDAZOLE 500 MG INJ 100 ML IV SCH ×3 (05:51→21:12)
[2017-01-06 06:11] LABS: BASOPHIL # 0.1 TH/MM3 (0-0.2); BASOPHIL % 0.6 % (0.0-2.0); EOSINOPHIL # 0.1 TH/MM3 (0-0.4); EOSINOPHIL % 0.4 % (0.0-4.0); HEMATOCRIT 26.3 % (39.0-51.0); HEMO FLAGS DIFF FINAL; LYMPH % 3.2 % (9.0-44.0); LYMPHOCYTE # 0.4 TH/MM3 (1.0-4.8); MEAN CELL VOLUME 93.3 FL (80.0-100.0); MEAN CORPUSCULAR HEMOGLOBIN 29.7 PG (27.0-34.0); MEAN CORPUSCULAR HGB CONC 31.9 % (32.0-36.0); NEUT % 89.8 % (16.0-70.0); PLATELET COUNT 139 TH/MM3 (150-450); RED BLOOD COUNT 2.82 MIL/MM3 (4.50-5.90); RED CELL DISTRIBUTION WIDTH 18.6 % (11.6-17.2); WHITE BLOOD COUNT 13.3 TH/MM3 (4.0-11.0)
[2017-01-06 06:12] LABS: C. DIFF EPI 027 PRESUMPTIVE POSITIVE (NEGATIVE)
[2017-01-06 06:23] LABS: C. DIFF TOXIN PCR POSITIVE (NEGATIVE)
[2017-01-06 06:32] LABS: BICARBONATE 22.5 MEQ/L (21.0-32.0); POTASSIUM 3.4 MEQ/L (3.5-5.1)
--- NOTE | 2017-01-06 09:12 | HHI.HP ---
[facility] Reinire Cheng MD Admission Diagnosis Sepsis (Colitis, R Lung PNA), ESR, Diarrhea Diagnoses: Chief Complaint: abdominal pain (Stephy Barajas) Travel History International Travel<30 Days: No Contact w/Intl Traveler <30 Da: No Traveled to Known Affected Are: No (Stephy Barajas) Sepsis Criteria Criteria Outcome: Meets sepsis criteria (Stephy BarajasP) History of Present Illness This is a is a 76 year old male, PMH of DM, HTN, hyperlipidemia, obesity, cataracts, arthritis, peripheral arterial disease, neurogenic bladder, s/p transurethral prostatectomy, COPD, obstructive sleep apnea, and osteoporosis. Patient onto the underside from frequent hospitalization. Patient problems began on 07/25/16 when he was admitted for sepsis, perforated duodenal ulcer with percutaneous drain, and cellulitis. Was diagnosed with an intra-abdominal abscess and had drain placed in IR. Subsequently had G-tube and J-tube inserted which were later removed. At one point had a tracheostomy which was eventually removed. Developed ESRD was on hemodialysis. After that, he was discharged to [facility] and return to the hospital with new onset stroke. He was then readmitted from rehabilitation on 10/10/2016 for respiratory failure and mucous plug. He was eventually discharged and was no longer hemodialysis. Most recently, he was admitted from 12/03 to 12/15 for respiratory failure requiring mechanical ventilation, recurrent cdiff, sepsis, PNA. During that time, he went back in acute renal failure and is now back on dialysis Tuesday to and Tuesday. Patient was discharged to [facility] for respiratory rehabilitation and was discharged last Tuesday. According to the patient's , he had been doing relatively well. Yesterday he started to complain of abdominal cramping, he pointed to the left lower abdomen. At this time, information is provided by the patient's as the patient is somewhat lethargic. endorses that the pain was crampy and came in waves, no nausea , no vomiting. He did have an episode of loose stool in the morning. There is no prior history of diverticulosis. The became concerned as this was the type of pain he had when he had the perforated duodenal ulcer. She denies any fever, no chills. endorses that he had a fistula placed by Dr. Luna at [facility] 2 weeks prior. He was checked for C. difficile prior to discharge at [facility] and he tested negative. Patient was evaluated in the emergency room , he was noted with significant leukocytosis, WBC 17.5, hemoglobin 9.8, hematocrit 31.6. BMP was remarkable for chronic kidney disease. Stools positive for cdiff, Epid 027. CT of the abdomen shows small bilateral pleural effusions, nodular infiltrates in right middle lobe most likely inflammatory and pneumonia. Diverticula throughout the colon with an area of bowel wall thickening and narrowing of sigmoid colon may be due to spasm, diverticulitis or underlying mass. Patient was started on empiric antibiotics, cultures were obtained. Patient is now admitted for further evaluation and treatment. (Stephy Barajas) Review of Systems ROS Limitations: Clinical Condition, Altered Mental Status Gastrointestinal: COMPLAINS OF: Abdominal pain, Diarrhea (Stephy Barajas) Past Family Social History Past Medical History Recent protracted admission for perforated peptic ulcer Recent septic shock Recent abdominal abscess status post catheter drainage Diabetes Cataract COPD Sleep apnea Renal failure recently stopped having dialysis Anxiety Depression Hospitalized from Dec 03 to December 15 for resp. failure, recurrent cdiff, acute on CKD back on HD. [facility] Past Surgical History Tracheostomy, later closed Catheter drainage of abdominal abscess, catheter removed Gastrostomy Jejunostomy Cataract surgery Appendectomy Circumcision TURP left arm fistula 2 weeks ago Reported Medications Reported Meds & Active Scripts Active Gabapentin 100 Mg Cap 100 Mg PO BID Pantoprazole (Pantoprazole Sodium) 40 Mg Tab 40 Mg PO DAILY 30 Days Lipitor (Atorvastatin Calcium) 80 Mg Tab 80 Mg PO HS Aggrenox (Dipyridamole/Aspirin) 200-25 Mg Cap 1 Cap PO DAILY Reported Multi Vitamin (Multiple Vitamin) 1 Tab Tab 1 Tab PO DAILY Humalog Inj (Insulin Human Lispro) 1,000 Unit/10 Ml Vial 15 Units SQ AC DINNER Max dose at bedtime:( )units; sugars< 70,(0)units; sugars 150-199,(1)unit; sugars 200-249,(3)units; sugars 250-299,(5)units; sugars 300-349,(7)units; sugars more than 349,(9)units. Humalog Inj (Insulin Human Lispro) 1,000 Unit/10 Ml Vial 8 Units SQ AC LUNCH Max dose at bedtime:( )units; sugars< 70,(0)units; sugars 150-199,(1)unit; sugars 200-249,(3)units; sugars 250-299,(5)units; sugars 300-349,(7)units; sugars more than 349,(9)units. Humalog Inj (Insulin Human Lispro) 1,000 Unit/10 Ml Vial 8 Units SQ AC BREAKFAST Max dose at bedtime:( )units; sugars< 70,(0)units; sugars 150-199,(1)unit; sugars 200-249,(3)units; sugars 250-299,(5)units; sugars 300-349,(7)units; sugars more than 349,(9)units. Fosrenol (Lanthanum Carbonate) 1,000 Mg Tab 1,000 Mg CHEW TIDPC Carvedilol 6.25 Mg Tab 6.25 Mg PO BID Lantus Inj (Insulin Glargine) 100 Unit/Ml Inj 25 Units SQ HS Calcium 600 Mg Tab 600 Mg PO DAILY (Stephy Barajas) Allergies: Coded Allergies: Betadine (Verified Allergy, Severe, Rash, 01/05/17) *MDRO Multi-Drug Resistant Organism (Verified Adverse Reaction, Unknown, ) Carlson resistant K. pneumoniae (urine-08/06/16) Active Ordered Medications Inpatient Medications Acetaminophen (Tylenol) 650 mg Q4H PRN PO TEMP > 100.4; Start 01/05/17 at 23:00 Albuterol/ Ipratropium 1 ampule 1 ampule QID NEB PRN NEB sob; Start 01/05/17 at 23:00 Ciprofloxacin/ Dextrose (Cipro 400 Mg Premix) 200 ml @ 200 mls/hr ONCE ONCE IV ; Start 01/05/17 at 20:45; Stop 01/05/17 at 20:45; Status DC Heparin Sodium (Porcine) (Heparin Inj) 5,000 units Q12H SQ Last administered on 01/06/17 00:43; Start 01/05/17 at 23:00 Metronidazole 100 ml @ 100 mls/hr Q8H IV Last administered on 01/06/17 05:51 ; Start 01/06/17 at 05:00 Metronidazole 500 mg 500 mg ONCE ONCE PO Last administered on 01/05/17 21:03 ; Start 01/05/17 at 20:45; Stop 01/05/17 at 20:46; Status DC Naloxone HCl 0.4 mg 0.4 mg UNSCH PRN IV SEE LABEL COMMENTS; Start 01/05/17 at 23:00 Ondansetron HCl (Zofran Inj) 4 mg Q6H PRN IVP NAUSEA OR VOMITING; Start at 23:00 Pharmacy Profile Note (Vancomycin Consult Pharmacy) 0 ml @ 0 mls/hr UNSCH OTHER ; Start 01/05/17 at 23:00 Piperacillin Sod/ Tazobactam Sod 50 ml @ 100 mls/hr Q6H IV Last administered on 01/06/17 02:54; Start 01/06/17 at 03:00 Sodium Chloride (NS Flush) 2 ml BID IV FLUSH ; Start 01/06/17 at 09:00 Vancomycin HCl/ Sodium Chloride (Vancomycin Inj/ NS 250 ml Inj) 250 ml @ 250 mls/hr ONCE ONCE IV Last administered on 01/06/17 00:43; Start 01/06/17 at 00 :00; Stop 01/06/17 at 00:59; Status DC Vancomycin HCl/ Sodium Chloride (Vancomycin Inj/ NS 500 ml Inj) 515 ml @ 257.5 mls/ hr ONCE ONCE IV Last administered on 01/05/17 21:42; Start 01/05/17 at 21:15; Stop 01/05/17 at 23:14; Status DC Family History Reviewed noncontributory Social History Patient is , lives at home with (Stephy BarajasP) Physical Exam Vital Signs Vital Signs Date Time Temp Pulse Resp B/P Pulse Ox O2 Delivery O2 Flow Rate FiO2 01/06/17 03:00 90 24 141/63 96 Room Air 01/05/17 23:00 80 22 157/70 93 Room Air 01/05/17 21:00 82 20 154/67 93 Room Air 01/05/17 20:30 81 21 150/65 93 Room Air 01/05/17 16:35 97.7 84 18 163/72 96 Room Air Physical Exam GENERAL: This is a well-nourished, well-developed patient SKIN: No rashes, ecchymoses or lesions. Cool and dry. HEAD: Atraumatic. Normocephalic. No temporal or scalp tenderness. EYES: Pupils equal round and reactive. Extraocular motions intact. No scleral icterus. No injection or drainage. ENT: Nose without bleeding, purulent drainage or septal hematoma. Throat without erythema, tonsillar hypertrophy or exudate. Uvula midline. Airway patent. NECK: Trachea midline. No JVD or lymphadenopathy. Supple, nontender, no meningeal signs. CARDIOVASCULAR: S1-S2, unable to detect any murmurs rubs or gallops. Right chest wall is noted with permacath. RESPIRATORY: Diminished, faint bibasilar rales. GASTROINTESTINAL: Abdomen soft,diffuse tenderness, nondistended. No hepato- splenomegaly, or palpable masses. No guarding. MUSCULOSKELETAL: Extremities without clubbing, cyanosis. No joint tenderness, effusion, or edema noted. No calf tenderness. Negative Homans sign bilaterally. Bilateral lower extremities noted with +1 edema, pedal pulses 1+ bilaterally. Both feet with dressings D/I. Has ulcers to both heels. NEUROLOGICAL: Awakes to voice, oriented x 2. Following simple commands. Somewhat lethargic. Laboratory Laboratory Tests Test 01/05/17 01/06/17 01/06/17 17:33 04:34 05:57 White Blood Count 17.5 13.3 Red Blood Count 3.38 2.82 Hemoglobin 9.8 8.4 Hematocrit 31.6 26.3 Mean Corpuscular Volume 93.5 93.3 Mean Corpuscular Hemoglobin 29.0 29.7 Mean Corpuscular Hemoglobin 31.1 31.9 Concent Red Cell Distribution Width 18.5 18.6 Platelet Count 169 139 Mean Platelet Volume 8.2 8.3 Neutrophils (%) (Auto) 87.2 89.8 Lymphocytes (%) (Auto) 4.6 3.2 Monocytes (%) (Auto) 7.1 6.0 Eosinophils (%) (Auto) 0.7 0.4 Basophils (%) (Auto) 0.4 0.6 Neutrophils # (Auto) 15.3 12.0 Lymphocytes # (Auto) 0.8 0.4 Monocytes # (Auto) 1.2 0.8 Eosinophils # (Auto) 0.1 0.1 Basophils # (Auto) 0.1 0.1 CBC Comment DIFF FINAL DIFF FINAL Differential Comment Prothrombin Time 10.8 Prothromb Time International 1.0 Ratio Activated Partial 33.4 Thromboplast Time Sodium Level 139 139 Potassium Level 3.9 3.4 Chloride Level 103 106 Carbon Dioxide Level 26.5 22.5 Anion Gap 10 11 Blood Urea Nitrogen 63 65 Creatinine 3.34 3.57 Estimat Glomerular Filtration 18 17 Rate Random Glucose 73 81 Calcium Level 7.5 7.9 Total Bilirubin 0.7 Aspartate Amino Transf 19 (AST/SGOT) Alanine Aminotransferase 17 (ALT/SGPT) Alkaline Phosphatase 124 Total Protein 6.6 Albumin 2.6 Lipase 164 Stool C. difficile Toxin (PCR) POSITIVE Stl C. difficile Toxin PRESUMPTIVE Epiderm 027 POSITIVE Date/Time Procedure Status Source Growth 01/05/17 20:50 Aerobic Blood Culture Received Blood Peripheral Pending 01/05/17 20:50 Anaerobic Blood Culture Received Blood Peripheral Pending (Stephy Barajas) Result Diagram: 01/06/17 0557 01/06/17 0557 Imaging Last Impressions Abdomen/Pelvis CT 01/05/171821 Signed Impressions: Service Date/Time: Thursday, January 05, 2017 18:54 - CONCLUSION: 1. Small bilateral pleural effusions and nodular infiltrates in right middle lobe most likely inflammatory and pneumonia not present previously. 2. Diverticuli throughout the colon with the area of bowel wall thickening and narrowing of sigmoid colon may be due to spasm, diverticulitis or underlying mass. Bentley Glass MD (Stephy Barajas) Assessment and Plan Problem List: (1) Sepsis (2) Recurrent Clostridium difficile diarrhea (3) Diverticulitis (4) Diabetes 1.5, managed as type 2 (5) History of CVA (cerebrovascular accident) (6) PVD (peripheral vascular disease) (7) Hypertension (8) Hyperlipidemia (9) Chronic kidney disease (CKD) (10) Congestive heart failure (11) COPD (chronic obstructive pulmonary disease) Assessment and Plan Admit to Dr. Wyatt 76-year-old female with recent extensive hospitalizations for perforated duodenal ulcer, sepsis, respiratory failure with tracheostomy, CVA, acute renal injury that led to CKD requiring hemodialysis. [facility] for [facility] failure and inability to extubate, has been treated for C. difficile colitis. Now presents with recurrent C. difficile colitis, possible diverticulitis and also recurrent pneumonia. -Continue with antibiotics, continue with Flagyl, Zosyn -Follow cultures -Monitor CBC Chronic kidney disease, on hemodialysis Tuesday and Tuesday. Consult nephrology for hemodialysis management COPD, sleep apnea, uses CPAP at home - can bring CPAP from home -Leah PRN Chronic CHF, stable -Continue with home Diabetes type 2 Accu-Cheks before meals and at bedtime with insulin therapy as needed History of recent CVA Continue with Aggrenox PVD Continue home medications Hypertension Continue home medications Hyperlipidemia Continue with statins History peripheral vascular disease, had vascular surgery at [facility] last year. Has chronic wounds to both heels. Consult wound care nurse for evaluation Home medications reviewed, initiated as indicated Heparin 5000 units subcutaneous twice a day for DVT prophylaxis Plan of care has been discussed with the patient, attending and registered nurse. Further management of the patient will be dependent on the hospital course Patient's condition is guarded. This patient was seen by myself and Dr. 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 In the case of services not specified as inpatient-only, they are appropriately provided as inpatient services in accordance with the 2-midnight benchmark. Estimated LOS (days): 2 2 days is the estimated time the patient will need to remain in the hospital, assuming treatment plan goals are met and no additional complications. Post-Hospital Plan: Not yet determined (Stephy Barajas) Problem Qualifiers (1) Sepsis: Qualified Code: A41.9 - Sepsis, due to unspecified organism (2) Diverticulitis: Qualified Code: K57.32 - Diverticulitis of large intestine without perforation or abscess without bleeding (3) Hypertension: Qualified Code: I10 - Essential hypertension (4) Hyperlipidemia: Qualified Code: E78.5 - Hyperlipidemia, unspecified hyperlipidemia type (5) Chronic kidney disease (CKD): Qualified Code: N18.5 - Chronic kidney disease (CKD), stage 5 (6) Congestive heart failure: Qualified Code: I50.9 - Chronic congestive heart failure, unspecified congestive heart failure type (7) COPD (chronic obstructive pulmonary disease): Qualified Code: J44.9 - Chronic obstructive pulmonary disease, unspecified COPD type Stephy Barajas Jan 06, 2017 09:12 Julius Wyatt MD Jan 06, 2017 21:14
[2017-01-06] MEDS ORDERED: SODIUM CHLOR 0.9% 1000 ML INJ 1,000 ML IV PRN ×2 (10:57)
[2017-01-06] MEDS ORDERED: NITROGLYCERIN 0.4 MG SL 25 TABS/BTL SL PRN (11:00)
[2017-01-06] MEDS ORDERED: ACETAMINOPHEN 325 MG TAB PO PRN (11:00)
[2017-01-06] MEDS ORDERED: HEPARIN SODIUM - IV 10,000 UNITS/10 ML VIAL IVF PRN (11:00)
[2017-01-06] MEDS ORDERED: MANNITOL 12.5 GM/50 ML VIAL IV PRN (11:00)
[2017-01-06] MEDS ORDERED: ACETAMINOPHEN/HYDROcodone 325 MG/5 MG TAB PO PRN (11:00)
[2017-01-06] MEDS ORDERED: cloNIDine HCL 0.1 MG TAB PO PRN (11:00)
[2017-01-06] MEDS ORDERED: ONDANSETRON HCL 4 MG/2 ML VIAL IV PRN (11:00)
[2017-01-06] MEDS ORDERED: SODIUM CHLORIDE 0.9% FLUSH 10 ML FLUSH IV FLUSH PRN (11:00)
[2017-01-06] MEDS ORDERED: diphenhydrAMINE HCL 25 MG CAP PO PRN (11:00)
[2017-01-06] MEDS ORDERED: GELATIN 12 MM/7 MM FOAM TOP PRN (11:00)
[2017-01-06] MEDS: SODIUM CHLORIDE 0.9% FLUSH 10 ML FLUSH IV FLUSH SCH ×2 (11:11→21:00)
[2017-01-06] MEDS: DIPYRIDAMOLE/ASPIRIN 200 MG/25 MG CAP PO SCH (11:11)
[2017-01-06] MEDS: CARVEDILOL 6.25 MG TAB PO SCH ×2 (11:12→21:13)
[2017-01-06] MEDS: LANTHANUM CARBONATE 500 MG CHEWABLE TABLET CHEW SCH ×3 (11:12→18:30)
--- NOTE | 2017-01-06 13:32 | PD.CONS ---
GI Consult GI Consult Thank you for the consultation, ASSESSMENT/PLAN: 1. Acute diverticulitis 2. C-diff diarrhea 3. CHF 4. ESRD on HD 5. Pneumonia PLAN: 1. IV abx Zosyn 2. Vaco 125 mg PO QID 3. clear liq diet as tolerated 4. Could consider Dificid If diarrhea does not improve. It was a pleasure seeing Radhames Glass . Thank you for this consult. Entered by: Nathaniel Arciniega MD Jan 06, 2017 13:32
--- NOTE | 2017-01-06 16:26 | MB ---
cc: LEYDI DILLARD DATE OF CONSULTATION: 01/06/[address] Dillard[address] PRIMARY CONTOUR SANDER Dr. Romario Freeman. REASON FOR CONSULTATION C. Difficile diarrhea, abdominal pain. HISTORY OF PRESENT ILLNESS This is a very pleasant 76-year-old gentleman who has had complicated course since the end of last year with a history of perforated ulcer requiring drain placement, vent dependent respiratory failure, endstage renal disease on hemodialysis, multi organ failure as well as a prolonged hospital course, history of C. Difficile diarrhea, eventually was improved and had a [facility] and finally was eventually discharged to home. He recently had an admission to the hospital for congestive heart failure and again overall slowly improved and eventually was discharged doing well over the last week or so and last night he had a sudden onset of pain in the left lower quadrant suprapubic area associated with diarrhea. His pain was described as cramping in nature 6-7 out of 10 in intensity, sharp shooting pains, associated waves of nausea but no emesis. Due to this he came back to the hospital for further workup and management to the ER. He underwent a CT scan of the abdomen, pelvis which was significant for thickening with inflammatory changes in the sigmoid colon may be related to possible diverticulitis. Stool tests were done which were positive for C. difficile as well. CT also shows a right lower lung pneumonia. PAST MEDICAL HISTORY 1. History of congestive heart failure. 2. Pneumonia. 3. Chronic kidney disease. 4. Hypertension. 5. COPD. 6. History of CVA. 7. Diabetes mellitus. 8. History of C-difficile diarrhea. PAST SURGICAL HISTORY 1. Drain placement. 2. Cholecystectomy. ALLERGIES BETADINE. MEDICATION Home medication: Please see EMR for complete list. FAMILY HISTORY No GI malignancy. SOCIAL HISTORY He denies any tobacco, alcohol, drug abuse. REVIEW OF SYSTEMS A 12-point review of systems was obtained which was negative, noncontributory except for the above-mentioned in the HPI. PHYSICAL EXAMINATION VITAL SIGNS: Temperature 98.3, heart rate 90, respirations 22, blood pressure 119/54, 02 sat 94% on room air. GENERAL: Alert and oriented x3, in mild distress. HEENT: Mucosa moist and pink. Extraocular movements are intact. No JVD. NECK: Supple, nontender. RESPIRATORY: Lungs are clear to auscultation. Respirations nonlabored. CARDIOVASCULAR: Normal rate and rhythm. GASTROINTESTINAL: Abdomen soft. Minimal tenderness to palpation in the left lower quadrant. Mild rebound appreciated. GENITOURINARY: No CVA tenderness noted. LYMPHATICS: No lymphadenopathy noted. MUSCULOSKELETAL: Normal range of motion. SKIN: Warm, dry, intact. NEURO: Alert and oriented. PSYCHIATRIC: Cooperative, appropriate mood and affect. LABORATORY DATA WBC 13.3, hemoglobin 8.4, platelet count of 139, chloride 1.0. C. Difficile positive. IMAGING STUDIES Small bilateral pleural effusion, nodular infiltrate in the right middle lobe likely inflammatory and pneumonia which were not present previously, diverticula throughout the colon with areas of wall thickening around the narrowing sigmoid colon, may be due to spasm, diverticulitis or underlying mass cannot be ruled out. IMPRESSION 1. Abdominal pain in the left lower quadrant with abnormal CT scan, elevated WBCs, likely suspicious for acute diverticulitis as well as underlying C. Difficile associated diarrhea. 2. Diarrhea likely secondary to diverticulitis and C. Difficile. 3. Pneumonia. 4. Acute on chronic kidney disease currently requiring dialysis. 5. Recent history of congestive heart failure. 6. History of perforated duodenal ulcer. RECOMMENDATIONS 1. Recommend IV antibiotics for treatment of diverticulitis including Cipro 400 mg IV b.i.d. and Flagyl 500 mg IV t.i.d. Along with that I would also empirically treat him with vancomycin 125 mg p.o. q.i.d. If symptoms do not improve, then would consider switching to ___ given the recurrence as well as multiple medical problems including CHF, diabetes and recurrent hospitalizations. Thank you for allowing me to participate in the care of this patient. Further recommendations to follow. MD LENORE Orosco/ROEL /1:22 PM /3:37 PM
[2017-01-06] MEDS: HEPARIN SODIUM - IV 10,000 UNITS/10 ML VIAL PRN (16:36)
[2017-01-06] MEDS: GENTAMICIN SULFATE (DIALYSIS USE ONLY) 20 MG/2 ML VIAL IV PRN (16:36)
[2017-01-06] MEDS: EPOETIN ALFA 10,000 UNITS/ML VIAL IV PRN (16:36)
[2017-01-06] MEDS: SODIUM CHLOR 0.9% 1000 ML INJ 1,000 ML IV PRN (16:37)
[2017-01-06] MEDS ORDERED: GLUCAGON 1 MG/ML VIAL OTHER PRN (16:45)
[2017-01-06] MEDS ORDERED: DEXTROSE 50% IN WATER 50 ML VIAL(D50) IV PUSH PRN (16:45)
[2017-01-06] MEDS: VANCOMYCIN 500 MG VIAL (FOR ORAL USE ONLY) PO SCH ×2 (18:47→21:12)
[2017-01-06] MEDS ORDERED: SODIUM CHLOR 0.9% 250 ML INJ 250 ML IV ONE ×3 (20:30→23:30)
[2017-01-06] MEDS ORDERED: INSULIN GLARGINE 1,000 UNITS/10 ML VIAL SQ SCH (21:00)
[2017-01-06] MEDS: INSULIN ASPART SUPPLEMENTAL SCALE SQ SCH (21:00)
[2017-01-06] MEDS: ATORVASTATIN 80 MG TAB PO SCH (21:12)
[2017-01-06] MEDS: GABAPENTIN 100 MG CAP PO SCH (21:13)
[2017-01-06] MEDS ORDERED: ALBUMIN HUMAN 25% 25 GM/100 ML BAGP IV PRN ×2 (22:00→22:15)
--- NOTE | 2017-01-06 22:44 | MB ---
cc: RON BARRIGA MD DATE OF CONSULTATION 01/06/17 REASON FOR CONSULTATION End-stage renal disease on hemodialysis for management. HISTORY OF PRESENT ILLNESS This is a 76-year-old male with past medical history of hypertension, diabetes mellitus, hyperlipidemia, peripheral vascular disease, chronic obstructive pulmonary disease, end-stage renal disease on hemodialysis who came to the hospital with complaint of loose bowel motion and lower abdominal pain. The patient has had recurrent multiple admissions in the last four or five months and has been on hemodialysis since August of last year. He was recently discharged from [facility] where he had left arm AV fistula done and he was discharged last Tuesday. At home he was more lethargic and he started having lower abdominal pain and loose bowel motion. The patient has previous history of C-difficile colitis during his last admission. Here it was found that he has a lymphocytosis with WBC of 17.5. The patient underwent hemodialysis this morning. He is more alert now. He is still having some lower abdominal pain and complaining of diarrhea. Patient has low blood pressure, but he is not having any dizziness. No shortness of breath. Hs breathing is much better. PAST MEDICAL HISTORY 1. Hypertension, 2. Diabetes mellitus, 3. Peripheral vascular disease, 4. Chronic obstructive pulmonary disease, 5. Congestive heart failure, 6. Ischemic heart disease, 7. End-stage renal disease on hemodialysis three times per week, 8. History of anemia, 9. Anxiety depression. PAST SURGICAL HISTORY 1. Tracheostomy with closure 2. Left arm AV fistula 3. Gastrostomy jejunostomy 4. History of cataract surgery. 5. Appendicectomy 6. Transurethral resection of the prostate REVIEW OF SYSTEMS Denies any headache, dizziness or blurring of vision. There is no history of fever. No shortness of breath. No chest pain. No palpitation. No nausea or vomiting. He has this abdominal pain mainly in the lower abdomen in the left lower quadrant and associated with loose bowel motion. There is no history of fever at home. SOCIAL HISTORY The patient is , lives with his . He has past history of smoking. There is no history of heavy alcoholism FAMILY HISTORY Noncontributory. ALLERGIES BETADINE MEDICATIONS Currently he is on following medications - 1. Coreg 6.25 mg b.i.d. 2. Neurontin 100 mg b.i.d. 3. OsCal 500 mg once a day 4. Aggrenox 1 capsule daily, 5. Lipitor 80 mg q.h.s., 6. Lantus 25 units q.h.s. 7. Heparin 5000 subcu 12-hour 8. Metronidazole 500 mg IV q.8 h, 9. Zosyn 2.25 gram IV q. 8-hour 10. Vancomycin 125 mg q.i.d. p.o. 11. Insulin aspart sliding scale 12. Fosrenol 1 gram t.i.d. 13. Zofran as needed PHYSICAL EXAMINATION GENERAL: On examination, the patient is awake, alert. He is not in acute distress. VITAL SIGNS: Last blood pressure just now it is 81/42, temperature 99.5, oxygen saturation 93-96% on room air. HEENT: Pupils equally reacting to light. Nonicteric sclerae. Conjunctivae pale. NECK: Supple. JVD is not elevated. LUNGS: The patient has bilateral decreased air entry with scattered wheezing. HEART: S1, S2 regular rhythm. ABDOMEN: Distended, soft, lax. There is mild tenderness in the left lower quadrant. There is no rebound or rigidity. Bowel sounds positive. EXTREMITIES: He has mild edema in the legs. LABORATORY DATA WBC count is 13.3, hemoglobin 8.4, platelet count 139, neutrophils 59.8%, Sodium 139, potassium 3.4, chloride 106, bicarb 22.5, BUN 65, creatinine 3.5, calcium 7.9, AST, ALT normal, total protein 6.6, albumin is 2.6, INR 1.0. Cultures pending. C difficile is positive. IMAGING STUDIES The patient had CT scan of the abdomen and pelvis done yesterday which shows a small bilateral pleural effusion, diverticula throughout the colon with area of bowel thickness and narrowing of the sigmoid colon. ASSESSMENT/PLAN 1. C-difficile colitis. 2. Hypotension. 3. End-stage renal disease on hemodialysis. 4. Anemia. 5. History of COPD. 6. Diabetes mellitus The patient had hemodialysis done today and he had 2 liters fluid removed. Now his blood pressure has dropped. Although he asymptomatic, I will give him 250 mL of normal saline. Continue the antibiotic. The patient was seen by GI and the recommendation was to continue the IV antibiotic. He is on Epogen with hemodialysis for anemia. Thank you for the consultation. I will follow the patient while he is in the hospital. MD BISI Cardoza/ /8:33 PM /10:22 PM
--- NOTE | 2017-01-06 23:01 | HHI.FPPN ---
Addendum to progress note ADDENDUM Reason for addendum: Additonal documentation Additional information Subjective: Jaida was called on a 76-year-old male with PMH of end-stage renal disease on hemodialysis and multiple comorbidities for hypotension after he had dialysis today with 2L of fluid removed. The pt's nurse already contacted nephrology who asked her to give him a 250 mL NS bolus. The nurse also called the pt's hospitalist who asked her to bolus him albumin which was running when we arrived in the room. Prior to the boluses, his SBP was 69. Nephrology asked the nurse to call after the boluses if he remained hypotensive. The patient was awake and alert through all of this and denied dizziness or lightheadedness, shortness of breath, or chest pain. He has abdominal pain from an active C difficile infection for which he is on antibiotic therapy. Objective: General: Elderly male of stated age lying down in bed. Does not appear in acute respiratory distress Cardiac: RRR Respiratory: CTAB. No crackles appreciated on anterior chest auscultation Abdomen: TTP in the lower abdomen MSK: Bilateral feet wrapped in dressing from apparent cellulitic infection Neuro: Awake and alert Assessment/Plan: 76 y/o pt with ESRD presenting with hypotension after dialysis We started the pt on another 250 mL of normal saline in addition to the albumin that was running. His BP was re-measured and was 93/41 The nurse will call nephrology and his hospitalist to update them on his current blood pressure If his pressure drops again, he may need to be transferred to the unit for pressors Carol Nicole MD R1 Jan 06, 2017 23:01
[2017-01-06] MEDS ORDERED: CHLORHEXIDINE GLUCONATE 2 % 1 PACK (2 CLOTHS)(extra cloths) TOP PRN (23:30)
[2017-01-07] VITALS (11 sets, daily range): BP systolic 88–97; BP diastolic 34–53; PULSE 74–98; RESP 21–40; TEMP 97–98.3; O2SAT 95–99
[2017-01-07] MEDS: RESP: ALBUTEROL 2.5 MG/IPRATROPIUM 0.5 MG NEB (PRN) NEB (00:50)
[2017-01-07] MEDS ORDERED: SODIUM CHLOR 0.9% 1000 ML INJ 1,000 ML IV ONE ×2 (01:15→01:30)
[2017-01-07] MEDS ORDERED: ALBUMIN HUMAN 5% 25 GM/500 ML BOTTLE IV ONE (01:15)
[2017-01-07 01:45] LABS: BLOOD GAS BASE EXCESS -0.1 mmol/L (-2-2); BLOOD GAS CARBOXYHEMOGLOBIN 2.5 % (0-4); BLOOD GAS HCO3 25 mmol/L (22-26); BLOOD GAS O2 HGB SATURATION 91 % (90-100); BLOOD GAS OXYGEN CONTENT 11.6 Vol % (12.0-20.0); BLOOD GAS PCO2 44 mmHg (38-42); BLOOD GAS PO2 73 mmHg (61-120); BLOOD GAS TOTAL HGB 8.9 G/DL (12.0-16.0); CRITICAL VALUE NO; DRAW SITE RT BRACHIAL; LITER FLOW 2 L/M; NUMBER OF ARTERIAL PUNCTURES 1; OXYGEN DEVICE NASAL CANNULA; STAT YES; TEMP CORR TO 98.6
--- NOTE | 2017-01-07 01:52 | PD.CONS ---
[facility] Service Critical Care Medicine Consult Requested By Primary Care Physician Reinier Cheng MD History of Present Illness 76 year old male with DM, HTN, hyperlipidemia, obesity, cataracts, arthritis, peripheral arterial disease, neurogenic bladder, status post TURP, COPD, obstructive sleep apnea, and osteoporosis. He was admitted 07/25/16 for sepsis, perforated duodenal ulcer with percutaneous drain, and cellulitis. The course was complicated with an intra-abdominal abscess and that was drained by IR. Subsequently he had G-tube and J-tube inserted which. Another course was complicated with ESRD now patient on hemodialysis. [facility] and return to the hospital with new onset of stroke. He was readmitted from rehabilitation on 10/10/2016 for respiratory failure and mucous plug. He was again discharged and was no longer on hemodialysis. Most recently, he was admitted from 12/03 to 12/15 for respiratory failure requiring mechanical ventilation, recurrent clostridium difficile colitis, sepsis, and pneumonia. Now he is back on dialysis Tuesday to and Tuesday. Patient was discharged to [facility] for respiratory rehabilitation and was discharged last Tuesday. According to the patient's , he had been doing relatively well. The day prior to admission he started to complain of abdominal cramping. He was admitted to medical-surgical floor. 01/07/2017 after hemodialysis removed 2 L of fluids, rapid response was called due to hypotension with a blood pressure systolic in the 60s and he was transferred to ICU. Review of Systems Constitutional: DENIES: Diaphoretic episodes, Fatigue, Fever, Weight gain, Weight loss, Chills, Dizziness, Change in appetite, Night Sweats Endocrine: DENIES: Heat/cold intolerance, Polydipsia, Polyuria, Polyphagia Eyes: DENIES: Blurred vision, Diplopia, Eye inflammation, Eye pain, Vision loss , Photosensitivity, Double Vision Ears, nose, mouth, throat: DENIES: Tinnitus, Hearing loss, Vertigo, Nasal discharge, Oral lesions, Throat pain, Hoarseness, Ear Pain, Running Nose, Epistaxis, Sinus Pain, Toothache, Odynophagia Respiratory: DENIES: Apneas, Cough, Snoring, Wheezing, Hemoptysis, Sputum production, Shortness of breath Cardiovascular: DENIES: Chest pain, Palpitations, Syncope, Dyspnea on Exertion , PND, Lower Extremity Edema, Orthopnea, Claudication Gastrointestinal: COMPLAINS OF: Abdominal pain, Diarrhea, DENIES: Black stools , Bloody stools, Constipation, Nausea, Vomiting, Difficulty Swallowing, Anorexia Genitourinary: DENIES: Sexual dysfunction, Urinary frequency, Urinary incontinence, Urgency, Hematuria, Dysuria, Nocturia, Penile Discharge, Testicular Pain, Testicular Swelling Musculoskeletal: DENIES: Joint pain, Muscle aches, Stiffness, Joint Swelling, Back pain, Neck pain Integumentary: DENIES: Abnormal pigmentation, Nail changes, Pruritus, Rash Hematologic/lymphatic: DENIES: Bruising, Lymphadenopathy Immunologic/allergic: DENIES: Eczema, Urticaria Neurologic: DENIES: Abnormal gait, Headache, Localized weakness, Paresthesias, Seizures, Speech Problems, Tremor, Poor Balance Psychiatric: DENIES: Anxiety, Confusion, Mood changes, Depression, Hallucinations, Agitation, Suicidal Ideation, Homicidal Ideation, Delusions Past Family Social History Allergies: Coded Allergies: Betadine (Verified Allergy, Severe, Rash, 01/05/17) *MDRO Multi-Drug Resistant Organism (Verified Adverse Reaction, Unknown, ) Carlson resistant K. pneumoniae (urine-08/06/16) Past Medical History Recent prolonged admission for perforated peptic ulcer Recent septic shock Recent abdominal abscess status post catheter drainage Diabetes Cataract COPD Sleep apnea Renal failure recently stopped having dialysis Anxiety Depression Hospitalized from Dec 03 to December 15 for resp. failure, recurrent cdiff, acute on CKD back on HD. Discharged to [facility] Past Surgical History Tracheostomy, later decannulated Catheter drainage of abdominal abscess by IR Gastrostomy Jejunostomy Cataract surgery Appendectomy Circumcision TURP Left arm fistula 2 weeks ago Reported Medications Reported Meds & Active Scripts Active Gabapentin 100 Mg Cap 100 Mg PO BID Pantoprazole (Pantoprazole Sodium) 40 Mg Tab 40 Mg PO DAILY 30 Days Lipitor (Atorvastatin Calcium) 80 Mg Tab 80 Mg PO HS Aggrenox (Dipyridamole/Aspirin) 200-25 Mg Cap 1 Cap PO DAILY Reported Multi Vitamin (Multiple Vitamin) 1 Tab Tab 1 Tab PO DAILY Humalog Inj (Insulin Human Lispro) 1,000 Unit/10 Ml Vial 15 Units SQ AC DINNER Max dose at bedtime:( )units; sugars< 70,(0)units; sugars 150-199,(1)unit; sugars 200-249,(3)units; sugars 250-299,(5)units; sugars 300-349,(7)units; sugars more than 349,(9)units. Humalog Inj (Insulin Human Lispro) 1,000 Unit/10 Ml Vial 8 Units SQ AC LUNCH Max dose at bedtime:( )units; sugars< 70,(0)units; sugars 150-199,(1)unit; sugars 200-249,(3)units; sugars 250-299,(5)units; sugars 300-349,(7)units; sugars more than 349,(9)units. Humalog Inj (Insulin Human Lispro) 1,000 Unit/10 Ml Vial 8 Units SQ AC BREAKFAST Max dose at bedtime:( )units; sugars< 70,(0)units; sugars 150-199,(1)unit; sugars 200-249,(3)units; sugars 250-299,(5)units; sugars 300-349,(7)units; sugars more than 349,(9)units. Fosrenol (Lanthanum Carbonate) 1,000 Mg Tab 1,000 Mg CHEW TIDPC Carvedilol 6.25 Mg Tab 6.25 Mg PO BID Lantus Inj (Insulin Glargine) 100 Unit/Ml Inj 25 Units SQ HS Calcium 600 Mg Tab 600 Mg PO DAILY Active Ordered Medications Current Medications Medications (Trade) Dose Ordered Sig/Hilaria Route PRN Reason Start Time Stop Time Status Last Admin Dose Admin Sodium Chloride (NS Flush) 2 ml UNSCH PRN IV FLUSH FLUSH AFTER USING IV ACCESS 01/05/17 23:00 Sodium Chloride (NS Flush) 2 ml BID IV FLUSH 01/06/17 09:00 01/06/17 21:00 Acetaminophen (Tylenol) 650 mg Q4H PRN PO TEMP > 100.4 01/05/17 23:00 Ondansetron HCl (Zofran Inj) 4 mg Q6H PRN IVP NAUSEA OR VOMITING 01/05/17 23:00 Heparin Sodium (Porcine) (Heparin Inj) 5,000 units Q12H SQ 01/05/17 23:00 01/06/17 22:04 Naloxone HCl 0.4 mg 0.4 mg UNSCH PRN IV SEE LABEL COMMENTS 01/05/17 23:00 Metronidazole (Flagyl 500 Mg Inj) 100 ml @ 100 mls/hr Q8H IV 01/06/17 05:00 01/06/17 21:12 Atorvastatin Calcium (Lipitor) 80 mg HS PO 01/06/17 21:00 01/06/17 21:12 Calcium Carbonate (Oscal) 500 mg DAILY PO 01/07/17 09:00 Carvedilol (Coreg) 6.25 mg BID PO 01/06/17 09:15 01/06/17 21:13 Dipyridamole/ Aspirin (Aggrenox 200-25 Mg) 1 cap DAILY PO 01/06/17 09:15 01/06/17 11:11 Gabapentin (Neurontin) 100 mg BID PO 01/06/17 21:00 01/06/17 21:13 Insulin Glargine (Lantus Inj) 25 units HS SQ 01/06/17 21:00 Lanthanum Carbonate (Fosrenol Chew) 1,000 mg TIDPC CHEW 01/06/17 09:30 01/06/17 11:12 Acetaminophen/ Hydrocodone Bitart 1 tab 1 tab Q4H PRN PO PAIN 6-10 01/06/17 11:00 Sodium Chloride (NS 1000 ml Inj) 1,000 ml @ 0 mls/hr Q0M PRN IV For Prime & Rinse Back 01/06/17 10:57 01/06/17 16:37 Heparin Sodium (Porcine) 8000 units 8,000 units UNSCH PRN IVF WITH DIALYSIS 01/06/17 11:00 Sodium Chloride 1,000 ml @ 200 mls/hr Q5H PRN IV WITH DIALYSIS 01/06/17 10:57 Sodium Chloride (NS 1000 ml Inj) 1,000 ml @ 0 mls/hr Q0M PRN IV WITH DIALYSIS 01/06/17 10:57 Mannitol (Mannitol Inj) 12.5 gm UNSCH PRN IV WITH DIALYSIS 01/06/17 11:00 Albumin Human (Albumin 25% Inj) 25 gm UNSCH PRN IV WITH DIALYSIS 01/06/17 11:00 Sodium Chloride (NS Flush) 5 ml UNSCH PRN IV FLUSH WITH DIALYSIS 01/06/17 11:00 Heparin Sodium (Porcine) (Heparin Inj) UNSCH PRN .XX WITH DIALYSIS 01/06/17 11:00 01/06/17 16:36 Gentamicin Sulfate (Gentamicin (Dialysis) Inj) 20 mg UNSCH PRN IV WITH DIALYSIS 01/06/17 11:00 01/06/17 16:36 Ondansetron HCl (Zofran Inj) 4 mg UNSCH PRN IV WITH DIALYSIS 01/06/17 11:00 Acetaminophen (Tylenol) 650 mg UNSCH PRN PO for headach, pain, temp > 101F 01/06/17 11:00 Diphenhydramine HCl (Benadryl) 25 mg UNSCH PRN PO for hives/itching/anaphylaxis 01/06/17 11:00 Nitroglycerin (Nitrostat Sl) 0.4 mg UNSCH PRN SL CHEST PAIN 01/06/17 11:00 Clonidine (Catapres) 0.1 mg UNSCH PRN PO for BP > 180/100 X 2 readings 01/06/17 11:00 Epoetin Joe (Epogen Inj) 10,000 units UNSCH PRN IV WITH DIALYSIS 01/06/17 11:00 01/06/17 16:36 Gelatin (Gelfoam 12 Mm/7 Mm Top) 1 foam UNSCH PRN TOP SEE LABEL COMMENTS 01/06/17 11:00 Vancomycin HCl 125 mg 125 mg QID PO 01/06/17 18:00 01/06/17 21:12 Piperacillin Sod/ Tazobactam Sod (Zosyn 2.25 Gm Premix) 50 ml @ 100 mls/hr Q8H IV 01/06/17 20:00 01/06/17 21:12 Dextrose (D50w (Vial) Inj) 25 ml UNSCH PRN IV PUSH HYPOGLYCEMIA-SEE COMMENTS 01/06/17 16:45 Glucagon (Glucagon Inj) 1 mg UNSCH PRN OTHER HYPOGLYCEMIA-SEE COMMENTS 01/06/17 16:45 Miscellaneous Information Patient in critical care unit? Ass... Q361D XX 01/06/17 23:30 01/06/17 23:30 Chlorhexidine Gluconate (Chlorhexidine 2% Cloth) 3 pack DAILY@04 TOP 01/07/17 04:00 01/11/17 04:01 Chlorhexidine Gluconate 3 pack 3 pack UNSCH PRN TOP HYGIENIC CARE 01/06/17 23:30 01/11/17 23:23 Sodium Chloride (NS 1000 ml Inj) 1,000 ml @ 999 mls/hr Q1H1M ONCE IV 01/07/17 01:15 01/07/17 02:15 Family History Noncontributory Social History Negative 3 Physical Exam Vital Signs Vital Signs Date Time Temp Pulse Resp B/P Pulse Ox O2 Delivery O2 Flow Rate FiO2 01/07/17 00:51 Nasal Cannula 2.00 01/06/17 23:52 98.4 79 24 85/42 95 01/06/17 22:30 99.5 69/39 95 01/06/17 22:00 94/43 01/06/17 21:20 102/43 01/06/17 20:15 111/48 01/06/17 20:00 Nasal Cannula 2.00 01/06/17 20:00 98.9 88 20 78/41 92 81/36 01/06/17 18:00 99.5 89 22 95/42 93 01/06/17 13:40 75 22 101/49 96 Room Air 01/06/17 11:10 80 22 144/66 96 Room Air 01/06/17 07:00 98.3 90 22 119/54 94 Room Air 01/06/17 03:00 90 24 141/63 96 Room Air Physical Exam GENERAL: Well-nourished, well-developed elderly patient. SKIN: Warm and dry. HEAD: Normocephalic. EYES: No scleral icterus. No injection or drainage. NECK: Supple, trachea midline. No JVD or lymphadenopathy. CARDIOVASCULAR: Regular rate and rhythm without murmurs, gallops, or rubs. RESPIRATORY: Breath sounds equal bilaterally. No accessory muscle use. GASTROINTESTINAL: Abdomen soft, non-tender, nondistended. MUSCULOSKELETAL: No cyanosis, or edema. BACK: Nontender without obvious deformity. No CVA tenderness. EXTREMITIES: No clubbing cyanosis or edema nonfocal exam Laboratory Laboratory Tests Test 01/06/17 01/06/17 01/06/17 04:34 05:57 22:32 Stool C. difficile Toxin (PCR) POSITIVE Stl C. difficile Toxin PRESUMPTIVE Epiderm 027 POSITIVE White Blood Count 13.3 Red Blood Count 2.82 Hemoglobin 8.4 Hematocrit 26.3 Mean Corpuscular Volume 93.3 Mean Corpuscular Hemoglobin 29.7 Mean Corpuscular Hemoglobin 31.9 Concent Red Cell Distribution Width 18.6 Platelet Count 139 Mean Platelet Volume 8.3 Neutrophils (%) (Auto) 89.8 Lymphocytes (%) (Auto) 3.2 Monocytes (%) (Auto) 6.0 Eosinophils (%) (Auto) 0.4 Basophils (%) (Auto) 0.6 Neutrophils # (Auto) 12.0 Lymphocytes # (Auto) 0.4 Monocytes # (Auto) 0.8 Eosinophils # (Auto) 0.1 Basophils # (Auto) 0.1 CBC Comment DIFF FINAL Differential Comment Sodium Level 139 Potassium Level 3.4 Chloride Level 106 Carbon Dioxide Level 22.5 Anion Gap 11 Blood Urea Nitrogen 65 Creatinine 3.57 Estimat Glomerular Filtration 17 Rate Random Glucose 81 Calcium Level 7.9 Lactic Acid Level 1.0 Date/Time Procedure Status Source Growth 01/05/17 20:50 Aerobic Blood Culture - Preliminary Resulted Blood Peripheral NO GROWTH IN 1 DAY 01/05/17 20:50 Anaerobic Blood Culture - Preliminary Resulted Blood Peripheral NO GROWTH IN 1 DAY Result Diagram: 01/06/17 0557 01/06/17 0557 Assessment and Plan Problem List: (1) Recurrent Clostridium difficile diarrhea ICD Code: A04.7 Status: Acute (2) Diabetes 1.5, 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 difficile colitis - Flagyl - By mouth vancomycin - GI consult appreciated End-stage renal disease - Hemodialysis per nephrology COPD, sleep apnea, - No exacerbation - No indication for steroid - Continue CPAP at the home setting at bedtime - Duonebs when necessary Diabetes type 2 - Insulin sliding scale while in the ICU History of recent CVA - Aggrenox DVT GI prophylaxis - Subcutaneous heparin - ADA diet Critical Care: The total critical care time was 35 minutes. Time to perform other separately billable procedures was not included in the critical care time. Problem Qualifiers (1) Chronic kidney disease (CKD): Qualified Code: N18.5 - Chronic kidney disease (CKD), stage 5 Satish Mroton MD Jan 07, 2017 01:52
[2017-01-07] MEDS ORDERED: NOREPINEPHRINE-DEXTROSE DRIP 250 ML IV ONE (02:31)
[2017-01-07] MEDS: NOREPINEPHRINE 4 MG/D5W 250 ML IV SCH ×4 (02:39→17:36)
--- NOTE | 2017-01-07 03:10 | PD.PROCEDR ---
Procedure Note Procedure Right IJ Central Line A time-out was completed verifying correct patient, procedure, site, positioning , and special equipment if applicable. The patient was placed in a dependent position appropriate for central line placement based on the vein to be cannulated. The patients right neck was prepped and draped in sterile fashion. 1% Lidocaine was used to anesthetize the surrounding skin area. A triple lumen 9 -Mong[place] Cordis catheter was introduced into the the internal jugular vein using the Seldinger technique and under ultrasound guidance. The catheter was threaded smoothly over the guide wire and appropriate blood return was obtained. Each lumen of the catheter was evacuated of air and flushed with sterile saline. The catheter was then sutured in place to the skin and a sterile dressing applied. Perfusion to the extremity distal to the point of catheter insertion was checked and found to be adequate. Estimated Blood Loss: 1ml The patient tolerated the procedure well and there were no complications. Satish Morton MD Jan 07, 2017 03:10
[2017-01-07] MEDS: CHLORHEXIDINE GLUCONATE 2 % 1 PACK (2 CLOTHS)(taper/protocol) TOP SCH (04:00)
--- NOTE | 2017-01-07 05:27 | RADRPT ---
EXAM DATE/TIME: 01/07/2017 03:04 [facility] COMPARISON: CHEST SINGLE AP, December 14, 2016, 4:22. INDICATIONS : Evaluate for central line placement. MEDICAL HISTORY : Hypertension. Chronic obstructive pulmonary disease. SURGICAL HISTORY : None. ENCOUNTER: Subsequent ACUITY: 1 day PAIN SCORE: Non-responsive. LOCATION: chest FINDINGS: A single portable frontal view of the chest shows interval placement of an internal jugular vein cent ral venous line on the right. This is in good position with the tip at the cavoatrial junction. No pn eumothorax. Right sided dialysis catheter remains. Bibasilar pulmonary infiltrates are unchanged. Sma ll effusions also unchanged. Heart is normal in size. CONCLUSION: 1. Central line in good position without pneumothorax. 2. Unchanged bibasilar infiltrates and small effusions. This likely relates to fluid overload. Carlos Marmolejo Jr., MD on January 07, 2017 at 5:25 Board Certified Radiologist. This report was verified electronically.
[2017-01-07] MEDS: metroNIDAZOLE 500 MG INJ 100 ML IV SCH ×3 (06:09→21:13)
[2017-01-07] MEDS: INSULIN ASPART SUPPLEMENTAL SCALE SQ SCH ×4 (06:09→19:00)
[2017-01-07] MEDS: SODIUM CHLOR 0.9% 1000 ML INJ 1,000 ML IV SCH ×3 (06:10→13:32)
[2017-01-07] MEDS: PIPERACIL-TAZO 2.25 GM PREMIX 50 ML IV SCH ×2 (06:35→12:34)
[2017-01-07] MEDS ORDERED: SODIUM CHLORID 0.9% 500 ML INJ 500 ML IV ONE ×2 (08:00→10:00)
[2017-01-07] MEDS: SODIUM CHLORIDE 0.9% FLUSH 10 ML FLUSH IV FLUSH SCH (08:29)
[2017-01-07] MEDS ORDERED: PANTOPRAZOLE SOD 40 MG DELAYED RELEASE TAB PO SCH (09:00)
[2017-01-07] MEDS: CALCIUM CARBONATE 1.25 GM (CA 500 MG) TAB PO SCH (09:11)
[2017-01-07] MEDS: LANTHANUM CARBONATE 500 MG CHEWABLE TABLET CHEW SCH ×3 (09:11→17:46)
[2017-01-07] MEDS: GABAPENTIN 100 MG CAP PO SCH ×2 (09:11→21:14)
[2017-01-07] MEDS: DIPYRIDAMOLE/ASPIRIN 200 MG/25 MG CAP PO SCH (09:11)
[2017-01-07] MEDS: VANCOMYCIN 500 MG VIAL (FOR ORAL USE ONLY) PO SCH ×4 (09:11→21:14)
[2017-01-07 09:19] LABS: AUTOMATED NEUTROPHIL # 9.6 TH/MM3 (1.8-7.7); BASOPHIL % 0.1 % (0.0-2.0); EOSINOPHIL # 0.1 TH/MM3 (0-0.4); EOSINOPHIL % 0.6 % (0.0-4.0); HEMATOCRIT 25.6 % (39.0-51.0); LYMPH % 2.6 % (9.0-44.0); LYMPHOCYTE # 0.3 TH/MM3 (1.0-4.8); MEAN CORPUSCULAR HGB CONC 31.5 % (32.0-36.0); MONO % 10.1 % (0.0-8.0); NEUT % 86.6 % (16.0-70.0); PLATELET COUNT 123 TH/MM3 (150-450); RED BLOOD COUNT 2.69 MIL/MM3 (4.50-5.90); RED CELL DISTRIBUTION WIDTH 19.3 % (11.6-17.2); WHITE BLOOD COUNT 11.1 TH/MM3 (4.0-11.0)
[2017-01-07 09:20] LABS: HEMO FLAGS AUTO DIFF
[2017-01-07 09:48] LABS: BANDS 9 % (0-6); BURR CELLS 1+ (NORMAL); MYELOCYTES 1 % (0-0); NEUTROPHIL # MANUAL DIFF 9.7 TH/MM3 (1.8-7.7); OVALOCYTES 1+ (NORMAL); PLATELET ESTIMATE SMEAR LOW (NORMAL); PLATELET MORPHOLOGY NORMAL (NORMAL); POLYS (SEG NEUTROPHILS) 77 % (16-70); SCAN/DIFF FINAL DIFF MANUAL; WBC DIFF SAMPLE 100
[2017-01-07 09:56] LABS: BICARBONATE 22.3 MEQ/L (21.0-32.0); POTASSIUM 3.8 MEQ/L (3.5-5.1)
--- NOTE | 2017-01-07 10:18 | HHI.GIFU ---
GI Follow-up Note Consult Follow-up Subjective: Patient laying in bed comfortably,having diarrhea x7 over night. Abdominal pain in LLQ improved. pt moved to ICU - due to hypotension. currently on levo. Objective: PHYSICAL EXAMINATION: Vitals signs stable No fever HEENT: Pupils round and reactive to light; normocephalic; atraumatic; no jaundice. Throat is clear. NECK: Neck is supple, no JVD, no lymphadenopathy. CHEST: Chest is clear to auscultation and percussion. CARDIAC: Regular rate and rhythm with no murmur gallop or rubs. ABDOMEN: Soft, distended, mild tender llq (improved) ; no hepatosplenomegaly; bowel sounds are present in all four quadrants. EXTREMITIES: No clubbing, cyanosis, or edema. SKIN: Normal; no rash; no jaundice. SEXTON HELPER: No focal deficits; alert and oriented times three. Available Data (labs, X- Rays, Procedues) : reviewed. ASSESSMENT/PLAN: 1. Acute diverticulitis 2. C-diff diarrhea 3. Hypotension shock on levo 4. ESRD on HD 5. Sepsis PLAN: 1. Vanco 125 mg PO QID 2. IV flagyl 3. Zosyn 4. diet as tolerated 5. prognosis guarded. It was a pleasure seeing Radhames Glass. Thank you for this consult. Entered by: Nathaniel Arciniega MD Jan 07, 2017 10:18
[2017-01-07 10:25] LABS: CALCIUM-PROTEIN CORRECTED 8.4 MG/DL (8.5-10.1)
[2017-01-07] MEDS: PANTOPRAZOLE SODIUM 40 MG VIAL IV PUSH SCH (11:03)
[2017-01-07] MEDS: HEPARIN SODIUM - SQ 10,000 UNITS/ML VIAL SQ SCH ×2 (11:03→21:14)
[2017-01-07] MEDS: HYDROCORTISONE SOD SUCCINATE 100 MG VIAL IV PUSH SCH ×2 (11:03→17:45)
[2017-01-07] MEDS: COLLAGENASE OINT 30 GM TUBE TOP SCH (12:35)
--- NOTE | 2017-01-07 12:55 | HHI.NPPN ---
Subjective General Problems: Anemia, COPD, Edema, Heart Disease, Hypotension Renal Failure: End Stage Renal Disease History of Present Illness 6-year-old male with past medical history of hypertension, diabetes mellitus, hyperlipidemia, peripheral vascular disease, chronic obstructive pulmonary disease, end-stage renal disease on hemodialysis who came to the hospital with complaint of loose bowel motion and lower abdominal pain. Additional Remarks Patient is alert, no dizziness, eating some, no abd. pain. Review of Systems General Constitutional: Fatigue Respiratory Lungs: SOB, Wheeze Gastrointestinal Gastrointestinal: Abdominal Pain, Diarrhea Objective Data Data 01/06/17 01/07/17 19:00 07:00 Intake Total 200 ml 1504 ml Output Total 2000 ml 0 ml Balance -1800 ml 1504 ml Intake Oral 200 ml 120 ml IV Total 1384 ml Output Urine Total 0 ml Hemodialysis 2000 ml # Voids 0 # Bowel Movements 8 Vital Signs Date Time Temp Pulse Resp B/P Pulse Ox O2 Delivery O2 Flow Rate FiO2 01/07/17 06:00 82 01/07/17 04:00 86 01/07/17 04:00 98.3 86 40 88/49 99 01/07/17 02:00 74 01/07/17 00:51 Nasal Cannula 2.00 01/06/17 23:52 98.4 79 24 85/42 95 01/06/17 22:30 99.5 69/39 95 01/06/17 22:00 94/43 01/06/17 21:20 102/43 01/06/17 20:15 111/48 01/06/17 20:00 Nasal Cannula 2.00 01/06/17 20:00 92 Nasal Cannula 2.00 01/06/17 20:00 98.9 88 20 78/41 92 81/36 01/06/17 18:00 99.5 89 22 95/42 93 01/06/17 13:40 75 22 101/49 96 Room Air -: 01/07/17 0856 01/07/17 0856 Physical Exam General Appearance: No Acute Distress, Comfortable Eyes Eye Exam: Pupils Equal Throat Throat Exam: Oral Mucosa Mulga & Moist Neck Neck Exam: Neck Supple Pulmonary Resp Exam: Breath Sounds Equal, No Distress, Rhonchi, Decreased Bases Cardiology CV Exam: Regular, Normal Sinus Rhythm Gastrointestinal/Abdomen GI Exam: Soft, Non-Tender, Bowel Sounds Present, Distended Extremeties Extremities Exam: Trace Edema Neurologic Neuro Exam: Alert, Awake Psychiatric Psych Exam: Appropriate Responses Assessment/Plan Assessment Summary: Anemia of CKD, CHF, Hypotension, End Stage Renal Disease Problem List: (1) Anxiety (2) Diabetes (3) C. difficile diarrhea (4) COPD (chronic obstructive pulmonary disease) (5) Congestive heart failure (6) Diverticulitis (7) Diarrhea (8) End-stage renal disease on hemodialysis Plan Patient develop Hypotension. Now on pressors. HD was done yesterday. Still has diarrhea. ID consulted. Possible sepsis. Blood culture negative so far. HD will be in AM. Follow the cultures. Problem Qualifiers (1) COPD (chronic obstructive pulmonary disease): Qualified Code: J44.9 - Chronic obstructive pulmonary disease, unspecified COPD type (2) Congestive heart failure: Qualified Code: I50.9 - Chronic congestive heart failure, unspecified congestive heart failure type (3) Diverticulitis: Qualified Code: K57.32 - Diverticulitis of large intestine without perforation or abscess without bleeding (4) Diarrhea: Qualified Code: R19.7 - Diarrhea, unspecified type Willi Antoine MD Jan 07, 2017 12:55
--- NOTE | 2017-01-07 14:43 | PD.ID.CON ---
History of Present Illness Service ID Consult Requested By Dr Crawford Reason for Consult C.diff colitis Primary Care Physician Reinier Cheng MD Diagnoses: History of Present Illness 76 yo M with multiple med probx (CAD, DM, ESDRD/HD, PVD) presented 2 days ago with addominal crampy pain and liquid diarrhea His CT showed:Diverticuli throughout the colon with the area of bowel wall thickening and narrowing of sigmoid colon may be due to spasm, diverticulitis or underlying mass His stool is positive for C.diff hypervirulent 027 strain Review of the records showed he already had stool + for C.diff hypervirulent 027 strain 1 mo ago Per his and his they cant recall if he had any smx or treatment at that time; but the records showed he was on po vanco x 10 days Pt was started on zosyn; vanco po and IV flagyl were added once stool for c.diff came back + Yday pt was transferred to ICU 2/2 low blood pressure He is on pressors His pain is better Review of Systems ROS Limitations: Poor Historian Past Family Social History Allergies: Coded Allergies: Betadine (Verified Allergy, Severe, Rash, 01/05/17) *MDRO Multi-Drug Resistant Organism (Verified Adverse Reaction, Unknown, ) Carlson resistant K. pneumoniae (urine-08/06/16) Past Medical History Past Medical History Recent prolonged admission for perforated peptic ulcer Recent septic shock Recent abdominal abscess status post catheter drainage Diabetes Cataract COPD Sleep apnea Renal failure recently stopped having dialysis Anxiety Depression Hospitalized from Dec 03 to December 15 for resp. failure, recurrent cdiff, acute on CKD back on HD. Discharged to [facility] Past Surgical History Tracheostomy, later decannulated Catheter drainage of abdominal abscess by IR Gastrostomy Jejunostomy Cataract surgery Appendectomy Circumcision TURP Left arm fistula 2 weeks ago Active Ordered Medications Medications where reviewed in EMR Antibiotics Include: zosyn; vanco po and IV flagyl Family History Non-Contributory. Social History No Tobacco. No ETOH. No Illicit Drugs. Physical Exam Vital Signs Vital Signs Date Time Temp Pulse Resp B/P Pulse Ox O2 Delivery O2 Flow Rate FiO2 01/07/17 12:00 80 01/07/17 12:00 97.3 80 24 88/51 96 01/07/17 10:00 82 01/07/17 08:00 98.0 81 30 97/53 96 01/07/17 08:00 81 01/07/17 07:00 95 Nasal Cannula 4.00 01/07/17 06:00 82 01/07/17 04:00 86 01/07/17 04:00 98.3 86 40 88/49 99 01/07/17 02:00 74 01/07/17 00:51 Nasal Cannula 2.00 01/06/17 23:52 98.4 79 24 85/42 95 01/06/17 22:30 99.5 69/39 95 01/06/17 22:00 94/43 01/06/17 21:20 102/43 01/06/17 20:15 111/48 01/06/17 20:00 Nasal Cannula 2.00 01/06/17 20:00 92 Nasal Cannula 2.00 01/06/17 20:00 98.9 88 20 78/41 92 81/36 01/06/17 18:00 99.5 89 22 95/42 93 Physical Exam CONSTITUTIONAL/GENERAL: This is an adequately nourished patient, in no apparent distress. TUBES/LINES/DRAINS: Permacath in place R chest w/o infc R IJ in place TLC wo e/o infx SKIN: No jaundice, rashes, or lesions. Skin temperature appropriate. Not diaphoretic. HEAD: Atraumatic. Normocephalic. EYES: Pupils equal and round and reactive. Extraocular motions intact. No scleral icterus. No injection or drainage. Fundi not examined. ENT: Hearing grossly normal. Nose without bleeding or purulent drainage. Oral mucoasae without visible erythema, exudates, masses, or lesions. NECK: Trachea midline. Supple, nontender. CARDIOVASCULAR: Regular rate and rhythm without murmurs, gallops, or rubs. No JVD. Peripheral pulses symmetric. RESPIRATORY/CHEST: Symmetric, unlabored respirations. Clear to auscultation. Breath sounds equal bilaterally. No wheezes, rales, or rhonchi. GASTROINTESTINAL: Abdomen soft, minimally tender, quite distended, + tympany to percussion. No hepato-splenomegaly, or palpable masses. No guarding. Bowel sounds present. GENITOURINARY: Without palpable bladder distension. MUSCULOSKELETAL: Extremities without clubbing, cyanosis, or edema. No joint tenderness or effusion noted. No calf tenderness. No mottling or clubbing. B/l heel ulcers LYMPHATICS: No palpable cervical or supraclavicular adenopathy. NEUROLOGICAL: Awake and alert. Motor and sensory grossly within normal limits. Follows commands. Normal speech . Moves all extremities. PSYCHIATRIC: calm , cooperative but flat affect Laboratory Laboratory Tests Test 01/06/17 01/07/17 01/07/17 01/07/17 22:32 00:00 01:31 08:56 Lactic Acid Level 1.0 Nasal Screen MRSA (PCR) NEGATIVE Blood Gas Puncture Site RT BRACHIAL Blood Gas Patient Temperature 98.6 Blood Gas HCO3 25 Blood Gas Base Excess -0.1 Blood Gas Oxygen Saturation 91 Arterial Blood pH 7.37 Arterial Blood Partial 44 Pressure CO2 Arterial Blood Partial 73 Pressure O2 Arterial Blood Oxygen Content 11.6 Arterial Blood 2.5 Carboxyhemoglobin Arterial Blood Methemoglobin 1.0 Blood Gas Hemoglobin 8.9 Oxygen Delivery Device NASAL CANNULA Blood Gas Liter Flow 2 White Blood Count 11.1 Red Blood Count 2.69 Hemoglobin 8.1 Hematocrit 25.6 Mean Corpuscular Volume 95.0 Mean Corpuscular Hemoglobin 30.0 Mean Corpuscular Hemoglobin 31.5 Concent Red Cell Distribution Width 19.3 Platelet Count 123 Mean Platelet Volume 8.4 Neutrophils (%) (Auto) 86.6 Lymphocytes (%) (Auto) 2.6 Monocytes (%) (Auto) 10.1 Eosinophils (%) (Auto) 0.6 Basophils (%) (Auto) 0.1 Neutrophils # (Auto) 9.6 Lymphocytes # (Auto) 0.3 Monocytes # (Auto) 1.1 Eosinophils # (Auto) 0.1 Basophils # (Auto) 0.0 CBC Comment AUTO DIFF Differential Total Cells 100 Counted Neutrophils % (Manual) 77 Band Neutrophils % 9 Lymphocytes % 8 Monocytes % 5 Neutrophils # (Manual) 9.7 Myelocytes 1 Differential Comment FINAL DIFF MANUAL Platelet Estimate LOW Platelet Morphology Comment NORMAL Ovalocytes 1+ Standard Cells 1+ Sodium Level 139 Potassium Level 3.8 Chloride Level 106 Carbon Dioxide Level 22.3 Anion Gap 11 Blood Urea Nitrogen 40 Creatinine 3.12 Estimat Glomerular Filtration 20 Rate Random Glucose 121 Calcium Level 7.1 Protein Corrected Calcium 8.4 Total Protein 4.8 Date/Time Procedure Status Source Growth 01/05/17 20:50 Aerobic Blood Culture - Preliminary Resulted Blood Peripheral NO GROWTH IN 2 DAYS 01/05/17 20:50 Anaerobic Blood Culture - Preliminary Resulted Blood Peripheral NO GROWTH IN 2 DAYS Result Diagram: 01/07/17 0856 01/07/17 0856 Imaging Last Impressions Chest X-Ray 01/07/17 0000 Signed Impressions: Service Date/Time: Saturday, January 07, 2017 03:04 - CONCLUSION: 1. Central line in good position without pneumothorax. 2. Unchanged bibasilar infiltrates and small effusions. This likely relates to fluid overload. Carlos Marmolejo Jr., MD Abdomen/Pelvis CT 01/05/17 182 Signed Impressions: Service Date/Time: Thursday, January 05, 2017 18:54 - CONCLUSION: 1. Small bilateral pleural effusions and nodular infiltrates in right middle lobe most likely inflammatory and pneumonia not present previously. 2. Diverticuli throughout the colon with the area of bowel wall thickening and narrowing of sigmoid colon may be due to spasm, diverticulitis or underlying mass. Bentley Glass MD Assessment and Plan Assessment and Plan Reccurent C.diff colitis hypervirulebnt strain - findins on CT likely reflect distal colitis Sepsis , likely 2/2 C.diff Multiple med problems ESRD - cont po vanocmycin - cont IV flagyl - dc zosyn dw radilogist: CT findings cw focal colitis area. Discussed Condition With Dr Guido @ b/s Aida Leija MD Jan 07, 2017 14:43
--- NOTE | 2017-01-07 16:13 | HHI.PR ---
Subjective Remarks RN: Called around 1 AM in the morning for hypertension. Patient is feeling tired Wants to sleep as he had no sleep from past 2 nights Still has some diarrhea No abdominal pain No breathing trouble No nausea vomiting Feeling weak Review of system for 10 point system otherwise unremarkable Objective Objective Results - Vital Signs Date Time Temp Pulse Resp B/P Pulse Ox O2 Delivery O2 Flow Rate FiO2 01/07/17 14:00 76 01/07/17 12:00 80 01/07/17 12:00 97.3 80 24 88/51 96 01/07/17 10:00 82 01/07/17 08:00 98.0 81 30 97/53 96 01/07/17 08:00 81 01/07/17 07:00 95 Nasal Cannula 4.00 01/07/17 06:00 82 01/07/17 04:00 86 01/07/17 04:00 98.3 86 40 88/49 99 01/07/17 02:00 74 01/07/17 00:51 Nasal Cannula 2.00 01/06/17 23:52 98.4 79 24 85/42 95 01/06/17 22:30 99.5 69/39 95 01/06/17 22:00 94/43 01/06/17 21:20 102/43 01/06/17 20:15 111/48 01/06/17 20:00 Nasal Cannula 2.00 01/06/17 20:00 92 Nasal Cannula 2.00 01/06/17 20:00 98.9 88 20 78/41 92 81/36 01/06/17 18:00 99.5 89 22 95/42 93 I/O 01/06/17 01/06/17 01/06/17 01/07/17 01/07/17 01/07/17 07:00 15:00 23:00 07:00 15:00 23:00 Intake Total 200 ml 0 ml 1504 ml Output Total 2000 ml 0 ml Balance 200 ml -2000 ml 1504 ml Intake Oral 200 ml 0 ml 120 ml IV Total 1384 ml Output Urine Total 0 ml Hemodialysis 2000 ml # Voids 0 # Bowel Movements 1 1 7 Result Diagram: 01/07/17 0856 01/07/17 0856 Imaging Last Impressions Abdomen/Pelvis CT 01/05/17 182 Signed Impressions: Service Date/Time: Thursday, January 05, 2017 18:54 - CONCLUSION: 1. Small bilateral pleural effusions and nodular infiltrates in right middle lobe most likely inflammatory and pneumonia not present previously. 2. Diverticuli throughout the colon with the area of bowel wall thickening and narrowing of sigmoid colon may be due to spasm, diverticulitis or underlying mass. Bentley Glass MD Other Results Laboratory Tests Test 01/06/17 01/07/17 01/07/17 01/07/17 22:32 00:00 01:31 08:56 Lactic Acid Level 1.0 Nasal Screen MRSA (PCR) NEGATIVE Blood Gas Puncture Site RT BRACHIAL Blood Gas Patient Temperature 98.6 Blood Gas HCO3 25 Blood Gas Base Excess -0.1 Blood Gas Oxygen Saturation 91 Arterial Blood pH 7.37 Arterial Blood Partial 44 Pressure CO2 Arterial Blood Partial 73 Pressure O2 Arterial Blood Oxygen Content 11.6 Arterial Blood 2.5 Carboxyhemoglobin Arterial Blood Methemoglobin 1.0 Blood Gas Hemoglobin 8.9 Oxygen Delivery Device NASAL CANNULA Blood Gas Liter Flow 2 White Blood Count 11.1 Red Blood Count 2.69 Hemoglobin 8.1 Hematocrit 25.6 Mean Corpuscular Volume 95.0 Mean Corpuscular Hemoglobin 30.0 Mean Corpuscular Hemoglobin 31.5 Concent Red Cell Distribution Width 19.3 Platelet Count 123 Mean Platelet Volume 8.4 Neutrophils (%) (Auto) 86.6 Lymphocytes (%) (Auto) 2.6 Monocytes (%) (Auto) 10.1 Eosinophils (%) (Auto) 0.6 Basophils (%) (Auto) 0.1 Neutrophils # (Auto) 9.6 Lymphocytes # (Auto) 0.3 Monocytes # (Auto) 1.1 Eosinophils # (Auto) 0.1 Basophils # (Auto) 0.0 CBC Comment AUTO DIFF Differential Total Cells 100 Counted Neutrophils % (Manual) 77 Band Neutrophils % 9 Lymphocytes % 8 Monocytes % 5 Neutrophils # (Manual) 9.7 Myelocytes 1 Differential Comment FINAL DIFF MANUAL Platelet Estimate LOW Platelet Morphology Comment NORMAL Ovalocytes 1+ Christine Cells 1+ Sodium Level 139 Potassium Level 3.8 Chloride Level 106 Carbon Dioxide Level 22.3 Anion Gap 11 Blood Urea Nitrogen 40 Creatinine 3.12 Estimat Glomerular Filtration 20 Rate Random Glucose 121 Calcium Level 7.1 Protein Corrected Calcium 8.4 Total Protein 4.8 Date/Time Procedure Status Source Growth 01/05/17 20:50 Aerobic Blood Culture - Preliminary Resulted Blood Peripheral NO GROWTH IN 2 DAYS 01/05/17 20:50 Anaerobic Blood Culture - Preliminary Resulted Blood Peripheral NO GROWTH IN 2 DAYS Physical Exam Physical Exam GENERAL: This is a well-nourished, well-developed patient. Ill-looking SKIN: No rashes, ecchymoses or lesions. Cool and dry. HEAD: Atraumatic. Normocephalic. No temporal or scalp tenderness. EYES: Pupils equal round and reactive. Extraocular motions intact. No scleral icterus. No injection or drainage. ENT: Nose without bleeding, purulent drainage or septal hematoma. Throat without erythema, tonsillar hypertrophy or exudate. Uvula midline. Airway patent. NECK: Trachea midline. No JVD or lymphadenopathy. Supple, nontender, no meningeal signs. CARDIOVASCULAR: S1-S2, unable to detect any murmurs rubs or gallops. Right chest wall is noted with permacath. RESPIRATORY: Diminished, faint bibasilar rales. GASTROINTESTINAL: Abdomen soft,diffuse tenderness, nondistended. No hepato- splenomegaly, or palpable masses. No guarding. MUSCULOSKELETAL: Extremities without clubbing, cyanosis. No joint tenderness, effusion, or edema noted. No calf tenderness. Negative Homans sign bilaterally. Bilateral lower extremities noted with +1 edema, pedal pulses 1+ bilaterally. Both feet with dressings D/I. Has ulcers to both heels. NEUROLOGICAL: Awakes to voice, oriented x 2. Following simple commands. Somewhat lethargic. A/P Assessment and Plan (1) Sepsis (2) Recurrent Clostridium difficile diarrhea (3) Diverticulitis (4) Diabetes 1.5, managed as type 2 (5) History of CVA (cerebrovascular accident) (6) PVD (peripheral vascular disease) (7) Hypertension (8) Hyperlipidemia (9) Chronic kidney disease (CKD) (10) Congestive heart failure (11) COPD (chronic obstructive pulmonary disease) (12) shock hypovolemic/septic Plan 76-year-old female with recent extensive hospitalizations for perforated duodenal ulcer, sepsis, respiratory failure with tracheostomy, CVA, acute renal injury that led to CKD requiring hemodialysis. Patient recently [facility] for [facility] failure and inability to extubate, has been treated for C. difficile colitis. Now presents with recurrent C. difficile colitis, possible diverticulitis and also recurrent pneumonia. -Continue with antibiotics, continue with Flagyl, Zosyn -Follow cultures -Monitor CBC -ID consult for sepsis Hypertension/shock -Patient was put on Continue on Levophed as needed -Appreciate director of ancillary services input -IV hydration cautiously Chronic kidney disease/ESRD, on hemodialysis Tuesday and Tuesday. Appreciate consultation by nephrology for hemodialysis management COPD, sleep apnea, uses CPAP at home - can bring CPAP from home -Leah PRN Chronic CHF, stable -Continue with home Diabetes type 2 Accu-Cheks before meals and at bedtime with insulin therapy as needed History of recent CVA Continue with Aggrenox PVD Continue home medications Hypertension Continue home medications Hyperlipidemia Continue with statins History peripheral vascular disease, had vascular surgery at [facility] last year. Has chronic wounds to both heels. Consult wound care nurse for evaluation Labs reviewed Labs for morning Improving leukocytosis with bandemia Mild hypocalcemia will monitor Benadryl for sleep Home medications reviewed, initiated as indicated Heparin 5000 units subcutaneous twice a day for DVT prophylaxis Discussed with director of ancillary services in detail on floor Plan of care has been discussed with the patient, and registered nurse. Further management of the patient will be dependent on the hospital course Patient's condition is guarded. Total time spent in management of this patient is more than 35 minutes Julius Wyatt MD Jan 07, 2017 16:13
[2017-01-07] MEDS: VASOPRESSIN INJ 40 UNITS in DEXTROSE 5% IN WATER 100ML INJ 98 ML IV SCH ×2 (17:36)
[2017-01-07] MEDS: ATORVASTATIN 80 MG TAB PO SCH (21:14)
[2017-01-08] VITALS (15 sets, daily range): BP systolic 96–149; BP diastolic 36–71; PULSE 68–82; RESP 16–25; TEMP 97.6–99.2; O2SAT 89–100
[2017-01-08] MEDS: CHLORHEXIDINE GLUCONATE 2 % 1 PACK (2 CLOTHS)(taper/protocol) TOP SCH (04:00)
[2017-01-08 04:40] LABS: BASOPHIL % 0.2 % (0.0-2.0); EOSINOPHIL # 0.1 TH/MM3 (0-0.4); EOSINOPHIL % 0.3 % (0.0-4.0); HEMATOCRIT 31.9 % (39.0-51.0); LYMPH % 1.8 % (9.0-44.0); LYMPHOCYTE # 0.3 TH/MM3 (1.0-4.8); MEAN CELL VOLUME 98.3 FL (80.0-100.0); MEAN CORPUSCULAR HEMOGLOBIN 29.5 PG (27.0-34.0); MEAN CORPUSCULAR HGB CONC 30.1 % (32.0-36.0); MONO % 7.6 % (0.0-8.0); NEUT % 90.1 % (16.0-70.0); PLATELET COUNT 152 TH/MM3 (150-450); RED BLOOD COUNT 3.24 MIL/MM3 (4.50-5.90); RED CELL DISTRIBUTION WIDTH 19.1 % (11.6-17.2); WHITE BLOOD COUNT 16.6 TH/MM3 (4.0-11.0)
[2017-01-08 04:44] LABS: HEMO FLAGS AUTO DIFF
[2017-01-08 05:13] LABS: BICARBONATE 22.4 MEQ/L (21.0-32.0); POTASSIUM 4.4 MEQ/L (3.5-5.1)
[2017-01-08 05:53] LABS: BANDS 16 % (0-6); METAMYELOCYTES 2 % (0-1); NEUTROPHIL # MANUAL DIFF 14.9 TH/MM3 (1.8-7.7); POLYS (SEG NEUTROPHILS) 72 % (16-70); WBC DIFF SAMPLE 100
[2017-01-08 05:54] LABS: ACANTHOCYTES OCC (NORMAL); OVALOCYTES 1+ (NORMAL); PLATELET ESTIMATE SMEAR NORMAL (NORMAL); PLATELET MORPHOLOGY NORMAL (NORMAL); SCAN/DIFF FINAL DIFF MANUAL
[2017-01-08] MEDS: SODIUM CHLOR 0.9% 1000 ML INJ 1,000 ML IV SCH (06:36)
[2017-01-08] MEDS: metroNIDAZOLE 500 MG INJ 100 ML IV SCH ×3 (06:38→20:49)
[2017-01-08] MEDS: HYDROCORTISONE SOD SUCCINATE 100 MG VIAL IV PUSH SCH ×4 (06:39→17:55)
[2017-01-08] MEDS: INSULIN ASPART SUPPLEMENTAL SCALE SQ SCH (06:41)
[2017-01-08] MEDS: NOREPINEPHRINE 4 MG/D5W 250 ML IV SCH ×3 (06:49→17:54)
--- NOTE | 2017-01-08 07:39 | HHI.CCPN ---
Subjective Remarks/Hospital Course 76 year old male with DM, HTN, hyperlipidemia, obesity, cataracts, arthritis, peripheral arterial disease, neurogenic bladder, status post TURP, COPD, obstructive sleep apnea, and osteoporosis. He was admitted 07/25/16 for sepsis, perforated duodenal ulcer with percutaneous drain, and cellulitis. The course was complicated with an intra-abdominal abscess and that was drained by IR. Subsequently he had G-tube and J-tube inserted which. Another course was complicated with ESRD now patient on hemodialysis. He was discharged to [facility] and return to the hospital with new onset of stroke. He was readmitted from rehabilitation on 10/10/2016 for respiratory failure and mucous plug. He was again discharged and was no longer on hemodialysis. Most recently, he was admitted from 12/03 to 12/15 for respiratory failure requiring mechanical ventilation, recurrent clostridium difficile colitis, sepsis, and pneumonia. Now he is back on dialysis Tuesday to and Tuesday. Patient was discharged to [facility] for respiratory rehabilitation and was discharged last Tuesday. According to the patient's , he had been doing relatively well. The day prior to admission he started to complain of abdominal cramping. He was admitted to medical-surgical floor. 01/07/2017 after hemodialysis removed 2 L of fluids, rapid response was called due to hypotension with a blood pressure systolic in the 60s and he was transferred to ICU. 01/08 Patient remains on Levophed 21 mics and Vasopressin 0.04. Afebrile. For HD today. Denies any SOB or abdominal pain. Objective Vital Signs Date Time Temp Pulse Resp B/P Pulse Ox O2 Delivery O2 Flow Rate FiO2 01/08/17 02:00 78 01/08/17 00:00 97.6 24 110/36 93 01/07/17 20:00 Nasal Cannula 4.00 Intake and Output 01/07/17 01/07/17 01/08/17 08:00 16:00 00:00 Intake Total 1504 ml 2637 ml 750 ml Output Total 0 ml 0 ml Balance 1504 ml 2637 ml 750 ml Result Diagram: 01/08/17 0400 01/08/17 0400 Other Results Laboratory Tests Test 01/07/17 01/08/17 08:56 04:00 White Blood Count 11.1 TH/MM3 16.6 TH/MM3 Red Blood Count 2.69 MIL/MM3 3.24 MIL/MM3 Hemoglobin 8.1 GM/DL 9.6 GM/DL Hematocrit 25.6 % 31.9 % Mean Corpuscular Volume 95.0 FL 98.3 FL Mean Corpuscular Hemoglobin 30.0 PG 29.5 PG Mean Corpuscular Hemoglobin 31.5 % 30.1 % Concent Red Cell Distribution Width 19.3 % 19.1 % Platelet Count 123 TH/MM3 152 TH/MM3 Mean Platelet Volume 8.4 FL 8.4 FL Neutrophils (%) (Auto) 86.6 % 90.1 % Lymphocytes (%) (Auto) 2.6 % 1.8 % Monocytes (%) (Auto) 10.1 % 7.6 % Eosinophils (%) (Auto) 0.6 % 0.3 % Basophils (%) (Auto) 0.1 % 0.2 % Neutrophils # (Auto) 9.6 TH/MM3 15.0 TH/MM3 Lymphocytes # (Auto) 0.3 TH/MM3 0.3 TH/MM3 Monocytes # (Auto) 1.1 TH/MM3 1.3 TH/MM3 Eosinophils # (Auto) 0.1 TH/MM3 0.1 TH/MM3 Basophils # (Auto) 0.0 TH/MM3 0.0 TH/MM3 CBC Comment AUTO DIFF AUTO DIFF Differential Total Cells 100 100 Counted Neutrophils % (Manual) 77 % 72 % Band Neutrophils % 9 % 16 % Lymphocytes % 8 % 4 % Monocytes % 5 % 6 % Neutrophils # (Manual) 9.7 TH/MM3 14.9 TH/MM3 Myelocytes 1 % Differential Comment FINAL DIFF FINAL DIFF MANUAL MANUAL Platelet Estimate LOW NORMAL Platelet Morphology Comment NORMAL NORMAL Ovalocytes 1+ 1+ [place] Cells 1+ Sodium Level 139 MEQ/L 137 MEQ/L Potassium Level 3.8 MEQ/L 4.4 MEQ/L Chloride Level 106 MEQ/L 103 MEQ/L Carbon Dioxide Level 22.3 MEQ/L 22.4 MEQ/L Anion Gap 11 MEQ/L 12 MEQ/L Blood Urea Nitrogen 40 MG/DL 45 MG/DL Creatinine 3.12 MG/DL 4.03 MG/DL Estimat Glomerular Filtration 20 ML/MIN 15 ML/MIN Rate Random Glucose 121 MG/DL 400 MG/DL Calcium Level 7.1 MG/DL 7.7 MG/DL Protein Corrected Calcium 8.4 MG/DL Total Protein 4.8 GM/DL Metamyelocytes 2 % Acanthocytes OCC Imaging Last Impressions Chest X-Ray 3/24/17 0000 Signed Impressions: Service Date/Time: Saturday, January 07, 2017 03:04 - CONCLUSION: 1. Central line in good position without pneumothorax. 2. Unchanged bibasilar infiltrates and small effusions. This likely relates to fluid overload. Carlos Marmolejo Jr., MD Abdomen/Pelvis CT 01/05/17 1822 Signed Impressions: Service Date/Time: Thursday, January 05, 2017 18:54 - CONCLUSION: 1. Small bilateral pleural effusions and nodular infiltrates in right middle lobe most likely inflammatory and pneumonia not present previously. 2. Diverticuli throughout the colon with the area of bowel wall thickening and narrowing of sigmoid colon may be due to spasm, diverticulitis or underlying mass. Bentley Glass MD Objective Remarks GENERAL: Well-nourished, well-developed elderly patient. SKIN: Warm and dry. HEAD: Normocephalic. EYES: No scleral icterus. No injection or drainage. NECK: Supple, trachea midline. No JVD or lymphadenopathy. CARDIOVASCULAR: Regular rate and rhythm without murmurs, gallops, or rubs. RESPIRATORY: Breath sounds equal bilaterally. No accessory muscle use. GASTROINTESTINAL: Abdomen soft, non-tender, nondistended. MUSCULOSKELETAL: No cyanosis, or edema. BACK: Nontender without obvious deformity. No CVA tenderness. EXTREMITIES: No clubbing cyanosis or edema nonfocal exam A/P Problem List: (1) Recurrent Clostridium difficile diarrhea ICD Code: A04.7 Status: Acute (2) Diabetes 1.5, managed as type 2 ICD Code: E13.9 Status: Acute (3) History of CVA (cerebrovascular accident) ICD Code: Z86.73 Status: Acute (4) Chronic kidney disease (CKD) ICD Code: N18.9 Status: Acute Assessment and Plan 1)Resp Inusff 2)Septic shock 3)C-diff colitis, diverticulitis 4)ESRD 5)DM 6)COPD 7)Hx CVA 8)Leukocytosis 9)Anemia Plan Neuro: Awake and alert Pulm: Continue with oxygen keep sat >92% Bronchodilators CV: Wean off pressors ( on Levophed, Vasopressin) keep MAP >65mmHg Lactic acid 1.0 on 01/06. Echo 12/05 showed EF 35-40%, no RWMA On Hydrocortisone 50mg IV Q6 : Monitor renal function, avoid nephrotoxins. HD per renal- Dr. Antoine GI: On PO diet, Protonix 40mg daily. On NS@75ml/hr ID: Continue with abx per ID ( On Vanco PO, IV Flagyl) monitor for signs of infections ( Fever, WBC) Heme: Monitor CBC, on Epogen with HD Endo: Increase SSI medium scale with accuchecks for glycemic control GI prophylaxis- on Protonix 40mg daily DVT prophylaxis- On Heparin SQ Lines: Right IJ CVP placed 01/07 CCT 30 mins Problem Qualifiers (1) Chronic kidney disease (CKD): Qualified Code: N18.5 - Chronic kidney disease (CKD), stage 5 Nava Shaw MD Jan 08, 2017 07:38
[2017-01-08] MEDS ORDERED: DEXTROSE 50% IN WATER 50 ML VIAL(D50) IV PUSH PRN (07:45)
[2017-01-08] MEDS ORDERED: GLUCAGON 1 MG/ML VIAL OTHER PRN (07:45)
--- NOTE | 2017-01-08 07:54 | HHI.GIFU ---
GI Follow-up Note Consult Follow-up Subjective: Patient laying in bed in mild distress, no abdominal pain, no fever or chills. hypotensive. on pressors x 2 diarrhea ++ tolerating diet Objective: PHYSICAL EXAMINATION: Vitals signs hypotensive on pressors x 2 No fever HEENT: Pupils round and reactive to light; normocephalic; atraumatic; no jaundice. Throat is clear. NECK: Neck is supple, no JVD, no lymphadenopathy. CHEST: b/l rales, wheezing mild CARDIAC: Regular rate and rhythm with no murmur gallop or rubs. ABDOMEN: Soft, mildly distended, tympanic nontender; no hepatosplenomegaly; bowel sounds are present in all four quadrants. EXTREMITIES: No clubbing, cyanosis, or ,mild edema SKIN: Normal; no rash; no jaundice. 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 Available Data (labs, X- Rays): reviewed d/w icu ASSESSMENT/PLAN: 1. Sepsis related hypotensive shock in ICU on Levo 2. C-diff associated colitis 3. Diarrhea due to above PLAN: 1. Continue IV flagyl and PO Vanco 2. Diet as tolerated 3. ICU support d/w staff. It was a pleasure seeing Radhames Glass. Thank you for this consult. Entered by: Nathaniel Arciniega MD Jan 08, 2017 07:54
[2017-01-08] MEDS: INSULIN NovoLIN REGULAR SUPPLEMENTAL SCALE SQ SCH ×3 (08:00→20:00)
[2017-01-08] MEDS: SODIUM CHLORIDE 0.9% FLUSH 10 ML FLUSH IV FLUSH SCH ×2 (09:00→20:49)
[2017-01-08] MEDS: LANTHANUM CARBONATE 500 MG CHEWABLE TABLET CHEW SCH ×3 (09:30→17:55)
[2017-01-08] MEDS: RESP: ALBUTEROL 2.5 MG/IPRATROPIUM 0.5 MG NEB (PRN) NEB (11:19)
[2017-01-08] MEDS: HEPARIN SODIUM - SQ 10,000 UNITS/ML VIAL SQ SCH ×2 (11:24→22:28)
[2017-01-08] MEDS: GABAPENTIN 100 MG CAP PO SCH ×2 (11:24→20:49)
[2017-01-08] MEDS: PANTOPRAZOLE SODIUM 40 MG VIAL IV PUSH SCH (11:25)
[2017-01-08] MEDS: DIPYRIDAMOLE/ASPIRIN 200 MG/25 MG CAP PO SCH (11:26)
[2017-01-08] MEDS: VANCOMYCIN 500 MG VIAL (FOR ORAL USE ONLY) PO SCH ×4 (11:26→20:48)
[2017-01-08] MEDS: CALCIUM CARBONATE 1.25 GM (CA 500 MG) TAB PO SCH (11:26)
[2017-01-08] MEDS: COLLAGENASE OINT 30 GM TUBE TOP SCH (11:27)
[2017-01-08] MEDS: VASOPRESSIN INJ 40 UNITS in DEXTROSE 5% IN WATER 100ML INJ 98 ML IV SCH ×2 (11:33)
[2017-01-08 11:42] LABS: BLOOD GAS BASE EXCESS -9.8 mmol/L (-2-2); BLOOD GAS CARBOXYHEMOGLOBIN 1.9 % (0-4); BLOOD GAS HCO3 19 mmol/L (22-26); BLOOD GAS METHEMOGLOBIN 1.3 % (0-2); BLOOD GAS O2 HGB SATURATION 92 % (90-100); BLOOD GAS OXYGEN CONTENT 12.7 Vol % (12.0-20.0); BLOOD GAS PCO2 68 mmHg (38-42); BLOOD GAS PO2 89 mmHg (61-120); BLOOD GAS TOTAL HGB 9.8 G/DL (12.0-16.0); TEMP CORR TO 98.6
[2017-01-08 11:43] LABS: CRITICAL VALUE YES; DRAW SITE ART LINE; LITER FLOW 4 L/M; OXYGEN DEVICE NASAL CANNULA; STAT NO
--- NOTE | 2017-01-08 11:44 | HHI.NPPN ---
Subjective General Problems: Anemia, COPD, Edema, Heart Disease, Hypotension Renal Failure: End Stage Renal Disease History of Present Illness 76-year-old male with past medical history of hypertension, diabetes mellitus, hyperlipidemia, peripheral vascular disease, chronic obstructive pulmonary disease, end-stage renal disease on hemodialysis who came to the hospital with complaint of loose bowel motion and lower abdominal pain. Additional Remarks Patient is alert, no dizziness, eating some, no abd. pain. Review of Systems General Constitutional: Fatigue Respiratory Lungs: SOB, Wheeze Gastrointestinal Gastrointestinal: Abdominal Pain, Diarrhea Objective Data Data 01/07/17 01/08/17 19:00 07:00 Intake Total 2637 ml 2228 ml Output Total 400 ml Balance 2637 ml 1828 ml Intake Oral 360 ml 100 ml IV Total 2277 ml 2128 ml Output Urine Total 0 ml Stool Total 400 ml # Voids 0 Vital Signs Date Time Temp Pulse Resp B/P Pulse Ox O2 Delivery O2 Flow Rate FiO2 01/08/17 06:00 75 01/08/17 04:00 98.9 78 24 110/36 93 01/08/17 04:00 77 01/08/17 02:00 78 01/08/17 00:00 97.6 76 24 110/36 93 01/08/17 00:00 78 01/07/17 22:00 78 01/07/17 20:00 97.0 78 22 97/34 96 01/07/17 20:00 Nasal Cannula 4.00 01/07/17 20:00 98 01/07/17 18:00 77 01/07/17 16:00 97.4 76 21 91/51 95 01/07/17 16:00 76 01/07/17 14:00 76 01/07/17 12:00 80 01/07/17 12:00 97.3 80 24 88/51 96 -: 01/08/17 0400 01/08/17 0400 Physical Exam General Appearance: No Acute Distress, Comfortable Eyes Eye Exam: Pupils Equal Throat Throat Exam: Oral Mucosa [place] & Moist Neck Neck Exam: Neck Supple Pulmonary Resp Exam: Breath Sounds Equal, No Distress, Rhonchi, Decreased Bases Cardiology CV Exam: Regular, Normal Sinus Rhythm Gastrointestinal/Abdomen GI Exam: Soft, Non-Tender, Bowel Sounds Present, Distended Extremeties Extremities Exam: Trace Edema Neurologic Neuro Exam: Alert, Awake Psychiatric Psych Exam: Appropriate Responses Assessment/Plan Assessment Summary: Anemia of CKD, CHF, Hypotension, End Stage Renal Disease Problem List: (1) Anxiety (2) Diabetes (3) C. difficile diarrhea (4) COPD (chronic obstructive pulmonary disease) (5) Congestive heart failure (6) Diverticulitis (7) Diarrhea (8) End-stage renal disease on hemodialysis Plan Patient is crtically ill Now on pressors.Levo/Vasopressin HD was done . Still has diarrhea. C diff colitis managed by ID Blood culture negative so far. HD today Follow the cultures. seen during dialysis intubated 2 L UF planned Problem Qualifiers (1) COPD (chronic obstructive pulmonary disease): Qualified Code: J44.9 - Chronic obstructive pulmonary disease, unspecified COPD type (2) Congestive heart failure: Qualified Code: I50.9 - Chronic congestive heart failure, unspecified congestive heart failure type (3) Diverticulitis: Qualified Code: K57.32 - Diverticulitis of large intestine without perforation or abscess without bleeding (4) Diarrhea: Qualified Code: R19.7 - Diarrhea, unspecified type Jax Mcginnis MD Jan 08, 2017 11:44
--- NOTE | 2017-01-08 11:48 | HHI.PR ---
Subjective Remarks Patient is sleepy arousable. Answers appropriately and then again goes back to sleep. As per RN had a good sleep last night Patient is feeling tired and weak Still has some diarrhea No abdominal pain No breathing trouble No nausea vomiting As per RN still has a liquid stools Review of system for 10 point system otherwise unremarkable Objective Objective Results - Vital Signs Date Time Temp Pulse Resp B/P Pulse Ox O2 Delivery O2 Flow Rate FiO2 01/08/17 06:00 75 01/08/17 04:00 98.9 78 24 110/36 93 01/08/17 04:00 77 01/08/17 02:00 78 01/08/17 00:00 97.6 76 24 110/36 93 01/08/17 00:00 78 01/07/17 22:00 78 01/07/17 20:00 97.0 78 22 97/34 96 01/07/17 20:00 Nasal Cannula 4.00 01/07/17 20:00 98 01/07/17 18:00 77 01/07/17 16:00 97.4 76 21 91/51 95 01/07/17 16:00 76 01/07/17 14:00 76 01/07/17 12:00 80 01/07/17 12:00 97.3 80 24 88/51 96 I/O 01/07/17 01/07/17 01/07/17 01/08/17 01/08/17 01/08/17 07:00 15:00 23:00 07:00 15:00 23:00 Intake Total 1504 ml 2637 ml 750 ml 1478 ml Output Total 0 ml 0 ml 400 ml Balance 1504 ml 2637 ml 750 ml 1078 ml Intake Oral 120 ml 360 ml 100 ml IV Total 1384 ml 2277 ml 750 ml 1378 ml Output Urine Total 0 ml 0 ml Stool Total 400 ml # Voids 0 # Bowel Movements 7 Result Diagram: 01/08/170 01/08/170 Imaging Last Impressions Abdomen/Pelvis CT 01/05/17 1822 Signed Impressions: Service Date/Time: Thursday, January 05, 2017 18:54 - CONCLUSION: 1. Small bilateral pleural effusions and nodular infiltrates in right middle lobe most likely inflammatory and pneumonia not present previously. 2. Diverticuli throughout the colon with the area of bowel wall thickening and narrowing of sigmoid colon may be due to spasm, diverticulitis or underlying mass. Bentley Glass MD Other Results Laboratory Tests Test 01/08/17 04:00 White Blood Count 16.6 Red Blood Count 3.24 Hemoglobin 9.6 Hematocrit 31.9 Mean Corpuscular Volume 98.3 Mean Corpuscular Hemoglobin 29.5 Mean Corpuscular Hemoglobin 30.1 Concent Red Cell Distribution Width 19.1 Platelet Count 152 Mean Platelet Volume 8.4 Neutrophils (%) (Auto) 90.1 Lymphocytes (%) (Auto) 1.8 Monocytes (%) (Auto) 7.6 Eosinophils (%) (Auto) 0.3 Basophils (%) (Auto) 0.2 Neutrophils # (Auto) 15.0 Lymphocytes # (Auto) 0.3 Monocytes # (Auto) 1.3 Eosinophils # (Auto) 0.1 Basophils # (Auto) 0.0 CBC Comment AUTO DIFF Differential Total Cells 100 Counted Neutrophils % (Manual) 72 Band Neutrophils % 16 Lymphocytes % 4 Monocytes % 6 Neutrophils # (Manual) 14.9 Metamyelocytes 2 Differential Comment FINAL DIFF MANUAL Platelet Estimate NORMAL Platelet Morphology Comment NORMAL Ovalocytes 1+ Acanthocytes OCC Sodium Level 137 Potassium Level 4.4 Chloride Level 103 Carbon Dioxide Level 22.4 Anion Gap 12 Blood Urea Nitrogen 45 Creatinine 4.03 Estimat Glomerular Filtration 15 Rate Random Glucose 400 Calcium Level 7.7 Date/Time Procedure Status Source Growth 01/05/17 20:50 Aerobic Blood Culture - Preliminary Resulted Blood Peripheral NO GROWTH IN 3 DAYS 01/05/17 20:50 Anaerobic Blood Culture - Preliminary Resulted Blood Peripheral NO GROWTH IN 3 DAYS Physical Exam Physical Exam GENERAL: This is a well-nourished, well-developed patient. Ill-looking SKIN: No rashes, ecchymoses or lesions. Cool and dry. HEAD: Atraumatic. Normocephalic. No temporal or scalp tenderness. EYES: Pupils equal round and reactive. Extraocular motions intact. No scleral icterus. No injection or drainage. ENT: Nose without bleeding, purulent drainage or septal hematoma. Throat without erythema, tonsillar hypertrophy or exudate. Uvula midline. Airway patent. NECK: Trachea midline. No JVD or lymphadenopathy. Supple, nontender, no meningeal signs. CARDIOVASCULAR: S1-S2, unable to detect any murmurs rubs or gallops. Right chest wall is noted with permacath. RESPIRATORY: Diminished, faint bibasilar rales. GASTROINTESTINAL: Abdomen soft,diffuse tenderness, nondistended. No hepato- splenomegaly, or palpable masses. No guarding. MUSCULOSKELETAL: Extremities without clubbing, cyanosis. No joint tenderness, effusion, or edema noted. No calf tenderness. Negative Homans sign bilaterally. Bilateral lower extremities noted with +1 edema, pedal pulses 1+ bilaterally. Both feet with dressings D/I. Has ulcers to both heels. NEUROLOGICAL: Awakes to voice, oriented x 2. Following simple commands. Somewhat lethargic. A/P Assessment and Plan (1) Sepsis (2) Recurrent Clostridium difficile diarrhea (3) Diverticulitis (4) Diabetes 1.5, managed as type 2 (5) History of CVA (cerebrovascular accident) (6) PVD (peripheral vascular disease) (7) Hypertension (8) Hyperlipidemia (9) Chronic kidney disease (CKD) (10) Congestive heart failure (11) COPD (chronic obstructive pulmonary disease) (12) shock hypovolemic/septic Plan 76-year-old female with recent extensive hospitalizations for perforated duodenal ulcer, sepsis, respiratory failure with tracheostomy, CVA, acute renal injury that led to CKD requiring hemodialysis. [facility] and inability to extubate, has been treated for C. difficile colitis. Now presents with recurrent C. difficile colitis, possible diverticulitis and also recurrent pneumonia. -Continue with antibiotics, continue with Flagyl, Zosyn -Follow cultures -Monitor CBC -ID consultation appreciated. Antibiotic per ID Hypotension/shock -Patient was put on Continue on pressors as needed -Appreciate reverberatory skimmer input -IV hydration cautiously Chronic kidney disease/ESRD, on hemodialysis Tuesday and Tuesday. Appreciate consultation by nephrology for hemodialysis management COPD, sleep apnea, uses CPAP at home - can bring CPAP from home -Leah PRN Chronic CHF, stable -Continue with home Diabetes type 2 Accu-Cheks before meals and at bedtime with insulin therapy as needed History of recent CVA Continue with Aggrenox PVD Continue home medications Hypertension Home medications on hold because of hypotension Hyperlipidemia Continue with statins History peripheral vascular disease, had vascular surgery at [facility] last year. Has chronic wounds to both heels. Consult wound care nurse for evaluation Labs reviewed Labs for morning Leukocytosis with bandemia will monitor Anemia stable Mild hypocalcemia will monitor Benadryl for sleep Home medications reviewed, initiated as indicated Heparin 5000 units subcutaneous twice a day for DVT prophylaxis Discussed with reverberatory skimmer in detail on floor Plan of care has been discussed with the patient, and registered nurse. Further management of the patient will be dependent on the hospital course Patient's condition is critical. Total time spent in management of this patient is more than 35 minutes Julius Wyatt MD Jan 08, 2017 11:48
[2017-01-08] MEDS ORDERED: ETOMIDATE 20 MG/10 ML VIAL IV PUSH ONE (12:15)
[2017-01-08] MEDS ORDERED: ETOMIDATE 40 MG/20 ML VIAL ONE (12:16)
[2017-01-08] MEDS: RESP: ALBUTEROL 2.5 MG/IPRATROPIUM 0.5 MG NEB (SCH) NEB ×3 (12:30→20:41)
[2017-01-08] MEDS: HEPARIN SODIUM - IV 10,000 UNITS/10 ML VIAL PRN (12:54)
[2017-01-08] MEDS: ALBUMIN HUMAN 25% 25 GM/100 ML BAGP IV PRN ×2 (12:54→12:58)
[2017-01-08] MEDS: SODIUM CHLOR 0.9% 1000 ML INJ 1,000 ML IV PRN (12:54)
[2017-01-08] MEDS: GENTAMICIN SULFATE (DIALYSIS USE ONLY) 20 MG/2 ML VIAL IV PRN (12:55)
[2017-01-08] MEDS: EPOETIN ALFA 10,000 UNITS/ML VIAL IV PRN (12:55)
--- NOTE | 2017-01-08 13:02 | RADRPT ---
EXAM DATE/TIME: 01/08/2017 12:29 [place] COMPARISON: CHEST SINGLE AP, January 07, 2017, 3:04. INDICATIONS : Post intubation. MEDICAL HISTORY : Hypertension. Chronic obstructive pulmonary disease. SURGICAL HISTORY : None. ENCOUNTER: Initial ACUITY: 1 day PAIN SCORE: Non-responsive. LOCATION: Bilateral chest FINDINGS: AP portable supine view of the chest demonstrates interval intubation with the endotracheal tube tip seen just on the level of the pedicles. There are 2 stable appearing right-sided central lines presen t. The tip of the right AJ line appears projecting over the region of the right atrium which may be p ositional. Bibasilar airspace densities consistent with atelectasis, consolidation or fluid. This appears stable . Heart size is mildly enlarged. CONCLUSION: Interval intubation with the endotracheal tube appropriate position. The right-sided central lines ar e significant for the right IJ line projecting over the region of the right atrium which may be secon david to patient's supine imaging. Stable lung exam.. Chloe Daniel MD on January 08, 2017 at 12:58 Board Certified Radiologist. This report was verified electronically.
[2017-01-08 13:08] LABS: BLOOD GAS BASE EXCESS -4.3 mmol/L (-2-2); BLOOD GAS CARBOXYHEMOGLOBIN 1.7 % (0-4); BLOOD GAS HCO3 22 mmol/L (22-26); BLOOD GAS METHEMOGLOBIN 1.1 % (0-2); BLOOD GAS O2 HGB SATURATION 97 % (90-100); BLOOD GAS OXYGEN CONTENT 14.9 Vol % (12.0-20.0); BLOOD GAS PCO2 55 mmHg (38-42); BLOOD GAS PO2 379 mmHg (61-120); BLOOD GAS TOTAL HGB 10.2 G/DL (12.0-16.0); TEMP CORR TO 98.6
[2017-01-08 13:09] LABS: CRITICAL VALUE YES; DRAW SITE ART LINE; FIO2 100 %; OXYGEN DEVICE VENTILATOR; STAT NO; VENT SETTINGS A/C 16/550/5PEEP
--- NOTE | 2017-01-08 14:08 | HHI.IDPN ---
Subjective Subjective Remarks pt just got intubated 2/2 progressive resp failure remains on pressors, vasopressin and levaphed He is afberils BMs x 8 yday, stool output 400 cc foamy bloody thin secretions Antibiotics vanco po flagyl iv Past Medical History ESRD/HD Allergies: Coded Allergies: Betadine (Verified Allergy, Severe, Rash, 01/05/17) *MDRO Multi-Drug Resistant Organism (Verified Adverse Reaction, Unknown, ) Carlson resistant K. pneumoniae (urine-08/06/16) Objective . Vital Signs Date Time Temp Pulse Resp B/P Pulse Ox O2 Delivery O2 Flow Rate FiO2 01/08/17 12:30 100 100 01/08/17 06:00 75 01/08/17 04:00 98.9 78 24 110/36 93 01/08/17 04:00 77 01/08/17 02:00 78 01/08/17 00:00 97.6 76 24 110/36 93 01/08/17 00:00 78 01/07/17 22:00 78 01/07/17 20:00 97.0 78 22 97/34 96 01/07/17 20:00 Nasal Cannula 4.00 01/07/17 20:00 98 01/07/17 18:00 77 01/07/17 16:00 97.4 76 21 91/51 95 01/07/17 16:00 76 01/07/17 01/07/17 01/08/17 15:00 23:00 07:00 Intake Total 2637 ml 750 ml 1478 ml Output Total 0 ml 400 ml Balance 2637 ml 750 ml 1078 ml Intake Oral 360 ml 100 ml IV Total 2277 ml 750 ml 1378 ml Output Urine Total 0 ml Stool Total 400 ml # Voids 0 . Laboratory Tests Test 01/07/17 01/08/17 08:56 04:00 White Blood Count 11.1 TH/MM3 16.6 TH/MM3 Red Blood Count 2.69 MIL/MM3 3.24 MIL/MM3 Hemoglobin 8.1 GM/DL 9.6 GM/DL Hematocrit 25.6 % 31.9 % Mean Corpuscular Volume 95.0 FL 98.3 FL Mean Corpuscular Hemoglobin 30.0 PG 29.5 PG Mean Corpuscular Hemoglobin 31.5 % 30.1 % Concent Red Cell Distribution Width 19.3 % 19.1 % Platelet Count 123 TH/MM3 152 TH/MM3 Mean Platelet Volume 8.4 FL 8.4 FL Neutrophils (%) (Auto) 86.6 % 90.1 % Lymphocytes (%) (Auto) 2.6 % 1.8 % Monocytes (%) (Auto) 10.1 % 7.6 % Eosinophils (%) (Auto) 0.6 % 0.3 % Basophils (%) (Auto) 0.1 % 0.2 % Neutrophils # (Auto) 9.6 TH/MM3 15.0 TH/MM3 Lymphocytes # (Auto) 0.3 TH/MM3 0.3 TH/MM3 Monocytes # (Auto) 1.1 TH/MM3 1.3 TH/MM3 Eosinophils # (Auto) 0.1 TH/MM3 0.1 TH/MM3 Basophils # (Auto) 0.0 TH/MM3 0.0 TH/MM3 CBC Comment AUTO DIFF AUTO DIFF Differential Total Cells 100 100 Counted Neutrophils % (Manual) 77 % 72 % Band Neutrophils % 9 % 16 % Lymphocytes % 8 % 4 % Monocytes % 5 % 6 % Neutrophils # (Manual) 9.7 TH/MM3 14.9 TH/MM3 Myelocytes 1 % Differential Comment FINAL DIFF FINAL DIFF MANUAL MANUAL Platelet Estimate LOW NORMAL Platelet Morphology Comment NORMAL NORMAL Ovalocytes 1+ 1+ [place] Cells 1+ Metamyelocytes 2 % Acanthocytes OCC Laboratory Tests Test 01/06/17 01/07/17 01/08/17 22:32 08:56 04:00 Lactic Acid Level 1.0 mmol/L Sodium Level 139 MEQ/L 137 MEQ/L Potassium Level 3.8 MEQ/L 4.4 MEQ/L Chloride Level 106 MEQ/L 103 MEQ/L Carbon Dioxide Level 22.3 MEQ/L 22.4 MEQ/L Anion Gap 11 MEQ/L 12 MEQ/L Blood Urea Nitrogen 40 MG/DL 45 MG/DL Creatinine 3.12 MG/DL 4.03 MG/DL Estimat Glomerular Filtration 20 ML/MIN 15 ML/MIN Rate Random Glucose 121 MG/DL 400 MG/DL Calcium Level 7.1 MG/DL 7.7 MG/DL Protein Corrected Calcium 8.4 MG/DL Total Protein 4.8 GM/DL Microbiology Date/Time Procedure Status Source Growth 01/05/17 20:50 Aerobic Blood Culture - Preliminary Resulted Blood Peripheral NO GROWTH IN 3 DAYS 01/05/17 20:50 Anaerobic Blood Culture - Preliminary Resulted Blood Peripheral NO GROWTH IN 3 DAYS 01/05/17 20:50 Aerobic Blood Culture - Preliminary Resulted Blood Peripheral NO GROWTH IN 3 DAYS 01/05/17 20:50 Anaerobic Blood Culture - Preliminary Resulted Blood Peripheral NO GROWTH IN 3 DAYS Imaging Last Impressions Chest X-Ray 01/08/17 0000 Signed Impressions: Service Date/Time: Sunday, January 08, 2017 12:29 - CONCLUSION: Interval intubation with the endotracheal tube appropriate position. The right-sided central lines are significant for the right IJ line projecting over the region of the right atrium which may be secondary to patient's supine imaging. Stable lung exam.. Chloe Daniel MD Abdomen/Pelvis CT 01/05/17 1822 Signed Impressions: Service Date/Time: Thursday, January 05, 2017 18:54 - CONCLUSION: 1. Small bilateral pleural effusions and nodular infiltrates in right middle lobe most likely inflammatory and pneumonia not present previously. 2. Diverticuli throughout the colon with the area of bowel wall thickening and narrowing of sigmoid colon may be due to spasm, diverticulitis or underlying mass. Bentley Glass MD Physical Exam CONSTITUTIONAL/GENERAL: sedated int'd on mech vent TUBES/LINES/DRAINS: Permacath in place R chest w/o infc R IJ in place TLC wo e/o infx SKIN: No jaundice, rashes, or lesions. Skin temperature appropriate. Not diaphoretic. HEAD: Atraumatic. Normocephalic. EYES: Pupils equal and round and reactive. Extraocular motions intact. No scleral icterus. No injection or drainage. Fundi not examined. ENT: Orally intubated CARDIOVASCULAR: Regular rate and rhythm without murmurs, gallops, or rubs. No JVD. Peripheral pulses symmetric. RESPIRATORY/CHEST: Symmetric, unlabored respirations. Clear to auscultation. Breath sounds equal bilaterally. No wheezes, rales, or rhonchi. GASTROINTESTINAL: Abdomen soft, no reaction to palpation, remains quite distended. Bowel sounds present. dignichield in place with liquid brown stool GENITOURINARY: Without palpable bladder distension. MUSCULOSKELETAL: Extremities without clubbing, cyanosis, or edema. No mottling B/l dresising s in place NEUROLOGICAL:sedated; moves spontaneously PSYCHIATRIC: unable to assess Assessment & Plan Remarks Reccurent C.diff colitis hypervirulebnt strain - findins on CT likely reflect distal colitis Sepsis , likely 2/2 C.diff Multiple med problems ESRD Acute VDRF Worsening leukocytosis Critically ill unstable - cont po vanocmycin - cont IV flagyl - chkl BNP - chk sputum clx dw Aida Apple RN, MD Jan 08, 2017 14:08
[2017-01-08] MEDS: ATORVASTATIN 80 MG TAB PO SCH (20:49)
[2017-01-08] MEDS: fentaNYL DRIP 250 ML IV SCH (22:13)
[2017-01-08] MEDS: CHLORHEXIDINE 0.12% (ORAL KIT) 15 ML CUP MT SCH (22:13)
[2017-01-09] VITALS (20 sets, daily range): BP systolic 111–134; BP diastolic 40–61; PULSE 65–98; RESP 16–23; TEMP 98.9–100; O2SAT 96–100
[2017-01-09] MEDS: HYDROCORTISONE SOD SUCCINATE 100 MG VIAL IV PUSH SCH ×4 (00:36→21:07)
[2017-01-09] MEDS: INSULIN NovoLIN REGULAR SUPPLEMENTAL SCALE SQ SCH ×4 (02:00→20:00)
[2017-01-09 03:47] LABS: AUTOMATED NEUTROPHIL # 1.6 TH/MM3 (1.8-7.7); BASOPHIL % 0.2 % (0.0-2.0); HEMATOCRIT 26.5 % (39.0-51.0); LYMPH % 24.5 % (9.0-44.0); LYMPHOCYTE # 0.6 TH/MM3 (1.0-4.8); MEAN CELL VOLUME 84.1 FL (80.0-100.0); MEAN CORPUSCULAR HEMOGLOBIN 29.3 PG (27.0-34.0); MEAN CORPUSCULAR HGB CONC 34.9 % (32.0-36.0); MONO % 9.2 % (0.0-8.0); NEUT % 66.1 % (16.0-70.0); PLATELET COUNT 83 TH/MM3 (150-450); RED BLOOD COUNT 3.15 MIL/MM3 (4.50-5.90); RED CELL DISTRIBUTION WIDTH 16.4 % (11.6-17.2); WHITE BLOOD COUNT 2.5 TH/MM3 (4.0-11.0)
[2017-01-09 03:49] LABS: HEMO FLAGS AUTO DIFF
[2017-01-09] MEDS: CHLORHEXIDINE GLUCONATE 2 % 1 PACK (2 CLOTHS)(taper/protocol) TOP SCH (04:00)
[2017-01-09] MEDS: RESP: ALBUTEROL 2.5 MG/IPRATROPIUM 0.5 MG NEB (SCH) NEB ×4 (04:05→20:36)
[2017-01-09] MEDS: VASOPRESSIN INJ 40 UNITS in DEXTROSE 5% IN WATER 100ML INJ 98 ML IV SCH ×4 (04:22→18:25)
[2017-01-09] MEDS: NOREPINEPHRINE 4 MG/D5W 250 ML IV SCH ×2 (04:22→10:49)
[2017-01-09] MEDS: metroNIDAZOLE 500 MG INJ 100 ML IV SCH ×3 (04:22→21:07)
[2017-01-09 05:23] LABS: BICARBONATE 26.8 MEQ/L (21.0-32.0); POTASSIUM 3.9 MEQ/L (3.5-5.1)
--- NOTE | 2017-01-09 07:33 | HHI.CCPN ---
Subjective Remarks/Hospital Course 76 year old male with DM, HTN, hyperlipidemia, obesity, cataracts, arthritis, peripheral arterial disease, neurogenic bladder, status post TURP, COPD, obstructive sleep apnea, and osteoporosis. He was admitted 07/25/16 for sepsis, perforated duodenal ulcer with percutaneous drain, and cellulitis. The course was complicated with an intra-abdominal abscess and that was drained by IR. Subsequently he had G-tube and J-tube inserted which. Another course was complicated with ESRD now patient on hemodialysis. He was discharged to [facility] and return to the hospital with new onset of stroke. He was readmitted from rehabilitation on 10/10/2016 for respiratory failure and mucous plug. He was again discharged and was no longer on hemodialysis. Most recently, he was admitted from 12/03 to 12/15 for respiratory failure requiring mechanical ventilation, recurrent clostridium difficile colitis, sepsis, and pneumonia. Now he is back on dialysis Tuesday to and Tuesday. Patient was discharged to [facility] for respiratory rehabilitation and was discharged last Tuesday. According to the patient's , he had been doing relatively well. The day prior to admission he started to complain of abdominal cramping. He was admitted to medical-surgical floor. 01/07/2017 after hemodialysis removed 2 L of fluids, rapid response was called due to hypotension with a blood pressure systolic in the 60s and he was transferred to ICU. 01/08 Patient remains on Levophed 21 mics and Vasopressin 0.04. Afebrile. For HD today. Denies any SOB or abdominal pain. 01/09 Patient was intubated yesterday for acute hypercapnic resp failure sedated with Fentanyl. s/p HD yesterday with removal 2L. Levophed is down 10 mics and Vasopressin 0.04. Afebrile. Objective Vital Signs Date Time Temp Pulse Resp B/P Pulse Ox O2 Delivery O2 Flow Rate FiO2 01/09/17 06:00 73 01/09/17 04:16 97 35 01/09/17 04:00 99.2 16 128/57 01/08/17 08:00 Nasal Cannula 4.00 Intake and Output 01/08/17 01/08/17 01/09/17 08:00 16:00 00:00 Intake Total 1478 ml 796 ml Output Total 400 ml 2000 ml 200 ml Balance 1078 ml -2000 ml 596 ml Result Diagram: 01/09/17 0330 01/09/17 0326 Other Results Laboratory Tests Test 01/08/17 01/08/17 01/09/17 01/09/17 11:30 13:00 03:26 03:30 Blood Gas Puncture Site ART LINE ART LINE Blood Gas Patient Temperature 98.6 98.6 Blood Gas HCO3 19 mmol/L 22 mmol/L Blood Gas Base Excess -9.8 mmol/L -4.3 mmol/L Blood Gas Oxygen Saturation 92 % 97 % Arterial Blood pH 7.07 7.23 Arterial Blood Partial 68 mmHg 55 mmHg Pressure CO2 Arterial Blood Partial 89 mmHg 379 mmHg Pressure O2 Arterial Blood Oxygen Content 12.7 Vol % 14.9 Vol % Arterial Blood 1.9 % 1.7 % Carboxyhemoglobin Arterial Blood Methemoglobin 1.3 % 1.1 % Blood Gas Hemoglobin 9.8 G/DL 10.2 G/DL Oxygen Delivery Device NASAL CANNULA VENTILATOR Blood Gas Liter Flow 4 L/M Blood Gas Ventilator Setting A/C 16/550/5PEEP Blood Gas Inspired Oxygen 100 % Sodium Level 138 MEQ/L Potassium Level 3.9 MEQ/L Chloride Level 101 MEQ/L Carbon Dioxide Level 26.8 MEQ/L Anion Gap 10 MEQ/L Blood Urea Nitrogen 31 MG/DL Creatinine 3.23 MG/DL Estimat Glomerular Filtration 19 ML/MIN Rate Random Glucose 232 MG/DL Calcium Level 7.6 MG/DL White Blood Count 2.5 TH/MM3 Red Blood Count 3.15 MIL/MM3 Hemoglobin 9.2 GM/DL Hematocrit 26.5 % Mean Corpuscular Volume 84.1 FL Mean Corpuscular Hemoglobin 29.3 PG Mean Corpuscular Hemoglobin 34.9 % Concent Red Cell Distribution Width 16.4 % Platelet Count 83 TH/MM3 Mean Platelet Volume 7.6 FL Neutrophils (%) (Auto) 66.1 % Lymphocytes (%) (Auto) 24.5 % Monocytes (%) (Auto) 9.2 % Eosinophils (%) (Auto) 0.0 % Basophils (%) (Auto) 0.2 % Neutrophils # (Auto) 1.6 TH/MM3 Lymphocytes # (Auto) 0.6 TH/MM3 Monocytes # (Auto) 0.2 TH/MM3 Eosinophils # (Auto) 0.0 TH/MM3 Basophils # (Auto) 0.0 TH/MM3 CBC Comment AUTO DIFF Imaging Last Impressions Chest X-Ray 01/08/17 0000 Signed Impressions: Service Date/Time: Sunday, January 08, 2017 12:29 - CONCLUSION: Interval intubation with the endotracheal tube appropriate position. The right-sided central lines are significant for the right IJ line projecting over the region of the right atrium which may be secondary to patient's supine imaging. Stable lung exam.. Chloe Daniel MD Abdomen/Pelvis CT 01/05/17 1822 Signed Impressions: Service Date/Time: Thursday, January 05, 2017 18:54 - CONCLUSION: 1. Small bilateral pleural effusions and nodular infiltrates in right middle lobe most likely inflammatory and pneumonia not present previously. 2. Diverticuli throughout the colon with the area of bowel wall thickening and narrowing of sigmoid colon may be due to spasm, diverticulitis or underlying mass. Bentley Glass MD Objective Remarks GENERAL: PAtient is 76 yo critically ill intubated, sedated and on pressors. SKIN: Warm and dry. HEAD: Normocephalic. EYES: No scleral icterus. No injection or drainage. NECK: Supple, trachea midline. No JVD or lymphadenopathy. Orally intubated CARDIOVASCULAR: Regular rate and rhythm without murmurs, gallops, or rubs. RESPIRATORY: Breath sounds equal bilaterally. No accessory muscle use. GASTROINTESTINAL: Abdomen soft, non-tender, nondistended. MUSCULOSKELETAL: No cyanosis, or edema. BACK: Nontender without obvious deformity. No CVA tenderness. Neuro: Sedated, intubated. 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 Daily sedation vacation Pulm: Continue with vent support keep sat >92% Bronchodilators, ICU vent bundle. SBT as reva. CV: Wean off pressors ( on Levophed, Vasopressin) keep MAP >65mmHg Lactic acid 1.0 on 01/06. Echo 12/05 showed EF 35-40%, no RWMA Decrease Hydrocortisone 50mg IV Q12, ASA 325mg daily : Monitor renal function, avoid nephrotoxins. HD per renal- Dr. Antoine. s/p HD yesterday with removal 2L GI: On TF- Nepro advance to goal rate 40ml/hr, Protonix 40mg daily. ID: Continue with abx per ID ( On Vanco PO, IV Flagyl) monitor for signs of infections ( Fever, WBC) Heme: Monitor CBC, on Epogen with HD Endo: SSI medium scale with accuchecks for glycemic control GI prophylaxis- on Protonix 40mg daily DVT prophylaxis- On Heparin SQ Lines: Right IJ CVP placed 01/07 CCT 30 mins Problem Qualifiers (1) Chronic kidney disease (CKD): Qualified Code: N18.5 - Chronic kidney disease (CKD), stage 5 Nava Shaw MD Jan 09, 2017 07:33
[2017-01-09 07:49] LABS: AUTOMATED NEUTROPHIL # 6.8 TH/MM3 (1.8-7.7); BASOPHIL % 0.1 % (0.0-2.0); EOSINOPHIL % 0.2 % (0.0-4.0); HEMATOCRIT 29.1 % (39.0-51.0); LYMPHOCYTE # 0.2 TH/MM3 (1.0-4.8); MEAN CELL VOLUME 92.3 FL (80.0-100.0); MEAN CORPUSCULAR HEMOGLOBIN 30.2 PG (27.0-34.0); MEAN CORPUSCULAR HGB CONC 32.7 % (32.0-36.0); MONO % 7.7 % (0.0-8.0); PLATELET COUNT 134 TH/MM3 (150-450); RED BLOOD COUNT 3.15 MIL/MM3 (4.50-5.90); WHITE BLOOD COUNT 7.7 TH/MM3 (4.0-11.0)
[2017-01-09 07:58] LABS: ANION GAP 8 MEQ/L (5-15); AST (GOT) 104 U/L (15-37); BICARBONATE 26.8 MEQ/L (21.0-32.0); BLOOD UREA NITROGEN 31 MG/DL (7-18); CHLORIDE 102 MEQ/L (98-107); GLOMERULAR FILTRATION RATE 18 ML/MIN (>89); SODIUM (NA) 137 MEQ/L (136-145)
[2017-01-09 08:01] LABS: ALKALINE PHOSPHATASE 256 U/L (45-117); ALT (GPT) 20 U/L (12-78); TOTAL BILIRUBIN ADULT 0.5 MG/DL (0.2-1.0)
[2017-01-09] MEDS: DIPYRIDAMOLE/ASPIRIN 200 MG/25 MG CAP PO SCH (08:24)
[2017-01-09] MEDS: GABAPENTIN 100 MG CAP PO SCH ×2 (08:25→21:08)
[2017-01-09] MEDS: CALCIUM CARBONATE 1.25 GM (CA 500 MG) TAB PO SCH (08:25)
[2017-01-09] MEDS: VANCOMYCIN 500 MG VIAL (FOR ORAL USE ONLY) PO SCH ×4 (08:26→21:07)
[2017-01-09] MEDS: COLLAGENASE OINT 30 GM TUBE TOP SCH (08:27)
[2017-01-09] MEDS: fentaNYL DRIP 250 ML IV SCH ×3 (08:28→18:25)
[2017-01-09 08:35] LABS: HEMO FLAGS AUTO DIFF
[2017-01-09 08:56] LABS: BANDS 24 % (0-6); NEUTROPHIL # MANUAL DIFF 7.1 TH/MM3 (1.8-7.7); PLATELET ESTIMATE SMEAR LOW (NORMAL); PLATELET MORPHOLOGY NORMAL (NORMAL); POLYS (SEG NEUTROPHILS) 68 % (16-70); SCAN/DIFF FINAL DIFF MANUAL; WBC DIFF SAMPLE 100
[2017-01-09 08:57] LABS: ACANTHOCYTES OCC (NORMAL); BURR CELLS 1+ (NORMAL)
[2017-01-09] MEDS: SODIUM CHLORIDE 0.9% FLUSH 10 ML FLUSH IV FLUSH SCH ×2 (09:00→21:00)
[2017-01-09] MEDS: LANTHANUM CARBONATE 500 MG CHEWABLE TABLET CHEW SCH ×3 (09:30→18:27)
[2017-01-09 09:45] LABS: BLOOD GAS CARBOXYHEMOGLOBIN 1.7 % (0-4); BLOOD GAS HCO3 24 mmol/L (22-26); BLOOD GAS METHEMOGLOBIN 1.3 % (0-2); BLOOD GAS O2 HGB SATURATION 94 % (90-100); BLOOD GAS OXYGEN CONTENT 13.3 Vol % (12.0-20.0); BLOOD GAS PCO2 53 mmHg (38-42); BLOOD GAS PO2 95 mmHg (61-120); BLOOD GAS TOTAL HGB 9.9 G/DL (12.0-16.0); TEMP CORR TO 98.6
[2017-01-09 09:46] LABS: CRITICAL VALUE YES; DRAW SITE ART LINE; FIO2 35 %; OXYGEN DEVICE VENTILATOR; STAT NO; VENT SETTINGS A/C 16/550/5PEEP
[2017-01-09 10:21] LABS: BANDS 17 % (0-6); CORRECTED NUCLEATED RBC 1 /100 WBC (0-0); NEUTROPHIL # MANUAL DIFF 1.8 TH/MM3 (1.8-7.7); PLATELET ESTIMATE SMEAR LOW (NORMAL); PLATELET MORPHOLOGY NORMAL (NORMAL); POLYS (SEG NEUTROPHILS) 54 % (16-70); SCAN/DIFF FINAL DIFF MANUAL; WBC DIFF SAMPLE 100
[2017-01-09 10:22] LABS: ACANTHOCYTES OCC (NORMAL)
[2017-01-09] MEDS: PANTOPRAZOLE SODIUM 40 MG VIAL IV PUSH SCH (11:26)
[2017-01-09] MEDS: CHLORHEXIDINE 0.12% (ORAL KIT) 15 ML CUP MT SCH ×2 (11:27→21:08)
[2017-01-09] MEDS: ASPIRIN 325 MG TAB PO SCH (11:27)
--- NOTE | 2017-01-09 11:31 | HHI.IDPN ---
Subjective Subjective Remarks ID Xcover for 76 yo M with multiple med probx (CAD, DM, ESDRD/HD, PVD) presented 2 days ago with abdominal crampy pain and liquid diarrhea His CT showed: Diverticuli throughout the colon with the area of bowel wall thickening and narrowing of sigmoid colon may be due to spasm, diverticulitis or underlying mass His stool is positive for C.diff hypervirulent 027 strain Review of the records showed he already had stool + for C.diff hypervirulent 027 strain 1 mo ago Pt was transferred to ICU 2/2 low blood pressure on 01/08/17. Overnight events reviewed. Intubated 2/2 progressive resp failure remains on pressors but decreased requirements, vasopressin and levophed Afebrile. Stool output 400 cc No rash Antibiotics vanco po flagyl iv Lines Line sites with no e.o infection Past Medical History ESRD/HD Allergies: Coded Allergies: Betadine (Verified Allergy, Severe, Rash, 01/05/17) *MDRO Multi-Drug Resistant Organism (Verified Adverse Reaction, Unknown, ) Carlson resistant K. pneumoniae (urine-08/06/16) Objective . Vital Signs Date Time Temp Pulse Resp B/P Pulse Ox O2 Delivery O2 Flow Rate FiO2 01/09/17 11:05 97 30 01/09/17 10:00 98 35 01/09/17 09:37 100 35 01/09/17 06:00 73 01/09/17 04:16 97 35 01/09/17 04:00 66 01/09/17 04:00 99.2 65 16 128/57 99 01/09/17 04:00 40 01/09/17 02:00 67 01/09/17 01:16 99 40 01/09/17 00:00 40 01/09/17 00:00 99.6 71 16 125/53 99 01/09/17 00:00 67 01/08/17 22:09 99 40 01/08/17 22:00 69 01/08/17 20:30 99 40 01/08/17 20:00 99.2 70 16 129/55 100 Automatic Cuff 01/08/17 20:00 70 01/08/17 18:00 73 01/08/17 16:33 98 45 01/08/17 16:00 68 01/08/17 16:00 99.2 68 16 149/57 99 01/08/17 14:00 80 01/08/17 12:30 100 100 01/08/17 12:00 98.4 70 20 96/71 96 01/08/17 01/08/17 01/09/17 14:59 22:59 06:59 Intake Total 796 ml 639 ml Output Total 2000 ml 200 ml 100 ml Balance -2000 ml 596 ml 539 ml Intake Oral 0 ml 0 ml IV Total 796 ml 614 ml Tube Feeding 25 ml Output Urine Total 0 ml 0 ml Stool Total 200 ml 100 ml Hemodialysis 2000 ml . Laboratory Tests Test 01/08/17 01/09/17 01/09/17 04:00 03:30 06:50 White Blood Count 16.6 TH/MM3 2.5 TH/MM3 7.7 TH/MM3 Red Blood Count 3.24 MIL/MM3 3.15 MIL/MM3 3.15 MIL/MM3 Hemoglobin 9.6 GM/DL 9.2 GM/DL 9.5 GM/DL Hematocrit 31.9 % 26.5 % 29.1 % Mean Corpuscular Volume 98.3 FL 84.1 FL 92.3 FL Mean Corpuscular Hemoglobin 29.5 PG 29.3 PG 30.2 PG Mean Corpuscular Hemoglobin 30.1 % 34.9 % 32.7 % Concent Red Cell Distribution Width 19.1 % 16.4 % 19.0 % Platelet Count 152 TH/MM3 83 TH/MM3 134 TH/MM3 Mean Platelet Volume 8.4 FL 7.6 FL 8.9 FL Neutrophils (%) (Auto) 90.1 % 66.1 % 89.0 % Lymphocytes (%) (Auto) 1.8 % 24.5 % 3.0 % Monocytes (%) (Auto) 7.6 % 9.2 % 7.7 % Eosinophils (%) (Auto) 0.3 % 0.0 % 0.2 % Basophils (%) (Auto) 0.2 % 0.2 % 0.1 % Neutrophils # (Auto) 15.0 TH/MM3 1.6 TH/MM3 6.8 TH/MM3 Lymphocytes # (Auto) 0.3 TH/MM3 0.6 TH/MM3 0.2 TH/MM3 Monocytes # (Auto) 1.3 TH/MM3 0.2 TH/MM3 0.6 TH/MM3 Eosinophils # (Auto) 0.1 TH/MM3 0.0 TH/MM3 0.0 TH/MM3 Basophils # (Auto) 0.0 TH/MM3 0.0 TH/MM3 0.0 TH/MM3 CBC Comment AUTO DIFF AUTO DIFF AUTO DIFF Differential Total Cells 100 100 100 Counted Neutrophils % (Manual) 72 % 54 % 68 % Band Neutrophils % 16 % 17 % 24 % Lymphocytes % 4 % 24 % 3 % Monocytes % 6 % 5 % 5 % Neutrophils # (Manual) 14.9 TH/MM3 1.8 TH/MM3 7.1 TH/MM3 Metamyelocytes 2 % Differential Comment FINAL DIFF FINAL DIFF FINAL DIFF MANUAL MANUAL MANUAL Platelet Estimate NORMAL LOW LOW Platelet Morphology Comment NORMAL NORMAL NORMAL Ovalocytes 1+ Acanthocytes OCC OCC OCC Nucleated Red Blood Cells 1 /100 WBC [place] Cells 1+ Laboratory Tests Test 01/08/17 01/09/17 01/09/17 04:00 03:26 06:50 Sodium Level 137 MEQ/L 138 MEQ/L 137 MEQ/L Potassium Level 4.4 MEQ/L 3.9 MEQ/L 4.0 MEQ/L Chloride Level 103 MEQ/L 101 MEQ/L 102 MEQ/L Carbon Dioxide Level 22.4 MEQ/L 26.8 MEQ/L 26.8 MEQ/L Anion Gap 12 MEQ/L 10 MEQ/L 8 MEQ/L Blood Urea Nitrogen 45 MG/DL 31 MG/DL 31 MG/DL Creatinine 4.03 MG/DL 3.23 MG/DL 3.29 MG/DL Estimat Glomerular Filtration 15 ML/MIN 19 ML/MIN 18 ML/MIN Rate Random Glucose 400 MG/DL 232 MG/DL 231 MG/DL Calcium Level 7.7 MG/DL 7.6 MG/DL 8.1 MG/DL B-Type Natriuretic Peptide 1719 PG/ML Total Bilirubin 0.5 MG/DL Aspartate Amino Transf 104 U/L (AST/SGOT) Alanine Aminotransferase 20 U/L (ALT/SGPT) Alkaline Phosphatase 256 U/L Total Protein 5.3 GM/DL Albumin 2.3 GM/DL Imaging Last Impressions Chest X-Ray 01/08/17 0000 Signed Impressions: Service Date/Time: Sunday, January 08, 2017 12:29 - CONCLUSION: Interval intubation with the endotracheal tube appropriate position. The right-sided central lines are significant for the right IJ line projecting over the region of the right atrium which may be secondary to patient's supine imaging. Stable lung exam.. Chloe M. Fredy, MD Abdomen/Pelvis CT 01/05/17 1822 Signed Impressions: Service Date/Time: Thursday, January 05, 2017 18:54 - CONCLUSION: 1. Small bilateral pleural effusions and nodular infiltrates in right middle lobe most likely inflammatory and pneumonia not present previously. 2. Diverticuli throughout the colon with the area of bowel wall thickening and narrowing of sigmoid colon may be due to spasm, diverticulitis or underlying mass. Bentley Glass MD Physical Exam CONSTITUTIONAL/GENERAL: sedated int'd on mech vent TUBES/LINES/DRAINS: Permacath in place R chest w/o infc R IJ in place TLC wo e/o infx SKIN: No jaundice, rashes, or lesions. Skin temperature appropriate. Not diaphoretic. HEAD: Atraumatic. Normocephalic. EYES: Pupils equal and round and reactive. Extraocular motions intact. No scleral icterus. No injection or drainage. Fundi not examined. ENT: Orally intubated CARDIOVASCULAR: Regular rate and rhythm without murmurs, gallops, or rubs. No JVD. Peripheral pulses symmetric. RESPIRATORY/CHEST: Symmetric, unlabored respirations. Clear to auscultation. Breath sounds equal bilaterally. No wheezes, rales, or rhonchi. GASTROINTESTINAL: Abdomen soft, no reaction to palpation, remains quite distended. Bowel sounds present. dignichield in place with liquid brown stool GENITOURINARY: Without palpable bladder distension. MUSCULOSKELETAL: Extremities without clubbing, cyanosis, or edema. No mottling B/l dressing s in place NEUROLOGICAL:sedated; moves spontaneously PSYCHIATRIC: unable to assess Assessment & Plan Remarks Recurrent C.diff colitis hypervirulent strain - findings on CT likely reflect distal colitis Sepsis , likely 2/2 C.diff Multiple med problems ESRD Acute VDRF HD cath in place Worsening leukocytosis Critically ill unstable Recs: - cont po vanocmycin - cont IV flagyl dw RN dw pts : updated about ID plan. to resume care on Tuesday. Hadyee Ma MD Jan 09, 2017 11:31
[2017-01-09 11:33] LABS: BLOOD GAS BASE EXCESS -2.8 mmol/L (-2-2); BLOOD GAS CARBOXYHEMOGLOBIN 1.6 % (0-4); BLOOD GAS HCO3 22 mmol/L (22-26); BLOOD GAS METHEMOGLOBIN 1.2 % (0-2); BLOOD GAS O2 HGB SATURATION 95 % (90-100); BLOOD GAS OXYGEN CONTENT 12.9 Vol % (12.0-20.0); BLOOD GAS PCO2 46 mmHg (38-42); BLOOD GAS PO2 95 mmHg (61-120); BLOOD GAS TOTAL HGB 9.6 G/DL (12.0-16.0); CRITICAL VALUE NO; TEMP CORR TO 98.6
[2017-01-09 11:34] LABS: DRAW SITE ART LINE; FIO2 35 %; OXYGEN DEVICE VENTILATOR; STAT NO; VENT SETTINGS A/C 20/550/5PEEP
[2017-01-09] MEDS: HEPARIN SODIUM - SQ 10,000 UNITS/ML VIAL SQ SCH ×2 (11:35→23:15)
--- NOTE | 2017-01-09 12:50 | HHI.NPPN ---
Subjective General Problems: Anemia, COPD, Edema, Heart Disease, Hypotension Renal Failure: End Stage Renal Disease History of Present Illness 76-year-old male with past medical history of hypertension, diabetes mellitus, hyperlipidemia, peripheral vascular disease, chronic obstructive pulmonary disease, end-stage renal disease on hemodialysis who came to the hospital with complaint of loose bowel motion and lower abdominal pain. Additional Remarks Patient is intubated Review of Systems General Constitutional: Fatigue Respiratory Lungs: SOB, Wheeze Gastrointestinal Gastrointestinal: Abdominal Pain, Diarrhea Objective Data Data 01/08/17 01/09/17 19:00 07:00 Intake Total 1435 ml Output Total 2000 ml 300 ml Balance -2000 ml 1135 ml Intake Oral 0 ml IV Total 1410 ml Tube Feeding 25 ml Output Urine Total 0 ml Stool Total 300 ml Hemodialysis 2000 ml Vital Signs Date Time Temp Pulse Resp B/P Pulse Ox O2 Delivery O2 Flow Rate FiO2 01/09/17 12:23 98 35 01/09/17 11:05 97 30 01/09/17 10:00 98 35 01/09/17 09:37 100 35 01/09/17 06:00 73 01/09/17 04:16 97 35 01/09/17 04:00 66 01/09/17 04:00 99.2 65 16 128/57 99 01/09/17 04:00 40 01/09/17 02:00 67 01/09/17 01:16 99 40 01/09/17 00:00 40 01/09/17 00:00 99.6 71 16 125/53 99 01/09/17 00:00 67 01/08/17 22:09 99 40 01/08/17 22:00 69 01/08/17 20:30 99 40 01/08/17 20:00 99.2 70 16 129/55 100 Automatic Cuff 01/08/17 20:00 70 01/08/17 18:00 73 01/08/17 16:33 98 45 01/08/17 16:00 68 01/08/17 16:00 99.2 68 16 149/57 99 01/08/17 14:00 80 -: 01/09/17 0650 01/09/17 0650 Physical Exam General Appearance: No Acute Distress, Comfortable Eyes Eye Exam: Pupils Equal Throat Throat Exam: Oral Mucosa [place] & Moist Neck Neck Exam: Neck Supple Pulmonary Resp Exam: Breath Sounds Equal, No Distress, Rhonchi, Decreased Bases Cardiology CV Exam: Regular, Normal Sinus Rhythm Gastrointestinal/Abdomen GI Exam: Soft, Non-Tender, Bowel Sounds Present, Distended Extremeties Extremities Exam: Trace Edema Neurologic Neuro Exam: Alert, Awake Psychiatric Psych Exam: Appropriate Responses Assessment/Plan Assessment Summary: Anemia of CKD, CHF, Hypotension, End Stage Renal Disease Problem List: (1) Anxiety (2) Diabetes (3) C. difficile diarrhea (4) COPD (chronic obstructive pulmonary disease) (5) Congestive heart failure (6) Diverticulitis (7) Diarrhea (8) End-stage renal disease on hemodialysis Plan Patient is crtically ill Now on pressors.Levo/Vasopressin HD was done yesterday intubated Still has diarrhea. C diff colitis managed by ID Blood culture negative so far. HD yesterday 2 L off Follow the cultures. Dr. Antoine to follow Problem Qualifiers (1) COPD (chronic obstructive pulmonary disease): Qualified Code: J44.9 - Chronic obstructive pulmonary disease, unspecified COPD type (2) Congestive heart failure: Qualified Code: I50.9 - Chronic congestive heart failure, unspecified congestive heart failure type (3) Diverticulitis: Qualified Code: K57.32 - Diverticulitis of large intestine without perforation or abscess without bleeding (4) Diarrhea: Qualified Code: R19.7 - Diarrhea, unspecified type Jax Mcginnis MD Jan 09, 2017 12:50
[2017-01-09 18:08] LABS: BLOOD GAS BASE EXCESS -3.1 mmol/L (-2-2); BLOOD GAS CARBOXYHEMOGLOBIN 1.7 % (0-4); BLOOD GAS HCO3 21 mmol/L (22-26); BLOOD GAS METHEMOGLOBIN 1.4 % (0-2); BLOOD GAS O2 HGB SATURATION 94 % (90-100); BLOOD GAS OXYGEN CONTENT 13.1 Vol % (12.0-20.0); BLOOD GAS PCO2 39 mmHg (38-42); BLOOD GAS PO2 90 mmHg (61-120); BLOOD GAS TOTAL HGB 9.8 G/DL (12.0-16.0); CRITICAL VALUE NO; DRAW SITE ART LINE; FIO2 35 %; OXYGEN DEVICE VENTILATOR; STAT NO; TEMP CORR TO 98.6; VENT SETTINGS A/C 20/600/PEEP5
[2017-01-09] MEDS: ATORVASTATIN 80 MG TAB PO SCH (21:06)
[2017-01-10] VITALS (19 sets, daily range): BP systolic 108–138; BP diastolic 45–97; PULSE 72–125; RESP 20–29; TEMP 98.3–102.9; O2SAT 96–100
[2017-01-10] MEDS: INSULIN NovoLIN REGULAR SUPPLEMENTAL SCALE SQ SCH ×4 (01:34→20:00)
[2017-01-10] MEDS: RESP: ALBUTEROL 2.5 MG/IPRATROPIUM 0.5 MG NEB (SCH) NEB ×4 (03:39→20:31)
[2017-01-10] MEDS: CHLORHEXIDINE GLUCONATE 2 % 1 PACK (2 CLOTHS)(taper/protocol) TOP SCH (04:00)
[2017-01-10] MEDS: metroNIDAZOLE 500 MG INJ 100 ML IV SCH ×3 (05:31→20:52)
[2017-01-10] MEDS: VASOPRESSIN INJ 40 UNITS in DEXTROSE 5% IN WATER 100ML INJ 98 ML IV SCH ×4 (05:32→18:39)
[2017-01-10 06:02] LABS: AUTOMATED NEUTROPHIL # 6.6 TH/MM3 (1.8-7.7); BASOPHIL % 0.1 % (0.0-2.0); EOSINOPHIL % 0.2 % (0.0-4.0); HEMATOCRIT 35.3 % (39.0-51.0); LYMPH % 6.7 % (9.0-44.0); LYMPHOCYTE # 0.5 TH/MM3 (1.0-4.8); MEAN CELL VOLUME 93.3 FL (80.0-100.0); MEAN CORPUSCULAR HEMOGLOBIN 29.2 PG (27.0-34.0); MEAN CORPUSCULAR HGB CONC 31.3 % (32.0-36.0); MONO % 12.3 % (0.0-8.0); NEUT % 80.7 % (16.0-70.0); PLATELET COUNT 136 TH/MM3 (150-450); RED BLOOD COUNT 3.78 MIL/MM3 (4.50-5.90); RED CELL DISTRIBUTION WIDTH 19.2 % (11.6-17.2); WHITE BLOOD COUNT 8.2 TH/MM3 (4.0-11.0)
[2017-01-10 06:05] LABS: HEMO FLAGS AUTO DIFF
[2017-01-10 06:46] LABS: BICARBONATE 22.8 MEQ/L (21.0-32.0); POTASSIUM 4.1 MEQ/L (3.5-5.1)
--- NOTE | 2017-01-10 07:24 | HHI.CCPN ---
Subjective Remarks/Hospital Course 76 year old male with DM, HTN, hyperlipidemia, obesity, cataracts, arthritis, peripheral arterial disease, neurogenic bladder, status post TURP, COPD, obstructive sleep apnea, and osteoporosis. He was admitted 07/25/16 for sepsis, perforated duodenal ulcer with percutaneous drain, and cellulitis. The course was complicated with an intra-abdominal abscess and that was drained by IR. Subsequently he had G-tube and J-tube inserted which. Another course was complicated with ESRD now patient on hemodialysis. He was discharged to PSYCHIATRIC and return to the hospital with new onset of stroke. He was readmitted from rehabilitation on 10/10/2016 for respiratory failure and mucous plug. He was again discharged and was no longer on hemodialysis. Most recently, he was admitted from 12/03 to 12/15 for respiratory failure requiring mechanical ventilation, recurrent clostridium difficile colitis, sepsis, and pneumonia. Now he is back on dialysis Tuesday to and Tuesday. Patient was discharged to [facility] for respiratory rehabilitation and was discharged last Tuesday. According to the patient's , he had been doing relatively well. The day prior to admission he started to complain of abdominal cramping. He was admitted to medical-surgical floor. 01/07/2017 after hemodialysis removed 2 L of fluids, rapid response was called due to hypotension with a blood pressure systolic in the 60s and he was transferred to ICU. 01/08 Patient remains on Levophed 21 mics and Vasopressin 0.04. Afebrile. For HD today. Denies any SOB or abdominal pain. 01/09 Patient was intubated yesterday for acute hypercapnic resp failure sedated with Fentanyl. s/p HD yesterday with removal 2L. Levophed is down 10 mics and Vasopressin 0.04. Afebrile. 01/10 Patient remains sedated and intubated. T:100.3. Levophed is down to 4 mics , on Vasopressin 0.04. Objective Vital Signs Date Time Temp Pulse Resp B/P Pulse Ox O2 Delivery O2 Flow Rate FiO2 01/10/17 06:00 107 01/10/17 04:17 97 35 01/10/17 04:00 100.3 20 123/57 01/08/17 08:00 Nasal Cannula 4.00 Intake and Output 01/09/17 01/09/17 01/09/17 07:59 15:59 23:59 Intake Total 639 ml 838 ml 498 ml Output Total 100 ml 100 ml 200 ml Balance 539 ml 738 ml 298 ml Result Diagram: 01/10/1752901/10/17529 Other Results Laboratory Tests Test 01/09/17 01/09/17 01/09/17 01/10/17 09:12 11:20 17:55 05:30 Blood Gas Puncture Site ART LINE ART LINE ART LINE Blood Gas Patient Temperature 98.6 98.6 98.6 Blood Gas HCO3 24 mmol/L 22 mmol/L 21 mmol/L Blood Gas Base Excess -2.0 mmol/L -2.8 mmol/L -3.1 mmol/L Blood Gas Oxygen Saturation 94 % 95 % 94 % Arterial Blood pH 7.28 7.31 7.36 Arterial Blood Partial 53 mmHg 46 mmHg 39 mmHg Pressure CO2 Arterial Blood Partial 95 mmHg 95 mmHg 90 mmHg Pressure O2 Arterial Blood Oxygen Content 13.3 Vol % 12.9 Vol % 13.1 Vol % Arterial Blood 1.7 % 1.6 % 1.7 % Carboxyhemoglobin Arterial Blood Methemoglobin 1.3 % 1.2 % 1.4 % Blood Gas Hemoglobin 9.9 G/DL 9.6 G/DL 9.8 G/DL Oxygen Delivery Device VENTILATOR VENTILATOR VENTILATOR Blood Gas Ventilator Setting A/C A/C A/C 16/550/5PEEP 20/550/5PEEP 20/600/PEEP5 Blood Gas Inspired Oxygen 35 % 35 % 35 % White Blood Count 8.2 TH/MM3 Red Blood Count 3.78 MIL/MM3 Hemoglobin 11.0 GM/DL Hematocrit 35.3 % Mean Corpuscular Volume 93.3 FL Mean Corpuscular Hemoglobin 29.2 PG Mean Corpuscular Hemoglobin 31.3 % Concent Red Cell Distribution Width 19.2 % Platelet Count 136 TH/MM3 Mean Platelet Volume 8.3 FL Neutrophils (%) (Auto) 80.7 % Lymphocytes (%) (Auto) 6.7 % Monocytes (%) (Auto) 12.3 % Eosinophils (%) (Auto) 0.2 % Basophils (%) (Auto) 0.1 % Neutrophils # (Auto) 6.6 TH/MM3 Lymphocytes # (Auto) 0.5 TH/MM3 Monocytes # (Auto) 1.0 TH/MM3 Eosinophils # (Auto) 0.0 TH/MM3 Basophils # (Auto) 0.0 TH/MM3 CBC Comment AUTO DIFF Sodium Level 135 MEQ/L Potassium Level 4.1 MEQ/L Chloride Level 100 MEQ/L Carbon Dioxide Level 22.8 MEQ/L Anion Gap 12 MEQ/L Blood Urea Nitrogen 49 MG/DL Creatinine 4.42 MG/DL Estimat Glomerular Filtration 13 ML/MIN Rate Random Glucose 384 MG/DL Calcium Level 8.0 MG/DL Imaging Last Impressions Chest X-Ray 01/08/17 0000 Signed Impressions: Service Date/Time: Sunday, January 08, 2017 12:29 - CONCLUSION: Interval intubation with the endotracheal tube appropriate position. The right-sided central lines are significant for the right IJ line projecting over the region of the right atrium which may be secondary to patient's supine imaging. Stable lung exam.. Chloe Daniel MD Abdomen/Pelvis CT 01/05/17 1822 Signed Impressions: Service Date/Time: Thursday, January 05, 2017 18:54 - CONCLUSION: 1. Small bilateral pleural effusions and nodular infiltrates in right middle lobe most likely inflammatory and pneumonia not present previously. 2. Diverticuli throughout the colon with the area of bowel wall thickening and narrowing of sigmoid colon may be due to spasm, diverticulitis or underlying mass. KShelley Glass MD Objective Remarks GENERAL: PAtient is 76 yo critically ill intubated, sedated and on pressors. SKIN: Warm and dry. HEAD: Normocephalic. EYES: No scleral icterus. No injection or drainage. NECK: Supple, trachea midline. No JVD or lymphadenopathy. Orally intubated CARDIOVASCULAR: Regular rate and rhythm without murmurs, gallops, or rubs. RESPIRATORY: Breath sounds equal bilaterally. No accessory muscle use. GASTROINTESTINAL: Abdomen soft, non-tender, nondistended. MUSCULOSKELETAL: No cyanosis, or edema. BACK: Nontender without obvious deformity. No CVA tenderness. Neuro: Sedated, intubated. 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 Daily sedation vacation Pulm: Continue with vent support keep sat >92% Bronchodilators, ICU vent bundle. SBT as reva. CV: Wean off pressors ( on Levophed, Vasopressin) keep MAP >65mmHg Lactic acid 1.0 on 01/06. Echo 12/05 showed EF 35-40%, no RWMA Decrease Hydrocortisone 25mg IV Q12, ASA 325mg daily : Monitor renal function, avoid nephrotoxins. HD per renal- Dr. Antoine. s/p HD 01/08 with removal 2L GI: On TF- Nepro @ 40ml/hr, Protonix 40mg daily. Monitor LFT's ID: Continue with abx per ID ( On Vanco PO, IV Flagyl) monitor for signs of infections ( Fever, WBC) Check sputum cx, BC from 01/05: No growth Heme: Monitor CBC, on Epogen with HD Endo: SSI medium scale with accuchecks for glycemic control Add Levemir 7u Q12 and taper IV steroids. GI prophylaxis- on Protonix 40mg daily DVT prophylaxis- On Heparin SQ Lines: Right IJ CVP placed 01/07 CCT 30 mins Problem Qualifiers (1) Chronic kidney disease (CKD): Qualified Code: N18.5 - Chronic kidney disease (CKD), stage 5 Nava Shaw MD Jan 10, 2017 07:24
[2017-01-10 07:35] LABS: BANDS 19 % (0-6); BASOPHILS 1 % (0-2); CORRECTED NUCLEATED RBC 1 /100 WBC (0-0); NEUTROPHIL # MANUAL DIFF 7.1 TH/MM3 (1.8-7.7); POLYS (SEG NEUTROPHILS) 68 % (16-70); WBC DIFF SAMPLE 100
[2017-01-10 07:36] LABS: DOHLE BODIES PRESENT (NONE SEEN)
[2017-01-10 07:38] LABS: KERATOCYTES OCC (NORMAL); PLATELET ESTIMATE SMEAR LOW (NORMAL); PLATELET MORPHOLOGY NORMAL (NORMAL); SCAN/DIFF FINAL DIFF MANUAL
[2017-01-10 08:11] LABS: INDIRECT BILIRUBIN 0.3 MG/DL (0.0-0.8); TOTAL BILIRUBIN ADULT 0.4 MG/DL (0.2-1.0)
--- NOTE | 2017-01-10 08:43 | RADRPT ---
EXAM DATE/TIME: 01/10/2017 07:58 [place] COMPARISON: CHEST SINGLE AP, January 08, 2017, 12:29. INDICATIONS : VDRF. MEDICAL HISTORY : Hypertension. Chronic obstructive pulmonary disease. Cerebrovascular disease. Renal failure, chronic. SURGICAL HISTORY : None. ENCOUNTER: Subsequent ACUITY: 4 - 6 days PAIN SCORE: Non-responsive. LOCATION: Bilateral chest FINDINGS: A single portable frontal view the chest shows worsening bilateral pleural effusions and bibasilar in filtrates. Heart is enlarged. Dialysis catheter overlies the right chest. Central line overlies the r ight chest. Endotracheal tube tip is 3 cm proximal to the geraldo. Nasogastric tube noted. CONCLUSION: 1. Worsening effusions and bibasilar infiltrates. Radiographic pattern suggestive of pulmonary edema. 2. Right-sided dialysis catheter and other lines and tubes. Carlos Marmolejo Jr., MD on January 10, 2017 at 8:41 Board Certified Radiologist. This report was verified electronically.
[2017-01-10] MEDS: LANTHANUM CARBONATE 500 MG CHEWABLE TABLET CHEW SCH ×3 (08:49→18:30)
[2017-01-10] MEDS: CHLORHEXIDINE 0.12% (ORAL KIT) 15 ML CUP MT SCH ×2 (08:49→21:40)
[2017-01-10] MEDS: GABAPENTIN 100 MG CAP PO SCH ×2 (08:50→20:53)
[2017-01-10] MEDS: VANCOMYCIN 500 MG VIAL (FOR ORAL USE ONLY) PO SCH ×4 (08:50→20:52)
[2017-01-10] MEDS: ASPIRIN 325 MG TAB PO SCH (08:50)
[2017-01-10] MEDS: HYDROCORTISONE SOD SUCCINATE 100 MG VIAL IV PUSH SCH ×2 (08:50→20:52)
[2017-01-10] MEDS: CALCIUM CARBONATE 1.25 GM (CA 500 MG) TAB PO SCH (08:50)
[2017-01-10] MEDS: SODIUM CHLORIDE 0.9% FLUSH 10 ML FLUSH IV FLUSH SCH ×2 (08:50→20:54)
[2017-01-10] MEDS: INSULIN DETEMIR 100 UNITS/ML VIAL SQ SCH ×2 (08:51→21:41)
[2017-01-10] MEDS: COLLAGENASE OINT 30 GM TUBE TOP SCH (08:51)
[2017-01-10] MEDS: HEPARIN SODIUM - SQ 10,000 UNITS/ML VIAL SQ SCH ×2 (11:00→23:00)
[2017-01-10] MEDS: PANTOPRAZOLE SODIUM 40 MG VIAL IV PUSH SCH (11:00)
--- NOTE | 2017-01-10 11:33 | HHI.IDPN ---
Subjective Subjective Remarks we events noted pt is now intubated Having llarge amount of liquid stool 400-500 dw : it appears to be pt's 3 rd diagnosed C.diff episode i the last 6 weeks or so He is afebrile Antibiotics vanco po flagyl iv Lines Line sites with no e.o infection Past Medical History ESRD/HD Allergies: Coded Allergies: Betadine (Verified Allergy, Severe, Rash, 01/05/17) *MDRO Multi-Drug Resistant Organism (Verified Adverse Reaction, Unknown, ) Carlson resistant K. pneumoniae (urine-08/06/16) Objective . Vital Signs Date Time Temp Pulse Resp B/P Pulse Ox O2 Delivery O2 Flow Rate FiO2 01/10/17 09:00 35 01/10/17 08:53 96 35 01/10/17 08:00 35 01/10/17 08:00 98.9 101 20 114/45 100 131/76 01/10/17 08:00 101 01/10/17 06:00 107 01/10/17 04:17 97 35 01/10/17 04:00 35 01/10/17 04:00 100.3 87 20 123/57 97 01/10/17 04:00 87 01/10/17 02:00 86 01/10/17 01:30 98 35 01/10/17 00:00 100.1 92 20 138/57 97 01/10/17 00:00 35 01/10/17 00:00 87 01/09/17 22:14 96 35 01/09/17 22:00 95 01/09/17 20:00 100.0 89 21 132/61 98 01/09/17 20:00 89 01/09/17 20:00 35 01/09/17 19:12 97 35 01/09/17 18:00 98 01/09/17 16:18 97 35 01/09/17 16:00 40 01/09/17 16:00 99.1 75 23 111/53 98 01/09/17 16:00 92 01/09/17 14:00 89 01/09/17 12:23 98 35 01/09/17 12:00 98.9 89 21 134/60 98 01/09/17 12:00 89 01/09/17 12:00 40 01/09/17 01/09/17 01/10/17 15:00 23:00 07:00 Intake Total 838 ml 498 ml 623 ml Output Total 100 ml 200 ml 200 ml Balance 738 ml 298 ml 423 ml Intake Oral 0 ml 0 ml IV Total 778 ml 242 ml 394 ml Tube Feeding 60 ml 256 ml 229 ml Output Urine Total 0 ml 0 ml 0 ml Stool Total 100 ml 200 ml 200 ml . Laboratory Tests Test 01/09/17 01/09/17 01/10/17 03:30 06:50 05:30 White Blood Count 2.5 TH/MM3 7.7 TH/MM3 8.2 TH/MM3 Red Blood Count 3.15 MIL/MM3 3.15 MIL/MM3 3.78 MIL/MM3 Hemoglobin 9.2 GM/DL 9.5 GM/DL 11.0 GM/DL Hematocrit 26.5 % 29.1 % 35.3 % Mean Corpuscular Volume 84.1 FL 92.3 FL 93.3 FL Mean Corpuscular Hemoglobin 29.3 PG 30.2 PG 29.2 PG Mean Corpuscular Hemoglobin 34.9 % 32.7 % 31.3 % Concent Red Cell Distribution Width 16.4 % 19.0 % 19.2 % Platelet Count 83 TH/MM3 134 TH/MM3 136 TH/MM3 Mean Platelet Volume 7.6 FL 8.9 FL 8.3 FL Neutrophils (%) (Auto) 66.1 % 89.0 % 80.7 % Lymphocytes (%) (Auto) 24.5 % 3.0 % 6.7 % Monocytes (%) (Auto) 9.2 % 7.7 % 12.3 % Eosinophils (%) (Auto) 0.0 % 0.2 % 0.2 % Basophils (%) (Auto) 0.2 % 0.1 % 0.1 % Neutrophils # (Auto) 1.6 TH/MM3 6.8 TH/MM3 6.6 TH/MM3 Lymphocytes # (Auto) 0.6 TH/MM3 0.2 TH/MM3 0.5 TH/MM3 Monocytes # (Auto) 0.2 TH/MM3 0.6 TH/MM3 1.0 TH/MM3 Eosinophils # (Auto) 0.0 TH/MM3 0.0 TH/MM3 0.0 TH/MM3 Basophils # (Auto) 0.0 TH/MM3 0.0 TH/MM3 0.0 TH/MM3 CBC Comment AUTO DIFF AUTO DIFF AUTO DIFF Differential Total Cells 100 100 100 Counted Neutrophils % (Manual) 54 % 68 % 68 % Band Neutrophils % 17 % 24 % 19 % Lymphocytes % 24 % 3 % 2 % Monocytes % 5 % 5 % 10 % Neutrophils # (Manual) 1.8 TH/MM3 7.1 TH/MM3 7.1 TH/MM3 Nucleated Red Blood Cells 1 /100 WBC 1 /100 WBC Differential Comment FINAL DIFF FINAL DIFF FINAL DIFF MANUAL MANUAL MANUAL Platelet Estimate LOW LOW LOW Platelet Morphology Comment NORMAL NORMAL NORMAL Acanthocytes OCC OCC Christine Cells 1+ Basophils % 1 % Dohle Bodies PRESENT Keratocytes OCC Laboratory Tests Test 01/09/17 01/09/17 01/10/17 03:26 06:50 05:30 Sodium Level 138 MEQ/L 137 MEQ/L 135 MEQ/L Potassium Level 3.9 MEQ/L 4.0 MEQ/L 4.1 MEQ/L Chloride Level 101 MEQ/L 102 MEQ/L 100 MEQ/L Carbon Dioxide Level 26.8 MEQ/L 26.8 MEQ/L 22.8 MEQ/L Anion Gap 10 MEQ/L 8 MEQ/L 12 MEQ/L Blood Urea Nitrogen 31 MG/DL 31 MG/DL 49 MG/DL Creatinine 3.23 MG/DL 3.29 MG/DL 4.42 MG/DL Estimat Glomerular Filtration 19 ML/MIN 18 ML/MIN 13 ML/MIN Rate Random Glucose 232 MG/DL 231 MG/DL 384 MG/DL Calcium Level 7.6 MG/DL 8.1 MG/DL 8.0 MG/DL Total Bilirubin 0.5 MG/DL 0.4 MG/DL Aspartate Amino Transf 104 U/L 36 U/L (AST/SGOT) Alanine Aminotransferase 20 U/L 17 U/L (ALT/SGPT) Alkaline Phosphatase 256 U/L 265 U/L Total Protein 5.3 GM/DL 5.1 GM/DL Albumin 2.3 GM/DL 2.0 GM/DL Direct Bilirubin 0.1 MG/DL Indirect Bilirubin 0.3 MG/DL Imaging Last Impressions Chest X-Ray 01/10/17 0000 Signed Impressions: Service Date/Time: Tuesday, January 10, 2017 07:58 - CONCLUSION: 1. Worsening effusions and bibasilar infiltrates. Radiographic pattern suggestive of pulmonary edema. 2. Right-sided dialysis catheter and other lines and tubes. Carlos Marmolejo Jr., MD Abdomen/Pelvis CT 01/05/17 1822 Signed Impressions: Service Date/Time: Thursday, January 05, 2017 18:54 - CONCLUSION: 1. Small bilateral pleural effusions and nodular infiltrates in right middle lobe most likely inflammatory and pneumonia not present previously. 2. Diverticuli throughout the colon with the area of bowel wall thickening and narrowing of sigmoid colon may be due to spasm, diverticulitis or underlying mass. Bentley Glass MD Physical Exam CONSTITUTIONAL/GENERAL: sedated int'd on mech vent TUBES/LINES/DRAINS: Permacath in place R chest w/o infc R IJ in place TLC wo e/o infx SKIN: No jaundice, rashes, or lesions. Skin temperature appropriate. Not diaphoretic. HEAD: Atraumatic. Normocephalic. EYES: Pupils equal and round and reactive. Extraocular motions intact. No scleral icterus. No injection or drainage. Fundi not examined. ENT: Orally intubated CARDIOVASCULAR: Regular rate and rhythm without murmurs, gallops, or rubs. No JVD. Peripheral pulses symmetric. RESPIRATORY/CHEST: Symmetric, unlabored respirations. Clear to auscultation. Breath sounds equal bilaterally. No wheezes, rales, or rhonchi. GASTROINTESTINAL: Abdomen soft, not tender , markedly distended. Bowel sounds present. dignichield in place with liquid brown stool GENITOURINARY: Without palpable bladder distension. MUSCULOSKELETAL: Extremities without clubbing, cyanosis, or edema. No mottling B/l dressing s in place NEUROLOGICAL:awake PSYCHIATRIC:slightly agitated Assessment & Plan Remarks Recurrent C.diff colitis hypervirulent strain - findings on CT likely reflect distal colitis -3rd episode Sepsis , likely 2/2 C.diff Multiple med problems ESRD Acute VDRF - CXR cw pulm edema - BNP high - likely fluid overload HD cath in place leukocytosis, bandemia Critically ill stable Recs: - cont po vanocmycin - anticipate 6 weeks of po vanco since its appear to be 3rd documented episode - cont IV flagyl for now - avoid systemic abx if feasible dw pts : Aida Garcia MD Jan 10, 2017 11:33 Aida Garcia MD Jan 10, 2017 11:33
--- NOTE | 2017-01-10 11:50 | HHI.NPPN ---
Subjective General Problems: Anemia, COPD, Edema, Heart Disease, Hypotension Renal Failure: End Stage Renal Disease History of Present Illness 76-year-old male with past medical history of hypertension, diabetes mellitus, hyperlipidemia, peripheral vascular disease, chronic obstructive pulmonary disease, end-stage renal disease on hemodialysis who came to the hospital with complaint of loose bowel motion and lower abdominal pain. Additional Remarks Patient is awake, and remain intubated. Review of Systems General Constitutional: Fatigue Respiratory Lungs: SOB, Wheeze Gastrointestinal Gastrointestinal: Abdominal Pain, Diarrhea Objective Data Data 01/09/17 01/10/17 19:00 07:00 Intake Total 838 ml 1121 ml Output Total 100 ml 400 ml Balance 738 ml 721 ml Intake Oral 0 ml IV Total 778 ml 636 ml Tube Feeding 60 ml 485 ml Output Urine Total 0 ml 0 ml Stool Total 100 ml 400 ml Vital Signs Date Time Temp Pulse Resp B/P Pulse Ox O2 Delivery O2 Flow Rate FiO2 01/10/17 09:00 35 01/10/17 08:53 96 35 01/10/17 08:00 35 01/10/17 08:00 98.9 101 20 114/45 100 131/76 01/10/17 08:00 101 01/10/17 06:00 107 01/10/17 04:17 97 35 01/10/17 04:00 35 01/10/17 04:00 100.3 87 20 123/57 97 01/10/17 04:00 87 01/10/17 02:00 86 01/10/17 01:30 98 35 01/10/17 00:00 100.1 92 20 138/57 97 01/10/17 00:00 35 01/10/17 00:00 87 01/09/17 22:14 96 35 01/09/17 22:00 95 01/09/17 20:00 100.0 89 21 132/61 98 01/09/17 20:00 89 01/09/17 20:00 35 01/09/17 19:12 97 35 01/09/17 18:00 98 01/09/17 16:18 97 35 01/09/17 16:00 40 01/09/17 16:00 99.1 75 23 111/53 98 01/09/17 16:00 92 01/09/17 14:00 89 01/09/17 12:23 98 35 01/09/17 12:00 98.9 89 21 134/60 98 01/09/17 12:00 89 01/09/17 12:00 40 -: 01/10/17 0530 01/10/17 0530 Physical Exam General Appearance Remarks Intubated and awake. Eyes Eye Exam: Pupils Equal Throat Throat Exam: Oral Mucosa [place] & Moist Neck Neck Exam: Neck Supple Pulmonary Resp Exam: Breath Sounds Equal, No Distress, Rhonchi, Decreased Bases Cardiology CV Exam: Regular, Normal Sinus Rhythm Gastrointestinal/Abdomen GI Exam: Soft, Non-Tender, Bowel Sounds Present, Distended Extremeties Extremities Exam: Trace Edema Neurologic Neuro Exam: Alert, Awake Psychiatric Psych Exam: Appropriate Responses Assessment/Plan Assessment Summary: Anemia of CKD, CHF, Hypotension, End Stage Renal Disease Problem List: (1) Anxiety (2) Diabetes (3) C. difficile diarrhea (4) COPD (chronic obstructive pulmonary disease) (5) Congestive heart failure (6) Diverticulitis (7) Diarrhea (8) End-stage renal disease on hemodialysis Plan Patient has drop in the BP, Now on pressors.Levo/Vasopressin HD was done Sat. Still has diarrhea. C diff colitis managed by ID Blood culture negative so far. Follow the cultures. Antibiotics as per ID. HD to continue TTS. Problem Qualifiers (1) COPD (chronic obstructive pulmonary disease): Qualified Code: J44.9 - Chronic obstructive pulmonary disease, unspecified COPD type (2) Congestive heart failure: Qualified Code: I50.9 - Chronic congestive heart failure, unspecified congestive heart failure type (3) Diverticulitis: Qualified Code: K57.32 - Diverticulitis of large intestine without perforation or abscess without bleeding (4) Diarrhea: Qualified Code: R19.7 - Diarrhea, unspecified type Willi Antoine MD Jan 10, 2017 11:50
--- NOTE | 2017-01-10 12:23 | HHI.PR ---
Subjective Remarks Patient is intubated. Alert following some commands. Not in any apparent distress. is at bedside. Objective Objective Results - Vital Signs Date Time Temp Pulse Resp B/P Pulse Ox O2 Delivery O2 Flow Rate FiO2 01/10/17 11:56 97 35 01/10/17 09:00 35 01/10/17 08:53 96 35 01/10/17 08:00 35 01/10/17 08:00 98.9 101 20 114/45 100 131/76 01/10/17 08:00 101 01/10/17 06:00 107 01/10/17 04:17 97 35 01/10/17 04:00 35 01/10/17 04:00 100.3 87 20 123/57 97 01/10/17 04:00 87 01/10/17 02:00 86 01/10/17 01:30 98 35 01/10/17 00:00 100.1 92 20 138/57 97 01/10/17 00:00 35 01/10/17 00:00 87 01/09/17 22:14 96 35 01/09/17 22:00 95 01/09/17 20:00 100.0 89 21 132/61 98 01/09/17 20:00 89 01/09/17 20:00 35 01/09/17 19:12 97 35 01/09/17 18:00 98 01/09/17 16:18 97 35 01/09/17 16:00 40 01/09/17 16:00 99.1 75 23 111/53 98 01/09/17 16:00 92 01/09/17 14:00 89 01/09/17 12:23 98 35 I/O 01/09/17 01/09/17 01/09/17 01/10/17 01/10/17 01/10/17 07:00 15:00 23:00 07:00 15:00 23:00 Intake Total 639 ml 838 ml 498 ml 623 ml Output Total 100 ml 100 ml 200 ml 200 ml Balance 539 ml 738 ml 298 ml 423 ml Intake Oral 0 ml 0 ml 0 ml IV Total 614 ml 778 ml 242 ml 394 ml Tube Feeding 25 ml 60 ml 256 ml 229 ml Output Urine Total 0 ml 0 ml 0 ml 0 ml Stool Total 100 ml 100 ml 200 ml 200 ml Result Diagram: 01/10/17 0530 01/10/17 0530 Imaging Last Impressions Abdomen/Pelvis CT 01/05/17 1822 Signed Impressions: Service Date/Time: Thursday, January 05, 2017 18:54 - CONCLUSION: 1. Small bilateral pleural effusions and nodular infiltrates in right middle lobe most likely inflammatory and pneumonia not present previously. 2. Diverticuli throughout the colon with the area of bowel wall thickening and narrowing of sigmoid colon may be due to spasm, diverticulitis or underlying mass. Bentley Glass MD Other Results Laboratory Tests Test 01/09/17 01/10/17 17:55 05:30 Blood Gas Puncture Site ART LINE Blood Gas Patient Temperature 98.6 Blood Gas HCO3 21 Blood Gas Base Excess -3.1 Blood Gas Oxygen Saturation 94 Arterial Blood pH 7.36 Arterial Blood Partial 39 Pressure CO2 Arterial Blood Partial 90 Pressure O2 Arterial Blood Oxygen Content 13.1 Arterial Blood 1.7 Carboxyhemoglobin Arterial Blood Methemoglobin 1.4 Blood Gas Hemoglobin 9.8 Oxygen Delivery Device VENTILATOR Blood Gas Ventilator Setting A/C 20/600/PEEP5 Blood Gas Inspired Oxygen 35 White Blood Count 8.2 Red Blood Count 3.78 Hemoglobin 11.0 Hematocrit 35.3 Mean Corpuscular Volume 93.3 Mean Corpuscular Hemoglobin 29.2 Mean Corpuscular Hemoglobin 31.3 Concent Red Cell Distribution Width 19.2 Platelet Count 136 Mean Platelet Volume 8.3 Neutrophils (%) (Auto) 80.7 Lymphocytes (%) (Auto) 6.7 Monocytes (%) (Auto) 12.3 Eosinophils (%) (Auto) 0.2 Basophils (%) (Auto) 0.1 Neutrophils # (Auto) 6.6 Lymphocytes # (Auto) 0.5 Monocytes # (Auto) 1.0 Eosinophils # (Auto) 0.0 Basophils # (Auto) 0.0 CBC Comment AUTO DIFF Differential Total Cells 100 Counted Neutrophils % (Manual) 68 Band Neutrophils % 19 Lymphocytes % 2 Monocytes % 10 Basophils % 1 Neutrophils # (Manual) 7.1 Nucleated Red Blood Cells 1 Differential Comment FINAL DIFF MANUAL Dohle Bodies PRESENT Platelet Estimate LOW Platelet Morphology Comment NORMAL Keratocytes OCC Sodium Level 135 Potassium Level 4.1 Chloride Level 100 Carbon Dioxide Level 22.8 Anion Gap 12 Blood Urea Nitrogen 49 Creatinine 4.42 Estimat Glomerular Filtration 13 Rate Random Glucose 384 Calcium Level 8.0 Total Bilirubin 0.4 Direct Bilirubin 0.1 Indirect Bilirubin 0.3 Aspartate Amino Transf 36 (AST/SGOT) Alanine Aminotransferase 17 (ALT/SGPT) Alkaline Phosphatase 265 Total Protein 5.1 Albumin 2.0 Date/Time Procedure Status Source Growth 01/05/17 20:50 Aerobic Blood Culture - Final Complete Blood Peripheral NO GROWTH IN 5 DAYS 01/05/17 20:50 Anaerobic Blood Culture - Final Complete Blood Peripheral NO GROWTH IN 5 DAYS Physical Exam Physical Exam GENERAL: This is a well-nourished, well-developed patient. Ill-looking SKIN: No rashes, ecchymoses or lesions. Cool and dry. HEAD: Atraumatic. Normocephalic. No temporal or scalp tenderness. EYES: Pupils equal round and reactive. Extraocular motions intact. No scleral icterus. No injection or drainage. ENT: With ET tube.. NECK: Trachea midline. Supple, nontender. CARDIOVASCULAR: S1-S2, unable to detect any murmurs rubs or gallops. Right chest wall is noted with permacath. RESPIRATORY: Diminished, faint bibasilar rales. GASTROINTESTINAL: Abdomen soft,distended. No hepato-splenomegaly, or palpable masses. No guarding. MUSCULOSKELETAL: Extremities without clubbing, cyanosis. No joint tenderness, effusion, or edema noted. No calf tenderness. Negative Homans sign bilaterally. Bilateral lower extremities noted with +1 edema, pedal pulses 1+ bilaterally. Both feet with dressings D/I. Has ulcers to both heels. NEUROLOGICAL: Alert. Following some simple commands. A/P Assessment and Plan (1) Sepsis (2) Recurrent Clostridium difficile diarrhea (3) Diverticulitis (4) Diabetes 1.5, managed as type 2 (5) History of CVA (cerebrovascular accident) (6) PVD (peripheral vascular disease) (7) Hypertension (8) Hyperlipidemia (9) Chronic kidney disease (CKD) (10) Congestive heart failure (11) COPD (chronic obstructive pulmonary disease) (12) shock hypovolemic/septic Plan 76-year-old female with recent extensive hospitalizations for perforated duodenal ulcer, sepsis, respiratory failure with tracheostomy, CVA, acute renal injury that led to CKD requiring hemodialysis. [facility] and inability to extubate, has been treated for C. difficile colitis. Now presents with recurrent C. difficile colitis, possible diverticulitis and also recurrent pneumonia. -Continue with antibiotics, as per ID -Follow cultures -Monitor CBC -ID consultation appreciated. Antibiotic per ID -GI input appreciated Hypotension/shock -Patient was put on Continue on pressors as needed -Appreciate turn supervisor input -IV hydration cautiously Chronic kidney disease/ESRD, on hemodialysis Tuesday and Tuesday. Appreciate consultation by nephrology for hemodialysis management. Discussed with nephrology on the floor COPD, sleep apnea, with respiratory failure on CPAP trial intubated -On Solu-Cortef -Duonebs PRN Chronic CHF, stable -Continue with home Diabetes type 2 Accu-Cheks before meals and at bedtime with insulin therapy as needed History of recent CVA Continue with aspirin PVD Continue home medications Hypertension Home medications on hold because of hypotension. Pressors on as-needed basis Hyperlipidemia Continue with statins History peripheral vascular disease, had vascular surgery at [facility] last year. Has chronic wounds to both heels. Consult wound care nurse for evaluation Labs reviewed Labs for morning Leukocytosis with bandemia improved. But is still bandemia Anemia stable Mild hypocalcemia will monitor Benadryl for sleep Home medications reviewed, initiated as indicated Heparin 5000 units subcutaneous twice a day for DVT prophylaxis Discussed with turn supervisor in detail on floor Plan of care has been discussed with the patient, and registered nurse. Further management of the patient will be dependent on the hospital course Patient's condition is critical. Total time spent in management of this patient is more than 30 minutes Julius Wyatt MD Jan 10, 2017 12:23
[2017-01-10] MEDS: NOREPINEPHRINE 4 MG/D5W 250 ML IV SCH (18:22)
[2017-01-10] MEDS: fentaNYL DRIP 250 ML IV SCH (20:52)
[2017-01-10] MEDS: ATORVASTATIN 80 MG TAB PO SCH (20:52)
[2017-01-11] VITALS (20 sets, daily range): BP systolic 82–156; BP diastolic 40–72; PULSE 85–166; RESP 18–31; TEMP 98.1–104; O2SAT 96–100
[2017-01-11] MEDS: NOREPINEPHRINE 4 MG/D5W 250 ML IV SCH ×2 (00:36→05:22)
[2017-01-11] MEDS ORDERED: ACETAMINOPHEN 1000 MG/100 ML VIAL IV ONE (01:00)
[2017-01-11] MEDS: INSULIN NovoLIN REGULAR SUPPLEMENTAL SCALE SQ SCH (01:59)
[2017-01-11] MEDS: CHLORHEXIDINE GLUCONATE 2 % 1 PACK (2 CLOTHS)(taper/protocol) TOP SCH (04:00)
[2017-01-11] MEDS: RESP: ALBUTEROL 2.5 MG/IPRATROPIUM 0.5 MG NEB (SCH) NEB ×4 (04:30→22:25)
[2017-01-11] MEDS: metroNIDAZOLE 500 MG INJ 100 ML IV SCH ×3 (04:48→20:15)
[2017-01-11] MEDS ORDERED: SODIUM CHLOR 0.9% 1000 ML INJ 1,000 ML IV ONE (05:30)
[2017-01-11 05:44] LABS: AUTOMATED NEUTROPHIL # 7.3 TH/MM3 (1.8-7.7); BASOPHIL % 0.3 % (0.0-2.0); EOSINOPHIL % 0.1 % (0.0-4.0); LYMPH % 10.4 % (9.0-44.0); MEAN CELL VOLUME 92.9 FL (80.0-100.0); MEAN CORPUSCULAR HEMOGLOBIN 29.7 PG (27.0-34.0); MONO % 12.5 % (0.0-8.0); NEUT % 76.7 % (16.0-70.0); PLATELET COUNT 141 TH/MM3 (150-450); RED BLOOD COUNT 3.76 MIL/MM3 (4.50-5.90); RED CELL DISTRIBUTION WIDTH 18.6 % (11.6-17.2); WHITE BLOOD COUNT 9.6 TH/MM3 (4.0-11.0)
[2017-01-11 06:10] LABS: HEMO FLAGS AUTO DIFF
[2017-01-11 06:26] LABS: BICARBONATE 18.1 MEQ/L (21.0-32.0); CALCIUM-PROTEIN CORRECTED 8.4 MG/DL (8.5-10.1); POTASSIUM 4.4 MEQ/L (3.5-5.1); TOTAL BILIRUBIN ADULT 0.4 MG/DL (0.2-1.0)
[2017-01-11] MEDS ORDERED: INSULIN REGULAR (IV INFUSION) 100 UNITS in SODIUM CHLORIDE 0.9% INJ 99 ML IV SCH (07:15)
[2017-01-11] MEDS ORDERED: MISC INFORMATION XX ONE (07:15)
[2017-01-11] MEDS ORDERED: DEXTROSE 50% IN WATER 50 ML VIAL(D50) IV PUSH PRN ×2 (07:15→22:30)
--- NOTE | 2017-01-11 07:28 | HHI.CCPN ---
Subjective Remarks/Hospital Course 76 year old male with DM, HTN, hyperlipidemia, obesity, cataracts, arthritis, peripheral arterial disease, neurogenic bladder, status post TURP, COPD, obstructive sleep apnea, and osteoporosis. He was admitted 07/25/16 for sepsis, perforated duodenal ulcer with percutaneous drain, and cellulitis. The course was complicated with an intra-abdominal abscess and that was drained by IR. Subsequently he had G-tube and J-tube inserted which. Another course was complicated with ESRD now patient on hemodialysis. He was discharged to [facility] and return to the hospital with new onset of stroke. He was readmitted from rehabilitation on 10/10/2016 for respiratory failure and mucous plug. He was again discharged and was no longer on hemodialysis. Most recently, he was admitted from 12/03 to 12/15 for respiratory failure requiring mechanical ventilation, recurrent clostridium difficile colitis, sepsis, and pneumonia. Now he is back on dialysis Tuesday to and Tuesday. Patient was discharged to [facility] for respiratory rehabilitation and was discharged last Tuesday. According to the patient's , he had been doing relatively well. The day prior to admission he started to complain of abdominal cramping. He was admitted to medical-surgical floor. 01/07/2017 after hemodialysis removed 2 L of fluids, rapid response was called due to hypotension with a blood pressure systolic in the 60s and he was transferred to ICU. 01/08 Patient remains on Levophed 21 mics and Vasopressin 0.04. Afebrile. For HD today. Denies any SOB or abdominal pain. 01/09 Patient was intubated yesterday for acute hypercapnic resp failure sedated with Fentanyl. s/p HD yesterday with removal 2L. Levophed is down 10 mics and Vasopressin 0.04. Afebrile. 01/10 Patient remains sedated and intubated. T:100.3. Levophed is down to 4 mics , on Vasopressin 0.04. 01/11 Patient remains sedated and intubated. His pressors were off yesterday however restarted on Levophed now is at 11 mics in addition patient was given 1L bolus NS overnight. T: 104.0 at midnight. Objective Vital Signs Date Time Temp Pulse Resp B/P Pulse Ox O2 Delivery O2 Flow Rate FiO2 01/11/17 06:00 116 01/11/17 04:30 98 35 01/11/17 04:00 100.9 27 90/51 82/50 01/08/17 08:00 Nasal Cannula 4.00 Intake and Output 01/10/17 01/10/17 01/11/17 08:00 16:00 00:00 Intake Total 623 ml 662 ml 669 ml Output Total 200 ml 100 ml 100 ml Balance 423 ml 562 ml 569 ml Result Diagram: 01/11/17 0455 01/11/17 0445 Other Results Laboratory Tests Test 01/11/17 01/11/17 04:45 04:55 Sodium Level 134 MEQ/L Potassium Level 4.4 MEQ/L Chloride Level 99 MEQ/L Carbon Dioxide Level 18.1 MEQ/L Anion Gap 17 MEQ/L Blood Urea Nitrogen 75 MG/DL Creatinine 5.54 MG/DL Estimat Glomerular Filtration 10 ML/MIN Rate Random Glucose 440 MG/DL Calcium Level 7.1 MG/DL Protein Corrected Calcium 8.4 MG/DL Total Bilirubin 0.4 MG/DL Aspartate Amino Transf 37 U/L (AST/SGOT) Alanine Aminotransferase 17 U/L (ALT/SGPT) Alkaline Phosphatase 209 U/L Total Protein 4.7 GM/DL Albumin 1.7 GM/DL White Blood Count 9.6 TH/MM3 Red Blood Count 3.76 MIL/MM3 Hemoglobin 11.2 GM/DL Hematocrit 35.0 % Mean Corpuscular Volume 92.9 FL Mean Corpuscular Hemoglobin 29.7 PG Mean Corpuscular Hemoglobin 32.0 % Concent Red Cell Distribution Width 18.6 % Platelet Count 141 TH/MM3 Mean Platelet Volume 9.2 FL Neutrophils (%) (Auto) 76.7 % Lymphocytes (%) (Auto) 10.4 % Monocytes (%) (Auto) 12.5 % Eosinophils (%) (Auto) 0.1 % Basophils (%) (Auto) 0.3 % Neutrophils # (Auto) 7.3 TH/MM3 Lymphocytes # (Auto) 1.0 TH/MM3 Monocytes # (Auto) 1.2 TH/MM3 Eosinophils # (Auto) 0.0 TH/MM3 Basophils # (Auto) 0.0 TH/MM3 CBC Comment AUTO DIFF Imaging Last Impressions Chest X-Ray 01/10/17 0000 Signed Impressions: Service Date/Time: Tuesday, January 10, 2017 07:58 - CONCLUSION: 1. Worsening effusions and bibasilar infiltrates. Radiographic pattern suggestive of pulmonary edema. 2. Right-sided dialysis catheter and other lines and tubes. Carlos Marmolejo Jr., MD Abdomen/Pelvis CT 01/05/17 1822 Signed Impressions: Service Date/Time: Thursday, January 05, 2017 18:54 - CONCLUSION: 1. Small bilateral pleural effusions and nodular infiltrates in right middle lobe most likely inflammatory and pneumonia not present previously. 2. Diverticuli throughout the colon with the area of bowel wall thickening and narrowing of sigmoid colon may be due to spasm, diverticulitis or underlying mass. Bentley Glass MD Objective Remarks GENERAL: PAtient is 76 yo critically ill intubated, sedated and on pressors. SKIN: Warm and dry. HEAD: Normocephalic. EYES: No scleral icterus. No injection or drainage. NECK: Supple, trachea midline. No JVD or lymphadenopathy. Orally intubated CARDIOVASCULAR: Regular rate and rhythm without murmurs, gallops, or rubs. RESPIRATORY: Breath sounds equal bilaterally. No accessory muscle use. GASTROINTESTINAL: Abdomen soft, non-tender, distended. MUSCULOSKELETAL: No cyanosis, or edema. BACK: Nontender without obvious deformity. No CVA tenderness. Neuro: Sedated, intubated. A/P Problem List: (1) Recurrent Clostridium difficile diarrhea ICD Code: A04.7 Status: Acute (2) Diabetes 1.5, managed as type 2 ICD Code: E13.9 Status: Acute (3) History of CVA (cerebrovascular accident) ICD Code: Z86.73 Status: Acute (4) Chronic kidney disease (CKD) ICD Code: N18.9 Status: Acute Assessment and Plan 1)VDRF intubated 01/08 2)Septic shock 3)C-diff colitis, diverticulitis 4)ESRD 5)DM 6)COPD 7)Hx CVA 8)Leukocytosis 9)Anemia 10)Elevated trop/NSTEMI Plan Neuro: On Fentanyl infusion for sedation. Daily sedation vacation Pulm: Continue with vent support keep sat >92% Bronchodilators, ICU vent bundle. SBT as reva. Check CT chest for further eval of basilar infiltrates CV: Wean off Levophed as reva, off Vasopressin monitor HR and BP keep MAP > 65mmHg Lactic acid 1.0 on 01/06. Echo 12/05 showed EF 35-40%, no RWMA On ASA 325mg daily, monitor troponin, cards eval, repeat echo. Place on heparin drip per [place] protocol. Discussed with cards- Dr. Garcia : Monitor renal function, avoid nephrotoxins. HD per renal- Dr. Antoine. s/p HD 01/08 with removal 2L for HD today GI: On TF- Nepro @ 40ml/hr, Protonix 40mg daily. Monitor LFT's ID: Continue with abx per ID ( On Vanco PO, IV Flagyl) monitor for signs of infections ( Fever, WBC) Vancomycin, Cefepime, Micafungin added today by ID. sputum cx & BC from 01/05: No growth, Eliseo check BC x 2 sets today and sputum cx. Check CT abdomen/pelvis Heme: Monitor CBC, on Epogen with HD Endo: Will place patient on insulin drip for glycemic control, d/c hydrocortisone GI prophylaxis- on Protonix 40mg daily DVT prophylaxis- On Heparin SQ Lines: Right IJ CVP placed 01/07 CCT 30 mins Problem Qualifiers (1) Chronic kidney disease (CKD): Qualified Code: N18.5 - Chronic kidney disease (CKD), stage 5 Nava Shaw MD Jan 11, 2017 07:28
[2017-01-11] MEDS: CHLORHEXIDINE 0.12% (ORAL KIT) 15 ML CUP MT SCH ×2 (08:00→20:00)
[2017-01-11 08:10] LABS: BANDS 14 % (0-6); MYELOCYTES 1 % (0-0); NEUTROPHIL # MANUAL DIFF 7.6 TH/MM3 (1.8-7.7); PLATELET ESTIMATE SMEAR LOW (NORMAL); PLATELET MORPHOLOGY ENLARGED (NORMAL); POLYS (SEG NEUTROPHILS) 64 % (16-70); WBC DIFF SAMPLE 100
[2017-01-11 08:11] LABS: ACANTHOCYTES OCC (NORMAL)
[2017-01-11 08:12] LABS: OVALOCYTES 1+ (NORMAL); SCAN/DIFF FINAL DIFF MANUAL
[2017-01-11] MEDS: HEPARIN SODIUM - IV 10,000 UNITS/10 ML VIAL PRN (08:41)
[2017-01-11] MEDS: EPOETIN ALFA 10,000 UNITS/ML VIAL IV PRN (08:41)
[2017-01-11] MEDS: ALBUMIN HUMAN 25% 25 GM/100 ML BAGP IV PRN ×2 (08:41→08:46)
[2017-01-11] MEDS: SODIUM CHLOR 0.9% 1000 ML INJ 1,000 ML IV PRN (08:42)
[2017-01-11] MEDS: GENTAMICIN SULFATE (DIALYSIS USE ONLY) 20 MG/2 ML VIAL IV PRN (08:42)
[2017-01-11] MEDS: VANCOMYCIN 500 MG VIAL (FOR ORAL USE ONLY) PO SCH ×5 (09:00→20:17)
[2017-01-11] MEDS: COLLAGENASE OINT 30 GM TUBE TOP SCH (09:00)
[2017-01-11] MEDS: ASPIRIN 325 MG TAB PO SCH (09:00)
[2017-01-11] MEDS: SODIUM CHLORIDE 0.9% FLUSH 10 ML FLUSH IV FLUSH SCH ×2 (09:00→21:00)
[2017-01-11] MEDS: LANTHANUM CARBONATE 500 MG CHEWABLE TABLET CHEW SCH ×4 (09:30→18:03)
[2017-01-11] MEDS ORDERED: TERBUTALINE INJ 1 MG/ML AMP SQ PRN ×2 (10:15)
[2017-01-11] MEDS: PHENYLEPHRINE INJ 40 MG in DEXTROSE 5% IN WATE 500 ML INJ 496 ML IV SCH ×4 (10:42→16:13)
[2017-01-11] MEDS: HEPARIN SODIUM - SQ 10,000 UNITS/ML VIAL SQ SCH (12:04)
[2017-01-11] MEDS: PANTOPRAZOLE SODIUM 40 MG VIAL IV PUSH SCH (12:04)
[2017-01-11] MEDS: CALCIUM CARBONATE 1.25 GM (CA 500 MG) TAB PO SCH (12:04)
[2017-01-11] MEDS: GABAPENTIN 100 MG CAP PO SCH ×2 (12:04→20:17)
[2017-01-11 13:33] LABS: MEAN CELL VOLUME 90.5 FL (80.0-100.0); MEAN CORPUSCULAR HEMOGLOBIN 29.6 PG (27.0-34.0); MEAN CORPUSCULAR HGB CONC 32.7 % (32.0-36.0); PLATELET COUNT 119 TH/MM3 (150-450); RED BLOOD COUNT 3.42 MIL/MM3 (4.50-5.90); RED CELL DISTRIBUTION WIDTH 18.8 % (11.6-17.2); REVIEW FLAG FINAL; WHITE BLOOD COUNT 9.3 TH/MM3 (4.0-11.0)
[2017-01-11 13:45] LABS: APTT (PATIENT) 43.6 SEC (24.3-30.1); INTERNATIONAL NORMALIZED RATIO 1.2 RATIO; PROTHROMBIN TIME - PATIENT 13.2 SEC (9.8-11.6)
--- NOTE | 2017-01-11 14:04 | HHI.IDPN ---
Subjective Subjective Remarks we events noted Fever 104 overnight; currently ow grade fevers Not much ETT secretions pt iremains intubated, on prssors (neosynephtine) Having llarge amount of liquid stool 350/8 hrs toleartes 20 cc/hr tube feeds trop elevated @ 17.9 - cardiology ff dw : it appears to be pt's 3 rd diagnosed C.diff episode i the last 6 weeks or so Antibiotics vanco po flagyl iv Lines Line sites with no e.o infection Past Medical History ESRD/HD Allergies: Coded Allergies: Betadine (Verified Allergy, Severe, Rash, 01/05/17) *MDRO Multi-Drug Resistant Organism (Verified Adverse Reaction, Unknown, ) Carlson resistant K. pneumoniae (urine-08/06/16) Objective . Vital Signs Date Time Temp Pulse Resp B/P Pulse Ox O2 Delivery O2 Flow Rate FiO2 01/11/17 12:36 97 35 01/11/17 08:37 97 35 01/11/17 06:00 116 01/11/17 04:30 98 35 01/11/17 04:00 35 01/11/17 04:00 118 01/11/17 04:00 100.9 118 27 90/51 98 82/50 01/11/17 02:00 123 01/11/17 01:41 97 35 01/11/17 00:00 35 01/11/17 00:00 125 01/11/17 00:00 104.0 125 31 115/56 96 104/54 01/10/17 22:09 99 35 01/10/17 22:00 121 01/10/17 20:00 35 01/10/17 20:00 102.9 125 29 111/97 97 115/61 01/10/17 20:00 125 01/10/17 19:10 97 35 01/10/17 18:00 125 01/10/17 16:00 124 01/10/17 16:00 98.9 119 20 108/55 99 111/58 01/10/17 16:00 35 01/10/17 15:28 98 35 01/10/17 01/10/17 01/11/17 15:00 23:00 07:00 Intake Total 662 ml 669 ml 1380 ml Output Total 100 ml 100 ml 100 ml Balance 562 ml 569 ml 1280 ml Intake Oral 0 ml IV Total 351 ml 399 ml 1120 ml Tube Feeding 311 ml 270 ml 260 ml Output Urine Total 0 ml Stool Total 100 ml 100 ml 100 ml . Laboratory Tests Test 01/10/17 01/11/17 01/11/17 05:30 04:55 13:11 White Blood Count 8.2 TH/MM3 9.6 TH/MM3 9.3 TH/MM3 Red Blood Count 3.78 MIL/MM3 3.76 MIL/MM3 3.42 MIL/MM3 Hemoglobin 11.0 GM/DL 11.2 GM/DL 10.1 GM/DL Hematocrit 35.3 % 35.0 % 31.0 % Mean Corpuscular Volume 93.3 FL 92.9 FL 90.5 FL Mean Corpuscular Hemoglobin 29.2 PG 29.7 PG 29.6 PG Mean Corpuscular Hemoglobin 31.3 % 32.0 % 32.7 % Concent Red Cell Distribution Width 19.2 % 18.6 % 18.8 % Platelet Count 136 TH/MM3 141 TH/MM3 119 TH/MM3 Mean Platelet Volume 8.3 FL 9.2 FL 9.3 FL Neutrophils (%) (Auto) 80.7 % 76.7 % Lymphocytes (%) (Auto) 6.7 % 10.4 % Monocytes (%) (Auto) 12.3 % 12.5 % Eosinophils (%) (Auto) 0.2 % 0.1 % Basophils (%) (Auto) 0.1 % 0.3 % Neutrophils # (Auto) 6.6 TH/MM3 7.3 TH/MM3 Lymphocytes # (Auto) 0.5 TH/MM3 1.0 TH/MM3 Monocytes # (Auto) 1.0 TH/MM3 1.2 TH/MM3 Eosinophils # (Auto) 0.0 TH/MM3 0.0 TH/MM3 Basophils # (Auto) 0.0 TH/MM3 0.0 TH/MM3 CBC Comment AUTO DIFF AUTO DIFF Differential Total Cells 100 100 Counted Neutrophils % (Manual) 68 % 64 % Band Neutrophils % 19 % 14 % Lymphocytes % 2 % 13 % Monocytes % 10 % 8 % Basophils % 1 % Neutrophils # (Manual) 7.1 TH/MM3 7.6 TH/MM3 Nucleated Red Blood Cells 1 /100 WBC Differential Comment FINAL DIFF FINAL DIFF MANUAL MANUAL Dohle Bodies PRESENT Platelet Estimate LOW LOW Platelet Morphology Comment NORMAL ENLARGED Keratocytes OCC Myelocytes 1 % Atypical Lymphocytes % Ovalocytes 1+ Acanthocytes OCC Laboratory Tests Test 01/10/17 01/11/17 01/11/17 05:30 04:45 10:45 Sodium Level 135 MEQ/L 134 MEQ/L Potassium Level 4.1 MEQ/L 4.4 MEQ/L Chloride Level 100 MEQ/L 99 MEQ/L Carbon Dioxide Level 22.8 MEQ/L 18.1 MEQ/L Anion Gap 12 MEQ/L 17 MEQ/L Blood Urea Nitrogen 49 MG/DL 75 MG/DL Creatinine 4.42 MG/DL 5.54 MG/DL Estimat Glomerular Filtration 13 ML/MIN 10 ML/MIN Rate Random Glucose 384 MG/DL 440 MG/DL Calcium Level 8.0 MG/DL 7.1 MG/DL Total Bilirubin 0.4 MG/DL 0.4 MG/DL Direct Bilirubin 0.1 MG/DL Indirect Bilirubin 0.3 MG/DL Aspartate Amino Transf 36 U/L 37 U/L (AST/SGOT) Alanine Aminotransferase 17 U/L 17 U/L (ALT/SGPT) Alkaline Phosphatase 265 U/L 209 U/L Total Protein 5.1 GM/DL 4.7 GM/DL Albumin 2.0 GM/DL 1.7 GM/DL Protein Corrected Calcium 8.4 MG/DL Total Creatine Kinase 72 U/L Troponin I 17.90 NG/ML Microbiology Date/Time Procedure Status Source Growth 01/11/17 07:50 Aerobic Blood Culture Received Blood Peripheral Pending 01/11/17 07:50 Anaerobic Blood Culture Received Blood Peripheral Pending 01/11/17 08:04 Aerobic Blood Culture Received Blood Peripheral Pending 01/11/17 08:04 Anaerobic Blood Culture Received Blood Peripheral Pending Imaging Last Impressions Chest X-Ray 01/10/17 0000 Signed Impressions: Service Date/Time: Tuesday, January 10, 2017 07:58 - CONCLUSION: 1. Worsening effusions and bibasilar infiltrates. Radiographic pattern suggestive of pulmonary edema. 2. Right-sided dialysis catheter and other lines and tubes. Carlos Marmolejo Jr., MD Abdomen/Pelvis CT 01/05/17 1822 Signed Impressions: Service Date/Time: Thursday, January 05, 2017 18:54 - CONCLUSION: 1. Small bilateral pleural effusions and nodular infiltrates in right middle lobe most likely inflammatory and pneumonia not present previously. 2. Diverticuli throughout the colon with the area of bowel wall thickening and narrowing of sigmoid colon may be due to spasm, diverticulitis or underlying mass. Bentley lGass MD Physical Exam CONSTITUTIONAL/GENERAL: sedated int'd on mech vent TUBES/LINES/DRAINS: Permacath in place R chest w/o infc R IJ in place TLC wo e/o infx SKIN: No jaundice, rashes, or lesions. Skin temperature appropriate. Not diaphoretic. HEAD: Atraumatic. Normocephalic. EYES: Pupils equal and round and reactive. Extraocular motions intact. No scleral icterus. No injection or drainage. Fundi not examined. ENT: Orally intubated CARDIOVASCULAR: Regular rate and rhythm without murmurs, gallops, or rubs. No JVD. Peripheral pulses symmetric. Perfused extremeties, refill brisk RESPIRATORY/CHEST: Symmetric, unlabored respirations. Clear to auscultation. Breath sounds equal bilaterally. No wheezes, rales, or rhonchi. GASTROINTESTINAL: Abdomen soft, not tender (no reaction to palpation), markedly distended. Bowel sounds present. dignichield in place with liquid yellow stool GENITOURINARY: Without palpable bladder distension. MUSCULOSKELETAL: Extremities without clubbing, cyanosis, or edema. No mottling B/l dressing s in place NEUROLOGICAL: sedated PSYCHIATRIC: unable to assess Assessment & Plan Remarks Recurrent C.diff colitis hypervirulent strain - findings on CT likely reflect distal colitis -3rd episode Sepsis , likely 2/2 C.diff Multiple med problems ESRD Acute VDRF - CXR cw pulm edema - BNP high - likely fluid overload HD cath in place leukocytosis, bandemia New issue - Acute ME Critically ill Unstable New high grade fever Recs: - cont po vanocmycin - anticipate 6 weeks of po vanco since its appear to be 3rd documented episode - cont IV flagyl for now - add vancomycin, cefepime, micafungin - fu blood clx - chk sputum clx - will fu CT chest dw pts : Aida Layne Dr, RN, MD Jan 11, 2017 14:04
--- NOTE | 2017-01-11 14:15 | HHI.PR ---
Subjective Remarks Patient is intubated. Sedated On pressors is at bedside. Objective Objective Results - Vital Signs Date Time Temp Pulse Resp B/P Pulse Ox O2 Delivery O2 Flow Rate FiO2 01/11/17 12:36 97 35 01/11/17 08:37 97 35 01/11/17 06:00 116 01/11/17 04:30 98 35 01/11/17 04:00 35 01/11/17 04:00 118 01/11/17 04:00 100.9 118 27 90/51 98 82/50 01/11/17 02:00 123 01/11/17 01:41 97 35 01/11/17 00:00 35 01/11/17 00:00 125 01/11/17 00:00 104.0 125 31 115/56 96 104/54 01/10/17 22:09 99 35 01/10/17 22:00 121 01/10/17 20:00 35 01/10/17 20:00 102.9 125 29 111/97 97 115/61 01/10/17 20:00 125 01/10/17 19:10 97 35 01/10/17 18:00 125 01/10/17 16:00 124 01/10/17 16:00 98.9 119 20 108/55 99 111/58 01/10/17 16:00 35 01/10/17 15:28 98 35 I/O 01/10/17 01/10/17 01/10/17 01/11/17 01/11/17 01/11/17 07:00 15:00 23:00 07:00 15:00 23:00 Intake Total 623 ml 662 ml 669 ml 1380 ml Output Total 200 ml 100 ml 100 ml 100 ml 500 ml Balance 423 ml 562 ml 569 ml 1280 ml -500 ml Intake Oral 0 ml 0 ml IV Total 394 ml 351 ml 399 ml 1120 ml Tube Feeding 229 ml 311 ml 270 ml 260 ml Output Urine Total 0 ml 0 ml Stool Total 200 ml 100 ml 100 ml 100 ml Hemodialysis 500 ml Result Diagram: 01/11/17 1311 01/11/17 0445 Imaging Last Impressions Abdomen/Pelvis CT 01/05/17 1822 Signed Impressions: Service Date/Time: Thursday, January 05, 2017 18:54 - CONCLUSION: 1. Small bilateral pleural effusions and nodular infiltrates in right middle lobe most likely inflammatory and pneumonia not present previously. 2. Diverticuli throughout the colon with the area of bowel wall thickening and narrowing of sigmoid colon may be due to spasm, diverticulitis or underlying mass. Bentley Glass MD Other Results Laboratory Tests Test 01/11/17 01/11/17 01/11/17 01/11/17 04:45 04:55 10:45 13:11 Sodium Level 134 Potassium Level 4.4 Chloride Level 99 Carbon Dioxide Level 18.1 Anion Gap 17 Blood Urea Nitrogen 75 Creatinine 5.54 Estimat Glomerular Filtration 10 Rate Random Glucose 440 Calcium Level 7.1 Protein Corrected Calcium 8.4 Total Bilirubin 0.4 Aspartate Amino Transf 37 (AST/SGOT) Alanine Aminotransferase 17 (ALT/SGPT) Alkaline Phosphatase 209 Total Protein 4.7 Albumin 1.7 White Blood Count 9.6 9.3 Red Blood Count 3.76 3.42 Hemoglobin 11.2 10.1 Hematocrit 35.0 31.0 Mean Corpuscular Volume 92.9 90.5 Mean Corpuscular Hemoglobin 29.7 29.6 Mean Corpuscular Hemoglobin 32.0 32.7 Concent Red Cell Distribution Width 18.6 18.8 Platelet Count 141 119 Mean Platelet Volume 9.2 9.3 Neutrophils (%) (Auto) 76.7 Lymphocytes (%) (Auto) 10.4 Monocytes (%) (Auto) 12.5 Eosinophils (%) (Auto) 0.1 Basophils (%) (Auto) 0.3 Neutrophils # (Auto) 7.3 Lymphocytes # (Auto) 1.0 Monocytes # (Auto) 1.2 Eosinophils # (Auto) 0.0 Basophils # (Auto) 0.0 CBC Comment AUTO DIFF Differential Total Cells 100 Counted Neutrophils % (Manual) 64 Band Neutrophils % 14 Lymphocytes % 13 Monocytes % 8 Neutrophils # (Manual) 7.6 Myelocytes 1 Differential Comment FINAL DIFF MANUAL Atypical Lymphocytes Platelet Estimate LOW Platelet Morphology Comment ENLARGED Ovalocytes 1+ Acanthocytes OCC Total Creatine Kinase 72 Troponin I 17.90 Test 01/11/17 13:16 Prothrombin Time 13.2 Prothromb Time International 1.2 Ratio Activated Partial 43.6 Thromboplast Time Date/Time Procedure Status Source Growth 01/11/17 08:04 Aerobic Blood Culture Received Blood Peripheral Pending 01/11/17 08:04 Anaerobic Blood Culture Received Blood Peripheral Pending Physical Exam Physical Exam GENERAL: This is a well-nourished, well-developed patient. Ill-looking SKIN: No rashes, ecchymoses or lesions. Cool and dry. HEAD: Atraumatic. Normocephalic. No temporal or scalp tenderness. EYES: Pupils equal round and reactive. Extraocular motions intact. No scleral icterus. No injection or drainage. ENT: With ET tube.. NECK: Trachea midline. Supple, nontender. CARDIOVASCULAR: S1-S2, unable to detect any murmurs rubs or gallops. Right chest wall is noted with permacath. RESPIRATORY: Diminished, faint bibasilar rales. GASTROINTESTINAL: Abdomen soft,distended. No hepato-splenomegaly, or palpable masses. No guarding. MUSCULOSKELETAL: Extremities without clubbing, cyanosis. No joint tenderness, effusion, or edema noted. No calf tenderness. Negative Homans sign bilaterally. Bilateral lower extremities noted with +1 edema, pedal pulses 1+ bilaterally. Both feet with dressings D/I. Has ulcers to both heels. NEUROLOGICAL: Sedated on vent A/P Assessment and Plan (1) Sepsis (2) Recurrent Clostridium difficile diarrhea (3) Diverticulitis (4) Diabetes 1.5, managed as type 2 (5) History of CVA (cerebrovascular accident) (6) PVD (peripheral vascular disease) (7) Hypertension (8) Hyperlipidemia (9) Chronic kidney disease (CKD) (10) Congestive heart failure (11) COPD (chronic obstructive pulmonary disease) (12) shock hypovolemic/septic Plan 76-year-old female with recent extensive hospitalizations for perforated duodenal ulcer, sepsis, respiratory failure with tracheostomy, CVA, acute renal injury that led to CKD requiring hemodialysis. [facility] and inability to extubate, has been treated for C. difficile colitis. Now presents with recurrent C. difficile colitis, possible diverticulitis and also recurrent pneumonia. -Continue with antibiotics, as per ID -Follow cultures -Monitor CBC -ID consultation appreciated. Antibiotic per ID -GI input appreciated -CT abdomen chest Increase troponin likely non-ST elevation GA -Cardiology consult -Discussed with leather drier will be on heparin -Unable to use beta blanca because of hypotension Hypotension/shock -Patient on pressors as needed -Appreciate leather drier input. Discussed the intensive -IV hydration cautiously Chronic kidney disease/ESRD, on hemodialysis Tuesday and Tuesday. Appreciate consultation by nephrology for hemodialysis management. Discussed with nephrology on the floor COPD, sleep apnea, with respiratory failure on CPAP trial intubated -On Solu-Cortef -Duonebs PRN Chronic CHF, stable -Continue with home Diabetes type 2 Accu-Cheks before meals and at bedtime with insulin therapy as needed History of recent CVA Continue with aspirin PVD Continue home medications Hypertension Home medications on hold because of hypotension. Pressors on as-needed basis Hyperlipidemia Continue with statins History peripheral vascular disease, had vascular surgery at [facility] last year. Has chronic wounds to both heels. Consult wound care nurse for evaluation Labs reviewed Labs for morning Leukocytosis with bandemia improved. But is still bandemia Anemia stable Mild hypocalcemia will monitor Benadryl for sleep Home medications reviewed, initiated as indicated Discussed with leather drier in detail on floor Plan of care has been discussed with the patient's and registered nurse. Further management of the patient will be dependent on the hospital course Patient's condition is critical. Total time spent in management of this patient is more than 35 minutes Julius Wyatt MD Jan 11, 2017 14:15
[2017-01-11] MEDS ORDERED: VANCOMYCIN INJ 1,500 MG in SODIUM CHLORID 0.9% 500 ML INJ 500 ML IV ONE (15:00)
--- NOTE | 2017-01-11 15:40 | RADRPT ---
EXAM DATE/TIME: 01/11/2017 14:40 [facility] COMPARISON: CT ABDOMEN & PELVIS W/O CONTRAST, January 05, 2017, 18:54. INDICATIONS : ?Fever, infiltrates and colitis ORAL CONTRAST: No oral contrast ingested. RADIATION DOSE: 10.76 CTDIvol (mGy) MEDICAL HISTORY : Hypertension. Chronic obstructive pulmonary disease. Diabetes mellitus type 1. SURGICAL HISTORY : Appendectomy. Carotid endarterectomy. ENCOUNTER: Initial ACUITY: 1 day PAIN SCALE: Non-responsive LOCATION: abdomen TECHNIQUE: Volumetric scanning of the abdomen and pelvis was performed. Using automated exposure control and ad justment of the mA and/or kV according to patient size, radiation dose was kept as low as reasonably achievable to obtain optimal diagnostic quality images. FINDINGS: LOWER LUNGS: Increasing bilateral pleural effusions which are no moderate sized common atelectatic changes. Patchy airspace disease in the right middle lobe and left. LIVER: Homogeneous density. No gallstones. SPLEEN: Normal size without lesion. PANCREAS: Within normal limits. KIDNEYS: Asymmetric in size the right measuring 12.7 and the left 8.7 cm in length. This could represent some vascular compromise to the left kidney. ADRENAL GLANDS: Within normal limits. VASCULAR: There is no aortic aneurysm. BOWEL/MESENTERY: Interval development of moderately severe peritoneal ascites, most prominent over the convexity of th e liver and spleen. Desiccated contrast is seen throughout the colon. There is suggestion of some bow el wall edema which is rather diffuse and may be secondary to low oncotic pressure associated with th e region of ascites. Stranding in the mesenteric leaves with generalized anasarca. ABDOMINAL WALL: Within normal limits. RETROPERITONEUM: There is no lymphadenopathy. BLADDER: No wall thickening or mass. REPRODUCTIVE: Within normal limits. INGUINAL: There is no lymphadenopathy or hernia. MUSCULOSKELETAL: Within normal limits for patient age. CONCLUSION: 1. Interval worsening in the radiographic appearance of the abdomen and pelvis. Enlarging bilateral p leural effusions which are now moderate in size, developing abdominal ascites, stranding in the mesen teric leaves and generalized anasarca. There is some suggestion of generalized bowel edema as well. F indings are nonspecific and can be related to generalized volume overload, hepatic insufficiency or s epsis. 2. Patchy airspace disease in the right middle lobe and left lingula. This could represent pneumonic infiltrates these have progressed from the exam 6 days earlier. 3. Size discrepancy in the kidneys with the right larger than the left. This represents some vascular compromise to the left kidney. Vinod Burrows MD on January 11, 2017 at 15:23 Board Certified Radiologist. This report was verified electronically.
--- NOTE | 2017-01-11 15:43 | RADRPT ---
EXAM DATE/TIME: 01/11/2017 14:44 [facility] COMPARISON: No previous studies available for comparison. INDICATIONS : Fever, infiltrates and colitis RADIATION DOSE: 10.76 CTDIvol (mGy) ; Combined studies - Thorax/Abdomen/Pelvis MEDICAL HISTORY : Hypertension. Chronic obstructive pulmonary disease. Diabetes mellitus type 1. SURGICAL HISTORY : Appendectomy. Carotid endarterectomy. ENCOUNTER: Initial ACUITY: 1 day PAIN SCALE: Non-responsive LOCATION: chest TECHNIQUE: Volumetric scanning of the chest was performed. Using automated exposure control and adjustment of t he mA and/or kV according to patient size, radiation dose was kept as low as reasonably achievable to obtain optimal diagnostic quality images. FINDINGS: LUNGS: Reticular-nodular airspace disease anteriorly in both upper lobes as well as the right middle lobe an d portions of the left lingula. PLEURAE: Enlarging bilateral pleural effusions with common atelectatic changes. These are now moderate in size bilaterally. MEDIASTINUM: Calcification of the coronary arteries as well as the mitral valve annulus. AXILLAE: Within normal limits. No lymphadenopathy. MUSCULOSKELETAL: Within normal limits for patient age. MISCELLANEOUS: Developing ascites in the upper abdomen. CONCLUSION: 1. Worsening bilateral pleural effusions of the common atelectatic changes. These are now moderate in size. 2. Patchy, reticular-nodular airspace disease anteriorly in both upper lobes as well as portions of t he right middle lobe and left lingula. Findings are concerning for possible pneumonic process. 3. Developing upper abdominal ascites. Vinod Burrows MD on January 11, 2017 at 15:38 Board Certified Radiologist. This report was verified electronically.
--- NOTE | 2017-01-11 15:54 | HHI.NPPN ---
Subjective General Problems: Anemia, COPD, Edema, Heart Disease, Hypotension Renal Failure: End Stage Renal Disease History of Present Illness 76-year-old male with past medical history of hypertension, diabetes mellitus, hyperlipidemia, peripheral vascular disease, chronic obstructive pulmonary disease, end-stage renal disease on hemodialysis who came to the hospital with complaint of loose bowel motion and lower abdominal pain. Additional Remarks Patient is awake, and remain intubated, clinically same. Review of Systems General Constitutional: Fatigue Respiratory Lungs: SOB, Wheeze Gastrointestinal Gastrointestinal: Abdominal Pain, Diarrhea Objective Data Data 01/10/17 01/11/17 19:00 07:00 Intake Total 662 ml 2049 ml Output Total 100 ml 200 ml Balance 562 ml 1849 ml Intake Oral 0 ml IV Total 351 ml 1519 ml Tube Feeding 311 ml 530 ml Output Urine Total 0 ml Stool Total 100 ml 200 ml Vital Signs Date Time Temp Pulse Resp B/P Pulse Ox O2 Delivery O2 Flow Rate FiO2 01/11/17 15:18 100 100 01/11/17 14:00 109 01/11/17 12:36 97 35 01/11/17 12:00 166 01/11/17 12:00 35 01/11/17 10:00 146 01/11/17 08:37 97 35 01/11/17 08:00 107 01/11/17 08:00 35 01/11/17 06:00 116 01/11/17 04:30 98 35 01/11/17 04:00 35 01/11/17 04:00 118 01/11/17 04:00 100.9 118 27 90/51 98 82/50 01/11/17 02:00 123 01/11/17 01:41 97 35 01/11/17 00:00 35 01/11/17 00:00 125 01/11/17 00:00 104.0 125 31 115/56 96 104/54 01/10/17 22:09 99 35 01/10/17 22:00 121 01/10/17 20:00 35 01/10/17 20:00 102.9 125 29 111/97 97 115/61 01/10/17 20:00 125 01/10/17 19:10 97 35 01/10/17 18:00 125 01/10/17 16:00 124 01/10/17 16:00 98.9 119 20 108/55 99 111/58 01/10/17 16:00 35 -: 01/11/17 1311 01/11/17 0445 Microbiology 01/11/17 Aerobic Blood Culture, Received Pending 01/11/17 Anaerobic Blood Culture, Received Pending 01/11/17 Aerobic Blood Culture, Received Pending 01/11/17 Anaerobic Blood Culture, Received Pending Physical Exam General Appearance Remarks Intubated and awake. Eyes Eye Exam: Pupils Equal Throat Throat Exam: Oral Mucosa [place] & Moist Neck Neck Exam: Neck Supple Pulmonary Resp Exam: Breath Sounds Equal, No Distress, Rhonchi, Decreased Bases Cardiology CV Exam: Regular, Normal Sinus Rhythm Gastrointestinal/Abdomen GI Exam: Soft, Non-Tender, Bowel Sounds Present, Distended Extremeties Extremities Exam: Trace Edema Neurologic Neuro Exam: Alert, Awake Psychiatric Psych Exam: Appropriate Responses Assessment/Plan Assessment Summary: Anemia of CKD, CHF, Hypotension, End Stage Renal Disease Problem List: (1) Anxiety (2) Diabetes (3) C. difficile diarrhea (4) COPD (chronic obstructive pulmonary disease) (5) Congestive heart failure (6) Diverticulitis (7) Diarrhea (8) End-stage renal disease on hemodialysis Plan Patient has drop in the BP, Now on pressors.Levo/Vasopressin HD was done today and only 500 ml removed, as BP dropped and HR increased. Still has diarrhea. C diff colitis managed by ID Blood culture negative so far. Follow the cultures. Now on Vanco., Micafungin and Cefepime, ID is following. Trop. I increased and seen by cardiology. Has CT abd. pelvis and chest, results noted. Problem Qualifiers (1) COPD (chronic obstructive pulmonary disease): Qualified Code: J44.9 - Chronic obstructive pulmonary disease, unspecified COPD type (2) Congestive heart failure: Qualified Code: I50.9 - Chronic congestive heart failure, unspecified congestive heart failure type (3) Diverticulitis: Qualified Code: K57.32 - Diverticulitis of large intestine without perforation or abscess without bleeding (4) Diarrhea: Qualified Code: R19.7 - Diarrhea, unspecified type Willi Antoine MD Jan 11, 2017 15:54
--- NOTE | 2017-01-11 15:57 | MB ---
cc: JASKARAN SARMIENTO M.D. DATE OF CONSULTATION: 01/11/2017 REASON FOR CONSULTATION: HISTORY OF PRESENT ILLNESS: Radhames is a very pleasant 77-year-old gentleman with history of a perforated peptic ulcer back in July of 2016, treated conservatively with antibiotics per Dr. Robledo, complicated by chronic C. Difficile, acute renal failure requiring dialysis, and possibly a recent TIA back in November of 2016. The patient is currently intubated on multiple pressors and requiring dialysis. The patient was found to have a troponin of 17, sedated, not able to give a history, therefore, review of systems is unobtainable. PAST MEDICAL HISTORY: Per history of present illness. 1. History of diabetes. 2. Hypertension. 3. Hyperlipidemia. 4. Peripheral vascular disease, status post LADLE POURER. 5. Neurogenic bladder. 6. Transurethral prostatectomy. 7. COPD. 8. Sleep apnea. 9. Osteoporosis. 10. Status post G-tube and J-tube which have been removed. 11. Tracheotomy removed. 12. History of sleep apnea. 13. Anxiety and depression. ALLERGIES: BETADINE MULTI-DRUG RESISTANT ORGANISM SOCIAL HISTORY: Denies tobacco use. MEDICATIONS IN THE HOSPITAL: 1. IV heparin. 2. Phenylephrine drip 3. Terbutaline. 4. Insulin drip. 5. Aspirin 325 daily. 6. Albuterol 7. Chlorhexidine. 8. Fentanyl IV. 9. Vancomycin 500 q.i.d. 10. Vasopressin drip. 11. Pantoprazole 12. Calcium carbonate 500 daily. 13. Norepinephrine drip. 14. Atorvastatin 80 hs. 15. Gabapentin 100 b.i.d. 16. Gentamicin 20 IV p.r.n. dialysis. 17. Epogen with dialysis p.r.n. 18. Lanthanum carbonate 1000 t.i.d. 19. Metronidazole IV PHYSICAL EXAMINATION VITAL SIGNS: Blood pressure 82/50, pulse 116, temperature 100.9, sats 97% on 35% oxygen. General: He is intubated, sedated. Neck: Supple. No JVD, no bruit. Cardiovascular: S1-S2, no murmurs, rubs, or gallops. Lungs: Decreased breath sounds at the bases bilaterally. Abdomen: Soft, nontender, nondistended, positive bowel sounds. Extremities: No lower extremity edema. X-RAYS: Chest x-ray on 01/10/2017 worsening effusions and bibasilar infiltrates. Radiographic pattern suggestive of pulmonary edema, right-sided dialysis catheter, "other lines and tubes." CT pelvis and abdomen on 01/05/17 small bilateral pleural effusion, nodular infiltrates in the right middle lobe, most likely inflammatory and pneumonia not present previously. Diverticuli throughout the colon at the area of bowel wall thickening, narrowing of sigmoid colon, maybe due to spasm, diverticulitis or underlying mass. EKG done today shows lead reversal between 1 and aVL probably. SVT at a rate of 157 beats per minute. T-wave inversion V4, v5, right bundle-branch block and probable left anterior fascicular block. Echocardiogram on 12/05/16 showed an EF of 35-40%. Aortic valve area 1.64 cm squared. Mitral valve area of 1.75 cm squared with mild to moderate MR The mean aortic valve gradient was 7 mmHg, mean mitral valve gradient was 4 mmHg, peak gradient 9 mmHg. LABORATORY DATA White count 9.6, hemoglobin 11.2, hematocrit 35.0, platelet count 141, blood gas on 01/09/17, pH 7.36, PCO2 39, PO2 90 on 35% oxygen. INR is 1.0. Sodium 134, potassium 4.4, chloride 99, BUN 75, creatinine 5.54, glucose 440. Albumin 1.7. Troponin 17.90. CK is 72. FINAL DIAGNOSIS 1. Non-STEMI. 2. Cardiomyopathy. 3. Mitral regurgitation. 4. C diff. 5. Septic shock. 6. Respiratory failure 7. Acute renal failure 8. Diabetes. 9. Hyponatremia. 10. Elevated liver enzymes with AST equal to 104. 11. Anemia. 12. Thrombocytopenia. 13. Peptic ulcer disease. DISCUSSION This patient has multiorgan failure and currently on life support. I have discussed the case with Dr. Shaw and also the patient's . I think the patient is too critically sick to undergo heart catheterization at this point in time. I think it is indeterminate whether his troponin is due to a primary obstructive event, cardiomyopathy, and/or related to global hyperperfusion from septic shock and hypotension. RECOMMENDATIONS: Recommend continued supportive care with p.r.n. pressors, although will try to wean as hemodynamically tolerated as long as systolic blood pressure is over 90. Agree with aspirin and heparin. His prognosis does appear to be very poor given the multiorgan failure, currently ongoin, and I have discussed this with his . The patient's understands the treatment plan and agrees. MD GARRETT Garber/THANH /1:30 PM /3:17 PM
[2017-01-11] MEDS: CEFEPIME INJ 1,000 MG in SODIUM CHLORIDE 0.9% INJ 100 ML IV SCH (16:13)
[2017-01-11] MEDS: MICAFUNGIN INJ 150 MG in SODIUM CHLORIDE 0.9% INJ 100 ML IV SCH (16:13)
[2017-01-11] MEDS: HEPARIN-D5W INJ 250 ML IV SCH (16:17)
--- NOTE | 2017-01-11 19:03 | EC ---
Study Study Date:01/11/2017 STUDY CONCLUSIONS SUMMARY - Left ventricle: The cavity size was normal. Wall thickness was normal. Systolic function was severely reduced. The estimated ejection fraction was in the range of 25% to 30%. Wall motion was normal; there were no regional wall motion abnormalities. - Aortic valve: Valve area: 1.91cm^2(VTI). Valve area: 1.71cm^2 (Vmax). - Pericardium, extracardiac: There was a left pleural effusion. If LV function is below 40, please consider prescribing an ACEI or ARB or document rationale for non-use. PROCEDURE DATA STUDY STATUS: Elective. Procedure: Transthoracic echocardiography. Image quality was good. Scanning was performed from the parasternal, apical, and subcostal acoustic windows. Study completion: The patient tolerated the procedure well. Transthoracic echocardiography. M-mode, complete 2D, complete spectral Doppler, and color Doppler. Height: Height: 70in. Weight: Weight: 221.5lb. Body mass index: BMI: 31.9kg/m^2. Body surface area: BSA: 2.18m^2. Patient status: Inpatient. CARDIAC ANATOMY LEFT VENTRICLE: The cavity size was normal. Wall thickness was normal. Systolic function was severely reduced. The estimated ejection fraction was in the range of 25% to 30%. Wall motion was normal; there were no regional wall motion abnormalities. AORTIC VALVE: mean avg - 8 mm hg with severely decreased lv systolic function suggests moderate aortic valve stenosis Trileaflet; mildly thickened, mildly calcified leaflets. Doppler: Transvalvular velocity was within the normal range. There was no stenosis. No regurgitation. Valve area: 1.91cm^2(VTI). Indexed valve area: 0.88cm^2/m^2 (VTI). Valve area: 1.71cm^2 (Vmax). Indexed valve area: 0.78cm^2/m^2 (Vmax). Mean gradient: 8mm Hg (S). Peak gradient: 18mm Hg (S). AORTA: Aortic root: The aortic root was normal in size. MITRAL VALVE: Structurally normal valve. Doppler: Transvalvular velocity was within the normal range. There was no evidence for stenosis. No regurgitation. Valve area by pressure half-time: 2.82cm^2. Indexed valve area by pressure half-time: 1.29cm^2/m^2. LEFT ATRIUM: The atrium was normal in size. RIGHT VENTRICLE: The cavity size was normal. Wall thickness was normal. PULMONIC VALVE: Doppler: Transvalvular velocity was within the normal range. There was no evidence for stenosis. No regurgitation. TRICUSPID VALVE: Structurally normal valve. Doppler: Transvalvular velocity was within the normal range. No regurgitation. Peak gradient: 19mm Hg (D). PULMONARY ARTERY: The main pulmonary artery was normal-sized. Systolic pressure was within the normal range. RIGHT ATRIUM: The atrium was normal in size. PERICARDIUM: There was no pericardial effusion. SYSTEMIC VEINS: Inferior vena cava: The vessel was normal in size. Pleura: There was a left pleural effusion. Patient weight: 221.5lb _Ejection fraction:_ 65-75% _Fractional shortening:_ 32% up to 5Kg 5-11.5Kg 11.6-22.9Kg 23-45Kg 45-57Kg Aortic Root 7-13 <17 13-22 17-27 17-27 LA diam 6-13 <23 24-38 33-47 37-40 RVID 10-17 7-15 7-15 7-18 8-17 LVIDd 12-22 <32 24-38 33-47 37-40 LVPW 2-4 3-6 5-7 6-8 7-8 IVS 2-4 3-6 5-7 6-8 7-8 BASIC MEASUREMENTS ADULT NORMAL Left ventricle LV internal dimension, ED, chordal *32.6 mm 43-52 level, PLAX LV internal dimension, ES, chordal 28.5 mm 23-38 level, PLAX Fractional shortening, chordal level, *13 % >29 PLAX LV posterior wall thickness, ED 17.7 mm IVS/LVPW ratio, ED 0.99 <1.3 Volume, ED, MOD, 1-plane 101 ml Volume, ES, MOD, 1-plane 70 ml Ejection fraction, MOD, 1-plane 31 % Stroke volume, MOD, 1-plane 31 ml Volume index, ED, MOD, 1-plane 46 ml/m^2 Volume index, ES, MOD, 1-plane 32 ml/m^2 Stroke index, MOD, 1-plane 14.2 ml/m^2 Ventricular septum Septal thickness, ED 17.6 mm Aortic valve Leaflet separation 19 mm 15-26 Left atrium Anterior-posterior dimension 39 mm Anterior-posterior dimension index 1.79 cm/m^2 <2.2 Right ventricle RV internal dimension, ED, PLAX 31.4 mm 19-38 BASIC MEASUREMENTS ADULT NORMAL Aortic valve Leaflet separation 19 mm 15-26 Aorta Root diameter, ED 33 mm 20-37 DOPPLER MEASUREMENTS ADULT NORMAL Main pulmonary artery Pressure, S 26 mm Hg =30 Aortic valve Peak velocity, S 215 cm/s Mean velocity, S 135 cm/s VTI, S 30.8 cm Mean gradient, S 8 mm Hg Peak gradient, S 18 mm Hg Valve area, VTI 1.91 cm^2 Valve area index, VTI 0.88 cm^2/m^2 Valve area, Vmax 1.71 cm^2 Valve area index, Vmax 0.78 cm^2/m^2 Mitral valve Peak E-wave velocity 59.7 cm/s Peak A-wave velocity 111 cm/s Pressure half-time 78 ms Peak E/A ratio 0.5 Valve area, pressure half-time 2.82 cm^2 Valve area index, pressure half-time 1.29 cm^2/m^2 Tricuspid valve Peak gradient, D 19 mm Hg Maximal inflow velocity 220 cm/s Regurgitant peak velocity 214 cm/s Peak RV-RA gradient, S 18 mm Hg Maximal regurgitant velocity 214 cm/s Systemic veins Estimated CVP 10 mm Hg Right ventricle RV pressure, S 28 mm Hg <30 Pulmonic valve Peak velocity, S 70.6 cm/s LEGEND: Mean values are shown as u=mean value. Asterisk (*) spann values outside specified normal range. Prepared and signed by Golden Garcia [id number]
[2017-01-11 19:47] LABS: BACTERIA, URINE MANY /hpf; BLOOD, URINE MOD (NEG); GLUCOSE,URINE NEG (NEG); KETONE, URINE NEG (NEG); NITRITE,URINE NEG (NEG); URINE COLOR YELLOW (YELLW/STRAW)
[2017-01-11 19:50] LABS: COMMENT (UR) CATH-CULTURE IND; CULTURE IF INDICATED CATH CULTURE IND
[2017-01-11] MEDS: ATORVASTATIN 80 MG TAB PO SCH (20:17)
[2017-01-11] MEDS: VASOPRESSIN INJ 40 UNITS in DEXTROSE 5% IN WATER 100ML INJ 98 ML IV SCH ×2 (22:20)
[2017-01-11] MEDS ORDERED: GLUCAGON 1 MG/ML VIAL OTHER PRN (22:30)
[2017-01-11 23:05] LABS: APTT (PATIENT) GREATER THAN 153.4 SEC (24.3-30.1)
[2017-01-12] VITALS (20 sets, daily range): BP systolic 87–165; BP diastolic 51–73; PULSE 73–104; RESP 18–24; TEMP 98.1–100.2; O2SAT 91–98
[2017-01-12] MEDS: INSULIN DETEMIR 100 UNITS/ML VIAL SQ SCH ×2 (00:14→21:39)
[2017-01-12] MEDS: PHENYLEPHRINE INJ 40 MG in DEXTROSE 5% IN WATE 500 ML INJ 496 ML IV SCH ×2 (00:15)
[2017-01-12] MEDS: fentaNYL DRIP 250 ML IV SCH (00:25)
[2017-01-12 02:35] LABS: APTT (PATIENT) 127.7 SEC (24.3-30.1)
[2017-01-12] MEDS: PHENYLEPHRINE HCL 80 MG/D5W 492 ML ADMIX IV SCH ×4 (03:21→14:35)
[2017-01-12] MEDS: RESP: ALBUTEROL 2.5 MG/IPRATROPIUM 0.5 MG NEB (SCH) NEB ×2 (04:25→08:31)
[2017-01-12 04:57] LABS: AUTOMATED NEUTROPHIL # 11.6 TH/MM3 (1.8-7.7); BASOPHIL % 0.2 % (0.0-2.0); EOSINOPHIL # 0.1 TH/MM3 (0-0.4); EOSINOPHIL % 0.6 % (0.0-4.0); HEMATOCRIT 33.5 % (39.0-51.0); LYMPH % 8.6 % (9.0-44.0); LYMPHOCYTE # 1.2 TH/MM3 (1.0-4.8); MEAN CELL VOLUME 91.3 FL (80.0-100.0); MEAN CORPUSCULAR HEMOGLOBIN 29.6 PG (27.0-34.0); MEAN CORPUSCULAR HGB CONC 32.4 % (32.0-36.0); NEUT % 79.6 % (16.0-70.0); PLATELET COUNT 162 TH/MM3 (150-450); RED BLOOD COUNT 3.67 MIL/MM3 (4.50-5.90); RED CELL DISTRIBUTION WIDTH 19.2 % (11.6-17.2); WHITE BLOOD COUNT 14.5 TH/MM3 (4.0-11.0)
[2017-01-12] MEDS: metroNIDAZOLE 500 MG INJ 100 ML IV SCH ×3 (05:00→21:39)
[2017-01-12 05:09] LABS: HEMO FLAGS AUTO DIFF
[2017-01-12 05:16] LABS: BICARBONATE 21.2 MEQ/L (21.0-32.0); POTASSIUM 3.8 MEQ/L (3.5-5.1)
[2017-01-12 05:55] LABS: BANDS 7 % (0-6); CALCIUM-PROTEIN CORRECTED 8.8 MG/DL (8.5-10.1); EOSINOPHILS 1 % (0-4); METAMYELOCYTES 6 % (0-1); NEUTROPHIL # MANUAL DIFF 13.2 TH/MM3 (1.8-7.7); POLYS (SEG NEUTROPHILS) 78 % (16-70); WBC DIFF SAMPLE 100
[2017-01-12 05:56] LABS: OVALOCYTES 1+ (NORMAL); TOXIC GRANULATION 2+ (NORMAL)
[2017-01-12 05:57] LABS: PLATELET ESTIMATE SMEAR NORMAL (NORMAL); PLATELET MORPHOLOGY NORMAL (NORMAL); SCAN/DIFF FINAL DIFF MANUAL
[2017-01-12] MEDS: INSULIN NovoLIN REGULAR SUPPLEMENTAL SCALE SQ SCH ×2 (06:20→11:00)
--- NOTE | 2017-01-12 06:30 | RADRPT ---
EXAM DATE/TIME: 01/12/2017 04:30 [place] COMPARISON: CHEST SINGLE AP, January 10, 2017, 7:58. INDICATIONS : Shortness of breath. MEDICAL HISTORY : Hypertension. Chronic obstructive pulmonary disease. Diabetes mellitus type I. SURGICAL HISTORY : Appendectomy. Carotid endarterectomy. ENCOUNTER: Subsequent ACUITY: 1 week PAIN SCORE: Non-responsive. LOCATION: Bilateral chest FINDINGS: A single view of the chest demonstrates endotracheal tube and nasogastric tube present. Dual-lumen ri ght central line tip in right atrium. Right central line tip in superior vena cava. Basilar airspace disease and pleural effusions similar to January 10. CONCLUSION: 1. Basilar airspace disease and pleural effusions similar to January 10. Support apparatus in satisfact ory position. Alfredo Worrell MD on January 12, 2017 at 6:25 Board Certified Radiologist. This report was verified electronically.
[2017-01-12] MEDS: CHLORHEXIDINE 0.12% (ORAL KIT) 15 ML CUP MT SCH ×2 (07:55→21:39)
--- NOTE | 2017-01-12 08:01 | EKG ---
Date Performed: 01/11/2017 Time Performed: 10:08:32 PTAGE: 77 years EKG: --- Warning: Data quality may affect interpretation --- Atrial flutter with uncontrolled ve ntricular response Lead(s) unsuitable for analysis: V6 Right axis deviation IV conduction defect Ante rolateral infarct - age undetermined Inferior T wave changes are nonspecific Very poor quality tracin g and likely limb lead reversal This tracing needs to be repeated. Abnormal ECG Compared to PREVIOUS TRACING , the marked axis deviation which is probably from limb lead reversal an d the right bundle branch block is new. The atrial fibrillation is new. PREVIOUS TRACIN12/03/2016 18.36 DOCTOR: Holly Harris Interpretating Date/Time 01/12/2017 08:01:21
[2017-01-12] MEDS: GABAPENTIN 100 MG CAP PO SCH ×2 (08:23→21:39)
[2017-01-12] MEDS: CALCIUM CARBONATE 1.25 GM (CA 500 MG) TAB PO SCH (08:23)
[2017-01-12] MEDS: ASPIRIN 325 MG TAB PO SCH (08:24)
[2017-01-12] MEDS: VANCOMYCIN 500 MG VIAL (FOR ORAL USE ONLY) PO SCH ×4 (08:24→21:39)
[2017-01-12] MEDS: PANTOPRAZOLE SODIUM 40 MG VIAL IV PUSH SCH (08:24)
[2017-01-12] MEDS: LANTHANUM CARBONATE 500 MG CHEWABLE TABLET CHEW SCH ×3 (08:24→16:51)
[2017-01-12] MEDS: COLLAGENASE OINT 30 GM TUBE TOP SCH (08:25)
[2017-01-12] MEDS: SODIUM CHLORIDE 0.9% FLUSH 10 ML FLUSH IV FLUSH SCH ×2 (08:25→21:00)
[2017-01-12] MEDS: VASOPRESSIN INJ 40 UNITS in DEXTROSE 5% IN WATER 100ML INJ 98 ML IV SCH ×2 (10:18)
--- NOTE | 2017-01-12 10:26 | PD.CARD.PN ---
Subjective Subjective Remarks intubated, sedated Objective Vital Signs / I&O Vital Signs Date Time Temp Pulse Resp B/P Pulse Ox O2 Delivery O2 Flow Rate FiO2 01/12/17 10:00 99 01/12/17 09:35 95 35 01/12/17 08:32 35 01/12/17 08:32 95 35 01/12/17 08:00 104 01/12/17 08:00 35 01/12/17 08:00 99.0 86 22 125/60 96 123/56 01/12/17 06:25 97 35 01/12/17 06:00 82 01/12/17 06:00 84 132/55 01/12/17 04:24 97 35 01/12/17 04:00 90 01/12/17 04:00 99.3 90 20 124/61 97 124/59 01/12/17 04:00 35 01/12/17 02:00 83 01/12/17 01:06 98 35 01/12/17 00:00 73 01/12/17 00:00 35 01/12/17 00:00 98.1 73 20 144/65 98 141/66 01/11/17 22:22 98 35 01/11/17 22:00 85 01/11/17 20:03 98 35 01/11/17 20:00 98.1 87 18 111/63 97 118/72 01/11/17 20:00 87 01/11/17 20:00 35 01/11/17 18:00 86 01/11/17 16:29 97 35 01/11/17 16:00 35 01/11/17 16:00 85 01/11/17 16:00 98.5 86 20 139/67 96 123/55 01/11/17 15:18 100 100 01/11/17 14:00 109 01/11/17 12:36 97 35 01/11/17 12:00 166 01/11/17 12:00 35 01/11/17 12:00 98.4 103 20 98/58 96 87/40 I/O 01/11/17 01/11/17 01/11/17 01/12/17 01/12/17 01/12/17 07:00 15:00 23:00 07:00 15:00 23:00 Intake Total 1380 ml 1317 ml 1747 ml 1437 ml Output Total 100 ml 900 ml 540 ml 60 ml Balance 1280 ml 417 ml 1207 ml 1377 ml IV Total 1120 ml 1267 ml 1530 ml 1137 ml Tube Feeding 260 ml 50 ml 217 ml 300 ml Output Urine Total 140 ml 20 ml Stool Total 100 ml 400 ml 400 ml 40 ml Hemodialysis 500 ml Physical Exam GENERAL: SKIN: Warm and dry. HEAD: Normocephalic. EYES: No scleral icterus. No injection or drainage. NECK: Supple, trachea midline. No JVD or lymphadenopathy. CARDIOVASCULAR: Regular rate and rhythm without murmurs, gallops, or rubs. RESPIRATORY: Breath sounds equal bilaterally. No accessory muscle use. GASTROINTESTINAL: Abdomen soft, non-tender, nondistended. MUSCULOSKELETAL: No cyanosis, or edema. BACK: Nontender without obvious deformity. No CVA tenderness. Laboratory Laboratory Tests Test 01/11/17 01/11/17 01/11/17 01/11/17 10:45 13:11 13:16 16:28 Total Creatine Kinase 72 U/L Troponin I 17.90 NG/ML 14.30 NG/ML White Blood Count 9.3 TH/MM3 Red Blood Count 3.42 MIL/MM3 Hemoglobin 10.1 GM/DL Hematocrit 31.0 % Mean Corpuscular Volume 90.5 FL Mean Corpuscular Hemoglobin 29.6 PG Mean Corpuscular Hemoglobin 32.7 % Concent Red Cell Distribution Width 18.8 % Platelet Count 119 TH/MM3 Mean Platelet Volume 9.3 FL Prothrombin Time 13.2 SEC Prothromb Time International 1.2 RATIO Ratio Activated Partial 43.6 SEC Thromboplast Time Test 01/11/17 01/11/17 01/11/17 01/12/17 18:20 21:15 23:00 01:15 Urine Color YELLOW Urine Turbidity CLOUDY Urine pH 6.0 Urine Specific [place] 1.016 Urine Protein 300 mg/dL Urine Glucose (UA) NEG mg/dL Urine Ketones NEG mg/dL Urine Occult Blood MOD Urine Nitrite NEG Urine Bilirubin NEG Urine Urobilinogen LESS THAN 2.0 MG/DL Urine Leukocyte Esterase LARGE Urine RBC /hpf Urine WBC /hpf Urine WBC Clumps MANY Urine Bacteria MANY /hpf Urine Yeast with Hyphae FEW Urine Yeast (Budding) MANY Microscopic Urinalysis Comment CATH-CULTURE IND Activated Partial GREATER THAN 127.7 SEC Thromboplast Time 153.4 SEC Troponin I 11.20 NG/ML Test 01/12/17 01/12/17 04:05 04:20 White Blood Count 14.5 TH/MM3 Red Blood Count 3.67 MIL/MM3 Hemoglobin 10.9 GM/DL Hematocrit 33.5 % Mean Corpuscular Volume 91.3 FL Mean Corpuscular Hemoglobin 29.6 PG Mean Corpuscular Hemoglobin 32.4 % Concent Red Cell Distribution Width 19.2 % Platelet Count 162 TH/MM3 Mean Platelet Volume 10.2 FL Neutrophils (%) (Auto) 79.6 % Lymphocytes (%) (Auto) 8.6 % Monocytes (%) (Auto) 11.0 % Eosinophils (%) (Auto) 0.6 % Basophils (%) (Auto) 0.2 % Neutrophils # (Auto) 11.6 TH/MM3 Lymphocytes # (Auto) 1.2 TH/MM3 Monocytes # (Auto) 1.6 TH/MM3 Eosinophils # (Auto) 0.1 TH/MM3 Basophils # (Auto) 0.0 TH/MM3 CBC Comment AUTO DIFF Differential Total Cells 100 Counted Neutrophils % (Manual) 78 % Band Neutrophils % 7 % Lymphocytes % 4 % Monocytes % 4 % Eosinophils % 1 % Neutrophils # (Manual) 13.2 TH/MM3 Metamyelocytes 6 % Differential Comment FINAL DIFF MANUAL Toxic Granulation 2+ Platelet Estimate NORMAL Platelet Morphology Comment NORMAL Ovalocytes 1+ Sodium Level 134 MEQ/L Potassium Level 3.8 MEQ/L Chloride Level 98 MEQ/L Carbon Dioxide Level 21.2 MEQ/L Anion Gap 15 MEQ/L Blood Urea Nitrogen 56 MG/DL Creatinine 4.30 MG/DL Estimat Glomerular Filtration 13 ML/MIN Rate Random Glucose 378 MG/DL Calcium Level 7.4 MG/DL Protein Corrected Calcium 8.8 MG/DL Troponin I 10.10 NG/ML Total Protein 4.7 GM/DL Random Vancomycin Level 33.4 COMMENT Activated Partial 65.0 SEC Thromboplast Time Assessment and Plan Problem List: (1) Peripheral arterial disease (2) Chronic respiratory failure with hypoxia and hypercapnia (3) Hemodialysis patient (4) SHAWN (acute kidney injury) (5) Acute respiratory failure (6) Elevated troponin (7) Sepsis (8) COPD (chronic obstructive pulmonary disease) (9) Congestive heart failure (10) PVD (peripheral vascular disease) (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 difficile diarrhea (14) Diarrhea (15) Cardiomyopathy (16) NSTEMI (non-ST elevated myocardial infarction) Assessment and Plan 1.) Cardiomyopathy - omt held due to septic shock requiring pressors 2.) NSTEMI - indeterminate weather trop elevation due to primary vs secondary event, continue heparin, aspirin, supportive care, too unstable to go to label sewer, d/w Dr Potts and patients Problem Qualifiers (1) Sepsis: Qualified Code: A41.9 - Sepsis, due to unspecified organism (2) COPD (chronic obstructive pulmonary disease): Qualified Code: J44.9 - Chronic obstructive pulmonary disease, unspecified COPD type (3) Congestive heart failure: Qualified Code: I50.9 - Chronic congestive heart failure, unspecified congestive heart failure type (4) Diarrhea: Qualified Code: R19.7 - Diarrhea, unspecified type Golden Garcia MD Jan 12, 2017 10:26
--- NOTE | 2017-01-12 12:01 | HHI.PR ---
Subjective Remarks Patient is intubated. Sedated On pressors is at bedside. Objective Objective Results - Vital Signs Date Time Temp Pulse Resp B/P Pulse Ox O2 Delivery O2 Flow Rate FiO2 01/12/17 11:46 93 35 01/12/17 10:00 99 01/12/17 09:35 95 35 01/12/17 08:32 35 01/12/17 08:32 95 35 01/12/17 08:00 104 01/12/17 08:00 35 01/12/17 08:00 99.0 86 22 125/60 96 123/56 01/12/17 06:25 97 35 01/12/17 06:00 82 01/12/17 06:00 84 132/55 01/12/17 04:24 97 35 01/12/17 04:00 90 01/12/17 04:00 99.3 90 20 124/61 97 124/59 01/12/17 04:00 35 01/12/17 02:00 83 01/12/17 01:06 98 35 01/12/17 00:00 73 01/12/17 00:00 35 01/12/17 00:00 98.1 73 20 144/65 98 141/66 01/11/17 22:22 98 35 01/11/17 22:00 85 01/11/17 20:03 98 35 01/11/17 20:00 98.1 87 18 111/63 97 118/72 01/11/17 20:00 87 01/11/17 20:00 35 01/11/17 18:00 86 01/11/17 16:29 97 35 01/11/17 16:00 35 01/11/17 16:00 85 01/11/17 16:00 98.5 86 20 139/67 96 123/55 01/11/17 15:18 100 100 01/11/17 14:00 109 01/11/17 12:36 97 35 01/11/17 12:00 166 01/11/17 12:00 35 01/11/17 12:00 98.4 103 20 98/58 96 87/40 I/O 01/11/17 01/11/17 01/11/17 01/12/17 01/12/17 01/12/17 07:00 15:00 23:00 07:00 15:00 23:00 Intake Total 1380 ml 1317 ml 1747 ml 1437 ml Output Total 100 ml 900 ml 540 ml 60 ml Balance 1280 ml 417 ml 1207 ml 1377 ml IV Total 1120 ml 1267 ml 1530 ml 1137 ml Tube Feeding 260 ml 50 ml 217 ml 300 ml Output Urine Total 140 ml 20 ml Stool Total 100 ml 400 ml 400 ml 40 ml Hemodialysis 500 ml Result Diagram: 01/12/17 0405 01/12/17 0405 Imaging Last Impressions Abdomen/Pelvis CT 01/05/17 1822 Signed Impressions: Service Date/Time: Thursday, January 05, 2017 18:54 - CONCLUSION: 1. Small bilateral pleural effusions and nodular infiltrates in right middle lobe most likely inflammatory and pneumonia not present previously. 2. Diverticuli throughout the colon with the area of bowel wall thickening and narrowing of sigmoid colon may be due to spasm, diverticulitis or underlying mass. Bentley Glass MD Other Results Laboratory Tests Test 01/11/17 01/11/17 01/11/17 01/11/17 13:11 13:16 16:28 18:20 White Blood Count 9.3 Red Blood Count 3.42 Hemoglobin 10.1 Hematocrit 31.0 Mean Corpuscular Volume 90.5 Mean Corpuscular Hemoglobin 29.6 Mean Corpuscular Hemoglobin 32.7 Concent Red Cell Distribution Width 18.8 Platelet Count 119 Mean Platelet Volume 9.3 Prothrombin Time 13.2 Prothromb Time International 1.2 Ratio Activated Partial 43.6 Thromboplast Time Troponin I 14.30 Urine Color YELLOW Urine Turbidity CLOUDY Urine pH 6.0 Urine Specific [place] 1.016 Urine Protein 300 Urine Glucose (UA) NEG Urine Ketones NEG Urine Occult Blood MOD Urine Nitrite NEG Urine Bilirubin NEG Urine Urobilinogen LESS THAN 2.0 Urine Leukocyte Esterase LARGE Urine RBC Urine WBC Urine WBC Clumps MANY Urine Bacteria MANY Urine Yeast with Hyphae FEW Urine Yeast (Budding) MANY Microscopic Urinalysis Comment CATH-CULTURE IND Test 01/11/17 01/11/17 01/12/17 01/12/17 21:15 23:00 01:15 04:05 Activated Partial GREATER THAN 127.7 Thromboplast Time 153.4 Troponin I 11.20 10.10 White Blood Count 14.5 Red Blood Count 3.67 Hemoglobin 10.9 Hematocrit 33.5 Mean Corpuscular Volume 91.3 Mean Corpuscular Hemoglobin 29.6 Mean Corpuscular Hemoglobin 32.4 Concent Red Cell Distribution Width 19.2 Platelet Count 162 Mean Platelet Volume 10.2 Neutrophils (%) (Auto) 79.6 Lymphocytes (%) (Auto) 8.6 Monocytes (%) (Auto) 11.0 Eosinophils (%) (Auto) 0.6 Basophils (%) (Auto) 0.2 Neutrophils # (Auto) 11.6 Lymphocytes # (Auto) 1.2 Monocytes # (Auto) 1.6 Eosinophils # (Auto) 0.1 Basophils # (Auto) 0.0 CBC Comment AUTO DIFF Differential Total Cells 100 Counted Neutrophils % (Manual) 78 Band Neutrophils % 7 Lymphocytes % 4 Monocytes % 4 Eosinophils % 1 Neutrophils # (Manual) 13.2 Metamyelocytes 6 Differential Comment FINAL DIFF MANUAL Toxic Granulation 2+ Platelet Estimate NORMAL Platelet Morphology Comment NORMAL Ovalocytes 1+ Sodium Level 134 Potassium Level 3.8 Chloride Level 98 Carbon Dioxide Level 21.2 Anion Gap 15 Blood Urea Nitrogen 56 Creatinine 4.30 Estimat Glomerular Filtration 13 Rate Random Glucose 378 Calcium Level 7.4 Protein Corrected Calcium 8.8 Total Protein 4.7 Random Vancomycin Level 33.4 Test 01/12/17 04:20 Activated Partial 65.0 Thromboplast Time Date/Time Procedure Status Source Growth 01/11/17 23:00 Stool Occult Blood (OZ) - Final Complete Stool Stool HEMOCCULT NEGATIVE 01/11/17 18:20 Urine Culture Received Urine Catheterized Urine Pending 01/11/17 17:52 Gram Stain - Final Resulted Sputum Endotracheal 01/11/17 17:52 Sputum Culture Resulted Sputum Endotracheal Pending 01/11/17 17:52 Fungal Smear - Final Resulted Sputum Endotracheal RARE BUDDING YEAST CELLS 01/11/17 17:52 Fungal Culture Resulted Sputum Endotracheal Pending 01/11/17 14:14 Gram Stain Received Sputum Endotracheal Pending 01/11/17 14:14 Sputum Culture Received Sputum Endotracheal Pending 01/11/17 08:04 Aerobic Blood Culture - Preliminary Resulted Blood Peripheral NO GROWTH IN 1 DAY 01/11/17 08:04 Anaerobic Blood Culture - Preliminary Resulted Blood Peripheral NO GROWTH IN 1 DAY Physical Exam Physical Exam GENERAL: This is a well-nourished, well-developed patient. Ill-looking SKIN: No rashes, ecchymoses or lesions. Cool and dry. HEAD: Atraumatic. Normocephalic. No temporal or scalp tenderness. EYES: Pupils equal round and reactive. Extraocular motions intact. No scleral icterus. No injection or drainage. ENT: With ET tube.. NECK: Trachea midline. Supple, nontender. CARDIOVASCULAR: S1-S2, unable to detect any murmurs rubs or gallops. Right chest wall is noted with permacath. RESPIRATORY: Diminished at bases, faint bibasilar rales. Coarse breathing GASTROINTESTINAL: Abdomen soft,distended. No hepato-splenomegaly, or palpable masses. No guarding. MUSCULOSKELETAL: Extremities without clubbing, cyanosis. No joint tenderness, effusion, or edema noted. No calf tenderness. Negative Homans sign bilaterally. Bilateral lower extremities noted with +1 edema, pedal pulses 1+ bilaterally. Both feet with dressings D/I. Has ulcers to both heels. NEUROLOGICAL: Sedated on vent A/P Assessment and Plan (1) Sepsis (2) Recurrent Clostridium difficile diarrhea (3) Diverticulitis (4) Diabetes 1.5, managed as type 2 (5) History of CVA (cerebrovascular accident) (6) PVD (peripheral vascular disease) (7) Hypertension (8) Hyperlipidemia (9) Chronic kidney disease (CKD) (10) Congestive heart failure (11) COPD (chronic obstructive pulmonary disease) (12) shock hypovolemic/septic Plan 76-year-old male with recent extensive hospitalizations for perforated duodenal ulcer, sepsis, respiratory failure with tracheostomy, CVA, acute renal injury that led to CKD requiring hemodialysis. [facility] and inability to extubate, has been treated for C. difficile colitis. Now presents with recurrent C. difficile colitis, possible diverticulitis and also recurrent pneumonia. -Continue with antibiotics, as per ID -Follow cultures -Monitor CBC -ID input appreciated. Antibiotic per ID -GI input appreciated -CT abdomen chest report reviewed Pneumonia HCAP -Antibiotic per ID -On C Pap trial Increase troponin , non-ST elevation VA -Cardiology consult appreciated -Discussed with bed and breakfast operator on heparin -Unable to use beta blanca because of hypotension Hypotension/shock -Patient on pressors as needed -Appreciate bed and breakfast operator input. Discussed the intensive -IV hydration cautiously Chronic kidney disease/ESRD, on hemodialysis Tuesday and Tuesday. Appreciate consultation by nephrology for hemodialysis management. Discussed with nephrology on the floor COPD, sleep apnea, with respiratory failure on CPAP trial intubated -On Solu-Cortef -Duonebs PRN Chronic CHF, stable -Continue with home Diabetes type 2 Accu-Cheks before meals and at bedtime with insulin therapy as needed History of recent CVA Continue with aspirin PVD Continue home medications Hypertension Home medications on hold because of hypotension. Pressors on as-needed basis Hyperlipidemia Continue with statins History peripheral vascular disease, had vascular surgery at [facility] last year. Has chronic wounds to both heels. Consult wound care nurse for evaluation Labs reviewed Leukocytosis with bandemia because of sepsis and shock Anemia stable H&H Leukocytosis with bandemia improved. But is still bandemia Anemia stable Mild hypocalcemia will monitor Benadryl for sleep Home medications reviewed, initiated as indicated Plan of care has been discussed with the patient's Discussed with registered nurse. Further management of the patient will be dependent on the hospital course Patient's condition is critical. Prognosis guarded Julius Wyatt MD Jan 12, 2017 12:00
--- NOTE | 2017-01-12 12:03 | HHI.NPPN ---
Subjective General Problems: Anemia, COPD, Edema, Heart Disease, Hypotension Renal Failure: End Stage Renal Disease History of Present Illness 76-year-old male with past medical history of hypertension, diabetes mellitus, hyperlipidemia, peripheral vascular disease, chronic obstructive pulmonary disease, end-stage renal disease on hemodialysis who came to the hospital with complaint of loose bowel motion and lower abdominal pain. Additional Remarks Patient is awake, and remain intubated, not in distress. Review of Systems General Constitutional: Fatigue Respiratory Lungs: SOB, Wheeze Gastrointestinal Gastrointestinal: Abdominal Pain, Diarrhea Objective Data Data 01/11/17 01/12/17 19:00 07:00 Intake Total 1317 ml 3184 ml Output Total 900 ml 600 ml Balance 417 ml 2584 ml IV Total 1267 ml 2667 ml Tube Feeding 50 ml 517 ml Output Urine Total 160 ml Stool Total 400 ml 440 ml Hemodialysis 500 ml Vital Signs Date Time Temp Pulse Resp B/P Pulse Ox O2 Delivery O2 Flow Rate FiO2 01/12/17 11:46 93 35 01/12/17 10:00 99 01/12/17 09:35 95 35 01/12/17 08:32 35 01/12/17 08:32 95 35 01/12/17 08:00 104 01/12/17 08:00 35 01/12/17 08:00 99.0 86 22 125/60 96 123/56 01/12/17 06:25 97 35 01/12/17 06:00 82 01/12/17 06:00 84 132/55 01/12/17 04:24 97 35 01/12/17 04:00 90 01/12/17 04:00 99.3 90 20 124/61 97 124/59 01/12/17 04:00 35 01/12/17 02:00 83 01/12/17 01:06 98 35 01/12/17 00:00 73 01/12/17 00:00 35 01/12/17 00:00 98.1 73 20 144/65 98 141/66 01/11/17 22:22 98 35 01/11/17 22:00 85 01/11/17 20:03 98 35 01/11/17 20:00 98.1 87 18 111/63 97 118/72 01/11/17 20:00 87 01/11/17 20:00 35 01/11/17 18:00 86 01/11/17 16:29 97 35 01/11/17 16:00 35 01/11/17 16:00 85 01/11/17 16:00 98.5 86 20 139/67 96 123/55 01/11/17 15:18 100 100 01/11/17 14:00 109 01/11/17 12:36 97 35 -: 01/12/17 0405 01/12/17 0405 Microbiology 01/11/17 Gram Stain, Received Pending 01/11/17 Sputum Culture, Received Pending 01/11/17 Fungal Smear - Final, Resulted RARE BUDDING YEAST CELLS 01/11/17 Fungal Culture, Resulted Pending 01/11/17 Gram Stain - Final, Resulted 01/11/17 Sputum Culture, Resulted Pending 01/11/17 Urine Culture, Received Pending 01/11/17 Stool Occult Blood (OZ) - Final, Complete HEMOCCULT NEGATIVE Physical Exam General Appearance Remarks Intubated and awake. Eyes Eye Exam: Pupils Equal Throat Throat Exam: Oral Mucosa Surfside & Moist Neck Neck Exam: Neck Supple Pulmonary Resp Exam: Breath Sounds Equal, No Distress, Rhonchi, Decreased Bases Cardiology CV Exam: Regular, Normal Sinus Rhythm Gastrointestinal/Abdomen GI Exam: Soft, Non-Tender, Bowel Sounds Present, Distended Extremeties Extremities Exam: Trace Edema Neurologic Neuro Exam: Alert, Awake Psychiatric Psych Exam: Appropriate Responses Assessment/Plan Assessment Summary: Anemia of CKD, CHF, Hypotension, End Stage Renal Disease Problem List: (1) Anxiety (2) Diabetes (3) C. difficile diarrhea (4) COPD (chronic obstructive pulmonary disease) (5) Congestive heart failure (6) Diverticulitis (7) Diarrhea (8) End-stage renal disease on hemodialysis Plan Still has diarrhea. C diff colitis managed by ID Blood culture negative so far. Follow the cultures. Now on Vanco., Micafungin and Cefepime, ID is following. Trop. I increased and seen by cardiology. Has CT abd. pelvis and chest, results noted. HD done yesterday and only 500 ml removed. BP is still on lower side. HD again in AM. Problem Qualifiers (1) COPD (chronic obstructive pulmonary disease): Qualified Code: J44.9 - Chronic obstructive pulmonary disease, unspecified COPD type (2) Congestive heart failure: Qualified Code: I50.9 - Chronic congestive heart failure, unspecified congestive heart failure type (3) Diverticulitis: Qualified Code: K57.32 - Diverticulitis of large intestine without perforation or abscess without bleeding (4) Diarrhea: Qualified Code: R19.7 - Diarrhea, unspecified type Willi Antoine MD Jan 12, 2017 12:03
--- NOTE | 2017-01-12 13:59 | HHI.IDPN ---
Subjective Subjective Remarks doing not good U p on rpressors Elevated intraabd pressures cont to have liquid styool remains on vent with thin yellow secretions from ETT dx'd w NTEMI, no cath 2/2 clin instability afebrile today Antibiotics vanco po flagyl iv Lines Line sites with no e.o infection Past Medical History ESRD/HD Allergies: Coded Allergies: Betadine (Verified Allergy, Severe, Rash, 01/05/17) *MDRO Multi-Drug Resistant Organism (Verified Adverse Reaction, Unknown, ) Carlson resistant K. pneumoniae (urine-08/06/16) Objective . Vital Signs Date Time Temp Pulse Resp B/P Pulse Ox O2 Delivery O2 Flow Rate FiO2 01/12/17 11:46 93 35 01/12/17 10:00 99 01/12/17 09:35 95 35 01/12/17 08:32 35 01/12/17 08:32 95 35 01/12/17 08:00 104 01/12/17 08:00 35 01/12/17 08:00 99.0 86 22 125/60 96 123/56 01/12/17 06:25 97 35 01/12/17 06:00 82 01/12/17 06:00 84 132/55 01/12/17 04:24 97 35 01/12/17 04:00 90 01/12/17 04:00 99.3 90 20 124/61 97 124/59 01/12/17 04:00 35 01/12/17 02:00 83 01/12/17 01:06 98 35 01/12/17 00:00 73 01/12/17 00:00 35 01/12/17 00:00 98.1 73 20 144/65 98 141/66 01/11/17 22:22 98 35 01/11/17 22:00 85 01/11/17 20:03 98 35 01/11/17 20:00 98.1 87 18 111/63 97 118/72 01/11/17 20:00 87 01/11/17 20:00 35 01/11/17 18:00 86 01/11/17 16:29 97 35 01/11/17 16:00 35 01/11/17 16:00 85 01/11/17 16:00 98.5 86 20 139/67 96 123/55 01/11/17 15:18 100 100 01/11/17 14:00 109 01/11/17 01/11/17 01/12/17 15:00 23:00 07:00 Intake Total 1317 ml 1747 ml 1437 ml Output Total 900 ml 540 ml 60 ml Balance 417 ml 1207 ml 1377 ml IV Total 1267 ml 1530 ml 1137 ml Tube Feeding 50 ml 217 ml 300 ml Output Urine Total 140 ml 20 ml Stool Total 400 ml 400 ml 40 ml Hemodialysis 500 ml . Laboratory Tests Test 01/11/17 01/11/17 01/12/17 04:55 13:11 04:05 White Blood Count 9.6 TH/MM3 9.3 TH/MM3 14.5 TH/MM3 Red Blood Count 3.76 MIL/MM3 3.42 MIL/MM3 3.67 MIL/MM3 Hemoglobin 11.2 GM/DL 10.1 GM/DL 10.9 GM/DL Hematocrit 35.0 % 31.0 % 33.5 % Mean Corpuscular Volume 92.9 FL 90.5 FL 91.3 FL Mean Corpuscular Hemoglobin 29.7 PG 29.6 PG 29.6 PG Mean Corpuscular Hemoglobin 32.0 % 32.7 % 32.4 % Concent Red Cell Distribution Width 18.6 % 18.8 % 19.2 % Platelet Count 141 TH/MM3 119 TH/MM3 162 TH/MM3 Mean Platelet Volume 9.2 FL 9.3 FL 10.2 FL Neutrophils (%) (Auto) 76.7 % 79.6 % Lymphocytes (%) (Auto) 10.4 % 8.6 % Monocytes (%) (Auto) 12.5 % 11.0 % Eosinophils (%) (Auto) 0.1 % 0.6 % Basophils (%) (Auto) 0.3 % 0.2 % Neutrophils # (Auto) 7.3 TH/MM3 11.6 TH/MM3 Lymphocytes # (Auto) 1.0 TH/MM3 1.2 TH/MM3 Monocytes # (Auto) 1.2 TH/MM3 1.6 TH/MM3 Eosinophils # (Auto) 0.0 TH/MM3 0.1 TH/MM3 Basophils # (Auto) 0.0 TH/MM3 0.0 TH/MM3 CBC Comment AUTO DIFF AUTO DIFF Differential Total Cells 100 100 Counted Neutrophils % (Manual) 64 % 78 % Band Neutrophils % 14 % 7 % Lymphocytes % 13 % 4 % Monocytes % 8 % 4 % Neutrophils # (Manual) 7.6 TH/MM3 13.2 TH/MM3 Myelocytes 1 % Differential Comment FINAL DIFF FINAL DIFF MANUAL MANUAL Atypical Lymphocytes % Platelet Estimate LOW NORMAL Platelet Morphology Comment ENLARGED NORMAL Ovalocytes 1+ 1+ Acanthocytes OCC Eosinophils % 1 % Metamyelocytes 6 % Toxic Granulation 2+ Laboratory Tests Test 01/11/17 01/11/17 01/11/17 01/11/17 04:45 10:45 16:28 23:00 Sodium Level 134 MEQ/L Potassium Level 4.4 MEQ/L Chloride Level 99 MEQ/L Carbon Dioxide Level 18.1 MEQ/L Anion Gap 17 MEQ/L Blood Urea Nitrogen 75 MG/DL Creatinine 5.54 MG/DL Estimat Glomerular Filtration 10 ML/MIN Rate Random Glucose 440 MG/DL Calcium Level 7.1 MG/DL Protein Corrected Calcium 8.4 MG/DL Total Bilirubin 0.4 MG/DL Aspartate Amino Transf 37 U/L (AST/SGOT) Alanine Aminotransferase 17 U/L (ALT/SGPT) Alkaline Phosphatase 209 U/L Total Protein 4.7 GM/DL Albumin 1.7 GM/DL Total Creatine Kinase 72 U/L Troponin I 17.90 NG/ML 14.30 NG/ML 11.20 NG/ML Test 01/12/17 04:05 Sodium Level 134 MEQ/L Potassium Level 3.8 MEQ/L Chloride Level 98 MEQ/L Carbon Dioxide Level 21.2 MEQ/L Anion Gap 15 MEQ/L Blood Urea Nitrogen 56 MG/DL Creatinine 4.30 MG/DL Estimat Glomerular Filtration 13 ML/MIN Rate Random Glucose 378 MG/DL Calcium Level 7.4 MG/DL Protein Corrected Calcium 8.8 MG/DL Troponin I 10.10 NG/ML Total Protein 4.7 GM/DL Microbiology Date/Time Procedure Status Source Growth 01/11/17 07:50 Aerobic Blood Culture - Preliminary Resulted Blood Peripheral NO GROWTH IN 1 DAY 01/11/17 07:50 Anaerobic Blood Culture - Preliminary Resulted Blood Peripheral NO GROWTH IN 1 DAY 01/11/17 08:04 Aerobic Blood Culture - Preliminary Resulted Blood Peripheral NO GROWTH IN 1 DAY 01/11/17 08:04 Anaerobic Blood Culture - Preliminary Resulted Blood Peripheral NO GROWTH IN 1 DAY 01/11/17 14:14 Gram Stain Received Sputum Endotracheal Pending 01/11/17 14:14 Sputum Culture Received Sputum Endotracheal Pending 01/11/17 17:52 Fungal Smear - Final Resulted Sputum Endotracheal RARE BUDDING YEAST CELLS 01/11/17 17:52 Fungal Culture Resulted Sputum Endotracheal Pending 01/11/17 17:52 Gram Stain - Final Resulted Sputum Endotracheal 01/11/17 17:52 Sputum Culture - Preliminary Resulted Gram Negative Gabe 01/11/17 18:20 Urine Culture - Preliminary Resulted Urine Catheterized Urine IMMATURE GROWTH - REINCUBATE 01/11/17 23:00 Stool Occult Blood (OZ) - Final Complete Stool Stool HEMOCCULT NEGATIVE Imaging Last Impressions Chest X-Ray 01/10/17 0000 Signed Impressions: Service Date/Time: Tuesday, January 10, 2017 07:58 - CONCLUSION: 1. Worsening effusions and bibasilar infiltrates. Radiographic pattern suggestive of pulmonary edema. 2. Right-sided dialysis catheter and other lines and tubes. Carlos Marmolejo Jr., MD Abdomen/Pelvis CT 01/05/17 1822 Signed Impressions: Service Date/Time: Thursday, January 05, 2017 18:54 - CONCLUSION: 1. Small bilateral pleural effusions and nodular infiltrates in right middle lobe most likely inflammatory and pneumonia not present previously. 2. Diverticuli throughout the colon with the area of bowel wall thickening and narrowing of sigmoid colon may be due to spasm, diverticulitis or underlying mass. Bentley Glass MD Physical Exam CONSTITUTIONAL/GENERAL: sedated int'd on mech vent TUBES/LINES/DRAINS: Permacath in place R chest w/o infc R IJ in place TLC wo e/o infx SKIN: No jaundice, rashes, or lesions. Skin temperature appropriate. Not diaphoretic. HEAD: Atraumatic. Normocephalic. EYES: Pupils equal and round and reactive. Extraocular motions intact. No scleral icterus. No injection or drainage. Fundi not examined. ENT: Orally intubated CARDIOVASCULAR: Regular rate and rhythm without murmurs, gallops, or rubs. No JVD. Peripheral pulses symmetric. Perfused extremeties, refill brisk RESPIRATORY/CHEST: Symmetric, unlabored respirations. Rhonchi to auscultation. Breath sounds equal bilaterally. No wheezes, rales, or rhonchi. GASTROINTESTINAL: Abdomen is tense, not tender (no reaction to palpation), markedly distended. Bowel sounds present. high pitched dignichield in place with liquid yellow stool GENITOURINARY: Without palpable bladder distension. MUSCULOSKELETAL: Extremities without clubbing, cyanosis, + 3 edema. No mottling no cyanosis B/l dressing s in place NEUROLOGICAL: sedated PSYCHIATRIC: unable to assess Assessment & Plan Remarks Recurrent C.diff colitis hypervirulent strain - findings on CT likely reflect distal colitis -3rd episode Sepsis , likely 2/2 C.diff Multiple med problems ESRD Acute VDRF - CXR and sputum Gstain more cw pulm edema rather than PNA, but gewing a GNB from sputum clx - BNP high in NSTEMI settings - likely fluid overload with PNA HD cath in place leukocytosis, bandemia New issue - Acute [place] Critically ill Unstable New high grade fever : resolved w empiric abx Recs: - cont po vanocmycin - anticipate 6 weeks of po vanco since its appear to be 3rd documented episode - cont IV flagyl for now - fu vancomycin, levels - con vanco cefepime, micafungin - will dc if BC negative and PNA not suspected - if PNA suspected a short course of abx 5-7 days will be tried - fu blood clx - fu sputum clx plan dw pts : Aida Ariza RN, MD Jan 12, 2017 13:59
[2017-01-12] MEDS: CEFEPIME INJ 1,000 MG in SODIUM CHLORIDE 0.9% INJ 100 ML IV SCH (14:01)
--- NOTE | 2017-01-12 14:03 | HHI.CCPN ---
Subjective Remarks/Hospital Course 76 year old male with DM, HTN, hyperlipidemia, obesity, cataracts, arthritis, peripheral arterial disease, neurogenic bladder, status post TURP, COPD, obstructive sleep apnea, and osteoporosis. He was admitted 07/25/16 for sepsis, perforated duodenal ulcer with percutaneous drain, and cellulitis. The course was complicated with an intra-abdominal abscess and that was drained by IR. Subsequently he had G-tube and J-tube inserted which. Another course was complicated with ESRD now patient on hemodialysis. He was discharged to [facility] and return to the hospital with new onset of stroke. He was readmitted from rehabilitation on 10/10/2016 for respiratory failure and mucous plug. He was again discharged and was no longer on hemodialysis. Most recently, he was admitted from 12/03 to 12/15 for respiratory failure requiring mechanical ventilation, recurrent clostridium difficile colitis, sepsis, and pneumonia. Now he is back on dialysis Tuesday to and Tuesday. Patient was discharged to [facility] for respiratory [facility] and was discharged last Tuesday. According to the patient's , he had been doing relatively well. The day prior to admission he started to complain of abdominal cramping. He was admitted to medical-surgical floor. 01/07/2017 after hemodialysis removed 2 L of fluids, rapid response was called due to hypotension with a blood pressure systolic in the 60s and he was transferred to ICU. 01/08 Patient remains on Levophed 21 mics and Vasopressin 0.04. Afebrile. For HD today. Denies any SOB or abdominal pain. 01/09 Patient was intubated yesterday for acute hypercapnic resp failure sedated with Fentanyl. s/p HD yesterday with removal 2L. Levophed is down 10 mics and Vasopressin 0.04. Afebrile. 01/10 Patient remains sedated and intubated. T:100.3. Levophed is down to 4 mics , on Vasopressin 0.04. 01/11 Patient remains sedated and intubated. His pressors were off yesterday however restarted on Levophed now is at 11 mics in addition patient was given 1L bolus NS overnight. T: 104.0 at midnight. 01/12:Tmax 99.3. The patient continues on James said and vasopressin for vasopressor support. Currently on CPAP trials for greater than 2 hours. Objective Vital Signs Date Time Temp Pulse Resp B/P Pulse Ox O2 Delivery O2 Flow Rate FiO2 01/12/17 11:46 93 35 01/12/17 10:00 99 01/12/17 08:00 99.0 22 125/60 123/56 01/08/17 08:00 Nasal Cannula 4.00 Intake and Output 01/11/17 01/11/17 01/12/17 08:00 16:00 00:00 Intake Total 1380 ml 1317 ml 1747 ml Output Total 100 ml 900 ml 540 ml Balance 1280 ml 417 ml 1207 ml Result Diagram: 01/12/17 0405 01/12/17 0405 Other Results Microbiology Date/Time Procedure Status Source Growth 01/11/17 23:00 Stool Occult Blood (OZ) - Final Complete Stool Stool HEMOCCULT NEGATIVE Imaging Last Impressions Chest X-Ray 01/10/17 0000 Signed Impressions: Service Date/Time: Tuesday, January 10, 2017 07:58 - CONCLUSION: 1. Worsening effusions and bibasilar infiltrates. Radiographic pattern suggestive of pulmonary edema. 2. Right-sided dialysis catheter and other lines and tubes. Carlos Marmolejo Jr., MD Abdomen/Pelvis CT 01/05/17 1822 Signed Impressions: Service Date/Time: Thursday, January 05, 2017 18:54 - CONCLUSION: 1. Small bilateral pleural effusions and nodular infiltrates in right middle lobe most likely inflammatory and pneumonia not present previously. 2. Diverticuli throughout the colon with the area of bowel wall thickening and narrowing of sigmoid colon may be due to spasm, diverticulitis or underlying mass. Bentley Glass MD Objective Remarks GENERAL: PAtient is 76 yo critically ill intubated, sedated and on pressors. SKIN: Warm and dry. HEAD: Normocephalic. EYES: No scleral icterus. No injection or drainage. NECK: Supple, trachea midline. No JVD or lymphadenopathy. Orally intubated CARDIOVASCULAR: Regular rate and rhythm without murmurs, gallops, or rubs. RESPIRATORY: Breath sounds equal bilaterally. No accessory muscle use. GASTROINTESTINAL: Abdomen soft, non-tender, distended. MUSCULOSKELETAL: No cyanosis, or edema. BACK: Nontender without obvious deformity. No CVA tenderness. Neuro: Sedated, intubated. 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 Daily sedation vacation Pulm: Continue with vent support keep sat >92% Bronchodilators, ICU vent bundle. CPAP trials as tolerated Check CT chest for further eval of basilar infiltrates CV: Wean off Levophed as reva, off Vasopressin monitor HR and BP keep MAP > 65mmHg Lactic acid 1.0 on 01/06. Echo 12/05 showed EF 35-40%, no RWMA On ASA 325mg daily, monitor troponin, cards eval, repeat echo. Continue on heparin drip per [place] protocol. Cardiology following Dr. Garcia : Monitor renal function, avoid nephrotoxins. HD per renal- Dr. Antoine. s/p HD 01/08 with removal 2L for HD today GI: On TF- Nepro @ 40ml/hr, Protonix 40mg daily. Monitor LFT's Continue to monitor bladder pressure-currently 13 ID: Continue with abx per ID ( On Vanco PO, IV Flagyl) monitor for signs of infections ( Fever, WBC) Vancomycin, Cefepime, Micafungin sputum cx & BC from 01/05: No growth F/U blood culture 01/12 sputum culture gram-negative kobi 01/12 CT abdomen/pelvis-large bilateral pleural effusions, abdominal ascites , bowel edema, generalized anasarca Heme: Monitor CBC, on Epogen with HD Endo: Will place patient on insulin drip for glycemic control, hydrocortisone discontinued GI prophylaxis- on Protonix 40mg daily DVT prophylaxis- On Heparin SQ Lines: Right IJ CVP placed 01/07 Dispo: Discussed with patient's and [employer] at bedside. This patient remains critically ill with one or more organ systems which are or may become a threat to life. I have spent in excess of 35 minutes discontinuously in the care and management of this patient. This time is exclusive of procedures, and includes, but is not limited to, evaluation of the patient, review of the medical record, discussions with family, consultants, nursing staff, or respiratory therapy, and documentation in the medical record. Physician Patrizia Casey Problem Qualifiers (1) Chronic kidney disease (CKD): Qualified Code: N18.5 - Chronic kidney disease (CKD), stage 5 Patrizia Casey MD Jan 12, 2017 14:03
[2017-01-12] MEDS: HEPARIN-D5W INJ 250 ML IV SCH (14:05)
[2017-01-12] MEDS ORDERED: INSULIN REGULAR 100 UNITS/100 ML NS ALGORITHM 4 IV SCH ×2 (15:00)
[2017-01-12] MEDS ORDERED: MISC INFORMATION OTHER ONE (15:00)
[2017-01-12] MEDS ORDERED: GLUCAGON 1 MG/ML VIAL OTHER PRN (15:30)
[2017-01-12] MEDS ORDERED: DEXTROSE 50% IN WATER 50 ML VIAL(D50) IV PUSH PRN (15:30)
[2017-01-12] MEDS ORDERED: PLEASE DISCONTINUE PREVIOUS SUPPLEMENTAL SCALE INSULIN ORDERS ONE (15:30)
[2017-01-12] MEDS: HIGH DOSE INSULIN NOVOLIN REGULAR SUPPLEMENTAL SCALE SQ SCH ×2 (16:00→21:00)
[2017-01-12] MEDS: MICAFUNGIN INJ 150 MG in SODIUM CHLORIDE 0.9% INJ 100 ML IV SCH (16:57)
[2017-01-12] MEDS: RESP: ALBUTEROL 2.5 MG/IPRATROPIUM 0.5 MG NEB (PRN) NEB ×2 (17:50→21:00)
[2017-01-12] MEDS ORDERED: TERBUTALINE INJ 1 MG/ML AMP SQ PRN (18:30)
[2017-01-12] MEDS: NOREPINEPHRINE-DEXTROSE DRIP 250 ML IV SCH (18:42)
[2017-01-12] MEDS: ATORVASTATIN 80 MG TAB PO SCH (21:39)
[2017-01-12 22:00] LABS: APTT (PATIENT) GREATER THAN 153.4 SEC (24.3-30.1)
[2017-01-13] VITALS (18 sets, daily range): BP systolic 89–148; BP diastolic 45–70; PULSE 88–126; RESP 20; TEMP 98.2–99.8; O2SAT 92–99
[2017-01-13] MEDS: PHENYLEPHRINE HCL 80 MG/D5W 492 ML ADMIX IV SCH ×2 (00:04)
[2017-01-13] MEDS: NOREPINEPHRINE-DEXTROSE DRIP 250 ML IV SCH ×2 (00:05→06:07)
[2017-01-13 00:37] LABS: APTT (PATIENT) 66.9 SEC (24.3-30.1)
--- NOTE | 2017-01-13 04:59 | RADRPT ---
EXAM DATE/TIME: 01/13/2017 03:25 [facility] COMPARISON: ABDOMEN KUB ONLY, September 02, 2016, 15:59. INDICATIONS : Abdominal distention. MEDICAL HISTORY : Hypertension. Chronic obstructive pulmonary disease. Diabetes mellitus type I. SURGICAL HISTORY : Appendectomy. Carotid endarterectomy. ENCOUNTER: Subsequent ACUITY: 1 week PAIN SCORE: Non-responsive. LOCATION: Bilateral Abdomen FINDINGS: Bowel gas pattern nonspecific without evidence for obstruction or free air. NG tube is in the distal stomach. Degenerative change of the spine. CONCLUSION: 1. No acute findings. NG tip in stomach. Alfredo Worrell MD on January 13, 2017 at 4:57 Board Certified Radiologist. This report was verified electronically.
--- NOTE | 2017-01-13 05:09 | RADRPT ---
EXAM DATE/TIME: 01/13/2017 03:22 [facility] COMPARISON: No previous studies available for comparison. INDICATIONS : Shortness of breath. MEDICAL HISTORY : Hypertension. Chronic obstructive pulmonary disease. Diabetes mellitus type I. SURGICAL HISTORY : Appendectomy. Carotid endarterectomy. ENCOUNTER: Subsequent ACUITY: 1 week PAIN SCORE: Non-responsive. LOCATION: Bilateral chest FINDINGS: A single view of the chest demonstrates endotracheal tube at geraldo directed towards right mainstem b ronchus. This should be withdrawn about 3 cm. NG enters stomach. Right-sided dual-lumen catheter tips in right atrium. Right central line tip in superior vena cava. Basilar airspace disease slightly inc reased on the right since January 12, stable on the left. No pneumothorax. CONCLUSION: 1. Basilar airspace disease and pleural effusions, slightly increased on the right since January 12. 2. Endotracheal tube tip at geraldo directed towards right mainstem bronchus. This should be withdrawn about 3 cm. Remaining support apparatus unchanged. Alfredo Worrell MD on January 13, 2017 at 5:05 Board Certified Radiologist. This report was verified electronically.
[2017-01-13 05:36] LABS: AUTOMATED NEUTROPHIL # 14.5 TH/MM3 (1.8-7.7); BASOPHIL # 0.1 TH/MM3 (0-0.2); BASOPHIL % 0.4 % (0.0-2.0); EOSINOPHIL # 0.2 TH/MM3 (0-0.4); EOSINOPHIL % 1.2 % (0.0-4.0); HEMATOCRIT 34.4 % (39.0-51.0); LYMPH % 8.1 % (9.0-44.0); LYMPHOCYTE # 1.4 TH/MM3 (1.0-4.8); MEAN CELL VOLUME 92.6 FL (80.0-100.0); MEAN CORPUSCULAR HEMOGLOBIN 28.5 PG (27.0-34.0); MEAN CORPUSCULAR HGB CONC 30.8 % (32.0-36.0); MONO % 8.7 % (0.0-8.0); NEUT % 81.6 % (16.0-70.0); PLATELET COUNT 233 TH/MM3 (150-450); RED BLOOD COUNT 3.72 MIL/MM3 (4.50-5.90); RED CELL DISTRIBUTION WIDTH 18.9 % (11.6-17.2); WHITE BLOOD COUNT 17.8 TH/MM3 (4.0-11.0)
[2017-01-13 05:57] LABS: BICARBONATE 20.6 MEQ/L (21.0-32.0); POTASSIUM 3.8 MEQ/L (3.5-5.1)
[2017-01-13 06:07] LABS: HEMO FLAGS AUTO DIFF
[2017-01-13] MEDS: fentaNYL DRIP 250 ML IV SCH (06:07)
[2017-01-13] MEDS: VASOPRESSIN INJ 40 UNITS in DEXTROSE 5% IN WATER 100ML INJ 98 ML IV SCH ×2 (06:08)
[2017-01-13] MEDS: metroNIDAZOLE 500 MG INJ 100 ML IV SCH ×3 (06:08→22:11)
[2017-01-13 06:30] LABS: APTT (PATIENT) 64.4 SEC (24.3-30.1)
[2017-01-13] MEDS: HIGH DOSE INSULIN NOVOLIN REGULAR SUPPLEMENTAL SCALE SQ SCH ×4 (06:50→20:00)
[2017-01-13] MEDS: CHLORHEXIDINE 0.12% (ORAL KIT) 15 ML CUP MT SCH ×2 (08:00→22:12)
[2017-01-13 08:12] LABS: BANDS 23 % (0-6); METAMYELOCYTES 1 % (0-1); NEUTROPHIL # MANUAL DIFF 14.6 TH/MM3 (1.8-7.7); POLYS (SEG NEUTROPHILS) 58 % (16-70); WBC DIFF SAMPLE 100
[2017-01-13 08:13] LABS: PLATELET ESTIMATE SMEAR NORMAL (NORMAL); SCAN/DIFF FINAL DIFF MANUAL
[2017-01-13 08:14] LABS: DOHLE BODIES PRESENT (NONE SEEN); TOXIC GRANULATION 1+ (NORMAL)
[2017-01-13 08:15] LABS: OVALOCYTES 1+ (NORMAL); PLATELET MORPHOLOGY NORMAL (NORMAL)
[2017-01-13 08:16] LABS: ACANTHOCYTES 1+ (NORMAL)
[2017-01-13] MEDS: RESP: ALBUTEROL 2.5 MG/IPRATROPIUM 0.5 MG NEB (PRN) NEB ×2 (08:33→16:25)
[2017-01-13] MEDS: GENTAMICIN SULFATE (DIALYSIS USE ONLY) 20 MG/2 ML VIAL IV PRN (09:32)
[2017-01-13] MEDS: EPOETIN ALFA 10,000 UNITS/ML VIAL IV PRN (09:32)
[2017-01-13] MEDS: HEPARIN SODIUM - IV 10,000 UNITS/10 ML VIAL PRN (09:32)
[2017-01-13] MEDS: SODIUM CHLOR 0.9% 1000 ML INJ 1,000 ML IV PRN (09:32)
[2017-01-13] MEDS: ALBUMIN HUMAN 25% 25 GM/100 ML BAGP IV PRN (09:32)
[2017-01-13] MEDS ORDERED: DEXTROSE 50% IN WATER 50 ML VIAL(D50) IV PUSH PRN (10:15)
[2017-01-13] MEDS ORDERED: NOREPINEPHRINE-DEXTROSE DRIP 250 ML IV SCH (10:15)
[2017-01-13] MEDS ORDERED: INSULIN REGULAR (IV INFUSION) 100 UNITS in SODIUM CHLORIDE 0.9% INJ 99 ML IV SCH (10:15)
--- NOTE | 2017-01-13 10:17 | HHI.CCPN ---
Subjective Remarks/Hospital Course 76 year old male with DM, HTN, hyperlipidemia, obesity, cataracts, arthritis, peripheral arterial disease, neurogenic bladder, status post TURP, COPD, obstructive sleep apnea, and osteoporosis. He was admitted 07/25/16 for sepsis, perforated duodenal ulcer with percutaneous drain, and cellulitis. The course was complicated with an intra-abdominal abscess and that was drained by IR. Subsequently he had G-tube and J-tube inserted which. Another course was complicated with ESRD now patient on hemodialysis. He was discharged to [facility] and return to the hospital with new onset of stroke. He was readmitted from rehabilitation on 10/10/2016 for respiratory failure and mucous plug. He was again discharged and was no longer on hemodialysis. Most recently, he was admitted from 12/03 to 12/15 for respiratory failure requiring mechanical ventilation, recurrent clostridium difficile colitis, sepsis, and pneumonia. Now he is back on dialysis Tuesday to and Tuesday. Patient was discharged to [facility] for respiratory rehabilitation and was discharged last Tuesday. According to the patient's , he had been doing relatively well. The day prior to admission he started to complain of abdominal cramping. He was admitted to medical-surgical floor. 01/07/2017 after hemodialysis removed 2 L of fluids, rapid response was called due to hypotension with a blood pressure systolic in the 60s and he was transferred to ICU. 01/08 Patient remains on Levophed 21 mics and Vasopressin 0.04. Afebrile. For HD today. Denies any SOB or abdominal pain. 01/09 Patient was intubated yesterday for acute hypercapnic resp failure sedated with Fentanyl. s/p HD yesterday with removal 2L. Levophed is down 10 mics and Vasopressin 0.04. Afebrile. 01/10 Patient remains sedated and intubated. T:100.3. Levophed is down to 4 mics , on Vasopressin 0.04. 01/11 Patient remains sedated and intubated. His pressors were off yesterday however restarted on Levophed now is at 11 mics in addition patient was given 1L bolus NS overnight. T: 104.0 at midnight. 01/12:Tmax 99.3. The patient continues on James said and vasopressin for vasopressor support. Currently on CPAP trials for greater than 2 hours. 01/13: persistently on high dose multiple vasopressors. no clinical improvement. still appears toxic. still febrile with rising leukocytosis. Objective Vital Signs Date Time Temp Pulse Resp B/P Pulse Ox O2 Delivery O2 Flow Rate FiO2 01/13/17 08:34 93 35 01/13/17 06:00 112 01/13/17 06:00 116/49 111/63 01/13/17 04:00 99.0 20 Intake and Output 01/12/17 01/12/17 01/13/17 08:00 16:00 00:00 Intake Total 1437 ml 1250 ml 1164 ml Output Total 60 ml 475 ml 120 ml Balance 1377 ml 775 ml 1044 ml Result Diagram: 01/13/17 0420 01/13/17 0420 Other Results Microbiology Date/Time Procedure Status Source Growth 01/11/17 23:00 Stool Occult Blood (OZ) - Final Complete Stool Stool HEMOCCULT NEGATIVE Imaging Last Impressions Chest X-Ray 01/10/17 0000 Signed Impressions: Service Date/Time: Tuesday, January 10, 2017 07:58 - CONCLUSION: 1. Worsening effusions and bibasilar infiltrates. Radiographic pattern suggestive of pulmonary edema. 2. Right-sided dialysis catheter and other lines and tubes. Carlos Marmolejo Jr., MD Abdomen/Pelvis CT 01/05/17 1822 Signed Impressions: Service Date/Time: Thursday, January 05, 2017 18:54 - CONCLUSION: 1. Small bilateral pleural effusions and nodular infiltrates in right middle lobe most likely inflammatory and pneumonia not present previously. 2. Diverticuli throughout the colon with the area of bowel wall thickening and narrowing of sigmoid colon may be due to spasm, diverticulitis or underlying mass. Bentley Glass MD Objective Remarks GENERAL: Patient is 76 yo critically ill intubated, sedated and on pressors. SKIN: Warm and dry. HEAD: Normocephalic. EYES: No scleral icterus. No injection or drainage. NECK: Supple, trachea midline. No JVD or lymphadenopathy. Orally intubated CARDIOVASCULAR: Regular rate and rhythm without murmurs, gallops, or rubs. RESPIRATORY: Breath sounds equal bilaterally. No accessory muscle use. GASTROINTESTINAL: Abdomen soft, non-tender, distended. MUSCULOSKELETAL: No cyanosis, or edema. BACK: Nontender without obvious deformity. No CVA tenderness. Neuro: Sedated, intubated. 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 Daily sedation vacation Pulm: Continue with vent support keep sat >92% Bronchodilators, ICU vent bundle. CPAP trials as tolerated CV: plan to wean off phenylephrine. keep vasopressin today. wean levo for goal map > 65. Lactic acid 1.0 on 01/06. Echo 12/05 showed EF 35-40%, no RWMA On ASA 325mg daily, monitor troponin, cards eval, repeat echo. Continue on heparin drip per [place] protocol. Cardiology following Dr. Garcia trend cvp. : Monitor renal function, avoid nephrotoxins. HD per renal- Dr. Antoine. HD today. GI: hold tube feeds on high dose vasopressors, Protonix 40mg daily. Monitor LFT's d/c abdominal pressure monitoring. ID: Continue with abx per ID ( On Vanco PO, IV Flagyl) monitor for signs of infections ( Fever, WBC) Vancomycin, Cefepime, Micafungin sputum cx & BC from 01/05: No growth F/U blood culture 01/12 sputum culture gram-negative kobi 01/12 CT abdomen/pelvis-large bilateral pleural effusions, abdominal ascites , bowel edema, generalized anasarca fevers and rising leukocytosis: will reculture today. continue abx plan per ID. lines look clean without signs of infection. permacath has been in for a while. will discuss line plan and risk/benefit changing vs. keeping with ID. Heme: Monitor CBC, on Epogen with HD Endo: place back on hydrocortisone. check random serum cortisol. increase lantus to 30units qHS, insulin drip. GI prophylaxis- on Protonix 40mg daily DVT prophylaxis- SCDs, heparin drip Lines: Right IJ CVP placed 01/07 Dispo: remain in the ICU. very critically ill and not improving. This patient remains critically ill with one or more organ systems which are or may become a threat to life. I have spent in excess of 44 minutes discontinuously in the care and management of this patient. This time is exclusive of procedures, and includes, but is not limited to, evaluation of the patient, review of the medical record, discussions with family, consultants, nursing staff, or respiratory therapy, and documentation in the medical record. Problem Qualifiers (1) Chronic kidney disease (CKD): Qualified Code: N18.5 - Chronic kidney disease (CKD), stage 5 Juancarlos Driscoll MD Jan 13, 2017 10:17
--- NOTE | 2017-01-13 10:41 | HHI.NPPN ---
Subjective General Problems: Anemia, COPD, Edema, Heart Disease, Hypotension Renal Failure: End Stage Renal Disease History of Present Illness 76-year-old male with past medical history of hypertension, diabetes mellitus, hyperlipidemia, peripheral vascular disease, chronic obstructive pulmonary disease, end-stage renal disease on hemodialysis who came to the hospital with complaint of loose bowel motion and lower abdominal pain. Additional Remarks Patient remain intubated, now on HD, still on pressors. Review of Systems General Constitutional: Fatigue Respiratory Lungs: SOB, Wheeze Gastrointestinal Gastrointestinal: Abdominal Pain, Diarrhea Objective Data Data 01/12/17 01/13/17 19:00 07:00 Intake Total 1250 ml 1952 ml Output Total 475 ml 370 ml Balance 775 ml 1582 ml IV Total 929 ml 1722 ml Tube Feeding 321 ml 230 ml Output Urine Total 175 ml 20 ml Stool Total 300 ml 200 ml Gastric Drainage Total 150 ml Vital Signs Date Time Temp Pulse Resp B/P Pulse Ox O2 Delivery O2 Flow Rate FiO2 01/13/17 08:34 93 35 01/13/17 06:00 112 01/13/17 06:00 116/49 111/63 01/13/17 04:00 104 01/13/17 04:00 35 01/13/17 04:00 99.0 104 20 96/60 97 102/45 01/13/17 04:00 102/45 96/60 01/13/17 03:53 97 50 01/13/17 02:00 101 01/13/17 02:00 116/49 114/57 01/13/17 00:06 97 50 01/13/17 00:00 102 01/13/17 00:00 98/49 123/63 01/13/17 00:00 99.8 102 20 123/63 96 98/49 01/13/17 00:00 50 01/12/17 22:00 142/51 144/63 01/12/17 22:00 94 01/12/17 21:02 96 50 01/12/17 20:00 100.2 100 22 165/73 97 164/65 01/12/17 20:00 50 01/12/17 20:00 95 01/12/17 20:00 164/65 165/73 01/12/17 18:00 92 01/12/17 17:07 94 50 01/12/17 16:00 100 01/12/17 16:00 35 01/12/17 16:00 99.4 100 18 107/54 91 87/51 01/12/17 14:00 100 01/12/17 12:00 35 01/12/17 12:00 99.5 103 24 148/68 92 114/63 01/12/17 12:00 103 01/12/17 11:46 93 35 -: 01/13/17 0420 01/13/17 0420 Physical Exam General Appearance Remarks Intubated and awake. Eyes Eye Exam: Pupils Equal Throat Throat Exam: Oral Mucosa [place] & Moist Neck Neck Exam: Neck Supple Pulmonary Resp Exam: Breath Sounds Equal, No Distress, Rhonchi, Decreased Bases Cardiology CV Exam: Regular, Normal Sinus Rhythm Gastrointestinal/Abdomen GI Exam: Soft, Non-Tender, Bowel Sounds Present, Distended Extremeties Extremities Exam: Trace Edema Neurologic Neuro Exam: Alert, Awake Psychiatric Psych Exam: Appropriate Responses Assessment/Plan Assessment Summary: Anemia of CKD, CHF, Hypotension, End Stage Renal Disease Problem List: (1) Anxiety (2) Diabetes (3) C. difficile diarrhea (4) COPD (chronic obstructive pulmonary disease) (5) Congestive heart failure (6) Diverticulitis (7) Diarrhea (8) End-stage renal disease on hemodialysis Plan Still has diarrhea. C diff colitis managed by ID Blood culture negative so far. Follow the cultures. Now on Vanco., Metronidazole, Micafungin and Cefepime, ID is following. Trop. I increased and seen by cardiology. HD now, removing 3 liters. BP has been low, on pressors. Problem Qualifiers (1) COPD (chronic obstructive pulmonary disease): Qualified Code: J44.9 - Chronic obstructive pulmonary disease, unspecified COPD type (2) Congestive heart failure: Qualified Code: I50.9 - Chronic congestive heart failure, unspecified congestive heart failure type (3) Diverticulitis: Qualified Code: K57.32 - Diverticulitis of large intestine without perforation or abscess without bleeding (4) Diarrhea: Qualified Code: R19.7 - Diarrhea, unspecified type Willi Antoine MD Jan 13, 2017 10:41
--- NOTE | 2017-01-13 11:09 | HHI.PR ---
Subjective Remarks Patient is intubated. Mildly Sedated. Alert following commands. Nodding yes and no. Limited history No headache no chest pain no abdominal pain no back pain Breathing okay Feeling tired On pressors No family at bedside. Objective Objective Results - Vital Signs Date Time Temp Pulse Resp B/P Pulse Ox O2 Delivery O2 Flow Rate FiO2 01/13/17 10:00 122 01/13/17 08:34 93 35 01/13/17 08:00 110 01/13/17 08:00 99.3 110 20 95/62 99 108/48 01/13/17 06:00 112 01/13/17 06:00 116/49 111/63 01/13/17 04:00 104 01/13/17 04:00 35 01/13/17 04:00 99.0 104 20 96/60 97 102/45 01/13/17 04:00 102/45 96/60 01/13/17 03:53 97 50 01/13/17 02:00 101 01/13/17 02:00 116/49 114/57 01/13/17 00:06 97 50 01/13/17 00:00 102 01/13/17 00:00 98/49 123/63 01/13/17 00:00 99.8 102 20 123/63 96 98/49 01/13/17 00:00 50 01/12/17 22:00 142/51 144/63 01/12/17 22:00 94 01/12/17 21:02 96 50 01/12/17 20:00 100.2 100 22 165/73 97 164/65 01/12/17 20:00 50 01/12/17 20:00 95 01/12/17 20:00 164/65 165/73 01/12/17 18:00 92 01/12/17 17:07 94 50 01/12/17 16:00 100 01/12/17 16:00 35 01/12/17 16:00 99.4 100 18 107/54 91 87/51 01/12/17 14:00 100 01/12/17 12:00 35 01/12/17 12:00 99.5 103 24 148/68 92 114/63 01/12/17 12:00 103 01/12/17 11:46 93 35 I/O 3/29/17 3/01/12/17 01/13/17 01/13/17 01/13/17 07:00 15:00 23:00 07:00 15:00 23:00 Intake Total 1437 ml 1250 ml 1164 ml 788 ml Output Total 60 ml 475 ml 120 ml 250 ml Balance 1377 ml 775 ml 1044 ml 538 ml IV Total 1137 ml 929 ml 934 ml 788 ml Tube Feeding 300 ml 321 ml 230 ml 0 ml Output Urine Total 20 ml 175 ml 20 ml 0 ml Stool Total 40 ml 300 ml 100 ml 100 ml Gastric Drainage Total 150 ml Result Diagram: 01/13/170 01/13/17419 Imaging Last Impressions Abdomen/Pelvis CT 01/05/17 1822 Signed Impressions: Service Date/Time: Thursday, January 05, 2017 18:54 - CONCLUSION: 1. Small bilateral pleural effusions and nodular infiltrates in right middle lobe most likely inflammatory and pneumonia not present previously. 2. Diverticuli throughout the colon with the area of bowel wall thickening and narrowing of sigmoid colon may be due to spasm, diverticulitis or underlying mass. Bentley Glass MD Other Results Laboratory Tests Test 01/12/17 01/13/17 01/13/17 01/13/17 20:09 00:00 04:20 06:00 Activated Partial GREATER THAN 66.9 64.4 Thromboplast Time 153.4 White Blood Count 17.8 Red Blood Count 3.72 Hemoglobin 10.6 Hematocrit 34.4 Mean Corpuscular Volume 92.6 Mean Corpuscular Hemoglobin 28.5 Mean Corpuscular Hemoglobin 30.8 Concent Red Cell Distribution Width 18.9 Platelet Count 233 Mean Platelet Volume 10.8 Neutrophils (%) (Auto) 81.6 Lymphocytes (%) (Auto) 8.1 Monocytes (%) (Auto) 8.7 Eosinophils (%) (Auto) 1.2 Basophils (%) (Auto) 0.4 Neutrophils # (Auto) 14.5 Lymphocytes # (Auto) 1.4 Monocytes # (Auto) 1.5 Eosinophils # (Auto) 0.2 Basophils # (Auto) 0.1 CBC Comment AUTO DIFF Differential Total Cells 100 Counted Neutrophils % (Manual) 58 Band Neutrophils % 23 Lymphocytes % 8 Monocytes % 10 Neutrophils # (Manual) 14.6 Metamyelocytes 1 Differential Comment FINAL DIFF MANUAL Atypical Lymphocytes Toxic Granulation 1+ Dohle Bodies PRESENT Platelet Estimate NORMAL Platelet Morphology Comment NORMAL Ovalocytes 1+ Acanthocytes 1+ Sodium Level 130 Potassium Level 3.8 Chloride Level 95 Carbon Dioxide Level 20.6 Anion Gap 14 Blood Urea Nitrogen 69 Creatinine 4.88 Estimat Glomerular Filtration 12 Rate Random Glucose 312 Calcium Level 7.5 Date/Time Procedure Status Source Growth 01/11/17 23:00 Stool Occult Blood (OZ) - Final Complete Stool Stool HEMOCCULT NEGATIVE 01/11/17 18:20 Urine Culture - Preliminary Resulted Urine Catheterized Urine Krystal Albicans Yeast-Id To Follow 01/11/17 17:52 Gram Stain - Final Resulted Sputum Endotracheal 01/11/17 17:52 Sputum Culture - Preliminary Resulted Gram Negative Gabe 01/11/17 17:52 Fungal Smear - Final Resulted Sputum Endotracheal RARE BUDDING YEAST CELLS 01/11/17 17:52 Fungal Culture Resulted Sputum Endotracheal Pending 01/11/17 14:14 Gram Stain Received Sputum Endotracheal Pending 01/11/17 14:14 Sputum Culture Received Sputum Endotracheal Pending 01/11/17 08:04 Aerobic Blood Culture - Preliminary Resulted Blood Peripheral NO GROWTH IN 1 DAY 01/11/17 08:04 Anaerobic Blood Culture - Preliminary Resulted Blood Peripheral NO GROWTH IN 1 DAY Physical Exam Physical Exam GENERAL: This is a well-nourished, well-developed patient. Ill-looking. Alert following commands SKIN: No rashes, ecchymoses or lesions. Cool and dry. HEAD: Atraumatic. Normocephalic. No temporal or scalp tenderness. EYES: Pupils equal round and reactive. Extraocular motions intact. No scleral icterus. No injection or drainage. ENT: With ET tube.. NECK: Trachea midline. Supple, nontender. CARDIOVASCULAR: S1-S2, unable to detect any murmurs rubs or gallops. Right chest wall is noted with permacath. RESPIRATORY: Diminished at bases, faint bibasilar rales. Coarse breathing GASTROINTESTINAL: Abdomen soft,distended. No hepato-splenomegaly, or palpable masses. No guarding. MUSCULOSKELETAL: Extremities without clubbing, cyanosis. No joint tenderness, effusion, or edema noted. No calf tenderness. Negative Homans sign bilaterally. Bilateral lower extremities noted with +1 edema, pedal pulses 1+ bilaterally. Both feet with dressings D/I. Has ulcers to both heels. NEUROLOGICAL: Likely Sedated on vent. Moving his fingers and some movement of toes on commands A/P Assessment and Plan (1) Sepsis (2) Recurrent Clostridium difficile diarrhea (3) Diverticulitis (4) Diabetes 1.5, managed as type 2 (5) History of CVA (cerebrovascular accident) (6) PVD (peripheral vascular disease) (7) Hypertension (8) Hyperlipidemia (9) Chronic kidney disease (CKD) (10) Congestive heart failure (11) COPD (chronic obstructive pulmonary disease) (12) shock hypovolemic/septic Plan 76-year-old male with recent extensive hospitalizations for perforated duodenal ulcer, sepsis, respiratory failure with tracheostomy, CVA, acute renal injury that led to CKD requiring hemodialysis. [facility] and inability to extubate, has been treated for C. difficile colitis. Now presents with recurrent C. difficile colitis, possible diverticulitis and also recurrent pneumonia. Sepsis with shock -Continue with antibiotics, as per ID -Follow cultures. Urine culture shows Krystal and a sputum culture showing gram -negative rods -Monitor CBC -ID input appreciated. Antibiotic per ID -GI input appreciated -CT abdomen chest report reviewed Pneumonia HCAP -Antibiotic per ID -On vent Increase troponin , non-ST elevation MT -Cardiology input appreciated -Discussed with radiation oncology therapist -on heparin -Unable to use beta blanca because of hypotension Hypotension/shock -Patient on pressors as needed -Appreciate radiation oncology therapist input. Discussed the intensive -IV hydration cautiously Chronic kidney disease/ESRD, on hemodialysis Tuesday and Tuesday. Appreciate consultation by nephrology for hemodialysis management. Discussed with nephrology on the floor COPD, sleep apnea, with respiratory failure on CPAP trial intubated -On Gwendolynu-Richard Loredo PRN Chronic CHF, stable -Continue with home Diabetes type 2 Accu-Cheks before meals and at bedtime with insulin therapy as needed History of recent CVA Continue with aspirin PVD Continue home medications Hypertension Home medications on hold because of hypotension. Pressors on as-needed basis Hyperlipidemia Continue with statins History peripheral vascular disease, had vascular surgery at [facility] last year. Has chronic wounds to both heels. Consult wound care nurse for evaluation Labs reviewed Leukocytosis with bandemia because of sepsis and shock Anemia stable H&H Leukocytosis with bandemia improved. But is still bandemia Anemia stable Mild hypocalcemia will monitor Benadryl for sleep Home medications reviewed, initiated as indicated Plan of care RN Discussed with radiation oncology therapist Further management of the patient will be dependent on the hospital course Patient's condition is critical. Prognosis guarded Labs for tomorrow Julius Wyatt MD Jan 13, 2017 11:09
[2017-01-13] MEDS: HYDROCORTISONE SOD SUCCINATE 100 MG VIAL IV PUSH SCH ×2 (11:28→17:40)
[2017-01-13] MEDS: NOREPINEPHRINE INJ 16 MG in SODIUM CHLOR 0.9% 250 ML INJ 234 ML IV SCH (11:28)
[2017-01-13] MEDS: PANTOPRAZOLE SODIUM 40 MG VIAL IV PUSH SCH (11:28)
[2017-01-13] MEDS ORDERED: GLUCAGON 1 MG/ML VIAL OTHER PRN (12:00)
[2017-01-13] MEDS ORDERED: INSULIN NovoLIN REGULAR SUPPLEMENTAL SCALE SQ SCH (12:00)
[2017-01-13] MEDS: VANCOMYCIN 500 MG VIAL (FOR ORAL USE ONLY) PO SCH ×4 (12:31→22:10)
[2017-01-13] MEDS: LANTHANUM CARBONATE 500 MG CHEWABLE TABLET CHEW SCH ×2 (12:31→17:41)
[2017-01-13] MEDS: GABAPENTIN 100 MG CAP PO SCH ×2 (12:31→22:11)
[2017-01-13] MEDS: CALCIUM CARBONATE 1.25 GM (CA 500 MG) TAB PO SCH (12:32)
[2017-01-13] MEDS: COLLAGENASE OINT 30 GM TUBE TOP SCH (12:32)
[2017-01-13] MEDS: SODIUM CHLORIDE 0.9% FLUSH 10 ML FLUSH IV FLUSH SCH ×2 (12:32→22:11)
[2017-01-13] MEDS: ASPIRIN 325 MG TAB PO SCH (12:32)
[2017-01-13] MEDS: CEFEPIME INJ 1,000 MG in SODIUM CHLORIDE 0.9% INJ 100 ML IV SCH (14:15)
[2017-01-13] MEDS: DEXTROSE 10% INJ 1,000 ML IV SCH (14:15)
--- NOTE | 2017-01-13 15:09 | PD.CARD.PN ---
Subjective Subjective Remarks intubated, sedated Objective Vital Signs / I&O Vital Signs Date Time Temp Pulse Resp B/P Pulse Ox O2 Delivery O2 Flow Rate FiO2 01/13/17 14:00 126 01/13/17 12:00 114 100/57 01/13/17 12:00 60 01/13/17 12:00 115 01/13/17 12:00 98.9 115 20 89/50 98 105/53 01/13/17 11:03 92 35 01/13/17 10:00 122 01/13/17 08:34 93 35 01/13/17 08:00 110 108/47 01/13/17 08:00 110 01/13/17 08:00 35 01/13/17 08:00 99.3 110 20 95/62 99 108/48 01/13/17 06:00 112 01/13/17 06:00 116/49 111/63 01/13/17 04:00 104 01/13/17 04:00 35 01/13/17 04:00 99.0 104 20 96/60 97 102/45 01/13/17 04:00 102/45 96/60 01/13/17 03:53 97 50 01/13/17 02:00 101 01/13/17 02:00 116/49 114/57 01/13/17 00:06 97 50 01/13/17 00:00 102 01/13/17 00:00 98/49 123/63 01/13/17 00:00 99.8 102 20 123/63 96 98/49 01/13/17 00:00 50 01/12/17 22:00 142/51 144/63 01/12/17 22:00 94 01/12/17 21:02 96 50 01/12/17 20:00 100.2 100 22 165/73 97 164/65 01/12/17 20:00 50 01/12/17 20:00 95 01/12/17 20:00 164/65 165/73 01/12/17 18:00 92 01/12/17 17:07 94 50 01/12/17 16:00 100 01/12/17 16:00 35 01/12/17 16:00 99.4 100 18 107/54 91 87/51 I/O 01/12/17 01/12/17 01/12/17 01/13/17/30/17 3/30/17 07:00 15:00 23:00 07:00 15:00 23:00 Intake Total 1437 ml 1250 ml 1164 ml 788 ml Output Total 60 ml 475 ml 120 ml 250 ml 3000 ml Balance 1377 ml 775 ml 1044 ml 538 ml -3000 ml IV Total 1137 ml 929 ml 934 ml 788 ml Tube Feeding 300 ml 321 ml 230 ml 0 ml Output Urine Total 20 ml 175 ml 20 ml 0 ml Stool Total 40 ml 300 ml 100 ml 100 ml Gastric Drainage Total 150 ml Hemodialysis 3000 ml Physical Exam GENERAL: SKIN: Warm and dry. HEAD: Normocephalic. EYES: No scleral icterus. No injection or drainage. NECK: Supple, trachea midline. No JVD or lymphadenopathy. CARDIOVASCULAR: Regular rate and rhythm without murmurs, gallops, or rubs. RESPIRATORY: Breath sounds equal bilaterally. No accessory muscle use. GASTROINTESTINAL: Abdomen soft, non-tender, nondistended. MUSCULOSKELETAL: No cyanosis, or edema. BACK: Nontender without obvious deformity. No CVA tenderness. Laboratory Laboratory Tests Test 01/12/17 01/13/17 01/13/17 01/13/17 20:09 00:00 04:20 06:00 Activated Partial GREATER THAN 66.9 SEC 64.4 SEC Thromboplast Time 153.4 SEC White Blood Count 17.8 TH/MM3 Red Blood Count 3.72 MIL/MM3 Hemoglobin 10.6 GM/DL Hematocrit 34.4 % Mean Corpuscular Volume 92.6 FL Mean Corpuscular Hemoglobin 28.5 PG Mean Corpuscular Hemoglobin 30.8 % Concent Red Cell Distribution Width 18.9 % Platelet Count 233 TH/MM3 Mean Platelet Volume 10.8 FL Neutrophils (%) (Auto) 81.6 % Lymphocytes (%) (Auto) 8.1 % Monocytes (%) (Auto) 8.7 % Eosinophils (%) (Auto) 1.2 % Basophils (%) (Auto) 0.4 % Neutrophils # (Auto) 14.5 TH/MM3 Lymphocytes # (Auto) 1.4 TH/MM3 Monocytes # (Auto) 1.5 TH/MM3 Eosinophils # (Auto) 0.2 TH/MM3 Basophils # (Auto) 0.1 TH/MM3 CBC Comment AUTO DIFF Differential Total Cells 100 Counted Neutrophils % (Manual) 58 % Band Neutrophils % 23 % Lymphocytes % 8 % Monocytes % 10 % Neutrophils # (Manual) 14.6 TH/MM3 Metamyelocytes 1 % Differential Comment FINAL DIFF MANUAL Atypical Lymphocytes % Toxic Granulation 1+ Dohle Bodies PRESENT Platelet Estimate NORMAL Platelet Morphology Comment NORMAL Ovalocytes 1+ Acanthocytes 1+ Sodium Level 130 MEQ/L Potassium Level 3.8 MEQ/L Chloride Level 95 MEQ/L Carbon Dioxide Level 20.6 MEQ/L Anion Gap 14 MEQ/L Blood Urea Nitrogen 69 MG/DL Creatinine 4.88 MG/DL Estimat Glomerular Filtration 12 ML/MIN Rate Random Glucose 312 MG/DL Calcium Level 7.5 MG/DL Assessment and Plan Problem List: (1) Peripheral arterial disease (2) Chronic respiratory failure with hypoxia and hypercapnia (3) Hemodialysis patient (4) SHAWN (acute kidney injury) (5) Acute respiratory failure (6) Elevated troponin (7) Sepsis (8) COPD (chronic obstructive pulmonary disease) (9) Congestive heart failure (10) PVD (peripheral vascular disease) (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 difficile diarrhea (14) Diarrhea (15) Cardiomyopathy (16) NSTEMI (non-ST elevated myocardial infarction) Assessment and Plan 1.) Cardiomyopathy - omt held due to septic shock requiring pressors, off epi, levo down to 15, rec wean pressors prn sbp>100, d/w nurse at bedside 2.) NSTEMI - indeterminate weather trop elevation due to primary vs secondary event, continue heparin, aspirin, supportive care, too unstable to go to field laboratory operator, d/w Dr Potts and patients Problem Qualifiers (1) Sepsis: Qualified Code: A41.9 - Sepsis, due to unspecified organism (2) COPD (chronic obstructive pulmonary disease): Qualified Code: J44.9 - Chronic obstructive pulmonary disease, unspecified COPD type (3) Congestive heart failure: Qualified Code: I50.9 - Chronic congestive heart failure, unspecified congestive heart failure type (4) Diarrhea: Qualified Code: R19.7 - Diarrhea, unspecified type Golden Garcia MD Jan 13, 2017 15:09
[2017-01-13] MEDS: MICAFUNGIN INJ 150 MG in SODIUM CHLORIDE 0.9% INJ 100 ML IV SCH (16:16)
[2017-01-13 19:51] LABS: BACTERIA, URINE MANY /hpf; BLOOD, URINE MOD (NEG); GLUCOSE,URINE NEG (NEG); KETONE, URINE NEG (NEG); MUCUS URINE FEW /lpf (OCC); NITRITE,URINE NEG (NEG); URINE COLOR YELLOW (YELLW/STRAW)
[2017-01-13 19:52] LABS: COMMENT (UR) CATH-CULTURE IND; CULTURE IF INDICATED CATH CULTURE IND
[2017-01-13] MEDS: INSULIN DETEMIR 100 UNITS/ML VIAL SQ SCH (22:10)
[2017-01-13] MEDS: ATORVASTATIN 80 MG TAB PO SCH (22:11)
[2017-01-14] VITALS (19 sets, daily range): BP systolic 93–166; BP diastolic 49–76; PULSE 64–90; RESP 18–21; TEMP 97.3–98.6; O2SAT 90–100
[2017-01-14] MEDS: HYDROCORTISONE SOD SUCCINATE 100 MG VIAL IV PUSH SCH ×4 (00:51→16:52)
[2017-01-14] MEDS: HIGH DOSE INSULIN NOVOLIN REGULAR SUPPLEMENTAL SCALE SQ SCH ×6 (00:52→21:00)
[2017-01-14] MEDS: VASOPRESSIN INJ 40 UNITS in DEXTROSE 5% IN WATER 100ML INJ 98 ML IV SCH ×4 (00:52→18:35)
[2017-01-14] MEDS: fentaNYL DRIP 250 ML IV SCH ×2 (01:29→18:53)
[2017-01-14] MEDS: HEPARIN-D5W INJ 250 ML IV SCH (01:31)
[2017-01-14] MEDS: metroNIDAZOLE 500 MG INJ 100 ML IV SCH ×3 (04:49→20:24)
[2017-01-14] MEDS ORDERED: AMIODARONE INJ 450 MG in DEXTROSE 5% IN WATE(EXCEL) INJ 250 ML IV SCH ×2 (05:15)
[2017-01-14] MEDS ORDERED: AMIODARONE INJ 150 MG in DEXTROSE 5% IN WATER 100ML INJ 97 ML IV ONE ×2 (05:15)
[2017-01-14 05:44] LABS: HEMATOCRIT 27.3 % (39.0-51.0); MEAN CORPUSCULAR HEMOGLOBIN 29.5 PG (27.0-34.0); MEAN CORPUSCULAR HGB CONC 32.7 % (32.0-36.0); PLATELET COUNT 194 TH/MM3 (150-450); RED BLOOD COUNT 3.04 MIL/MM3 (4.50-5.90); RED CELL DISTRIBUTION WIDTH 18.9 % (11.6-17.2); REVIEW FLAG FINAL; WHITE BLOOD COUNT 14.2 TH/MM3 (4.0-11.0)
[2017-01-14 05:50] LABS: APTT (PATIENT) 72.3 SEC (24.3-30.1)
[2017-01-14 06:13] LABS: BICARBONATE 25.1 MEQ/L (21.0-32.0); MAGNESIUM 1.9 MG/DL (1.5-2.5); POTASSIUM 3.8 MEQ/L (3.5-5.1)
[2017-01-14] MEDS: CHLORHEXIDINE 0.12% (ORAL KIT) 15 ML CUP MT SCH ×2 (08:00→20:24)
[2017-01-14] MEDS: RESP: ALBUTEROL 2.5 MG/IPRATROPIUM 0.5 MG NEB (PRN) NEB ×2 (08:50→11:38)
[2017-01-14] MEDS: COLLAGENASE OINT 30 GM TUBE TOP SCH (09:00)
[2017-01-14] MEDS: LANTHANUM CARBONATE 500 MG CHEWABLE TABLET CHEW SCH ×3 (09:33→16:52)
[2017-01-14] MEDS: GABAPENTIN 100 MG CAP PO SCH ×2 (09:33→20:23)
[2017-01-14] MEDS: VANCOMYCIN 500 MG VIAL (FOR ORAL USE ONLY) PO SCH ×4 (09:33→20:23)
[2017-01-14] MEDS: ASPIRIN 325 MG TAB PO SCH (09:34)
[2017-01-14] MEDS: SODIUM CHLORIDE 0.9% FLUSH 10 ML FLUSH IV FLUSH SCH ×2 (09:34→20:24)
[2017-01-14] MEDS: CALCIUM CARBONATE 1.25 GM (CA 500 MG) TAB PO SCH (09:34)
--- NOTE | 2017-01-14 09:36 | HHI.PR ---
Subjective Remarks Patient is intubated. Mildly Sedated. Alert following commands. Nodding yes and no. Limited history No headache no chest pain no abdominal pain no back pain Breathing okay On pressors at bedside. Objective Objective Results - Vital Signs Date Time Temp Pulse Resp B/P Pulse Ox O2 Delivery O2 Flow Rate FiO2 01/14/17 08:53 96 45 01/14/17 06:00 72 01/14/17 04:00 90 01/14/17 04:00 88 93/49 109/54 01/14/17 04:00 98.3 75 20 109/54 97 93/49 01/14/17 04:00 60 01/14/17 02:06 96 60 01/14/17 02:00 81 01/14/17 00:07 98 60 01/14/17 00:00 83 01/14/17 00:00 88 122/59 146/67 01/14/17 00:00 60 01/14/17 00:00 98.6 84 20 146/67 96 122/59 01/13/17 22:00 90 01/13/17 20:20 96 60 01/13/17 20:00 88 143/64 148/70 01/13/17 20:00 60 01/13/17 20:00 98.4 88 20 148/70 96 143/64 01/13/17 20:00 88 01/13/17 18:00 92 01/13/17 16:26 92 60 01/13/17 16:00 98.2 98 20 118/58 94 104/57 01/13/17 16:00 60 01/13/17 16:00 95 01/13/17 16:00 98 104/57 01/13/17 14:00 126 01/13/17 12:00 114 100/57 01/13/17 12:00 60 01/13/17 12:00 115 01/13/17 12:00 98.9 115 20 89/50 98 105/53 01/13/17 11:03 92 35 01/13/17 10:00 122 I/O 01/13/17 01/13/17 01/13/17 01/14/17 01/14/17 01/14/17 07:00 15:00 23:00 07:00 15:00 23:00 Intake Total 788 ml 1276 ml 582 ml 294 ml Output Total 250 ml 3000 ml 150 ml 325 ml Balance 538 ml -1724 ml 432 ml -31 ml Intake Oral 0 ml 0 ml IV Total 788 ml 1036 ml 522 ml 234 ml Tube Feeding 0 ml 0 ml 0 ml Other 240 ml 60 ml 60 ml Output Urine Total 0 ml 50 ml 25 ml Stool Total 100 ml 100 ml 300 ml Gastric Drainage Total 150 ml Hemodialysis 3000 ml Result Diagram: 01/14/17 0455 01/14/17 0455 Imaging Last Impressions Abdomen/Pelvis CT 01/05/171821 Signed Impressions: Service Date/Time: Thursday, January 05, 2017 18:54 - CONCLUSION: 1. Small bilateral pleural effusions and nodular infiltrates in right middle lobe most likely inflammatory and pneumonia not present previously. 2. Diverticuli throughout the colon with the area of bowel wall thickening and narrowing of sigmoid colon may be due to spasm, diverticulitis or underlying mass. Bentley Glass MD Other Results Laboratory Tests Test 01/13/17 01/13/17 01/14/17 16:20 17:38 04:55 Urine Color YELLOW Urine Turbidity CLOUDY Urine pH 6.0 Urine Specific [place] 1.005 Urine Protein 100 Urine Glucose (UA) NEG Urine Ketones NEG Urine Occult Blood MOD Urine Nitrite NEG Urine Bilirubin NEG Urine Urobilinogen LESS THAN 2.0 Urine Leukocyte Esterase LARGE Urine RBC Urine WBC Urine WBC Clumps MANY Urine Bacteria MANY Urine Mucus FEW Microscopic Urinalysis Comment CATH-CULTURE IND Random Cortisol 68.7 White Blood Count 14.2 Red Blood Count 3.04 Hemoglobin 9.0 Hematocrit 27.3 Mean Corpuscular Volume 90.0 Mean Corpuscular Hemoglobin 29.5 Mean Corpuscular Hemoglobin 32.7 Concent Red Cell Distribution Width 18.9 Platelet Count 194 Mean Platelet Volume 10.2 Activated Partial 72.3 Thromboplast Time Sodium Level 132 Potassium Level 3.8 Chloride Level 95 Carbon Dioxide Level 25.1 Anion Gap 12 Blood Urea Nitrogen 54 Creatinine 4.27 Estimat Glomerular Filtration 14 Rate Random Glucose 162 Calcium Level 7.6 Magnesium Level 1.9 Date/Time Procedure Status Source Growth 01/13/17 17:33 Aerobic Blood Culture Received Blood Peripheral Pending 01/13/17 17:33 Anaerobic Blood Culture Received Blood Peripheral Pending 01/13/17 16:20 Urine Culture Received Urine Catheterized Urine Pending 01/13/17 16:20 Gram Stain - Final Resulted Sputum Endotracheal 01/13/17 16:20 Sputum Culture Resulted Sputum Endotracheal Pending 01/11/17 23:00 Stool Occult Blood (OZ) - Final Complete Stool Stool HEMOCCULT NEGATIVE 01/11/17 18:20 Urine Culture - Preliminary Resulted Urine Catheterized Urine Krystal Albicans Yeast-Id To Follow 01/11/17 17:52 Fungal Smear - Final Resulted Sputum Endotracheal RARE BUDDING YEAST CELLS 01/11/17 17:52 Fungal Culture Resulted Sputum Endotracheal Pending 01/11/17 14:14 Gram Stain Received Sputum Endotracheal Pending 01/11/17 14:14 Sputum Culture Received Sputum Endotracheal Pending 01/11/17 08:04 Aerobic Blood Culture - Preliminary Resulted Blood Peripheral NO GROWTH IN 2 DAYS 01/11/17 08:04 Anaerobic Blood Culture - Preliminary Resulted Blood Peripheral NO GROWTH IN 2 DAYS Physical Exam Physical Exam GENERAL: This is a well-nourished, well-developed patient. Ill-looking. Alert following commands SKIN: No rashes, ecchymoses or lesions. Cool and dry. HEAD: Atraumatic. Normocephalic. No temporal or scalp tenderness. EYES: Pupils equal round and reactive. Extraocular motions intact. No scleral icterus. No injection or drainage. ENT: With ET tube.. NECK: Trachea midline. Supple, nontender. CARDIOVASCULAR: S1-S2, unable to detect any murmurs rubs or gallops. Right chest wall is noted with permacath. RESPIRATORY: Diminished at bases, faint bibasilar rales. Coarse breathing GASTROINTESTINAL: Abdomen soft,distended. No hepato-splenomegaly, or palpable masses. No guarding. MUSCULOSKELETAL: Extremities without clubbing, cyanosis. No joint tenderness, effusion, or edema noted. No calf tenderness. Negative Homans sign bilaterally. Bilateral lower extremities noted with +1 edema, pedal pulses 1+ bilaterally. Both feet with dressings D/I. Has ulcers to both heels. NEUROLOGICAL: Likely Sedated on vent. Moving his fingers and some movement of toes on commands A/P Assessment and Plan (1) Sepsis (2) Recurrent Clostridium difficile diarrhea (3) Diverticulitis (4) Diabetes 1.5, managed as type 2 (5) History of CVA (cerebrovascular accident) (6) PVD (peripheral vascular disease) (7) Hypertension (8) Hyperlipidemia (9) Chronic kidney disease (CKD) (10) Congestive heart failure (11) COPD (chronic obstructive pulmonary disease) (12) shock hypovolemic/septic Plan 76-year-old male with recent extensive hospitalizations for perforated duodenal ulcer, sepsis, respiratory failure with tracheostomy, CVA, acute renal injury that led to CKD requiring hemodialysis. Patient recently discharged from [facility] rehabilitation for respiratory failure and inability to extubate, has been treated for C. difficile colitis. Now presents with recurrent C. difficile colitis, possible diverticulitis and also recurrent pneumonia. Sepsis with shock -Continue with antibiotics, as per ID -Follow cultures. Urine culture shows Krystal and a sputum culture showing gram -negative rods -Monitor CBC -ID input appreciated. Antibiotic per ID -GI input appreciated -CT abdomen chest report reviewed -X abdomen report reviewed -Pressor trying to taper off Pneumonia HCAP -Antibiotic per ID -On vent C Pap trial Increase troponin , non-ST elevation IL -Cardiology input appreciated -Discussed with slat twister -on heparin -Unable to use beta blanca because of hypotension Hypotension/shock -Patient on pressors as needed -Appreciate slat twister input. Discussed the intensive -IV hydration cautiously Chronic kidney disease/ESRD, on hemodialysis Tuesday and Tuesday. Appreciate consultation by nephrology for hemodialysis management. Discussed with nephrology on the floor COPD, sleep apnea, with respiratory failure on CPAP trial intubated -On Solu-Bobbyef -Leonidasbs PRN Chronic CHF, stable -Continue with home Diabetes type 2 Accu-Cheks before meals and at bedtime with insulin therapy as needed History of recent CVA Continue with aspirin PVD Continue home medications Hypertension Home medications on hold because of hypotension. Pressors on as-needed basis Hyperlipidemia Continue with statins History peripheral vascular disease, had vascular surgery at [facility] last year. Has chronic wounds to both heels. Consult wound care nurse for evaluation Labs reviewed Leukocytosis with bandemia because of sepsis and shock Anemia stable H&H Leukocytosis with bandemia Anemia stable Mild hypocalcemia will monitor Home medications reviewed, initiated as indicated discussed with RN Discussed with at bedside Further management of the patient will be dependent on the hospital course Patient's condition is critical. Prognosis guarded Labs for tomorrow Julius Wyatt MD Jan 14, 2017 09:36
--- NOTE | 2017-01-14 11:08 | HHI.NPPN ---
Subjective General Problems: Anemia, COPD, Edema, Heart Disease, Hypotension Renal Failure: End Stage Renal Disease History of Present Illness 76-year-old male with past medical history of hypertension, diabetes mellitus, hyperlipidemia, peripheral vascular disease, chronic obstructive pulmonary disease, end-stage renal disease on hemodialysis who came to the hospital with complaint of loose bowel motion and lower abdominal pain. Additional Remarks Patient remain on the vent. and now on CPAP. Review of Systems General Constitutional: Fatigue Respiratory Lungs: SOB, Wheeze Gastrointestinal Gastrointestinal: Abdominal Pain, Diarrhea Objective Data Data 01/13/17 01/14/17 19:00 07:00 Intake Total 1276 ml 876 ml Output Total 3000 ml 475 ml Balance -1724 ml 401 ml Intake Oral 0 ml IV Total 1036 ml 756 ml Tube Feeding 0 ml Other 240 ml 120 ml Output Urine Total 75 ml Stool Total 400 ml Hemodialysis 3000 ml Vital Signs Date Time Temp Pulse Resp B/P Pulse Ox O2 Delivery O2 Flow Rate FiO2 01/14/17 10:15 94 45 01/14/17 09:35 50 01/14/17 08:53 96 45 01/14/17 06:00 72 01/14/17 04:00 90 01/14/17 04:00 88 93/49 109/54 01/14/17 04:00 98.3 75 20 109/54 97 93/49 01/14/17 04:00 60 01/14/17 02:06 96 60 01/14/17 02:00 81 01/14/17 00:07 98 60 01/14/17 00:00 83 01/14/17 00:00 88 122/59 146/67 01/14/17 00:00 60 01/14/17 00:00 98.6 84 20 146/67 96 122/59 01/13/17 22:00 90 01/13/17 20:20 96 60 01/13/17 20:00 88 143/64 148/70 01/13/17 20:00 60 01/13/17 20:00 98.4 88 20 148/70 96 143/64 01/13/17 20:00 88 01/13/17 18:00 92 01/13/17 16:26 92 60 01/13/17 16:00 98.2 98 20 118/58 94 104/57 01/13/17 16:00 60 3/30/17 16:00 95 01/13/17 16:00 98 104/57 01/13/17 14:00 126 01/13/17 12:00 114 100/57 01/13/17 12:00 60 01/13/17 12:00 115 01/13/17 12:00 98.9 115 20 89/50 98 105/53 -: 01/14/17 0455 01/14/17 0455 Microbiology 01/13/17 Gram Stain - Final, Resulted 01/13/17 Sputum Culture, Resulted Pending 01/13/17 Urine Culture, Received Pending 01/13/17 Aerobic Blood Culture, Received Pending 01/13/17 Anaerobic Blood Culture, Received Pending 01/13/17 Aerobic Blood Culture, Received Pending 01/13/17 Anaerobic Blood Culture, Received Pending Physical Exam General Appearance Remarks Intubated and awake. Eyes Eye Exam: Pupils Equal Throat Throat Exam: Oral Mucosa Mccurtain & Moist Neck Neck Exam: Neck Supple Pulmonary Resp Exam: Breath Sounds Equal, No Distress, Rhonchi, Decreased Bases Cardiology CV Exam: Regular, Normal Sinus Rhythm Gastrointestinal/Abdomen GI Exam: Soft, Non-Tender, Bowel Sounds Present, Distended Extremeties Extremities Exam: Trace Edema Neurologic Neuro Exam: Alert, Awake Psychiatric Psych Exam: Appropriate Responses Assessment/Plan Assessment Summary: Anemia of CKD, CHF, Hypotension, End Stage Renal Disease Problem List: (1) Anxiety (2) Diabetes (3) C. difficile diarrhea (4) COPD (chronic obstructive pulmonary disease) (5) Congestive heart failure (6) Diverticulitis (7) Diarrhea (8) End-stage renal disease on hemodialysis Plan Still has diarrhea. C diff colitis managed by ID Blood culture negative so far. Follow the cultures. Now on Vanco., Metronidazole, Micafungin and Cefepime, ID is following. Trop. I increased and seen by cardiology. HD done yesterday and 3 liters removed. Weaning as tolerated. HD will be in AM. Problem Qualifiers (1) COPD (chronic obstructive pulmonary disease): Qualified Code: J44.9 - Chronic obstructive pulmonary disease, unspecified COPD type (2) Congestive heart failure: Qualified Code: I50.9 - Chronic congestive heart failure, unspecified congestive heart failure type (3) Diverticulitis: Qualified Code: K57.32 - Diverticulitis of large intestine without perforation or abscess without bleeding (4) Diarrhea: Qualified Code: R19.7 - Diarrhea, unspecified type Willi Antoine MD Jan 14, 2017 11:08
[2017-01-14] MEDS: DEXTROSE 10% INJ 1,000 ML IV SCH (12:00)
[2017-01-14] MEDS: CEFEPIME INJ 1,000 MG in SODIUM CHLORIDE 0.9% INJ 100 ML IV SCH (13:33)
--- NOTE | 2017-01-14 13:48 | HHI.CCPN ---
Subjective Remarks/Hospital Course 76 year old male with DM, HTN, hyperlipidemia, obesity, cataracts, arthritis, peripheral arterial disease, neurogenic bladder, status post TURP, COPD, obstructive sleep apnea, and osteoporosis. He was admitted 07/25/16 for sepsis, perforated duodenal ulcer with percutaneous drain, and cellulitis. The course was complicated with an intra-abdominal abscess and that was drained by IR. Subsequently he had G-tube and J-tube inserted which. Another course was complicated with ESRD now patient on hemodialysis. He was discharged to [facility] and return to the hospital with new onset of stroke. He was readmitted from rehabilitation on 10/10/2016 for respiratory failure and mucous plug. He was again discharged and was no longer on hemodialysis. Most recently, he was admitted from 12/03 to 12/15 for respiratory failure requiring mechanical ventilation, recurrent clostridium difficile colitis, sepsis, and pneumonia. Now he is back on dialysis Tuesday to and Tuesday. Patient was discharged to [facility] for respiratory rehabilitation and was discharged last Tuesday. According to the patient's , he had been doing relatively well. The day prior to admission he started to complain of abdominal cramping. He was admitted to medical-surgical floor. 01/07/2017 after hemodialysis removed 2 L of fluids, rapid response was called due to hypotension with a blood pressure systolic in the 60s and he was transferred to ICU. 01/08 Patient remains on Levophed 21 mics and Vasopressin 0.04. Afebrile. For HD today. Denies any SOB or abdominal pain. 01/09 Patient was intubated yesterday for acute hypercapnic resp failure sedated with Fentanyl. s/p HD yesterday with removal 2L. Levophed is down 10 mics and Vasopressin 0.04. Afebrile. 01/10 Patient remains sedated and intubated. T:100.3. Levophed is down to 4 mics , on Vasopressin 0.04. 01/11 Patient remains sedated and intubated. His pressors were off yesterday however restarted on Levophed now is at 11 mics in addition patient was given 1L bolus NS overnight. T: 104.0 at midnight. 01/12:Tmax 99.3. The patient continues on James said and vasopressin for vasopressor support. Currently on CPAP trials for greater than 2 hours. 01/13: persistently on high dose multiple vasopressors. no clinical improvement. still appears toxic. still febrile with rising leukocytosis. 01/14: improvement in vasopressors. still on vasopressin. afebrile today, but leukocytosis persists. awake and alert today. Objective Vital Signs Date Time Temp Pulse Resp B/P Pulse Ox O2 Delivery O2 Flow Rate FiO2 01/14/17 11:39 94 45 01/14/17 08:00 98.5 70 21 143/67 139/62 Intake and Output 01/13/17 01/13/17 01/14/17 08:00 16:00 00:00 Intake Total 788 ml 1276 ml 582 ml Output Total 250 ml 3000 ml 150 ml Balance 538 ml -1724 ml 432 ml Result Diagram: 01/14/17 0455 01/14/17 0455 Other Results Microbiology Date/Time Procedure Status Source Growth 01/11/17 23:00 Stool Occult Blood (OZ) - Final Complete Stool Stool HEMOCCULT NEGATIVE Imaging Last Impressions Chest X-Ray 01/10/17 0000 Signed Impressions: Service Date/Time: Tuesday, January 10, 2017 07:58 - CONCLUSION: 1. Worsening effusions and bibasilar infiltrates. Radiographic pattern suggestive of pulmonary edema. 2. Right-sided dialysis catheter and other lines and tubes. Carlos Marmolejo Jr., MD Abdomen/Pelvis CT 01/05/17 182 Signed Impressions: Service Date/Time: Thursday, January 05, 2017 18:54 - CONCLUSION: 1. Small bilateral pleural effusions and nodular infiltrates in right middle lobe most likely inflammatory and pneumonia not present previously. 2. Diverticuli throughout the colon with the area of bowel wall thickening and narrowing of sigmoid colon may be due to spasm, diverticulitis or underlying mass. Bentley Glass MD Objective Remarks GENERAL: Patient is 76 yo critically ill intubated, sedated and on pressors. SKIN: Warm and dry. HEAD: Normocephalic. EYES: No scleral icterus. No injection or drainage. NECK: trachea midline. No JVD. Orally intubated CARDIOVASCULAR: Regular rate and rhythm without murmurs, gallops, or rubs. on vasopressin, off levophed RESPIRATORY: Breath sounds equal bilaterally. No accessory muscle use. GASTROINTESTINAL: Abdomen soft, non-tender, mildly distended. MUSCULOSKELETAL: No cyanosis, or edema. BACK: Nontender without obvious deformity. Neuro: RASS 0. fc x 4. A/P Problem List: (1) Recurrent Clostridium difficile diarrhea ICD Code: A04.7 Status: Acute (2) Diabetes 1.5, managed as type 2 ICD Code: E13.9 Status: Acute (3) History of CVA (cerebrovascular accident) ICD Code: Z86.73 Status: Acute (4) Chronic kidney disease (CKD) ICD Code: N18.9 Status: Acute Assessment and Plan 1)acute hypoxic respiratory failure, intubated 01/08 2)Septic shock 3)C-diff colitis, diverticulitis 4)ESRD 5)DM 6)COPD 7)Hx CVA 8)Leukocytosis 9)Anemia 10)Elevated trop/NSTEMI 11)Bandemia Plan Neuro: On Fentanyl infusion for sedation. Daily sedation vacation Pulm: Continue with vent support keep sat >92% Bronchodilators, ICU vent bundle. CPAP trials as tolerated nearing the point of extubation. will not extubate today because CVP 15 and did not dialyze today. after HD tomorrow, if he passes SBT, will consider extubation. CV: only on vasopressin. will wean vaso and continue norepinephrine as tolerated. continue map > 65 mmHg. Lactic acid 1.0 on 01/06. Echo 12/05 showed EF 35-40%, no RWMA On ASA 325mg daily, monitor troponin, cards eval, Continue on heparin drip per [place] protocol. Cardiology following Dr. Garcia trend cvp. : Monitor renal function, avoid nephrotoxins. HD per renal- Dr. Antoine. HD yesterday, and again tomorrow. GI: restart tube feeds, Nepro @ 40. Protonix 40mg daily. Monitor LFT's ID: Continue with abx per ID ( On Vanco PO, IV Flagyl) monitor for signs of infections ( Fever, WBC) Vancomycin, Cefepime, Micafungin sputum cx & BC from 01/05: No growth F/U blood culture 01/12 CT abdomen/pelvis-large bilateral pleural effusions, abdominal ascites , bowel edema, generalized anasarca Heme: Monitor CBC, on Epogen with HD Endo: continue hydrocortisone. would plan for a 2 week slow taper of steroids given he appears to go in acute adrenal insufficiency with rapid taper. continue lantus to 30units qHS, high dose q4h SSI. GI prophylaxis- on Protonix 40mg daily DVT prophylaxis- SCDs, heparin drip Lines: Right IJ CVP placed 01/07 Dispo: remain in the ICU. very critically ill and not improving. This patient remains critically ill with one or more organ systems which are or may become a threat to life. I have spent in excess of 31 minutes discontinuously in the care and management of this patient. This time is exclusive of procedures, and includes, but is not limited to, evaluation of the patient, review of the medical record, discussions with family, consultants, nursing staff, or respiratory therapy, and documentation in the medical record. Problem Qualifiers (1) Chronic kidney disease (CKD): Qualified Code: N18.5 - Chronic kidney disease (CKD), stage 5 Juancarlos Driscoll MD Jan 14, 2017 13:48
[2017-01-14] MEDS ORDERED: MISCELLANEOUS PHARMACY INFORMATION XX PRN (16:15)
[2017-01-14] MEDS ORDERED: ASP: Documented ESBL, MDR A baumannii or P. aeruginosa PRN (16:15)
--- NOTE | 2017-01-14 16:48 | PD.CARD.PN ---
Subjective Subjective Remarks awake, intubated in nad Objective Vital Signs / I&O Vital Signs Date Time Temp Pulse Resp B/P Pulse Ox O2 Delivery O2 Flow Rate FiO2 01/14/17 11:39 94 45 01/14/17 10:15 94 45 01/14/17 09:35 50 01/14/17 08:53 96 45 01/14/17 08:00 98.5 70 21 143/67 97 139/62 01/14/17 06:00 72 01/14/17 04:00 90 01/14/17 04:00 88 93/49 109/54 01/14/17 04:00 98.3 75 20 109/54 97 93/49 01/14/17 04:00 60 01/14/17 02:06 96 60 01/14/17 02:00 81 01/14/17 00:07 98 60 01/14/17 00:00 83 01/14/17 00:00 88 122/59 146/67 01/14/17 00:00 60 01/14/17 00:00 98.6 84 20 146/67 96 122/59 01/13/17 22:00 90 01/13/17 20:20 96 60 01/13/17 20:00 88 143/64 148/70 01/13/17 20:00 60 01/13/17 20:00 98.4 88 20 148/70 96 143/64 01/13/17 20:00 88 01/13/17 18:00 92 I/O 01/13/17 01/13/17 01/13/17 01/14/17 01/14/17 01/14/17 07:00 15:00 23:00 07:00 15:00 23:00 Intake Total 788 ml 1276 ml 582 ml 294 ml Output Total 250 ml 3000 ml 150 ml 325 ml Balance 538 ml -1724 ml 432 ml -31 ml Intake Oral 0 ml 0 ml IV Total 788 ml 1036 ml 522 ml 234 ml Tube Feeding 0 ml 0 ml 0 ml Other 240 ml 60 ml 60 ml Output Urine Total 0 ml 50 ml 25 ml Stool Total 100 ml 100 ml 300 ml Gastric Drainage Total 150 ml Hemodialysis 3000 ml Physical Exam GENERAL: SKIN: Warm and dry. HEAD: Normocephalic. EYES: No scleral icterus. No injection or drainage. NECK: Supple, trachea midline. No JVD or lymphadenopathy. CARDIOVASCULAR: Regular rate and rhythm without murmurs, gallops, or rubs. RESPIRATORY: Breath sounds equal bilaterally. No accessory muscle use. GASTROINTESTINAL: Abdomen soft, non-tender, nondistended. MUSCULOSKELETAL: No cyanosis, or edema. BACK: Nontender without obvious deformity. No CVA tenderness. Laboratory Laboratory Tests Test 01/13/17 01/14/17 17:38 04:55 Random Cortisol 68.7 MCG/DL White Blood Count 14.2 TH/MM3 Red Blood Count 3.04 MIL/MM3 Hemoglobin 9.0 GM/DL Hematocrit 27.3 % Mean Corpuscular Volume 90.0 FL Mean Corpuscular Hemoglobin 29.5 PG Mean Corpuscular Hemoglobin 32.7 % Concent Red Cell Distribution Width 18.9 % Platelet Count 194 TH/MM3 Mean Platelet Volume 10.2 FL Activated Partial 72.3 SEC Thromboplast Time Sodium Level 132 MEQ/L Potassium Level 3.8 MEQ/L Chloride Level 95 MEQ/L Carbon Dioxide Level 25.1 MEQ/L Anion Gap 12 MEQ/L Blood Urea Nitrogen 54 MG/DL Creatinine 4.27 MG/DL Estimat Glomerular Filtration 14 ML/MIN Rate Random Glucose 162 MG/DL Calcium Level 7.6 MG/DL Magnesium Level 1.9 MG/DL Assessment and Plan Problem List: (1) Peripheral arterial disease (2) Chronic respiratory failure with hypoxia and hypercapnia (3) Hemodialysis patient (4) SHAWN (acute kidney injury) (5) Acute respiratory failure (6) Elevated troponin (7) Sepsis (8) COPD (chronic obstructive pulmonary disease) (9) Congestive heart failure (10) PVD (peripheral vascular disease) (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 difficile diarrhea (14) Diarrhea (15) Cardiomyopathy (16) NSTEMI (non-ST elevated myocardial infarction) Assessment and Plan 1.) Cardiomyopathy - omt held due to septic shock requiring pressors, off epi, levo down to 15, rec wean pressors prn sbp>100, d/w nurse at bedside 2.) NSTEMI - indeterminate weather trop elevation due to primary vs secondary event, continue heparin, aspirin, supportive care, too unstable to go to cath lab technologist, d/w Dr Potts and patients Problem Qualifiers (1) Sepsis: Qualified Code: A41.9 - Sepsis, due to unspecified organism (2) COPD (chronic obstructive pulmonary disease): Qualified Code: J44.9 - Chronic obstructive pulmonary disease, unspecified COPD type (3) Congestive heart failure: Qualified Code: I50.9 - Chronic congestive heart failure, unspecified congestive heart failure type (4) Diarrhea: Qualified Code: R19.7 - Diarrhea, unspecified type Golden Garcia MD Jan 14, 2017 16:48
[2017-01-14] MEDS: PANTOPRAZOLE SODIUM 40 MG VIAL IV PUSH SCH (16:52)
[2017-01-14] MEDS: MICAFUNGIN INJ 150 MG in SODIUM CHLORIDE 0.9% INJ 100 ML IV SCH (16:53)
[2017-01-14] MEDS: ERTAPENEM INJ 500 MG in SODIUM CHLORIDE 0.9% INJ 100 ML IV SCH (18:53)
[2017-01-14] MEDS: INSULIN DETEMIR 100 UNITS/ML VIAL SQ SCH (20:23)
[2017-01-14] MEDS: ATORVASTATIN 80 MG TAB PO SCH (20:23)
--- NOTE | 2017-01-14 23:13 | HHI.IDPN ---
Subjective Subjective Remarks delayed entry pt was seen earlier around 4 pm He remains on pressors cont to have diarrhea afebrile stool volume is down growing ESBL Kleb pneumo Antibiotics vanco po flagyl iv Iv vanco x 1 cefepime micafungin Lines Line sites with no e.o infection Past Medical History ESRD/HD Allergies: Coded Allergies: Betadine (Verified Allergy, Severe, Rash, 01/05/17) *MDRO Multi-Drug Resistant Organism (Verified Adverse Reaction, Unknown, ) Carlson resistant K. pneumoniae (urine-08/06/16) Objective . Vital Signs Date Time Temp Pulse Resp B/P Pulse Ox O2 Delivery O2 Flow Rate FiO2 01/14/17 18:00 64 01/14/17 17:37 96 45 01/14/17 16:00 98.0 90 18 144/64 90 113/57 01/14/17 16:00 90 144/64 113/57 01/14/17 16:00 90 01/14/17 16:00 60 01/14/17 14:00 83 01/14/17 12:00 97.3 81 18 150/69 93 136/59 01/14/17 12:00 81 150/67 136/59 01/14/17 12:00 81 01/14/17 12:00 60 01/14/17 11:39 94 45 01/14/17 10:15 94 45 01/14/17 10:00 80 01/14/17 09:35 50 01/14/17 08:53 96 45 01/14/17 08:00 98.5 70 21 143/67 97 139/62 01/14/17 08:00 70 01/14/17 08:00 70 143/67 139/62 01/14/17 08:00 60 01/14/17 06:00 72 01/14/17 04:00 90 01/14/17 04:00 88 93/49 109/54 01/14/17 04:00 98.3 75 20 109/54 97 93/49 01/14/17 04:00 60 01/14/17 02:06 96 60 01/14/17 02:00 81 01/14/17 00:07 98 60 01/14/17 00:00 83 01/14/17 00:00 88 122/59 146/67 01/14/17 00:00 60 01/14/17 00:00 98.6 84 20 146/67 96 122/59 01/13/17 22:00 90 01/13/17 01/13/17 01/14/17 15:00 23:00 07:00 Intake Total 1276 ml 582 ml 294 ml Output Total 3000 ml 150 ml 325 ml Balance -1724 ml 432 ml -31 ml Intake Oral 0 ml 0 ml IV Total 1036 ml 522 ml 234 ml Tube Feeding 0 ml 0 ml Other 240 ml 60 ml 60 ml Output Urine Total 50 ml 25 ml Stool Total 100 ml 300 ml Hemodialysis 3000 ml . Laboratory Tests Test 01/13/17 01/14/17 04:20 04:55 White Blood Count 17.8 TH/MM3 14.2 TH/MM3 Red Blood Count 3.72 MIL/MM3 3.04 MIL/MM3 Hemoglobin 10.6 GM/DL 9.0 GM/DL Hematocrit 34.4 % 27.3 % Mean Corpuscular Volume 92.6 FL 90.0 FL Mean Corpuscular Hemoglobin 28.5 PG 29.5 PG Mean Corpuscular Hemoglobin 30.8 % 32.7 % Concent Red Cell Distribution Width 18.9 % 18.9 % Platelet Count 233 TH/MM3 194 TH/MM3 Mean Platelet Volume 10.8 FL 10.2 FL Neutrophils (%) (Auto) 81.6 % Lymphocytes (%) (Auto) 8.1 % Monocytes (%) (Auto) 8.7 % Eosinophils (%) (Auto) 1.2 % Basophils (%) (Auto) 0.4 % Neutrophils # (Auto) 14.5 TH/MM3 Lymphocytes # (Auto) 1.4 TH/MM3 Monocytes # (Auto) 1.5 TH/MM3 Eosinophils # (Auto) 0.2 TH/MM3 Basophils # (Auto) 0.1 TH/MM3 CBC Comment AUTO DIFF Differential Total Cells 100 Counted Neutrophils % (Manual) 58 % Band Neutrophils % 23 % Lymphocytes % 8 % Monocytes % 10 % Neutrophils # (Manual) 14.6 TH/MM3 Metamyelocytes 1 % Differential Comment FINAL DIFF MANUAL Atypical Lymphocytes % Toxic Granulation 1+ Dohle Bodies PRESENT Platelet Estimate NORMAL Platelet Morphology Comment NORMAL Ovalocytes 1+ Acanthocytes 1+ Laboratory Tests Test 01/13/17 01/13/17 01/14/17 04:20 17:38 04:55 Sodium Level 130 MEQ/L 132 MEQ/L Potassium Level 3.8 MEQ/L 3.8 MEQ/L Chloride Level 95 MEQ/L 95 MEQ/L Carbon Dioxide Level 20.6 MEQ/L 25.1 MEQ/L Anion Gap 14 MEQ/L 12 MEQ/L Blood Urea Nitrogen 69 MG/DL 54 MG/DL Creatinine 4.88 MG/DL 4.27 MG/DL Estimat Glomerular Filtration 12 ML/MIN 14 ML/MIN Rate Random Glucose 312 MG/DL 162 MG/DL Calcium Level 7.5 MG/DL 7.6 MG/DL Random Cortisol 68.7 MCG/DL Magnesium Level 1.9 MG/DL Microbiology Date/Time Procedure Status Source Growth 01/11/17 23:00 Stool Occult Blood (OZ) - Final Complete Stool Stool HEMOCCULT NEGATIVE 01/13/17 16:20 Gram Stain - Final Resulted Sputum Endotracheal 01/13/17 16:20 Sputum Culture - Preliminary Resulted Gram Negative Gabe 01/13/17 16:20 Urine Culture - Preliminary Resulted Urine Catheterized Urine Krystal Albicans 01/13/17 17:25 Aerobic Blood Culture - Preliminary Resulted Blood Peripheral NO GROWTH IN 1 DAY 01/13/17 17:25 Anaerobic Blood Culture - Preliminary Resulted Blood Peripheral NO GROWTH IN 1 DAY 01/13/17 17:33 Aerobic Blood Culture - Preliminary Resulted Blood Peripheral NO GROWTH IN 1 DAY 01/13/17 17:33 Anaerobic Blood Culture - Preliminary Resulted Blood Peripheral NO GROWTH IN 1 DAY Imaging Last Impressions Chest X-Ray 01/13/17 0000 Signed Impressions: Service Date/Time: December 03:22 - CONCLUSION: 1. Basilar airspace disease and pleural effusions, slightly increased on the right since January 12. 2. Endotracheal tube tip at geraldo directed towards right mainstem bronchus. This should be withdrawn about 3 cm. Remaining support apparatus unchanged. Alfredo Worrell MD Abdomen X-Ray 01/13/17 0000 Signed Impressions: Service Date/Time: December 03:25 - CONCLUSION: 1. No acute findings. NG tip in stomach. Alfredo Worrell MD Chest CT 01/11/17 0000 Signed Impressions: Service Date/Time: Wednesday, January 11, 2017 14:44 - CONCLUSION: 1. Worsening bilateral pleural effusions of the common atelectatic changes. These are now moderate in size. 2. Patchy, reticular-nodular airspace disease anteriorly in both upper lobes as well as portions of the right middle lobe and left lingula. Findings are concerning for possible pneumonic process. 3. Developing upper abdominal ascites. Vinod Burrows MD Abdomen/Pelvis CT 01/11/17 0000 Signed Impressions: Service Date/Time: Wednesday, January 11, 2017 14:40 - CONCLUSION: 1. Interval worsening in the radiographic appearance of the abdomen and pelvis. Enlarging bilateral pleural effusions which are now moderate in size, developing abdominal ascites, stranding in the mesenteric leaves and generalized anasarca. There is some suggestion of generalized bowel edema as well. Findings are nonspecific and can be related to generalized volume overload, hepatic insufficiency or sepsis. 2. Patchy airspace disease in the right middle lobe and left lingula. This could represent pneumonic infiltrates these have progressed from the exam 6 days earlier. 3. Size discrepancy in the kidneys with the right larger than the left. This represents some vascular compromise to the left kidney. Vinod Burrows MD Physical Exam CONSTITUTIONAL/GENERAL: sedated int'd on [facility] vent TUBES/LINES/DRAINS: Permacath in place R chest w/o infc R IJ in place TLC wo e/o infx SKIN: No jaundice, rashes, or lesions. Skin temperature appropriate. Not diaphoretic. HEAD: Atraumatic. Normocephalic. EYES: Pupils equal and round and reactive. Extraocular motions intact. No scleral icterus. No injection or drainage. Fundi not examined. ENT: Orally intubated CARDIOVASCULAR: Regular rate and rhythm without murmurs, gallops, or rubs. No JVD. Peripheral pulses symmetric. Perfused extremeties, refill brisk RESPIRATORY/CHEST: Symmetric, unlabored respirations. Rhonchi to auscultation. Breath sounds equal bilaterally. No wheezes, rales, or rhonchi. GASTROINTESTINAL: Abdomen is softer, + tender (grimacing to palpation), markedly distended. Bowel sounds present. high pitched dignichield in place with liquid yellow stool GENITOURINARY: Without palpable bladder distension. MUSCULOSKELETAL: Extremities without clubbing, cyanosis, less edema. No mottling no cyanosis B/l dressing s in place NEUROLOGICAL: sedated, lethargic PSYCHIATRIC: unable to assess Assessment & Plan Remarks Recurrent C.diff colitis hypervirulent strain - findings on CT likely reflect distal colitis -3rd episode Sepsis , likely 2/2 C.diff Multiple med problems ESRD Acute VDRF -growing ESBL + Kleb pneumo and ? [facility] Enterbacter - BNP high in NSTEMI settings - likely fluid overload with PNA HD cath in place leukocytosis, bandemia New issue - Acute NV Critically ill Unstable New high grade fever : resolved w empiric abx Candiduria - doubt clin significance Recs: - cont po vanocmycin - anticipate 6 weeks of po vanco since its appear to be 3rd documented episode - cont IV flagyl - fu vancomycin, levels - dc vanco cefepime, dc micafungin start fluconazole will dc if BC negative and PNA not suspected - if PNA suspected a short course of abx 5-7 days will be tried - fu blood clx - fu sputum clx Aida Garcia MD Jan 14, 2017 23:13
[2017-01-15] VITALS (20 sets, daily range): BP systolic 98–163; BP diastolic 48–73; PULSE 60–140; RESP 20–23; TEMP 97.8–98.7; O2SAT 90–100
[2017-01-15] MEDS: HIGH DOSE INSULIN NOVOLIN REGULAR SUPPLEMENTAL SCALE SQ SCH ×6 (01:01→20:00)
[2017-01-15] MEDS: HYDROCORTISONE SOD SUCCINATE 100 MG VIAL IV PUSH SCH ×3 (01:01→12:14)
[2017-01-15] MEDS: metroNIDAZOLE 500 MG INJ 100 ML IV SCH ×3 (05:22→21:00)
[2017-01-15] MEDS: NOREPINEPHRINE INJ 16 MG in SODIUM CHLOR 0.9% 250 ML INJ 234 ML IV SCH (05:24)
[2017-01-15 06:39] LABS: BICARBONATE 21.4 MEQ/L (21.0-32.0); POTASSIUM 3.9 MEQ/L (3.5-5.1)
[2017-01-15 06:46] LABS: HEMATOCRIT 28.8 % (39.0-51.0); MEAN CELL VOLUME 90.8 FL (80.0-100.0); MEAN CORPUSCULAR HEMOGLOBIN 28.6 PG (27.0-34.0); MEAN CORPUSCULAR HGB CONC 31.5 % (32.0-36.0); PLATELET COUNT 273 TH/MM3 (150-450); RED BLOOD COUNT 3.18 MIL/MM3 (4.50-5.90); RED CELL DISTRIBUTION WIDTH 19.5 % (11.6-17.2); REVIEW FLAG FINAL; WHITE BLOOD COUNT 17.2 TH/MM3 (4.0-11.0)
--- NOTE | 2017-01-15 08:27 | PD.CARD.PN ---
Subjective Subjective Remarks alert in nad Objective Vital Signs / I&O Vital Signs Date Time Temp Pulse Resp B/P Pulse Ox O2 Delivery O2 Flow Rate FiO2 01/15/17 06:00 73 01/15/17 04:21 93 45 01/15/17 04:00 98.0 60 20 121/63 99 118/54 01/15/17 04:00 45 01/15/17 04:00 65 118/54 121/63 01/15/17 04:00 60 01/15/17 02:00 60 01/15/17 01:06 97 45 01/15/17 00:57 98 45 01/15/17 00:00 97.8 62 20 108/56 98 98/63 01/15/17 00:00 61 01/15/17 00:00 65 98/48 108/56 01/15/17 00:00 45 01/14/17 22:00 76 01/14/17 20:00 65 156/76 165/75 01/14/17 20:00 98.2 65 20 166/75 97 156/76 01/14/17 20:00 45 01/14/17 20:00 65 01/14/17 19:50 100 45 01/14/17 18:00 64 01/14/17 17:37 96 45 01/14/17 16:00 98.0 90 18 144/64 90 113/57 01/14/17 16:00 90 144/64 113/57 01/14/17 16:00 90 01/14/17 16:00 60 01/14/17 14:00 83 01/14/17 12:00 97.3 81 18 150/69 93 136/59 01/14/17 12:00 81 150/67 136/59 01/14/17 12:00 81 01/14/17 12:00 60 01/14/17 11:39 94 45 01/14/17 10:15 94 45 01/14/17 10:00 80 01/14/17 09:35 50 01/14/17 08:53 96 45 I/O 01/14/17 01/14/17 01/14/17 01/15/17 01/15/17 01/15/17 07:00 15:00 23:00 07:00 15:00 23:00 Intake Total 294 ml 500 ml 902 ml 468 ml Output Total 325 ml 205 ml 300 ml 400 ml Balance -31 ml 295 ml 602 ml 68 ml Intake Oral 0 ml 0 ml 0 ml 0 ml IV Total 234 ml 400 ml 642 ml 273 ml Tube Feeding 0 ml 200 ml 155 ml Other 60 ml 100 ml 60 ml 40 ml Output Urine Total 25 ml 5 ml 0 ml 0 ml Stool Total 300 ml 200 ml 300 ml 400 ml Gastric Drainage Total 0 ml 0 ml Physical Exam GENERAL: SKIN: Warm and dry. HEAD: Normocephalic. EYES: No scleral icterus. No injection or drainage. NECK: Supple, trachea midline. No JVD or lymphadenopathy. CARDIOVASCULAR: Regular rate and rhythm without murmurs, gallops, or rubs. RESPIRATORY: Breath sounds equal bilaterally. No accessory muscle use. GASTROINTESTINAL: Abdomen soft, non-tender, nondistended. MUSCULOSKELETAL: No cyanosis, or edema. BACK: Nontender without obvious deformity. No CVA tenderness. Laboratory Laboratory Tests Test 01/15/17 04:20 White Blood Count 17.2 TH/MM3 Red Blood Count 3.18 MIL/MM3 Hemoglobin 9.1 GM/DL Hematocrit 28.8 % Mean Corpuscular Volume 90.8 FL Mean Corpuscular Hemoglobin 28.6 PG Mean Corpuscular Hemoglobin 31.5 % Concent Red Cell Distribution Width 19.5 % Platelet Count 273 TH/MM3 Mean Platelet Volume 9.9 FL Sodium Level 130 MEQ/L Potassium Level 3.9 MEQ/L Chloride Level 95 MEQ/L Carbon Dioxide Level 21.4 MEQ/L Anion Gap 14 MEQ/L Blood Urea Nitrogen 56 MG/DL Creatinine 4.63 MG/DL Estimat Glomerular Filtration 12 ML/MIN Rate Random Glucose 141 MG/DL Calcium Level 7.7 MG/DL Assessment and Plan Problem List: (1) Peripheral arterial disease (2) Chronic respiratory failure with hypoxia and hypercapnia (3) Hemodialysis patient (4) SHAWN (acute kidney injury) (5) Acute respiratory failure (6) Elevated troponin (7) Sepsis (8) COPD (chronic obstructive pulmonary disease) (9) Congestive heart failure (10) PVD (peripheral vascular disease) (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 difficile diarrhea (14) Diarrhea (15) Cardiomyopathy (16) NSTEMI (non-ST elevated myocardial infarction) Assessment and Plan 1.) Cardiomyopathy - omt held due to septic shock requiring pressors, off epi, levo down to 15, rec wean pressors prn sbp>100, d/w nurse at bedside 2.) NSTEMI - indeterminate weather trop elevation due to primary vs secondary event, continue heparin, aspirin, supportive care, too unstable to go to laboratory tester, d/w Dr Potts and patients , keep hgb>9 Problem Qualifiers (1) Sepsis: Qualified Code: A41.9 - Sepsis, due to unspecified organism (2) COPD (chronic obstructive pulmonary disease): Qualified Code: J44.9 - Chronic obstructive pulmonary disease, unspecified COPD type (3) Congestive heart failure: Qualified Code: I50.9 - Chronic congestive heart failure, unspecified congestive heart failure type (4) Diarrhea: Qualified Code: R19.7 - Diarrhea, unspecified type Golden Garcia MD Jan 15, 2017 08:27
[2017-01-15] MEDS ORDERED: FLUCONAZOLE 100 MG TAB PO SCH (09:00)
[2017-01-15] MEDS: COLLAGENASE OINT 30 GM TUBE TOP SCH (09:00)
[2017-01-15] MEDS: fentaNYL DRIP 250 ML IV SCH (09:41)
[2017-01-15] MEDS: SODIUM CHLORIDE 0.9% FLUSH 10 ML FLUSH IV FLUSH SCH ×2 (09:41→21:00)
[2017-01-15] MEDS: CHLORHEXIDINE 0.12% (ORAL KIT) 15 ML CUP MT SCH ×2 (09:41→20:00)
[2017-01-15] MEDS: CALCIUM CARBONATE 1.25 GM (CA 500 MG) TAB PO SCH (09:42)
[2017-01-15] MEDS: ASPIRIN 325 MG TAB PO SCH (09:42)
[2017-01-15] MEDS: LANTHANUM CARBONATE 500 MG CHEWABLE TABLET CHEW SCH ×3 (09:42→17:30)
[2017-01-15] MEDS: GABAPENTIN 100 MG CAP PO SCH ×2 (09:42→21:00)
[2017-01-15] MEDS: VANCOMYCIN 500 MG VIAL (FOR ORAL USE ONLY) PO SCH ×4 (09:43→21:00)
[2017-01-15] MEDS: PANTOPRAZOLE SODIUM 40 MG VIAL IV PUSH SCH (09:43)
--- NOTE | 2017-01-15 10:40 | HHI.PR ---
Subjective Remarks Patient is intubated. Alert following commands. Nodding yes and no. Limited history No headache no chest pain no abdominal pain no back pain Breathing okay On pressors at bedside. Objective Objective Results - Vital Signs Date Time Temp Pulse Resp B/P Pulse Ox O2 Delivery O2 Flow Rate FiO2 01/15/17 08:55 98 60 01/15/17 08:47 90 45 01/15/17 08:47 45 01/15/17 06:00 73 01/15/17 04:21 93 45 01/15/17 04:00 98.0 60 20 121/63 99 118/54 01/15/17 04:00 45 01/15/17 04:00 65 118/54 121/63 01/15/17 04:00 60 01/15/17 02:00 60 01/15/17 01:06 97 45 01/15/17 00:57 98 45 01/15/17 00:00 97.8 62 20 108/56 98 98/63 01/15/17 00:00 61 01/15/17 00:00 65 98/48 108/56 01/15/17 00:00 45 01/14/17 22:00 76 01/14/17 20:00 65 156/76 165/75 01/14/17 20:00 98.2 65 20 166/75 97 156/76 01/14/17 20:00 45 01/14/17 20:00 65 01/14/17 19:50 100 45 01/14/17 18:00 64 01/14/17 17:37 96 45 01/14/17 16:00 98.0 90 18 144/64 90 113/57 01/14/17 16:00 90 144/64 113/57 01/14/17 16:00 90 01/14/17 16:00 60 01/14/17 14:00 83 01/14/17 12:00 97.3 81 18 150/69 93 136/59 01/14/17 12:00 81 150/67 136/59 01/14/17 12:00 81 01/14/17 12:00 60 01/14/17 11:39 94 45 I/O 01/14/17 01/14/17 01/14/17 01/15/17 01/15/17 01/15/17 07:00 15:00 23:00 07:00 15:00 23:00 Intake Total 294 ml 500 ml 902 ml 468 ml Output Total 325 ml 205 ml 300 ml 400 ml Balance -31 ml 295 ml 602 ml 68 ml Intake Oral 0 ml 0 ml 0 ml 0 ml IV Total 234 ml 400 ml 642 ml 273 ml Tube Feeding 0 ml 200 ml 155 ml Other 60 ml 100 ml 60 ml 40 ml Output Urine Total 25 ml 5 ml 0 ml 0 ml Stool Total 300 ml 200 ml 300 ml 400 ml Gastric Drainage Total 0 ml 0 ml Result Diagram: 01/15/17 0420 01/15/170 Imaging Last Impressions Abdomen/Pelvis CT 01/05/17 1822 Signed Impressions: Service Date/Time: Thursday, January 05, 2017 18:54 - CONCLUSION: 1. Small bilateral pleural effusions and nodular infiltrates in right middle lobe most likely inflammatory and pneumonia not present previously. 2. Diverticuli throughout the colon with the area of bowel wall thickening and narrowing of sigmoid colon may be due to spasm, diverticulitis or underlying mass. Bentley Glass MD Other Results Laboratory Tests Test 01/15/17 04:20 White Blood Count 17.2 Red Blood Count 3.18 Hemoglobin 9.1 Hematocrit 28.8 Mean Corpuscular Volume 90.8 Mean Corpuscular Hemoglobin 28.6 Mean Corpuscular Hemoglobin 31.5 Concent Red Cell Distribution Width 19.5 Platelet Count 273 Mean Platelet Volume 9.9 Sodium Level 130 Potassium Level 3.9 Chloride Level 95 Carbon Dioxide Level 21.4 Anion Gap 14 Blood Urea Nitrogen 56 Creatinine 4.63 Estimat Glomerular Filtration 12 Rate Random Glucose 141 Calcium Level 7.7 Date/Time Procedure Status Source Growth 01/13/17 17:33 Aerobic Blood Culture - Preliminary Resulted Blood Peripheral NO GROWTH IN 1 DAY 01/13/17 17:33 Anaerobic Blood Culture - Preliminary Resulted Blood Peripheral NO GROWTH IN 1 DAY 01/13/17 16:20 Urine Culture - Preliminary Resulted Urine Catheterized Urine Krystal Albicans 01/13/17 16:20 Gram Stain - Final Resulted Sputum Endotracheal 01/13/17 16:20 Sputum Culture - Preliminary Resulted Gram Negative Gabe 01/11/17 23:00 Stool Occult Blood (OZ) - Final Complete Stool Stool HEMOCCULT NEGATIVE 01/11/17 18:20 Urine Culture - Final Complete Urine Catheterized Urine Krystal Albicans Krystal Glabrata 01/11/17 17:52 Fungal Smear - Final Resulted Sputum Endotracheal RARE BUDDING YEAST CELLS 01/11/17 17:52 Fungal Culture Resulted Sputum Endotracheal Pending 01/11/17 14:14 Gram Stain Received Sputum Endotracheal Pending 01/11/17 14:14 Sputum Culture Received Sputum Endotracheal Pending Physical Exam Physical Exam GENERAL: This is a well-nourished, well-developed patient. Ill-looking. Alert following commands SKIN: No rashes, ecchymoses or lesions. Cool and dry. HEAD: Atraumatic. Normocephalic. No temporal or scalp tenderness. EYES: Pupils equal round and reactive. Extraocular motions intact. No scleral icterus. No injection or drainage. ENT: With ET tube.. NECK: Trachea midline. Supple, nontender. CARDIOVASCULAR: S1-S2, unable to detect any murmurs rubs or gallops. Right chest wall is noted with permacath. RESPIRATORY: Diminished at bases, faint bibasilar rales. Coarse breathing GASTROINTESTINAL: Abdomen soft,distended. No hepato-splenomegaly, or palpable masses. No guarding. MUSCULOSKELETAL: Extremities without clubbing, cyanosis. No joint tenderness, effusion, or edema noted. No calf tenderness. Negative Homans sign bilaterally. Bilateral lower extremities noted with +1 edema, pedal pulses 1+ bilaterally. Both feet with dressings D/I. Has ulcers to both heels. NEUROLOGICAL: Cpap on vent. Moving his fingers and some movement of toes on commands A/P Assessment and Plan (1) Sepsis (2) Recurrent Clostridium difficile diarrhea (3) Diverticulitis (4) Diabetes 1.5, managed as type 2 (5) History of CVA (cerebrovascular accident) (6) PVD (peripheral vascular disease) (7) Hypertension (8) Hyperlipidemia (9) Chronic kidney disease (CKD) (10) Congestive heart failure (11) COPD (chronic obstructive pulmonary disease) (12) shock hypovolemic/septic Plan 76-year-old male with recent extensive hospitalizations for perforated duodenal ulcer, sepsis, respiratory failure with tracheostomy, CVA, acute renal injury that led to CKD requiring hemodialysis. Patient [facility] for [facility] failure and inability to extubate, has been treated for C. difficile colitis. Now presents with recurrent C. difficile colitis, possible diverticulitis and also recurrent pneumonia. Sepsis with shock -Continue with antibiotics, as per ID -Follow cultures. Urine culture shows Krystal and a sputum culture showing gram -negative rods -Monitor CBC -ID input appreciated. Antibiotic per ID -GI input appreciated -CT abdomen chest report reviewed -X abdomen report reviewed -Pressor trying to taper off Pneumonia HCAP -Antibiotic per ID -On vent C Pap trial Increase troponin , non-ST elevation PA -Cardiology input appreciated -Discussed with pack master -on heparin -Unable to use beta blanca because of hypotension Hypotension/shock -Patient on pressors as needed -Appreciate pack master input. Discussed the intensive -IV hydration cautiously Chronic kidney disease/ESRD, on hemodialysis Tuesday and Tuesday. Appreciate consultation by nephrology for hemodialysis management. Discussed with nephrology on the floor COPD, sleep apnea, with respiratory failure on CPAP trial intubated -On Solu-Cortef -Duonebs PRN Chronic CHF, stable -Continue with home Diabetes type 2 Accu-Cheks before meals and at bedtime with insulin therapy as needed History of recent CVA Continue with aspirin PVD Continue home medications Hypertension Home medications on hold because of hypotension. Pressors on as-needed basis Hyperlipidemia Continue with statins History peripheral vascular disease, had vascular surgery [facility] last year. Has chronic wounds to both heels. Consult wound care nurse for evaluation Labs reviewed Leukocytosis with bandemia because of sepsis and shock and steroid Anemia stable H&H Mild hypocalcemia will monitor feeding restarted Home medications reviewed, initiated as indicated discussed with RN Discussed with at bedside Further management of the patient will be dependent on the hospital course Patient's condition is critical. Prognosis guarded Labs for tomorrow Julius Wyatt MD Jan 15, 2017 10:40
--- NOTE | 2017-01-15 11:39 | HHI.NPPN ---
Subjective General Problems: Anemia, COPD, Edema, Heart Disease, Hypotension Renal Failure: End Stage Renal Disease History of Present Illness 76-year-old male with past medical history of hypertension, diabetes mellitus, hyperlipidemia, peripheral vascular disease, chronic obstructive pulmonary disease, end-stage renal disease on hemodialysis who came to the hospital with complaint of loose bowel motion and lower abdominal pain. Additional Remarks Patient remain on the vent. awake, on CPAP, not in distress. Review of Systems General Constitutional: Fatigue Respiratory Lungs: SOB, Wheeze Gastrointestinal Gastrointestinal: Abdominal Pain, Diarrhea Objective Data Data 01/14/17 01/15/17 19:00 07:00 Intake Total 500 ml 1370 ml Output Total 205 ml 700 ml Balance 295 ml 670 ml Intake Oral 0 ml 0 ml IV Total 400 ml 915 ml Tube Feeding 355 ml Other 100 ml 100 ml Output Urine Total 5 ml 0 ml Stool Total 200 ml 700 ml Gastric Drainage Total 0 ml 0 ml Vital Signs Date Time Temp Pulse Resp B/P Pulse Ox O2 Delivery O2 Flow Rate FiO2 01/15/17 08:55 98 60 01/15/17 08:47 90 45 01/15/17 08:47 45 01/15/17 06:00 73 01/15/17 04:21 93 45 01/15/17 04:00 98.0 60 20 121/63 99 118/54 01/15/17 04:00 45 01/15/17 04:00 65 118/54 121/63 01/15/17 04:00 60 01/15/17 02:00 60 01/15/17 01:06 97 45 01/15/17 00:57 98 45 01/15/17 00:00 97.8 62 20 108/56 98 98/63 01/15/17 00:00 61 01/15/17 00:00 65 98/48 108/56 01/15/17 00:00 45 01/14/17 22:00 76 01/14/17 20:00 65 156/76 165/75 01/14/17 20:00 98.2 65 20 166/75 97 156/76 01/14/17 20:00 45 01/14/17 20:00 65 01/14/17 19:50 100 45 01/14/17 18:00 64 01/14/17 17:37 96 45 01/14/17 16:00 98.0 90 18 144/64 90 113/57 01/14/17 16:00 90 144/64 113/57 01/14/17 16:00 90 01/14/17 16:00 60 01/14/17 14:00 83 01/14/17 12:00 97.3 81 18 150/69 93 136/59 01/14/17 12:00 81 150/67 136/59 01/14/17 12:00 81 01/14/17 12:00 60 01/14/17 11:39 94 45 -: 01/15/17 0420 01/15/17 0420 Physical Exam General Appearance Remarks Intubated and awake. Eyes Eye Exam: Pupils Equal Throat Throat Exam: Oral Mucosa [place] & Moist Neck Neck Exam: Neck Supple Pulmonary Resp Exam: Breath Sounds Equal, No Distress, Rhonchi, Decreased Bases Cardiology CV Exam: Regular, Normal Sinus Rhythm Gastrointestinal/Abdomen GI Exam: Soft, Non-Tender, Bowel Sounds Present, Distended Extremeties Extremities Exam: Trace Edema Neurologic Neuro Exam: Alert, Awake Psychiatric Psych Exam: Appropriate Responses Assessment/Plan Assessment Summary: Anemia of CKD, CHF, Hypotension, End Stage Renal Disease Problem List: (1) Anxiety (2) Diabetes (3) C. difficile diarrhea (4) COPD (chronic obstructive pulmonary disease) (5) Congestive heart failure (6) Diverticulitis (7) Diarrhea (8) End-stage renal disease on hemodialysis Plan Still has diarrhea. C diff colitis managed by ID Blood culture negative so far. Follow the cultures. Now on Vanco., Metronidazole, Diflucan and Cefepime, ID is following. Trop. I increased and seen by cardiology. BP is still low, and on pressors. Again for HD today, remove fluid as tolerated. On CPAP, weaning as per CCM. Problem Qualifiers (1) COPD (chronic obstructive pulmonary disease): Qualified Code: J44.9 - Chronic obstructive pulmonary disease, unspecified COPD type (2) Congestive heart failure: Qualified Code: I50.9 - Chronic congestive heart failure, unspecified congestive heart failure type (3) Diverticulitis: Qualified Code: K57.32 - Diverticulitis of large intestine without perforation or abscess without bleeding (4) Diarrhea: Qualified Code: R19.7 - Diarrhea, unspecified type Willi Antoine MD Jan 15, 2017 11:39
--- NOTE | 2017-01-15 12:02 | HHI.CCPN ---
Subjective Remarks/Hospital Course 76 year old male with DM, HTN, hyperlipidemia, obesity, cataracts, arthritis, peripheral arterial disease, neurogenic bladder, status post TURP, COPD, obstructive sleep apnea, and osteoporosis. He was admitted 07/25/16 for sepsis, perforated duodenal ulcer with percutaneous drain, and cellulitis. The course was complicated with an intra-abdominal abscess and that was drained by IR. Subsequently he had G-tube and J-tube inserted which. Another course was complicated with ESRD now patient on hemodialysis. He was discharged to [facility] and return to the hospital with new onset of stroke. He was readmitted from rehabilitation on 10/10/2016 for respiratory failure and mucous plug. He was again discharged and was no longer on hemodialysis. Most recently, he was admitted from 12/03 to 12/15 for respiratory failure requiring mechanical ventilation, recurrent clostridium difficile colitis, sepsis, and pneumonia. Now he is back on dialysis Tuesday to and Tuesday. Patient was discharged to [facility] for respiratory rehabilitation and was discharged last Tuesday. According to the patient's , he had been doing relatively well. The day prior to admission he started to complain of abdominal cramping. He was admitted to medical-surgical floor. 01/07/2017 after hemodialysis removed 2 L of fluids, rapid response was called due to hypotension with a blood pressure systolic in the 60s and he was transferred to ICU. 01/08 Patient remains on Levophed 21 mics and Vasopressin 0.04. Afebrile. For HD today. Denies any SOB or abdominal pain. 01/09 Patient was intubated yesterday for acute hypercapnic resp failure sedated with Fentanyl. s/p HD yesterday with removal 2L. Levophed is down 10 mics and Vasopressin 0.04. Afebrile. 01/10 Patient remains sedated and intubated. T:100.3. Levophed is down to 4 mics , on Vasopressin 0.04. 01/11 Patient remains sedated and intubated. His pressors were off yesterday however restarted on Levophed now is at 11 mics in addition patient was given 1L bolus NS overnight. T: 104.0 at midnight. 01/12:Tmax 99.3. The patient continues on James said and vasopressin for vasopressor support. Currently on CPAP trials for greater than 2 hours. 01/13: persistently on high dose multiple vasopressors. no clinical improvement. still appears toxic. still febrile with rising leukocytosis. 01/14: improvement in vasopressors. still on vasopressin. afebrile today, but leukocytosis persists. awake and alert today. 01/15: off vasopressors. tolerating CPAP. plan for HD today. will trial extubation if possible after HD. Objective Vital Signs Date Time Temp Pulse Resp B/P Pulse Ox O2 Delivery O2 Flow Rate FiO2 01/15/17 08:55 98 60 01/15/17 06:00 73 01/15/17 04:00 98.0 20 121/63 118/54 Intake and Output 01/14/17 01/14/17 01/15/17 08:00 16:00 00:00 Intake Total 294 ml 500 ml 902 ml Output Total 325 ml 205 ml 300 ml Balance -31 ml 295 ml 602 ml Result Diagram: 01/15/17 0420 01/15/17 0420 Other Results Microbiology Date/Time Procedure Status Source Growth 01/13/17 16:20 Gram Stain - Final Complete Sputum Endotracheal 01/13/17 16:20 Sputum Culture - Final Complete Gram Negative [facility] Last Impressions Chest X-Ray 01/10/17 0000 Signed Impressions: Service Date/Time: Tuesday, January 10, 2017 07:58 - CONCLUSION: 1. Worsening effusions and bibasilar infiltrates. Radiographic pattern suggestive of pulmonary edema. 2. Right-sided dialysis catheter and other lines and tubes. Carlos Marmolejo Jr., MD Abdomen/Pelvis CT 01/05/17 1822 Signed Impressions: Service Date/Time: Thursday, January 05, 2017 18:54 - CONCLUSION: 1. Small bilateral pleural effusions and nodular infiltrates in right middle lobe most likely inflammatory and pneumonia not present previously. 2. Diverticuli throughout the colon with the area of bowel wall thickening and narrowing of sigmoid colon may be due to spasm, diverticulitis or underlying mass. Bentley Glass MD Objective Remarks GENERAL: Patient is 76 yo critically ill intubated, sedated and on pressors. SKIN: Warm and dry. HEAD: Normocephalic. EYES: No scleral icterus. No injection or drainage. NECK: trachea midline. No JVD. Orally intubated CARDIOVASCULAR: Regular rate and rhythm without murmurs, gallops, or rubs. RESPIRATORY: Breath sounds equal bilaterally. No accessory muscle use. GASTROINTESTINAL: Abdomen soft, non-tender, mildly distended. MUSCULOSKELETAL: No cyanosis, or edema. BACK: Nontender without obvious deformity. Neuro: RASS 0. fc x 4. A/P Problem List: (1) Recurrent Clostridium difficile diarrhea ICD Code: A04.7 Status: Acute (2) Diabetes 1.5, managed as type 2 ICD Code: E13.9 Status: Acute (3) History of CVA (cerebrovascular accident) ICD Code: Z86.73 Status: Acute (4) Chronic kidney disease (CKD) ICD Code: N18.9 Status: Acute Assessment and Plan 1)acute hypoxic respiratory failure, intubated 01/08 2)Septic shock 3)C-diff colitis, diverticulitis 4)ESRD 5)DM 6)COPD 7)Hx CVA 8)Leukocytosis 9)Anemia 10)Elevated trop/NSTEMI 11)Bandemia Plan Neuro: On Fentanyl infusion for sedation. Daily sedation vacation Pulm: Continue with vent support keep sat >92% Bronchodilators, ICU vent bundle. CPAP trials as tolerated nearing the point of extubation. trial of extubation after HD. CV: continue map > 65 mmHg. Lactic acid 1.0 on 01/06. Echo 12/05 showed EF 35-40%, no RWMA On ASA 325mg daily, monitor troponin, cards eval, Continue on heparin drip per [place] protocol. Cardiology following Dr. Garcia : Monitor renal function, avoid nephrotoxins. HD per renal- Dr. Antoine. HD today. GI: restart tube feeds, Nepro @ 40. Protonix 40mg daily. Monitor LFT's ID: Continue with abx per ID ( On Vanco PO, IV Flagyl) monitor for signs of infections ( Fever, WBC) Vancomycin, Cefepime, Micafungin sputum cx & BC from 01/05: No growth F/U blood culture 01/12 CT abdomen/pelvis-large bilateral pleural effusions, abdominal ascites , bowel edema, generalized anasarca Heme: Monitor CBC, on Epogen with HD Endo: now off pressors. will transition to slow taper of prednisone. he appears to go into acute adrenal insufficiency with rapid taper. continue lantus to 30units qHS, high dose q4h SSI. GI prophylaxis- on Protonix 40mg daily DVT prophylaxis- SCDs, heparin drip Lines: Right IJ CVP placed 01/07 Dispo: remain in the ICU. Problem Qualifiers (1) Chronic kidney disease (CKD): Qualified Code: N18.5 - Chronic kidney disease (CKD), stage 5 Juancarlos Driscoll MD Jan 15, 2017 12:02 exclusive of procedures, and includes, but is not limited to, evaluation of the patient, review of the medical record, discussions with family, consultants, nursing staff, or respiratory therapy, and documentation in the medical record. Problem Qualifiers (1) Chronic kidney disease (CKD): Qualified Code: N18.5 - Chronic kidney disease (CKD), stage 5 Juancarlos Driscoll MD Jan 15, 2017 12:02
[2017-01-15] MEDS: DEXTROSE 10% INJ 1,000 ML IV SCH (12:14)
[2017-01-15] MEDS: HEPARIN SODIUM - IV 10,000 UNITS/10 ML VIAL PRN (12:42)
[2017-01-15] MEDS: SODIUM CHLOR 0.9% 1000 ML INJ 1,000 ML IV PRN (12:42)
[2017-01-15] MEDS: EPOETIN ALFA 10,000 UNITS/ML VIAL IV PRN (12:43)
[2017-01-15] MEDS: GENTAMICIN SULFATE (DIALYSIS USE ONLY) 20 MG/2 ML VIAL IV PRN (12:43)
[2017-01-15 12:44] LABS: APTT (PATIENT) 46.2 SEC (24.3-30.1)
[2017-01-15] MEDS: ALBUMIN HUMAN 25% 25 GM/100 ML BAGP IV PRN (13:20)
[2017-01-15] MEDS: CEFEPIME INJ 1,000 MG in SODIUM CHLORIDE 0.9% INJ 100 ML IV SCH (13:52)
[2017-01-15] MEDS: ERTAPENEM INJ 500 MG in SODIUM CHLORIDE 0.9% INJ 100 ML IV SCH (17:30)
[2017-01-15] MEDS ORDERED: MORPHINE SULFATE 8 MG/ML INJ IV PUSH ONE (19:00)
[2017-01-15] MEDS ORDERED: LORazepam 2 MG/ML VIAL IV PUSH ONE (19:00)
[2017-01-15] MEDS: ATORVASTATIN 80 MG TAB PO SCH (21:00)
[2017-01-15] MEDS: INSULIN DETEMIR 100 UNITS/ML VIAL SQ SCH (21:00)
--- NOTE | 2017-01-15 22:06 | HHI.IDPN ---
Subjective Subjective Remarks Pt seen earlier today around [address] Marmolejo and RN Pt is off pressors tolearting CPAP scant secrteions fully awake afgebrile Antibiotics vanco po flagyl iv ertapenem fluconazol Lines Line sites with no e.o infection Past Medical History ESRD/HD Allergies: Coded Allergies: Betadine (Verified Allergy, Severe, Rash, 01/05/17) *MDRO Multi-Drug Resistant Organism (Verified Adverse Reaction, Unknown, ) Carlson resistant K. pneumoniae (urine-08/06/16) Objective . Vital Signs Date Time Temp Pulse Resp B/P Pulse Ox O2 Delivery O2 Flow Rate FiO2 01/15/17 20:00 140 01/15/17 20:00 140 01/15/17 18:30 100 100 01/15/17 18:07 92 Nasal Cannula 6.00 01/15/17 18:00 102 01/15/17 18:00 92 Nasal Cannula 6 01/15/17 16:21 96 45 01/15/17 16:00 98.7 92 23 147/67 97 133/63 01/15/17 16:00 92 01/15/17 16:00 92 133/63 147/67 01/15/17 16:00 45 01/15/17 14:00 91 01/15/17 13:23 93 45 01/15/17 12:00 86 01/15/17 12:00 45 01/15/17 12:00 98.0 86 23 163/72 92 134/54 01/15/17 12:00 86 134/54 163/72 01/15/17 10:00 86 01/15/17 08:55 98 60 01/15/17 08:47 90 45 01/15/17 08:47 45 01/15/17 08:00 70 146/64 154/73 01/15/17 08:00 98.2 70 20 154/73 94 146/64 01/15/17 08:00 45 01/15/17 08:00 70 01/15/17 06:00 73 01/15/17 04:21 93 45 01/15/17 04:00 98.0 60 20 121/63 99 118/54 01/15/17 04:00 45 01/15/17 04:00 65 118/54 121/63 01/15/17 04:00 60 01/15/17 02:00 60 01/15/17 01:06 97 45 01/15/17 00:57 98 45 01/15/17 00:00 97.8 62 20 108/56 98 98/63 01/15/17 00:00 61 01/15/17 00:00 65 98/48 108/56 01/15/17 00:00 45 01/14/17 01/14/17 01/15/17 15:00 23:00 07:00 Intake Total 500 ml 902 ml 468 ml Output Total 205 ml 300 ml 400 ml Balance 295 ml 602 ml 68 ml Intake Oral 0 ml 0 ml 0 ml IV Total 400 ml 642 ml 273 ml Tube Feeding 200 ml 155 ml Other 100 ml 60 ml 40 ml Output Urine Total 5 ml 0 ml 0 ml Stool Total 200 ml 300 ml 400 ml Gastric Drainage Total 0 ml 0 ml . Laboratory Tests Test 01/14/17 01/15/17 04:55 04:20 White Blood Count 14.2 TH/MM3 17.2 TH/MM3 Red Blood Count 3.04 MIL/MM3 3.18 MIL/MM3 Hemoglobin 9.0 GM/DL 9.1 GM/DL Hematocrit 27.3 % 28.8 % Mean Corpuscular Volume 90.0 FL 90.8 FL Mean Corpuscular Hemoglobin 29.5 PG 28.6 PG Mean Corpuscular Hemoglobin 32.7 % 31.5 % Concent Red Cell Distribution Width 18.9 % 19.5 % Platelet Count 194 TH/MM3 273 TH/MM3 Mean Platelet Volume 10.2 FL 9.9 FL Laboratory Tests Test 01/14/17 01/15/17 04:55 04:20 Sodium Level 132 MEQ/L 130 MEQ/L Potassium Level 3.8 MEQ/L 3.9 MEQ/L Chloride Level 95 MEQ/L 95 MEQ/L Carbon Dioxide Level 25.1 MEQ/L 21.4 MEQ/L Anion Gap 12 MEQ/L 14 MEQ/L Blood Urea Nitrogen 54 MG/DL 56 MG/DL Creatinine 4.27 MG/DL 4.63 MG/DL Estimat Glomerular Filtration 14 ML/MIN 12 ML/MIN Rate Random Glucose 162 MG/DL 141 MG/DL Calcium Level 7.6 MG/DL 7.7 MG/DL Magnesium Level 1.9 MG/DL Microbiology Date/Time Procedure Status Source Growth 01/13/17 16:20 Gram Stain - Final Complete Sputum Endotracheal 01/13/17 16:20 Sputum Culture - Final Complete Klebsiella Pneumoniae Esbl Pos Enterobacter Cloacae 01/13/17 16:20 Urine Culture - Final Complete Urine Catheterized Urine Krystal Albicans 01/13/17 17:25 Aerobic Blood Culture - Preliminary Resulted Blood Peripheral NO GROWTH IN 2 DAYS 01/13/17 17:25 Anaerobic Blood Culture - Preliminary Resulted Blood Peripheral NO GROWTH IN 2 DAYS 01/13/17 17:33 Aerobic Blood Culture - Preliminary Resulted Blood Peripheral NO GROWTH IN 2 DAYS 01/13/17 17:33 Anaerobic Blood Culture - Preliminary Resulted Blood Peripheral NO GROWTH IN 2 DAYS Imaging Last Impressions Chest X-Ray 01/13/17 0000 Signed Impressions: Service Date/Time: December 03:22 - CONCLUSION: 1. Basilar airspace disease and pleural effusions, slightly increased on the right since January 12. 2. Endotracheal tube tip at geraldo directed towards right mainstem bronchus. This should be withdrawn about 3 cm. Remaining support apparatus unchanged. Alfredo Worrell MD Abdomen X-Ray 01/13/17 0000 Signed Impressions: Service Date/Time: December 03:25 - CONCLUSION: 1. No acute findings. NG tip in stomach. Alfredo Worrell MD Chest CT 01/11/17 0000 Signed Impressions: Service Date/Time: Wednesday, January 11, 2017 14:44 - CONCLUSION: 1. Worsening bilateral pleural effusions of the common atelectatic changes. These are now moderate in size. 2. Patchy, reticular-nodular airspace disease anteriorly in both upper lobes as well as portions of the right middle lobe and left lingula. Findings are concerning for possible pneumonic process. 3. Developing upper abdominal ascites. Vinod Burrows MD Abdomen/Pelvis CT 01/11/17 0000 Signed Impressions: Service Date/Time: Wednesday, January 11, 2017 14:40 - CONCLUSION: 1. Interval worsening in the radiographic appearance of the abdomen and pelvis. Enlarging bilateral pleural effusions which are now moderate in size, developing abdominal ascites, stranding in the mesenteric leaves and generalized anasarca. There is some suggestion of generalized bowel edema as well. Findings are nonspecific and can be related to generalized volume overload, hepatic insufficiency or sepsis. 2. Patchy airspace disease in the right middle lobe and left lingula. This could represent pneumonic infiltrates these have progressed from the exam 6 days earlier. 3. Size discrepancy in the kidneys with the right larger than the left. This represents some vascular compromise to the left kidney. Vinod Burrows MD Physical Exam CONSTITUTIONAL/GENERAL: awake and alert TUBES/LINES/DRAINS: Permacath in place R chest w/o infc R IJ in place TLC wo e/o infx SKIN: No jaundice, rashes, or lesions. Skin temperature appropriate. Not diaphoretic. HEAD: Atraumatic. Normocephalic. EYES: Pupils equal and round and reactive. Extraocular motions intact. No scleral icterus. No injection or drainage. Fundi not examined. ENT: Orally intubated CARDIOVASCULAR: Regular rate and rhythm without murmurs, gallops, or rubs. No JVD. Peripheral pulses symmetric. Perfused extremeties, refill brisk RESPIRATORY/CHEST: Symmetric, unlabored respirations. Rhonchi to auscultation. Breath sounds equal bilaterally. No wheezes, rales, or rhonchi. GASTROINTESTINAL: Abdomen is soft, not tender (grimacing to palpation), moderatrely distended. Bowel sounds present. high pitched dignichield in place with liquid yellow stool GENITOURINARY: Without palpable bladder distension. MUSCULOSKELETAL: Extremities without clubbing, cyanosis, resolving edema. No mottling no cyanosis B/l dressing s in place NEUROLOGICAL: sedated, lethargic PSYCHIATRIC: unable to assess Assessment & Plan Remarks Recurrent C.diff colitis hypervirulent strain - findings on CT likely reflect distal colitis -3rd episode Sepsis , likely 2/2 C.diff Multiple med problems ESRD Acute VDRF -growing ESBL + Kleb pneumo and KPC Enterbacter - BNP high in NSTEMI settings - likely fluid overload with ? PNA vs colonisation HD cath in place leukocytosis, bandemia New issue - Acute [place] Critically ill Unstable New high grade fever : resolved w empiric abx Candiduria - doubt clin significance Recs: - cont po vanocmycin - anticipate 6 weeks of po vanco since its appear to be 3rd documented episode - cont IV flagyl - cont ertapenem for now and stop tomorrow if cont to impove then monitor off systemic abx dc fluconazole in 1-2 days as well will dc if BC negative and PNA not suspected - if PNA suspected a short course of abx 5-7 days will be tried - fu blood clx untill final - Aida Garcia MD Jan 15, 2017 22:06
[2017-01-16] MEDS ORDERED: predniSONE 5 MG/5 ML CUP PO SCH (09:00)
--- NOTE | 2017-01-17 11:25 | EKG ---
Date Performed: 01/15/2017 Time Performed: 18:25:30 PTAGE: 77 years EKG: Probable atrial fibrillation with rapid ventricular response. Right bundle branch block Pos sible anteroseptal infarct - age undetermined Lateral T wave changes may be due to myocardial ischemi a Abnormal ECG PREVIOUS TRACING : 01/11/2017 10.08 DOCTOR: Dwight Hogue Interpretating Date/Time 01/17/2017 11:23:16
--- NOTE | 2017-02-12 21:48 | HHI.DS ---
Discharge Summary Admission Date Jan 05, 2017 at 21:13 Discharge Date: Jan 15, 2017 Admitting Diagnosis Sepsis (Colitis, R Lung PNA), ESR, Diarrhea (1) Chronic respiratory failure with hypoxia and hypercapnia (2) Sepsis (3) Recurrent Clostridium difficile diarrhea (4) Diverticulitis (5) Diabetes 1.5, managed as type 2 (6) History of CVA (cerebrovascular accident) (7) PVD (peripheral vascular disease) (8) Hypertension (9) Hyperlipidemia (10) Chronic kidney disease (CKD) (11) Congestive heart failure (12) COPD (chronic obstructive pulmonary disease) Imaging Last Impressions Chest X-Ray 01/13/17 Signed Impressions: Service Date/Time: December 03:22 - CONCLUSION: 1. Basilar airspace disease and pleural effusions, slightly increased on the right since January 12. 2. Endotracheal tube tip at geraldo directed towards right mainstem bronchus. This should be withdrawn about 3 cm. Remaining support apparatus unchanged. Alfredo Worrell MD Abdomen X-Ray 01/13/17 0000 Signed Impressions: Service Date/Time: December 03:25 - CONCLUSION: 1. No acute findings. NG tip in stomach. Alfredo Worrell MD Chest CT 01/11/17 0000 Signed Impressions: Service Date/Time: Wednesday, January 11, 2017 14:44 - CONCLUSION: 1. Worsening bilateral pleural effusions of the common atelectatic changes. These are now moderate in size. 2. Patchy, reticular-nodular airspace disease anteriorly in both upper lobes as well as portions of the right middle lobe and left lingula. Findings are concerning for possible pneumonic process. 3. Developing upper abdominal ascites. Vinod Burrows MD Abdomen/Pelvis CT 01/11/17 0000 Signed Impressions: Service Date/Time: Wednesday, January 11, 2017 14:40 - CONCLUSION: 1. Interval worsening in the radiographic appearance of the abdomen and pelvis. Enlarging bilateral pleural effusions which are now moderate in size, developing abdominal ascites, stranding in the mesenteric leaves and generalized anasarca. There is some suggestion of generalized bowel edema as well. Findings are nonspecific and can be related to generalized volume overload, hepatic insufficiency or sepsis. 2. Patchy airspace disease in the right middle lobe and left lingula. This could represent pneumonic infiltrates these have progressed from the exam 6 days earlier. 3. Size discrepancy in the kidneys with the right larger than the left. This represents some vascular compromise to the left kidney. Vinod Burrows MD Hospital Course This is a is a 76 year old male, PMH of DM, HTN, hyperlipidemia, obesity, cataracts, arthritis, peripheral arterial disease, neurogenic bladder, s/p transurethral prostatectomy, COPD, obstructive sleep apnea, and osteoporosis. Patient well known from frequent hospitalization. Patient problems began on when he was admitted for sepsis, perforated duodenal ulcer with percutaneous drain, and cellulitis. Was diagnosed with an intra-abdominal abscess and had drain placed in IR. Subsequently had G-tube and J-tube inserted which were later removed. At one point had a tracheostomy which was eventually removed. Developed ESRD was on hemodialysis. After that, he was discharged to [facility] and returned to the hospital with new onset stroke. He was then readmitted from rehabilitation on 10/10/2016 for respiratory failure and mucous plug. He was eventually discharged and was no longer hemodialysis. Most recently, he was admitted from 12/03 to 12/15 for respiratory failure requiring mechanical ventilation, recurrent cdiff, sepsis, PNA. During that time, he went back in acute renal failure and is now back on dialysis Tuesday to and Tuesday. Patient was discharged to [facility] for respiratory rehabilitation and was discharged last Tuesday. According to the patient's , he had been doing relatively well. Yesterday he started to complain of abdominal cramping, he pointed to the left lower abdomen. Information was provided by the patient's as the patient was somewhat lethargic. endorsed that the pain was crampy and came in waves, no nausea , no vomiting. He did have an episode of loose stool in the morning. There was no prior history of diverticulosis. The became concerned as this was the type of pain he had when he had the perforated duodenal ulcer. She denied any fever, no chills. endorsed that he had a fistula placed by Dr. Cheryl leon [facility] 2 weeks prior. He was checked for C. difficile prior to discharge at [facility] and he tested negative. Patient was evaluated in the emergency room, he was noted with significant leukocytosis, WBC 17.5, hemoglobin 9.8, hematocrit 31.6. BMP was remarkable for chronic kidney disease. Stools positive for cdiff , Epid 027. CT of the abdomen shows small bilateral pleural effusions, nodular infiltrates in right middle lobe most likely inflammatory and pneumonia. Diverticula throughout the colon with an area of bowel wall thickening and narrowing of sigmoid colon may be due to spasm, diverticulitis or underlying mass. Patient was started on empiric antibiotics, cultures were obtained. Patient was admitted for further evaluation and treatment. (1) Sepsis (2) Recurrent Clostridium difficile diarrhea (3) Diverticulitis (4) Diabetes 1.5, managed as type 2 (5) History of CVA (cerebrovascular accident) (6) PVD (peripheral vascular disease) (7) Hypertension (8) Hyperlipidemia (9) Chronic kidney disease (CKD) (10) Congestive heart failure (11) COPD (chronic obstructive pulmonary disease) (12) shock hypovolemic/septic During the course of the hospitalization, the following took place 76-year-old male with recent extensive hospitalizations for perforated duodenal ulcer, sepsis, respiratory failure with tracheostomy, CVA, acute renal injury that led to CKD requiring hemodialysis. Patient recently discharged from [facility] rehabilitation for respiratory failure and inability to extubate, has been treated for C. difficile colitis. Now presents with recurrent C. difficile colitis, possible diverticulitis and also recurrent pneumonia. Patient's hospitalization was complicated as he went into sepsis, which shock and respiratory failure Patient require transfer to ICU where he was intubated He was continued on antibiotics and these were managed by infectious disease Urine culture showed Krystal and a sputum culture showing gram-negative rods GI was also consulted, further imaging studies were order with results as noted above. Patient require IV fluid resuscitation and vasopressor support. Patient was noted with adrenal insufficiency. Required Solu-Cortef. During hospitalization, patient was noted with increased troponin, was diagnosed with, non-ST elevation CA -Cardiology input appreciated. Patient was treated medically. Unable to use beta blockers due to hypotension. Put on heparin Chronic kidney disease/ESRD, on hemodialysis Tuesday and Tuesday. Appreciate consultation by nephrology for hemodialysis management. Diabetes type 2 Accu-Cheks before meals and at bedtime with insulin therapy as needed History of recent CVA Continued with aspirin PVD Continued home medications Hypertension Home medications on hold because of hypotension. Pressors on as-needed basis Hyperlipidemia Continued with statins History peripheral vascular disease, had vascular surgery at [facility] last year. Has chronic wounds to both heels. Consulted wound care nurse for evaluation Patient's condition remained guarded Was difficult to wean off pressors On 01/15, he was doing well with CPAP trials and the plan was to extubate. He was off pressor. Palliative care was also consulted to assist patient's with decision- making and clarify goals of care as pt.'s condition did not seem to improve and he had multiple admissions with complications. Code statues was changed to DNR Unfortunately, patient . Pt Condition on Discharge: Deteriorating Stephy Barajas. [facility] Feb 12, 2017 21:48
== END 2017-01-15 19:58 | disposition expired | DRG 870 ==
LOC: NEPE 16:33 → NEDA 21:13 → NEDH 01-06 01:33 → N05A 01-06 17:24 → HIME 01-06 23:35
PROVIDERS: ADMIT Specialist; ATTEND Specialist
PROC: 5A1D60Z (ICD-10-PCS; principal; 2017-01-06)
PROC: 02HV33Z Insertion of Infusion Device into Superior Vena Cava, Percutaneous Approach (ICD-10-PCS; 2017-01-07)
PROC: 5A1955Z Respiratory Ventilation, Greater than 96 Consecutive Hours (ICD-10-PCS; 2017-01-08)
PROC: 0BH17EZ Insertion of Endotracheal Airway into Trachea, Via Natural or Artificial Opening (ICD-10-PCS; 2017-01-08)
DX: A41.9 Sepsis, unspecified organism (principal); R57.1 Hypovolemic shock; I21.4 Non-ST elevation (NSTEMI) myocardial infarction; J96.01 Acute respiratory failure with hypoxia; I13.2 Hypertensive heart and chronic kidney disease with heart failure and with stage 5 chronic kidney disease, or end stage renal disease; N18.6 End stage renal disease; J18.9 Pneumonia, unspecified organism; I42.9 Cardiomyopathy, unspecified; A04.7 Enterocolitis due to Clostridium difficile; R65.21 Severe sepsis with septic shock; K57.32 Diverticulitis of large intestine without perforation or abscess without bleeding; J44.0 Chronic obstructive pulmonary disease with (acute) lower respiratory infection; B37.49 Other urogenital candidiasis; E87.1 Hypo-osmolality and hyponatremia; E11.22 Type 2 diabetes mellitus with diabetic chronic kidney disease; I95.3 Hypotension of hemodialysis; I50.9 Heart failure, unspecified; Z99.2 Dependence on renal dialysis; G47.33 Obstructive sleep apnea (adult) (pediatric); E78.5 Hyperlipidemia, unspecified; I73.9 Peripheral vascular disease, unspecified; D63.1 Anemia in chronic kidney disease; E83.51 Hypocalcemia; I25.10 Atherosclerotic heart disease of native coronary artery without angina pectoris; M19.90 Unspecified osteoarthritis, unspecified site; D69.6 Thrombocytopenia, unspecified; B96.1 Klebsiella pneumoniae [K. pneumoniae] as the cause of diseases classified elsewhere; Z16.12 Extended spectrum beta lactamase (ESBL) resistance; M81.0 Age-related osteoporosis without current pathological fracture; B96.89 Other specified bacterial agents as the cause of diseases classified elsewhere; N31.9 Neuromuscular dysfunction of bladder, unspecified; Y95 Nosocomial condition; F41.9 Anxiety disorder, unspecified; E66.9 Obesity, unspecified; Z68.34 Body mass index [BMI] 34.0-34.9, adult; Z87.891 Personal history of nicotine dependence; Z86.73 Personal history of transient ischemic attack (TIA), and cerebral infarction without residual deficits; Z79.4 Long term (current) use of insulin
CPT/HCPCS: 31500; 36556; 36600; 36620; 71010; 71250; 74000; 74176; 76937; 80048; 80053; 80076; 80202; 81001; 82272; 82533; 82550; 82805; 82948; 83605; 83690; 83735; 83880; 84155; 84484; 85007; 85025; 85027; 85610; 85730; 87040; 87070; 87077; 87086; 87102; 87186; 87205; 87206; 87493; 87641; 90935; 93005; 93306; 94002; 94003; 94640; 94664; 96374; 96375; C9113; J0131; J0282; J0692; J1335; J1580; J1644; J1720; J1815; J1817; J2060; J2150; J2248; J2270; J2370; J2543; J3010; J3370; J7030; J7040; J7050; J7060; P9045; P9047; Q4081